=== PATIENT | male | born 1940 | race Two or more races ===

== ENCOUNTER → 2021-06-04 | Outpatient (CLI) | payer MEDICARE ==
--- NOTE | 2021-06-04 15:02 | CT ---
EXAMINATION TYPE: CT abdomen pelvis wo/w con DATE OF EXAM: 06/04/2021 COMPARISON: None HISTORY: Calculus of kidney, renal cyst CT DLP: 2646 mGycm Automated exposure control for dose reduction was used. CONTRAST: CT scan of the abdomen pelvis is performed without and with IV Contrast, patient injected with 100 ml mL of Isovue 300. FINDINGS- LUNG BASES- No significant abnormality is appreciated. LIVER/GB- No gross abnormality is appreciated. PANCREAS- No gross abnormality is seen. SPLEEN- No gross abnormality is seen. ADRENALS- No gross abnormality is seen. KIDNEYS/BLADDER-no hydronephrosis. There are 4 calcifications involving the left kidney the largest measuring 1 cm. Includes a renal pel vis calcification. There is a punctate 1 to 2 mm right mid pole renal calculus. There are numerous bladder calculi the largest measuring 1 cm. There are multiple bilateral low-density renal lesions some of which represent cortical cysts. Additi onal parapelvic renal cysts are noted. All are compatible with Bosniak classification benign simple c ysts with a 15 Hounsfield units or less measurement.. BOWEL-bowel gas pattern nonspecific and nonobstructive. Changes of diverticulosis noted. LYMPH NODES- No greater than 1cm abdominal or pelvic lymph nodes areappreciated. OSSEOUS STRUCTURES-hypertrophic and degenerative changes of the spine. Multilevel foraminal encroachm ent is suspected multilevel canal stenosis. OTHER- there is a infrarenal abdominal aortic aneurysm extending to the aortic bifurcation measuring 6 x 6 cm. No free fluid. Prostate is enlarged. Bilateral fat-containing inguinal hernia. IMPRESSION- 1. Bilateral renal lesions are most typical of Bosniak classification 1 simple renal cysts. Bilateral nonobstructing nephrolithiasis as discussed above. 2. Large infrarenal abdominal aortic aneurysm measuring 6 x 6 cm with extension to the aortic bifurca tion. Report called to referring clinician 06/04/2021 2:58 PM. 3. Diverticulosis with no CT evidence of diverticulitis. 4. Large bladder calculi. 5. Prostate hypertrophy.
== END | disposition home or self-care (01) ==
LOC: RADCTMAIN 12:26
PROVIDERS: ATTEND Family Medicine
DX: N20.0 Calculus of kidney (principal); N21.0 Calculus in bladder; N40.0 Benign prostatic hyperplasia without lower urinary tract symptoms; N28.1 Cyst of kidney, acquired; I71.4 Abdominal aortic aneurysm, without rupture; K57.30 Diverticulosis of large intestine without perforation or abscess without bleeding
CPT/HCPCS: 82565; 84520; 74178; 36415; Q9967

== ENCOUNTER → 2021-07-16 | Outpatient (CLI) | payer MEDICARE ==
--- NOTE | 2021-07-16 14:26 | CT ---
EXAMINATION TYPE: CT abdomen pelvis wo con DATE OF EXAM: 07/16/2021 HISTORY: AAA CT DLP: 856 mGycm. Automated Exposure Control for Dose Reduction was Utilized. TECHNIQUE: CT scan of the abdomen and pelvis is performed without oral or IV contrast. IV contrast c annot be given due to diminished renal function significant change from recent biopsy. COMPARISON: CT abdomen and pelvis June 04, 2021 FINDINGS: Within the limitations of a non-contrast study, the following observations are made. LUNG BASES: No significant abnormality is appreciated. LIVER/GB: No significant abnormality is appreciated. PANCREAS: No significant abnormality is seen. SPLEEN: No significant abnormality is seen. ADRENALS: No significant abnormality is seen. KIDNEYS: Persistent roughly 3 adjacent lower pole left renal calculi measuring up to 9 mm in size on axial image 39. Moderate left-sided hydronephrosis on current study due to obstructing 9 mm calculus proximal left ureter axial image 44. Prominence of the surrounding retroperitoneal fat redemonstrated . Several dependent intraluminal calculi in the bladder are again seen. Current study right kidney shows 3 mm calcification suspected vascular in etiology axial image 35 unc hanged in appearance from prior. There is a 3 mm nonobstructing calculus midpole level axial image 36 anteriorly that is stable. Stable central 5.1 cm thin-walled cyst right kidney. No hydronephrosis or obstructing right ureteral calculus currently. BOWEL: Suboptimal evaluation of bowel without enteric contrast. No suspicious small or large bowel di latation prominent diverticula on the left and sigmoid colon with mild left-sided pericolonic fat str anding. No free air. No well-formed fluid collection or drainable abscess. GENITAL ORGANS: Mildly enlarged prostate consistent with BPH redemonstrated. LYMPH NODES: No greater than 1cm abdominal or pelvic lymph nodes are appreciated. OSSEOUS STRUCTURES: Moderate to severe axial joint space loss in both hips. Grade 1 anterolisthesis L 4 on L5. Moderate disc space narrowing L5-S1 level. OTHER: Mild calcified plaque of the abdominal aorta with aneurysm. Stable 6.0 x 5.8 cm aneurysm axial image 41 from prior study over roughly 8 to 9 cm segment image 46. No extension into the iliac arter ies bilaterally. Moderate plaque extension along the common iliac arteries bilaterally. Small to mode rate-sized bilateral fat containing inguinal hernias. IMPRESSION: 1. Stable 6.0 cm distal AAA. 2. Diverticulosis left and sigmoid colon with new mild uncomplicated acute diverticulitis left lower quadrant. 3. Bilateral nephrolithiasis and bladder calculi redemonstrated. New 9mm calculus proximal left uret er causing moderate left-sided hydronephrosis. This may be accounting for the acute renal failure. Ad vise urology referral. Ordering physician does not utilize veriphy or perfectserve to send report. medicine technologist to inform ordering physician of results shortly after dictation completed.
== END | disposition home or self-care (01) ==
LOC: RADCTMAIN 11:42
PROVIDERS: ATTEND Surgery
DX: I71.4 Abdominal aortic aneurysm, without rupture (principal); K57.30 Diverticulosis of large intestine without perforation or abscess without bleeding; N20.0 Calculus of kidney; N21.0 Calculus in bladder; N13.30 Unspecified hydronephrosis
CPT/HCPCS: 36415; 74176; 82565; 84520

== ENCOUNTER 2021-07-17 16:19 | Inpatient (IN) | payer MEDICARE ==
[2021-07-17] MEDS ORDERED: MORPHINE SULFATE 2 MG/ML SYRINGE IVP STA (16:42)
[2021-07-17] MEDS ORDERED: hydrALAZINE HCL 20 MG/ML 1 ML VIAL IVP STA (16:53)
[2021-07-17] MEDS ORDERED: MORPHINE SULFATE 4 MG/ML SYRINGE IVP STA (16:53)
[2021-07-17 17:20] LABS: Calcium 9.2 mg/dL (8.4-10.2); Potassium 4.1 mmol/L (3.5-5.1); Total Bilirubin 0.7 mg/dL (0.2-1.3)
[2021-07-17 17:39] LABS: Amorphous Sediment,Urine Occasional /hpf; Appearance,Urine Clear (Clear); Bilirubin,Urine Negative (Negative); Blood,Urine Moderate (Negative); Color,Urine Yellow; Glucose,Urine (UA) Negative (Negative); Ketones,Urine 1+ (Negative); Leukocyte Esterase,Urine Trace (Negative); Mucus,Urine Rare /hpf; Nitrite,Urine Negative (Negative); PH, Urine 5.5 (5.0-8.0); Protein,Urine 1+ (Negative); RBC,Urine 27 /hpf (0-5); Specific Gravity,Urine 1.018 (1.001-1.035); Urobilinogen,Urine <2.0 mg/dL (<2.0); WBC,Urine 7 /hpf (0-5)
[2021-07-17] MEDS ORDERED: SODIUM CHLORIDE 0.9% 500 ML 500 ML IV STA (17:45)
[2021-07-17] MEDS ORDERED: cefTRIAXone IN SWFI 1,000 MG/10 ML SYRINGE IVP STA (17:59)
--- NOTE | 2021-07-17 18:03 | US ---
EXAMINATION TYPE: US renals and bladder DATE OF EXAM: 07/17/2021 COMPARISON: NONE CLINICAL HISTORY: evaluate for hydronephrosis. known nephrolithiasis. Evaluate for hydronephrosis, kn own nephrolithiasis. EXAM MEASUREMENTS: Right Kidney: 13.4 x 6.9 x 5.9 cm Left Kidney: 13.5 x 6.3 x 6.3 cm Right Kidney: Appears enlarged. Two anechoic areas seen. Larger area measures 4.1 x 5.1 x 6.2 cm. A dditionally, minimal anechoic dilated collecting system appearance throughout kidney. Left Kidney: Appears enlarged. Anechoic area seen measuring 2.0 x 2.0 x 2.8 cm. Additionally, there a ppears to be anechoic hydronephrosis appearance medially. Hyperechoic focus with posterior shadowing and twinkle artifact seen: 0.7 x 0.5 x 0.5 cm. Bladder: Hyperechoic foci seen within the bladder, largest cluster measures 2.0 x 2.3 x 1.3 cm. Bilateral Jets seen: Right jet seen. IMPRESSION: Bilateral renal enlargement. Multiple renal cysts. There is left-sided hydronephrosis that is not reanna nged compared to CT scan yesterday. There is right-sided ureteral jet demonstrated. Left side uretera l jet not demonstrated. There are echogenic foci with shadowing in the bladder consistent with multip le bladder calculi.
[2021-07-17 18:12] LABS: Basophils % (A) 0 %; Eosinophils # (A) 0.1 k/uL (0-0.7); Eosinophils % (A) 1 %; HCT 41.6 % (39.0-53.0); HGB 13.6 gm/dL (13.0-17.5); Lymphocytes # (A) 1.1 k/uL (1.0-4.8); Lymphocytes % (A) 11 %; MCHC 32.7 g/dL (31.0-37.0); MCV 94.9 fL (80.0-100.0); Mean Platelet Volume 9.6; Monocytes # (A) 0.6 k/uL (0-1.0); Monocytes % (A) 6 %; Neutrophils # (A) 7.8 k/uL (1.3-7.7); Neutrophils % (A) 81 %; Platelet Count 166 k/uL (150-450); RBC 4.39 m/uL (4.30-5.90); WBC 9.7 k/uL (3.8-10.6)
[2021-07-17] MEDS ORDERED: NALOXONE 0.4 MG/ML 1 ML VIAL IV PRN (18:31)
--- NOTE | 2021-07-17 18:46 | ED ---
General Adult HPI - General Chief complaint: Recheck/Abnormal Lab/Rx Stated complaint: High BP Time Seen by Provider: 07/17/21 16:29 Source: patient, RN notes reviewed, old records reviewed Mode of arrival: wheelchair Limitations: no limitations - History of Present Illness Initial comments: I evaluated the patient when he was placed in a room. Patient is an 81-year-old male with past medical history remarkable for hypertension, known abdominal aortic aneurysm, diabetes, hypertension, DVT and HE presents emergency Department due to hypertension at home. He has been told in the past to come to the emergency department if he has acute hypertension. This is due to his history of AAA. He just received a CT yesterday to evaluate the AAA as well as to evaluate for kidney stones. He does have signs of hydronephrosis as well as AK eye with an elevated creatinine based on labs and imaging from yesterday. He also has a stable 6 cm AAA. He has 2 imaging studies in the last 2 months ago showed similar findings. He is seeing Dr. Whitmore for his AAA. He currently denies chest pain, shortness breath, headache, weakness, numbness. He is on m ultiple blood pressure medications and states he was compliant with all none. Is endorsing some left flank pain which she has been experiencing prior to being diagnosed with a nephrolithiasis. He states this is unchanged over the last week or so. Denies any dysuria, hematuria. Denies any fevers, chills, cough. He has no other acute complaints at this time. He presents for his acute hypertension and concern for his AAA. Patient also has flank pain from his known nephrolithiasis. - Related Data Home Medications Medication Instructions Recorded Confirmed Apixaban [Eliquis] 5 mg PO BID 07/17/21 07/17/21 Enalapril [Vasotec] 5 mg PO DAILY 07/17/21 07/17/21 Ergocalciferol [Vitamin D2 (1250 1,250 mcg PO DEL ROSARIO 07/17/21 07/17/21 Mcg = 21580 Iu)] Escitalopram [Lexapro] 20 mg PO DAILY 07/17/21 07/17/21 Finasteride [Proscar] 5 mg PO DAILY 07/17/21 07/17/21 Losartan Potassium 100 mg PO DAILY 07/17/21 07/17/21 Metoprolol Succinate [Toprol XL] 25 mg PO DAILY 07/17/21 07/17/21 Repaglinide [Prandin] 2 mg PO DAILY 07/17/21 07/17/21 Simvastatin [Zocor] 40 mg PO HS 07/17/21 07/17/21 Tamsulosin HCl [Flomax] 0.4 mg PO BID 07/17/21 07/17/21 amLODIPine [Norvasc] 5 mg PO DAILY 07/17/21 07/17/21 metFORMIN HCL 500 mg PO BID 07/17/21 07/17/21 traZODone HCL [Desyrel] 100 mg PO HS 07/17/21 07/17/21 Allergies Allergy/AdvReac Type Severity Reaction Status Date / Time No Known Allergies Allergy Verified 07/17/21 18:08 Review of Systems ROS Statement: Those systems with pertinent positive or pertinent negative responses have been documented in the HPI. Review of Systems: CONST: Denies fever EYES: Denies blurry vision ENT: Denies nasal congestion C/V: Denies Chest pain RESP: Denies shortness of breath GI: Endorses left-sided flank pain. : Denies dysuria SKIN: Denies rash. MSK: Denies joint pain. NEURO: Denies headache ROS Other: All systems not noted in ROS Statement are negative. Past Medical History Past Medical History: Diabetes Mellitus, Hyperlipidemia, Hypertension Additional Past Medical History / Comment(s): aneurysm History of Any Multi-Drug Resistant Organisms: None Reported Past Surgical History: No Surgical Hx Reported Past Psychological History: No Psychological Hx Reported Smoking Status: Never smoker Past Alcohol Use History: None Reported Past Drug Use History: None Reported General Exam - General Exam Comments Initial Comments: General: Appears in no acute distress. HEAD: Normal with no signs of head trauma. EYES: PERRLA, EOMI, conjunctiva normal, no discharge. ENT: Hearing grossly intact, normal oropharynx. RESPIRATORY: Clear breath sounds bilaterally. No wheezes, rales, or rhonchi. C/V: Regular rate and rhythm. S1 and S2 auscultated, no edema, peripheral pulses 2+ and intact throughout ABD: Abdomen is soft. It is chronically distended somewhat. Nontender. No CVA tenderness to percussion. No rebound tenderness. No guarding. No peritoneal signs. EXT: Normal range of motion, no obvious deformity SKIN: No rashes or lesions observed on exposed skin. NEURO: Alert and oriented x 4. Cranial nerves II-XII intact. No focal sensory or strength deficits. Limitations: no limitations Course Vital Signs 07/17/21 07/17/21 07/17/21 16:21 17:19 18:45 Temperature 98.3 F Pulse Rate 83 70 76 Respiratory 20 18 18 Rate Blood Pressure 177/89 152/87 153/78 O2 Sat by Pulse 94 L 92 L 92 L Oximetry Medical Decision Making - Medical Decision Making Based on the patient's presentation and physical exam, I do suspect that his f lank pain is secondary to his nephrolithiasis. I am concerned for his current well-controlled hypertension as systolics at home when the 200s. In triage they were apparently 180. We will obtain basic labs, as well as a urinalysis to evaluate for signs of hydronephrosis her UTI. Renal ultrasound will be obtained. I completed a bedside FAST exam to evaluate for free fluid which was negative. Images were unable to be obtained as the prior was not working. Patient will be administered morphine for pain control and then reevaluated if he requires any antihypertensive medications. Patient was in agreement this plan. I low suspicion that the patient's AAA is the cause of his current symptoms, its he has had elevated blood pressures through the day today and his abdominal pain in the left flank is unchanged over the last week and is a known history of nephrolithiasis with imaging yesterday. Imaging yesterday showed a 6 cm stable AAA. He has large kidney stones to 9 mm on the left side with signs of hydronephrosis. Creatinine was 1.7 at that time as well, with a normal baseline. Patient's labs were remarkable for an AK I with BUNs of 28 and creatinine of 1.77. This is likely secondary to his nephrolithiasis and is likely post renal in nature. Urinalysis is concerning for possible mild UTI with 7 wbc's present as well as trace leukocyte esterase. Blood is present likely secondary to the nephrolithiasis. Patient will be given an empiric dose of Rocephin at this time and will be reevaluated by urology tomorrow. Patient's ultrasound revealed hydro-nephrosis on the left with bilateral renal enlargement. There are multiple renal cysts. There is no left-sided ureteral jet. There is left-sided hydronephrosis.Patient's hypertension is improved following analgesia. S ystolics around 150s which is appropriate. I spoke with the patient regarding his findings. I would like to admit him for his HUMBERTO in for evaluation by urology. He was in agreement this plan. I did speak with his vascular surgeon Dr. Whitmore over the phone who states patient can follow-up with him in his premade office visit next week. Urology Dr. Thapa was consulted to evaluate the patient. Patient's PCP is Dr. Perera who is currently being covered by Dr. Oleary. I spoke with Dr. Oleary and he accepted the patient. Patient will be admitted on an inpatient basis for further monitoring. - Lab Data Result diagrams: 07/17/21 17:00 07/17/21 17:00 Lab Results 07/17/21 07/17/21 07/17/21 Range/Units 17:00 17:00 17:00 WBC 9.7 (3.8-10.6) k/uL RBC 4.39 (4.30-5.90) m/uL Hgb 13.6 (13.0-17.5) gm/dL Hct 41.6 (39.0-53.0) % MCV 94.9 (80.0-100.0) fL MCH 31.0 (25.0-35.0) pg MCHC 32.7 (31.0-37.0) g/dL RDW 14.0 (11.5-15.5) % Plt Count 166 (150-450) k/uL MPV 9.6 Neutrophils % 81 % Lymphocytes % 11 % Monocytes % 6 % Eosinophils % 1 % Basophils % 0 % Neutrophils # 7.8 H (1.3-7.7) k/uL Lymphocytes # 1.1 (1.0-4.8) k/uL Monocytes # 0.6 (0-1.0) k/uL Eosinophils # 0.1 (0-0.7) k/uL Basophils # 0.0 (0-0.2) k/uL Sodium 139 (137-145) mmol/L Potassium 4.1 (3.5-5.1) mmol/L Chloride 108 H (98-107) mmol/L Carbon Dioxide 21 L (22-30) mmol/L Anion Gap 10 mmol/L BUN 28 H (9-20) mg/dL Creatinine 1.77 H (0.66-1.25) mg/dL Est GFR (CKD-EPI)AfAm 41 (>60 ml/min/1.73 sqM) Est GFR (CKD-EPI)NonAf 35 (>60 ml/min/1.73 sqM) Glucose 134 H (74-99) mg/dL Calcium 9.2 (8.4-10.2) mg/dL Total Bilirubin 0.7 (0.2-1.3) mg/dL AST 20 (17-59) U/L ALT 14 (4-49) U/L Alkaline Phosphatase 64 (38-126) U/L Total Protein 7.0 (6.3-8.2) g/dL Albumin 4.0 (3.5-5.0) g/dL Urine Color Yellow Urine Appearance Clear (Clear) Urine pH 5.5 (5.0-8.0) Ur Specific [place] 1.018 (1.001-1.035) Urine Protein 1+ H (Negative) Urine Glucose (UA) Negative (Negative) Urine Ketones 1+ H (Negative) Urine Blood Moderate H (Negative) Urine Nitrite Negative (Negative) Urine Bilirubin Negative (Negative) Urine Urobilinogen <2.0 (<2.0) mg/dL Ur Leukocyte Esterase Trace H (Negative) Urine RBC 27 H (0-5) /hpf Urine WBC 7 H (0-5) /hpf Amorphous Sediment Occasional H (None) /hpf Urine Mucus Rare H (None) /hpf - EKG Data -: EKG Interpreted by Me EKG Comments: 12-lead Electrocardiogram Interpretation Note EKG was reviewed and interpreted by myself. 12-lead ECG performed at 1634 is interpreted by me as revealing normal sinus rhythm at a rate of 81 beats per minute. [place] is normal. TN interval is 152 ms, QRS duration is 82 ms, QTc is 448 ms.. There were no ST or T wave abnormalities to suggest myocardial ische tin or injury. R wave progression across the precordium was satisfactory. By my interpretation this EKG is non-diagnostic for acute ischemia. Disposition Clinical Impression: Nephrolithiasis, Hydronephrosis, History of abdominal aortic aneurysm (AAA), Hypertension Disposition: ADMITTED IP TO THIS [facility] Condition: Serious
[2021-07-17] MEDS ORDERED: ALPRAZolam 0.25 MG TAB PO STA (18:49)
[2021-07-17] MEDS ORDERED: TEMAZEPAM 15 MG CAP PO PRN (18:58)
[2021-07-17] MEDS ORDERED: hydrALAZINE HCL 20 MG/ML 1 ML VIAL IVP PRN (18:58)
[2021-07-17] MEDS ORDERED: ALPRAZolam 1 MG TAB PO SCH (19:00)
[2021-07-17] MEDS: MORPHINE SULFATE 4 MG/ML SYRINGE IV PRN (19:28)
--- NOTE | 2021-07-17 20:31 | HP ---
HISTORY AND PHYSICAL I am covering for Dr. Perera. DATE OF SERVICE: 07/17/2021. CHIEF COMPLAINT: High blood pressure as well as abdominal pain. HISTORY OF PRESENT ILLNESS: This 81-year-old gentleman with a past medical history of diabetes mellitus, hypertension, hyperlipidemia, history of aortic aneurysm, being followed by Dr. Perera and Dr. Kovacs in the outpatient setting, has an abdominal aorta aneurysm which was 6 in size. The patient apparently lost his recently and the patient is under tremendous stress; and the blood pressure is fluctuating. Yesterday his blood pressure was 213 systolic. The patient also complains of left flank pain and left-sided abdominal pain. The patient came to [facility] and was admitted for further evaluation and treatment. The blood pressure is elevated at this time. Pulse ox 92%. Renal ultrasound was also done which showed bilateral renal enlargement, multiple renal cysts, and left-sided hydronephrosis that is unchanged from the CT scan yesterday, and the right-sided ureteral junction was also noted. The patient was admitted for further evaluation and treatment. The CT scan of the abdomen and pelvis which was done yesterday, which was reviewed personally by me, showed a stable 6 distal abdominal aortic aneurysm, diverticulosis and bilateral nephrolithiasis. There is no history of any fever, rigor or chills at this time. PAST MEDICAL HISTORY: History of diabetes mellitus, type 2, hypertension, hyperlipidemia, history of aortic aneurysm 6 cm, stable. HOME MEDICATIONS: Trazodone, metformin, Norvasc, Flomax, Zocor, triamterene, Toprol-XL, Losartan, Proscar, Lexapro, vitamin D2, Vasotec, Eliquis. Doses are reviewed. ALLERGIES: NONE. FAMILY HISTORY: No history of heart disease or strokes in the family. SOCIAL HISTORY: As mentioned earlier. No history of smoking. No history of alcohol intake. REVIEW OF SYSTEMS: ENT: No diminished hearing. No diminished vision. CARDIOVASCULAR SYSTEM: No angina, palpitations. RESPIRATORY SYSTEM: No cough, hemoptysis. GI: As mentioned earlier. : No dysuria. NERVOUS SYSTEM: No numbness, weakness. ALLERGY/IMMUNOLOGY: No asthma or hay fever. MUSCULOSKELETAL: As mentioned earlier. HEMATOLOGY/ONCOLOGY: No history of anemia. ENDOCRINE: As mentioned earlier. CONSTITUTIONAL: As mentioned earlier. DERMATOLOGY: Negative. RHEUMATOLOGY: Negative. PSYCHIATRY: As mentioned earlier. PHYSICAL EXAMINATION: Patient alert and oriented x3. Pulse 76, blood pressure 153/78, respiration 18, temperature 98.3, pulse ox 92% on room air. HEENT: Conjunctivae normal. Oral mucosa moist. NECK: No jugular venous distention. CARDIOVASCULAR: S1, S2 muffled. RESPIRATION: Breath sounds diminished at the bases. No rhonchi. No crackles. ABDOMEN: Soft, obese. Mild diffuse discomfort. No guarding. No rigidity. No mass palpable. No tenderness. Bowel sounds present. LEGS: No edema. No swelling. NERVOUS SYSTEM: Higher functions as mentioned earlier. Moves all 4 limbs. No focal motor or sensory deficit. LYMPHATICS: No lymph node palpable in neck, axillae or groin. SKIN: No ulcer, rash, bleeding. JOINTS: No active deforming arthropathy. LABS: CBC within normal limits. Sodium 139, potassium 4.1. UA shows some RBCs. ASSESSMENT: 1. Accelerated hypertension. 2. Left-sided abdominal pain with possible urolithiasis and hydronephrosis. 3. Abdominal aortic aneurysm, distal, 6 , stable. 4. Diverticulosis on the most recent CT scan. 5. Diabetes mellitus, type 2. 6. Hypertension. 7. Hyperlipidemia. 8. Social stressors. 9. FULL CODE. RECOMMENDATIONS AND DISCUSSION: In this 81-year-old gentleman who presented with multiple complex medical issues, we will monitor the patient closely, resume the home medications. Otherwise, monitor blood pressure closely. P.r.n. medications. Urology evaluation. Otherwise, we will follow the patient closely. I would also recommend Xanax. Repeat labs in the morning. Further recommendations to follow. Discussed with the patient, who understands and agrees. MMODL / IJN: [id number] / CAMILA
[2021-07-17] MEDS: LOSARTAN 50 MG TAB PO SCH (21:27)
[2021-07-17] MEDS: traZODone HCL 100 MG TAB PO SCH (21:27)
[2021-07-17] MEDS: PANTOPRAZOLE 40 MG TABLET PO SCH (21:27)
[2021-07-17] MEDS: TAMSULOSIN 0.4 MG CAP.ER.24H PO SCH (21:27)
[2021-07-17] MEDS: metFORMIN 500 MG TAB PO SCH (21:27)
[2021-07-17] MEDS: APIXABAN 5 MG TAB PO SCH (21:28)
[2021-07-18] MEDS: ALPRAZolam 0.25 MG TAB PO SCH ×5 (00:42→20:32)
[2021-07-18] MEDS: ATORVASTATIN 20 MG TAB PO SCH ×2 (00:42→20:23)
[2021-07-18 05:58] LABS: Basophils % (A) 0 %; Eosinophils # (A) 0.1 k/uL (0-0.7); Eosinophils % (A) 2 %; HCT 36.8 % (39.0-53.0); HGB 12.5 gm/dL (13.0-17.5); Lymphocytes # (A) 0.9 k/uL (1.0-4.8); Lymphocytes % (A) 14 %; MCH 31.6 pg (25.0-35.0); MCHC 33.9 g/dL (31.0-37.0); MCV 93.1 fL (80.0-100.0); Mean Platelet Volume 8.4; Monocytes # (A) 0.4 k/uL (0-1.0); Monocytes % (A) 6 %; Neutrophils # (A) 4.9 k/uL (1.3-7.7); Neutrophils % (A) 75 %; Platelet Count 150 k/uL (150-450); RBC 3.95 m/uL (4.30-5.90); RDW 14.4 % (11.5-15.5); WBC 6.5 k/uL (3.8-10.6)
[2021-07-18 07:29] LABS: Glucose,Whole Blood 113 mg/dL (75-99)
[2021-07-18] MEDS: PANTOPRAZOLE 40 MG TABLET PO SCH (08:07)
[2021-07-18] MEDS: lisinopriL 10 MG TAB PO SCH (08:08)
[2021-07-18] MEDS: metFORMIN 500 MG TAB PO SCH ×2 (08:08→20:23)
[2021-07-18] MEDS: METOPROLOL SUCCINATE (ER) 25 MG TAB.ER.24H PO SCH (08:08)
[2021-07-18] MEDS: APIXABAN 5 MG TAB PO SCH ×2 (08:08→20:23)
[2021-07-18] MEDS: TAMSULOSIN 0.4 MG CAP.ER.24H PO SCH ×2 (08:08→20:23)
[2021-07-18] MEDS: amLODIPine 5 MG TAB PO SCH (08:08)
[2021-07-18] MEDS: LOSARTAN 50 MG TAB PO SCH (08:08)
[2021-07-18] MEDS: NON FORMULARY DRUG (Repaglinide [Prandin] 2 MG Tablet) PO SCH (08:09)
[2021-07-18] MEDS: ESCITALOPRAM 20 MG TAB PO SCH (08:55)
[2021-07-18] MEDS: FINASTERIDE 5 MG TAB PO SCH (08:55)
[2021-07-18 09:06] LABS: African American GFR (CKD) 39.7 (60.0-200.0); Anion Gap 10.1 mmol/L (10.00-18.00); BUN/Creat Ratio 13.78 Ratio (12.00-20.00); Blood Urea Nitrogen 24.8 mg/dL (9.0-27.0); Calcium 8.3 mg/dL (8.7-10.3); Carbon Dioxide 21.9 mmol/L (20.0-27.5); Non-African American GFR(CKD) 34.3 (60.0-200.0); Potassium 4.2 mmol/L (3.5-5.5)
--- NOTE | 2021-07-18 12:04 | P.GSCN ---
History of Present Illness Consult date: 07/18/21 Reason for Consult: Left ureteral and renal calculi. Requesting physician: Vanessa Oleary History of present illness: The patient is an 81-year-old white male with a history of hypertension, abdominal aortic aneurysm, diabetes mellitus, hypertension, and recurrent DVT. He has recently experienced left flank discomfort for the past [address] scan shows evidence of left hydronephrosis due to a 9 mm left proximal ureteral calculus. Additionally seen are four left renal calculi measuring up to 12 mm in maximal diameter. He is currently comfortable. The patient has a history of an elevated PSA level, presumably due to BPH. He states that he is currently taking finasteride and his PSA level has normalized as a result of this. He was previously followed by Dr. Pickard, and more recently by Dr. Hitchcock. Review of Systems - Constitutional Denies chills, Denies fever - Cardiovascular Denies chest pain - Respiratory Denies dyspnea - Gastrointestinal Denies nausea, Denies vomiting - Genitourinary Reports flank pain, Reports hematuria, Reports kidney stones Past Medical History Past Medical History: Diabetes Mellitus, Hyperlipidemia, Hypertension Additional Past Medical History / Comment(s): aneurysm History of Any Multi-Drug Resistant Organisms: None Reported Past Surgical History: No Surgical Hx Reported Past Anesthesia/Blood Transfusion Reactions: No Reported Reaction Past Psychological History: No Psychological Hx Reported Smoking Status: Never smoker Past Alcohol Use History: None Reported Past Drug Use History: None Reported Medications and Allergies Home Medications Medication Instructions Recorded Confirmed Type Apixaban [Eliquis] 5 mg PO BID 07/17/21 07/17/21 History Enalapril [Vasotec] 5 mg PO DAILY 07/17/21 07/17/21 History Ergocalciferol [Vitamin D2 (1250 1,250 mcg PO DEL ROSARIO 07/17/21 07/17/21 History Mcg = 30464 Iu)] Escitalopram [Lexapro] 20 mg PO DAILY 07/17/21 07/17/21 History Finasteride [Proscar] 5 mg PO DAILY 07/17/21 07/17/21 History Losartan Potassium 100 mg PO DAILY 07/17/21 07/17/21 History Metoprolol Succinate [Toprol XL] 25 mg PO DAILY 07/17/21 07/17/21 History Repaglinide [Prandin] 2 mg PO DAILY 07/17/21 07/17/21 History Simvastatin [Zocor] 40 mg PO HS 07/17/21 07/17/21 History Tamsulosin HCl [Flomax] 0.4 mg PO BID 07/17/21 07/17/21 History amLODIPine [Norvasc] 5 mg PO DAILY 07/17/21 07/17/21 History metFORMIN HCL 500 mg PO BID 07/17/21 07/17/21 History traZODone HCL [Desyrel] 100 mg PO HS 07/17/21 07/17/21 History Allergies Allergy/AdvReac Type Severity Reaction Status Date / Time No Known Allergies Allergy Verified 07/17/21 18:08 Surgical - Exam Vital Signs Temp Pulse Resp BP Pulse Ox 98.3 F 83 20 177/89 94 L 07/17/21 16:21 07/17/21 16:21 07/17/21 16:21 07/17/21 16:21 07/17/21 16:21 - General well developed, well nourished, no distress - Respiratory normal respiratory effort - Abdomen Abdomen: soft, non tender, no guarding, no rigid, no rebound - Genitourinary normal penis with no external lesions, testicles non-tender - Psychiatric oriented to time, oriented to person, oriented to place, speech is normal, memory intact Results - Labs 07/18/21 05:30 07/18/21 05:30 Abnormal Lab Results - Last 24 Hours (Table) 07/17/21 07/17/21 07/17/21 Range/Units 17:00 17:00 17:00 RBC (4.30-5.90) m/uL Hgb (13.0-17.5) gm/dL Hct (39.0-53.0) % Neutrophils # 7.8 H (1.3-7.7) k/uL Lymphocytes # (1.0-4.8) k/uL Chloride 108 H (98-107) mmol/L Carbon Dioxide 21 L (22-30) mmol/L BUN 28 H (9-20) mg/dL Creatinine 1.77 H (0.66-1.25) mg/dL Glucose 134 H (74-99) mg/dL POC Glucose (mg/dL) (75-99) mg/dL Urine Protein 1+ H (Negative) Urine Ketones 1+ H (Negative) Urine Blood Moderate H (Negative) Ur Leukocyte Esterase Trace H (Negative) Urine RBC 27 H (0-5) /hpf Urine WBC 7 H (0-5) /hpf Amorphous Sediment Occasional H (None) /hpf Urine Mucus Rare H (None) /hpf 07/18/21 07/18/21 Range/Units 05:30 07:06 RBC 3.95 L (4.30-5.90) m/uL Hgb 12.5 L (13.0-17.5) gm/dL Hct 36.8 L (39.0-53.0) % Neutrophils # (1.3-7.7) k/uL Lymphocytes # 0.9 L (1.0-4.8) k/uL Chloride (98-107) mmol/L Carbon Dioxide (22-30) mmol/L BUN (9-20) mg/dL Creatinine (0.66-1.25) mg/dL Glucose (74-99) mg/dL POC Glucose (mg/dL) 113 H (75-99) mg/dL Urine Protein (Negative) Urine Ketones (Negative) Urine Blood (Negative) Ur Leukocyte Esterase (Negative) Urine RBC (0-5) /hpf Urine WBC (0-5) /hpf Amorphous Sediment (None) /hpf Urine Mucus (None) /hpf Diabetes panel 07/17/21 Range/Units 17:00 Sodium 139 (137-145) mmol/L Potassium 4.1 (3.5-5.1) mmol/L Chloride 108 H (98-107) mmol/L Carbon Dioxide 21 L (22-30) mmol/L BUN 28 H (9-20) mg/dL Creatinine 1.77 H (0.66-1.25) mg/dL Glucose 134 H (74-99) mg/dL Calcium 9.2 (8.4-10.2) mg/dL AST 20 (17-59) U/L ALT 14 (4-49) U/L Alkaline Phosphatase 64 (38-126) U/L Total Protein 7.0 (6.3-8.2) g/dL Albumin 4.0 (3.5-5.0) g/dL Calcium panel 07/17/21 Range/Units 17:00 Calcium 9.2 (8.4-10.2) mg/dL Albumin 4.0 (3.5-5.0) g/dL Pituitary panel 07/17/21 Range/Units 17:00 Sodium 139 (137-145) mmol/L Potassium 4.1 (3.5-5.1) mmol/L Chloride 108 H (98-107) mmol/L Carbon Dioxide 21 L (22-30) mmol/L BUN 28 H (9-20) mg/dL Creatinine 1.77 H (0.66-1.25) mg/dL Glucose 134 H (74-99) mg/dL Calcium 9.2 (8.4-10.2) mg/dL Adrenal panel 07/17/21 Range/Units 17:00 Sodium 139 (137-145) mmol/L Potassium 4.1 (3.5-5.1) mmol/L Chloride 108 H (98-107) mmol/L Carbon Dioxide 21 L (22-30) mmol/L BUN 28 H (9-20) mg/dL Creatinine 1.77 H (0.66-1.25) mg/dL Glucose 134 H (74-99) mg/dL Calcium 9.2 (8.4-10.2) mg/dL Total Bilirubin 0.7 (0.2-1.3) mg/dL AST 20 (17-59) U/L ALT 14 (4-49) U/L Alkaline Phosphatase 64 (38-126) U/L Total Protein 7.0 (6.3-8.2) g/dL Albumin 4.0 (3.5-5.0) g/dL - Imaging CT scan - abdomen: report reviewed, image reviewed US - kidney/bladder: report reviewed Assessment and Plan (1) Hydronephrosis with renal and ureteral calculous obstruction Current Visit: Yes Status: Acute Code(s): N13.2 - HYDRONEPHROSIS WITH RENAL AND URETERAL CALCULOUS OBSTRUCTION SNOMED Code(s): 036254453 (2) Nephrolithiasis Current Visit: Yes Status: Acute Code(s): N20.0 - CALCULUS OF KIDNEY SNOMED Code(s): 24836253 (3) Calculus of ureter Current Visit: Yes Status: Acute Code(s): N20.1 - CALCULUS OF URETER SNOMED Code(s): 91955266 Plan: I had a lengthy discussion with the patient and his son. I explained to them that the 9 mm left proximal ureteral calculus is unlikely to pass. We also discussed the fact that he has multiple left renal calculi. We discussed a left percutaneous nephrolithotomy, which would allow the advantage of complete removal of all calculi. However, this would require that he be off Ellik was for a prolonged period. ESWL is contraindicated in view of his 6 mm AAA. He wishes to approach this in the least invasive manner. I have suggested he undergo cystoscopy, left ureteroscopy with Holmium laser lithotripsy, left ureteral stent insertion. Only the ureteral calculus will be treated, and he is aware that he may require future treatment if one of his renal calculi migrate into the ureter. Potential risks associated with ureteroscopy and laser lithotripsy include anesthesia, bleeding, infection, ureteral injury, and inability to successfully remove the calculus. He understands the possible need for nephrostomy tube placement. I am hopeful that this can be performed tomorrow. Time with Patient: Greater than 30
[2021-07-18 12:16] LABS: Glucose,Whole Blood 157 mg/dL (75-99)
--- NOTE | 2021-07-18 16:48 | PN ---
PROGRESS NOTE I am covering for Dr. Perera. DATE OF SERVICE: 07/18/2021 This 81-year-old gentleman who was admitted with accelerated hypertension also had left- sided abdominal pain with left nephrolithiasis, and the patient apparently also had a UTI. The patient also had rigors and chills prior to the admission. No chest pain. No palpitations. No fever. PHYSICAL EXAMINATION: Alert and oriented x3. Pulse 73, blood pressure 154/69, respiration 18, temperature 98.2, pulse ox 94% on 2 L. HEENT: Conjunctivae normal. NECK: No jugular venous distention. CARDIOVASCULAR: S1, S2 muffled. RESPIRATION: Breath sounds diminished at the bases. ABDOMEN: Soft, nontender. No mass palpable. LEGS: No edema. No swelling. NERVOUS SYSTEM: No focal deficit. LABS: Creatinine is 1.8, hemoglobin 12.5. UA noted. ASSESSMENT: 1. Accelerated hypertension. 2. Left-sided abdominal pain, possibly nephrolithiasis and hydronephrosis. 3. Shaking chills, possible urinary tract infection. Rule out pyelo. 4. Abdominal aortic aneurysm, distal 6 cm stable. 5. Diverticulosis on the most recent CT scan. 6. Diabetes mellitus, type 2. 7. Hypertension. 8. Hyperlipidemia. 9. Social stressors. 10.FULL CODE. RECOMMENDATIONS AND DISCUSSION: I recommend to continue current medications, continue with symptomatic treatment. Otherwise at this time, I recommend empiric antibiotics. Follow closely with Nephrology. Guarded prognosis because of multiple complex medical issues. Further recommendations to follow. Will obtain the cultures also. MMODL / IJN: [id number] /
[2021-07-18 17:29] LABS: Glucose,Whole Blood 325 mg/dL (75-99)
[2021-07-18] MEDS: HYDROcodone/APAP 5-325MG 1 EACH TAB PO PRN (19:08)
[2021-07-18] MEDS: traZODone HCL 100 MG TAB PO SCH (20:33)
[2021-07-19 00:26] LABS: Glucose,Whole Blood 154 mg/dL (75-99)
[2021-07-19] MEDS: HYDROcodone/APAP 5-325MG 1 EACH TAB PO PRN (02:39)
[2021-07-19 07:38] LABS: Glucose,Whole Blood 130 mg/dL (75-99)
[2021-07-19] MEDS: ALPRAZolam 0.25 MG TAB PO SCH ×3 (08:20→21:45)
[2021-07-19] MEDS: METOPROLOL SUCCINATE (ER) 25 MG TAB.ER.24H PO SCH (08:20)
[2021-07-19] MEDS: amLODIPine 5 MG TAB PO SCH (08:20)
[2021-07-19] MEDS: lisinopriL 10 MG TAB PO SCH (08:20)
[2021-07-19] MEDS: TAMSULOSIN 0.4 MG CAP.ER.24H PO SCH ×2 (08:20→20:52)
[2021-07-19] MEDS: FINASTERIDE 5 MG TAB PO SCH (08:20)
[2021-07-19] MEDS: metFORMIN 500 MG TAB PO SCH ×2 (08:21→20:52)
[2021-07-19] MEDS: PANTOPRAZOLE 40 MG TABLET PO SCH (08:21)
[2021-07-19] MEDS: NON FORMULARY DRUG (Repaglinide [Prandin] 2 MG Tablet) PO SCH (08:21)
[2021-07-19] MEDS: ESCITALOPRAM 20 MG TAB PO SCH (08:21)
[2021-07-19] MEDS: LOSARTAN 50 MG TAB PO SCH (08:21)
[2021-07-19] MEDS: APIXABAN 5 MG TAB PO SCH (08:21)
--- NOTE | 2021-07-19 08:31 | XR ---
EXAMINATION TYPE: XR KUB DATE OF EXAM: 07/19/2021 Comparison: CT 07/16/2021 Clinical History: 81-year-old male Ureteral Calculus Findings: Supine imaging limited for assessment of free air. There are atherosclerotic aortic calcifications bu t the large AAA seen on CT is not appreciable radiographic leak. Nonobstructive bowel gas pattern. Mi ld stool burden. Left-sided renal calculi measuring 1.2 and 1.1 cm. 9 mm calcification in the left paramedian lower ab domen. Bladder calculi. A possible distal left ureteral calculus seen on the CT is not clearly demons trated radiographically. Possible nodular retrocardiac opacity. Degenerative changes mid to lower lumbar spine and left greater than right hips. Impression: 1. Possible nodular retrocardiac opacity. Contrast-enhanced CT of chest can be obtained when patient able to exclude a suspicious underlying pulmonary nodule. 2. Left-sided nephrolithiasis measuring up to 1.2 cm. 9 mm calculus proximal third left ureter. 3. Additional bladder calculi.
[2021-07-19 09:00] LABS: Basophils # (A) 0.04 X 10*3/uL (0.00-0.10); Basophils % (A) 0.7 %; Eosinophils % (A) 3.4 %; HCT 37.8 % (39.6-50.0); HGB 11.9 g/dL (13.0-17.0); Lymphocytes # (A) 1.15 X 10*3/uL (0.90-5.00); Lymphocytes % (A) 19.3 %; MCH 30.2 pg (27.0-32.0); MCHC 31.5 g/dL (32.0-37.0); MCV 95.9 fL (80.0-97.0); Mean Platelet Volume 10.9 fL (9.5-12.2); Monocytes # (A) 0.61 X 10*3/uL (0.20-1.00); Monocytes % (A) 10.3 %; Neutrophils % (A) 65.5 %; Platelet Count 140 X 10*3/uL (140-440); RBC 3.94 X 10*6/uL (4.40-5.60); RDW 13.7 % (11.5-14.5); WBC 5.95 X 10*3/uL (4.50-10.00)
[2021-07-19 09:23] LABS: African American GFR (CKD) 37.5 (60.0-200.0); Anion Gap 10.1 mmol/L (10.00-18.00); BUN/Creat Ratio 15.82 Ratio (12.00-20.00); Blood Urea Nitrogen 29.9 mg/dL (9.0-27.0); Calcium 8.5 mg/dL (8.7-10.3); Carbon Dioxide 21.5 mmol/L (20.0-27.5); Non-African American GFR(CKD) 32.3 (60.0-200.0); Potassium 4.2 mmol/L (3.5-5.5)
[2021-07-19 12:41] LABS: Glucose,Whole Blood 129 mg/dL (75-99)
[2021-07-19] MEDS ORDERED: LACTATED RINGERS 1,000 ML IV ONE (13:25)
[2021-07-19 13:47] LABS: Glucose,Whole Blood 132 mg/dL (75-99)
[2021-07-19] MEDS ORDERED: ePHEDrine 50 MG/ML 1 ML AMP ONE (14:06)
[2021-07-19] MEDS ORDERED: PROPOFOL 10 MG/ML 20 ML VIAL IV ONE (14:06)
[2021-07-19] MEDS ORDERED: SUCCINYLCHOLINE CHLORIDE 100 MG/5 ML SYR IV ONE (14:06)
[2021-07-19] MEDS ORDERED: GLYCOPYRROLATE 0.2 MG/ML 2 ML VIAL ONE (14:06)
[2021-07-19] MEDS ORDERED: NEOSTIGMINE 1 MG/ML 10 ML VIAL ONE (14:06)
[2021-07-19] MEDS ORDERED: ROCURONIUM 10 MG/ML (5 ML VIAL) IV ONE (14:06)
[2021-07-19] MEDS ORDERED: fentaNYL (PF) 50 MCG/ML 2 ML AMP ONE (14:06)
[2021-07-19] MEDS ORDERED: ONDANSETRON 4 MG/2 ML VIAL ONE (14:06)
[2021-07-19] MEDS ORDERED: LIDOCAINE 1% INJ 10MG/ML (20 ML MDV) ONE (14:06)
--- NOTE | 2021-07-19 16:41 | FL ---
Fluoroscopy HISTORY: Pain 56 seconds fluoroscopy time supplied to the referring clinician. 3 intraoperative C-arm images docum ent the procedure. See dictated report from urology.
[2021-07-19 16:43] LABS: Glucose,Whole Blood 124 mg/dL (75-99)
--- NOTE | 2021-07-19 18:47 | PN ---
PROGRESS NOTE I am covering for Dr. Perera. DATE OF SERVICE: 07/19/2021 This 81-year-old gentleman who was admitted with left-sided abdominal pain with nephrolithiasis and hydronephrosis and possible pyelonephritis underwent cystoscopy and stenting by Dr. Thapa. No chest pain. No palpitations. No fever. The patient also had blood pressure elevations. PHYSICAL EXAMINATION: Alert and oriented x3. Pulse 70, blood pressure 160/76, respirations 16, temperature 97.1, pulse ox 97% on 2 L. HEENT: Conjunctivae normal. NECK: No jugular venous distention. CARDIOVASCULAR: S1, S2 muffled. RESPIRATION: Breath sounds diminished at the bases. No rhonchi. No crackles. ABDOMEN: Soft, nontender. NERVOUS SYSTEM: No focal deficit. LABS: WBC 5.4, hemoglobin 11.9, and creatinine is 1.9. Glucose noted. ASSESSMENT: 1. Left-sided abdominal pain with possible nephrolithiasis and hydronephrosis, status post cystoscopy and ureteral stenting. 2. Shaking chills, possible urinary tract infection with acute pyelonephritis with sepsis, present on admission. 3. Accelerated hypertension. 4. Change in mental status, acute metabolic encephalopathy, multifactorial. 5. Aortic abdominal aortic aneurysm, 6 cm, stable. 6. Diverticulosis on the most recent CT scan. 7. Diabetes mellitus, type 2. 8. Hypertension. 9. Hyperlipidemia. 10.Social stressors. 11.FULL CODE. RECOMMENDATIONS AND DISCUSSION: I recommend to continue current medications, continue with the monitoring, symptomatic treatment. otherwise at this time I would continue the antibiotics. Repeat labs. Closely follow with Urology. Guarded prognosis. Further recommendations to follow. MMODL / IJN: [id number] /
--- NOTE | 2021-07-19 20:41 | P.OP ---
Date of Procedure: 07/19/21 Preoperative Diagnosis: Bladder calculi, left ureteral calculus Postoperative Diagnosis: Same Procedure(s) Performed: Cystoscopy, cystolithotripsy, left ureteroscopy with Holmium laser lithotripsy, left ureteral stent insertion [facility] Surgeon: Tony Thapa Estimated Blood Loss (ml): 20 IV fluids (ml): 600 Pathology: other (Calculus fragments, sent for chemical analysis) Condition: stable Disposition: PACU Indications for Procedure: The patient is an 81-year-old white male with a history of hypertension, abdominal aortic aneurysm, diabetes mellitus, hypertension, and recurrent DVT. He has recently experienced left flank discomfort for the past [address] scan shows evidence of left hydronephrosis due to a 9 mm left proximal ureteral calculus. Additionally seen are four left renal calculi measuring up to 12 mm in maximal diameter, as well as multiple bladder calculi. He has elected to undergo endoscopic removal of the bladder calculi and ureteral calculus. Operative Findings: Multiple bladder calculi measuring up to 2 cm in size, removed completely. Impacted left mid ureteral calculus, fragmented completely. Description of Procedure: The patient was taken to the operating room and placed in the dorsolithotomy position, with legs supported in Spencer stirrups. The external genitalia was prepped and draped sterilely. The 30 lens was used to introduce the 21-Singaporean Hale cystoscopic sheath through the urethra and into the bladder under direct vision. The prostatic urethra showed evidence of lateral lobe enlargement resulting in complete visual occlusion. The bladder was examined in its entirety. Both ureteral orifices were normal anatomic location and configuration, and clear urine effluxed from both. No tumors were seen. Several calculi measuring up to 2 cm in size were seen. The largest had the appearance of jackstones. An angle-tip 0.035 inch Glidewire was passed through the cystoscope. The left ureteral orifice was cannulated, and the Glidewire was advanced beyond the calculus and up to the renal pelvis. The cystoscope was removed, and an 11/13- Singaporean ureteral access catheter was passed over the wire, up to the calculus. The flexible ureteroscope was then passed through the ureteral access catheter sheath, up to the stone. The 272 micron Holmium laser probe was passed through the ureteroscope, and lithotripsy was performed. The calculus was impacted, but became dislodged and refluxed up to the renal pelvis. Lithotripsy was continued. Ultimately, the calculus ended up within an upper pole calyx where lithotripsy was completed. Primarily a dusting mode was used, and upon completion there were no residual calculus fragments exceeding the size of the laser fiber tip. The ureteroscope was slowly withdrawn under direct vision. Pullback ureteroscopy showed edema at the site of calculus impaction, but no evidence of ureteral trauma. The cystoscope was replaced into the bladder. The holmium laser was then used to fragment each of the bladder calculi, and all calculus fragments were removed. They were saved and sent for chemical analysis. There was no evidence of bladder trauma, and minimal bleeding. The Glidewire was then passed through the cystoscope. The left ureteral orifice was cannulated, and the Glidewire was advanced up to the left renal pelvis. A 26 cm, 4.8-Singaporean double-J ureteral stent was placed over the wire. Proper stent positioning was verified fluoroscopically and endoscopically. The bladder was emptied and the cystoscope removed. The string was left attached to the stent, and the string was taped to the patient's penis using a Tegaderm dressing. The patient tolerated the procedure well and was taken to the recovery room in stable condition. [facility] [place] [address] Report: Procedure Acuity: Urgent Stone Size and Location: 9 mm, left proximal ureter. Multiple bladder calculi measuring up to 2 cm. Ureteral Dilation: No Ureteral Access Sheath Used: Yes Stone Sent for Analysis: Yes All Stones/Fragments Were Removed with a Basket: No Complications: No Preoperative Antibiotics Given: Yes Stent Placed: Yes If Stent Placed, Was String Left Attached: Yes If Stent Placed, When is it to be Removed: 1 week Discharge Medications: Tamsulosin
[2021-07-19 20:52] LABS: Glucose,Whole Blood 189 mg/dL (75-99)
[2021-07-19] MEDS: ATORVASTATIN 20 MG TAB PO SCH (20:52)
[2021-07-19] MEDS: traZODone HCL 100 MG TAB PO SCH (20:53)
[2021-07-19] MEDS: MORPHINE SULFATE 4 MG/ML SYRINGE IV PRN (23:11)
[2021-07-20 07:23] LABS: Basophils % (A) 0 %; Eosinophils # (A) 0.2 k/uL (0-0.7); Eosinophils % (A) 5 %; HCT 35.1 % (39.0-53.0); HGB 12.1 gm/dL (13.0-17.5); Lymphocytes # (A) 0.9 k/uL (1.0-4.8); Lymphocytes % (A) 19 %; MCH 32.2 pg (25.0-35.0); MCHC 34.4 g/dL (31.0-37.0); MCV 93.4 fL (80.0-100.0); Mean Platelet Volume 8.5; Monocytes # (A) 0.3 k/uL (0-1.0); Monocytes % (A) 7 %; Neutrophils # (A) 3.3 k/uL (1.3-7.7); Neutrophils % (A) 68 %; Platelet Count 149 k/uL (150-450); RBC 3.75 m/uL (4.30-5.90); RDW 14.1 % (11.5-15.5); WBC 4.8 k/uL (3.8-10.6)
[2021-07-20 07:47] LABS: Glucose,Whole Blood 130 mg/dL (75-99)
[2021-07-20] MEDS: PANTOPRAZOLE 40 MG TABLET PO SCH (08:16)
[2021-07-20] MEDS: METOPROLOL SUCCINATE (ER) 25 MG TAB.ER.24H PO SCH (08:16)
[2021-07-20] MEDS: lisinopriL 10 MG TAB PO SCH (08:16)
[2021-07-20] MEDS: amLODIPine 5 MG TAB PO SCH (08:16)
[2021-07-20] MEDS: TAMSULOSIN 0.4 MG CAP.ER.24H PO SCH (08:16)
[2021-07-20] MEDS: FINASTERIDE 5 MG TAB PO SCH (08:16)
[2021-07-20] MEDS: metFORMIN 500 MG TAB PO SCH (08:16)
[2021-07-20] MEDS: LOSARTAN 50 MG TAB PO SCH (08:16)
[2021-07-20] MEDS: ALPRAZolam 0.25 MG TAB PO SCH (08:16)
[2021-07-20] MEDS: ESCITALOPRAM 20 MG TAB PO SCH (08:17)
[2021-07-20] MEDS: NON FORMULARY DRUG (Repaglinide [Prandin] 2 MG Tablet) PO SCH (08:18)
[2021-07-20 11:36] LABS: African American GFR (CKD) 64.9 (60.0-200.0); Anion Gap 9.2 mmol/L (10.00-18.00); BUN/Creat Ratio 18.42 Ratio (12.00-20.00); Blood Urea Nitrogen 22.1 mg/dL (9.0-27.0); Calcium 8.5 mg/dL (8.7-10.3); Carbon Dioxide 23.8 mmol/L (20.0-27.5); Potassium 4.6 mmol/L (3.5-5.5)
--- NOTE | 2021-07-20 12:56 | P.PN ---
Progress Note - Text Progress Note Date: 07/20/21 The patient underwent cystolithotripsy and removal of his left ureteral calculus yesterday. He developed urinary retention, requiring Quintanilla catheter insertion. He is now comfortable and wishes to be discharged home. He is afebrile with stable vital signs. I intend for him to be discharged home with the Quintanilla catheter, and follow up with me on July 23, at which time I will remove both the Quintanilla catheter and the ureteral stent.
[2021-07-20 13:09] LABS: Glucose,Whole Blood 208 mg/dL (75-99)
[2021-07-20 13:28] VITALS: BP 131/67; PULSE 57; RESP 18; TEMP 97.7
--- NOTE | 2021-07-24 22:49 | P.DS ---
Providers Date of admission: 07/17/21 18:31 Expected date of discharge: 07/20/21 Attending physician: Vanessa Oleary Consults: 07/17/21 18:32 Consult Physician Routine Consulting Provider: Tony Thapa Consult Reason/Comments: Nephrolithaisis, debra, concern for obstruction Do you want consulting provider notified?: Yes Primary care physician: Gini Perera Hospital Course: Final Diagnosis Left-sided abdominal pain with possible nephrolithiasis and hydronephrosis, status post cystoscopy and ureteral stenting Shaking chills, possibly urinary tract infection with acute pyelonephritis with sepsis, present on admission Accelerated hypertension Change in mental status, acute metabolic encephalopathy, multifactorial Aortic abdominal aneurysm 6 cm stable Diverticulosis on the most recent computed tomography scan Diabetes mellitus, type II Hypertension Hyperlipidemia Social stressors Full code Discharge disposition Patient is being discharged in a stable condition with guarded prognosis to home. Patient will follow-up with Dr. Perera in the outpatient setting upon discharge. Patient is to continue with also follow up with Urology as scheduled. Patient will continue Ceftin for 3 days to complete the course. Total time taken is greater than 35 minutes. Hospital course This is a 81 year-old male who was recently admitted left side abdominal pain and was evaluated by urology and underwent cystocopy and ureteral stenting. Possible urinary tract infection. Maintained on IV antibiotics and will give Ceftin 500mg BID for three days to complete the course. Abdominal pain improved. Patient would like to go home. Currently no reports of chest pain, shortness of breath, or palpitations. Patient is afebrile. No reports of nausea or vomiting and patient is tolerating diet. Patient will be discharged home today. Guarded prognosis. On exam vital signs are stable. Cardio S1, S2 are muffled. Respiratory system shows diminished breath sounds at the bases with no wheezing or rhonchi noted. Abdomen is soft and nontender. Nervous system shows no focal deficits. Please refer to medication reconciliation sheet for a list of medications. Patient Condition at Discharge: Stable Plan - Discharge Summary Discharge Rx Participant: No New Discharge Prescriptions: New Cefuroxime Axetil [Ceftin] 500 mg PO BID 3 Days #6 tab HYDROcodone/APAP 5-325MG [Quinwood 5-325] 1 each PO Q6HR PRN #6 tab PRN Reason: Moderate Pain Continue amLODIPine [Norvasc] 5 mg PO DAILY Apixaban [Eliquis] 5 mg PO BID Tamsulosin HCl [Flomax] 0.4 mg PO BID Finasteride [Proscar] 5 mg PO DAILY Simvastatin [Zocor] 40 mg PO HS Losartan Potassium 100 mg PO DAILY Escitalopram [Lexapro] 20 mg PO DAILY metFORMIN HCL 500 mg PO BID Repaglinide [Prandin] 2 mg PO DAILY Enalapril [Vasotec] 5 mg PO DAILY traZODone HCL [Desyrel] 100 mg PO HS Metoprolol Succinate [Toprol XL] 25 mg PO DAILY Ergocalciferol [Vitamin D2 (1250 Mcg = 40941 Iu)] 1,250 mcg PO DEL ROSARIO Discharge Medication List Apixaban [Eliquis] 5 mg PO BID 07/17/21 [History] Enalapril [Vasotec] 5 mg PO DAILY 07/17/21 [History] Ergocalciferol [Vitamin D2 (1250 Mcg = 71161 Iu)] 1,250 mcg PO DEL ROSARIO 07/17/21 [History] Escitalopram [Lexapro] 20 mg PO DAILY 07/17/21 [History] Finasteride [Proscar] 5 mg PO DAILY 07/17/21 [History] Losartan Potassium 100 mg PO DAILY 07/17/21 [History] Metoprolol Succinate [Toprol XL] 25 mg PO DAILY 07/17/21 [History] Repaglinide [Prandin] 2 mg PO DAILY 07/17/21 [History] Simvastatin [Zocor] 40 mg PO HS 07/17/21 [History] Tamsulosin HCl [Flomax] 0.4 mg PO BID 07/17/21 [History] amLODIPine [Norvasc] 5 mg PO DAILY 07/17/21 [History] metFORMIN HCL 500 mg PO BID 07/17/21 [History] traZODone HCL [Desyrel] 100 mg PO HS 07/17/21 [History] Cefuroxime Axetil [Ceftin] 500 mg PO BID 3 Days #6 tab 07/20/21 [Rx] HYDROcodone/APAP 5-325MG [Quinwood 5-325] 1 each PO Q6HR PRN #6 tab 07/20/21 [Rx] Follow up Appointment(s)/Referral(s): Tony Thapa MD [STAFF PHYSICIAN] - 07/23/21 8:00 am (please call for appointment on thursday07/22/21, officed closed on weekend at time of discharge.) Gini Perera DO [Primary Care Provider] - 1-2 days (please call for appointment on thursday07/22/21, officed closed on weekend at time of discharge.) Ambulatory/Diagnostic Orders: Complete Blood Count w/diff [LAB.AMB] Time Frame: 3 Days, Location: None Selected Patient Instructions/Handouts: Kidney Stones (DC), Quintanilla Catheter Placement and Care (DC), Hydronephrosis (DC) Activity/Diet/Wound Care/Special Instructions: *CBC lab work to be drawn on Thursday07/20/21 *Activity Limited until follow-up *Continue with medications as prescribed *Okay to resume Eliquis in 48 hours and monitor closely for any worsening signs of bleeding in the Quintanilla *follow up with primary care provider on discharge *continue with Indwelling Quintanilla catheter and follow-up with urology outpatient as discussed *Encourage oral intake and water *continue with consistent carbohydrate diet Discharge Disposition: HOME SELF-CARE
== END 2021-07-20 15:45 | disposition home or self-care (01) | DRG 853 ==
LOC: EC 16:19 → 5NMEDONC 18:31 → 6NMEDSUR 21:44 → 5NMEDONC 07-18 23:05
PROVIDERS: ADMIT Hospitalist; ATTEND Hospitalist
PROC: 8E0WXBG Computer Assisted Procedure of Trunk Region, With Computerized Tomography (ICD-10-PCS; 2021-07-19)
PROC: 0T778DZ Dilation of Left Ureter with Intraluminal Device, Via Natural or Artificial Opening Endoscopic (ICD-10-PCS; principal; 2021-07-19 10:55)
PROC: 0TC78ZZ Extirpation of Matter from Left Ureter, Via Natural or Artificial Opening Endoscopic (ICD-10-PCS; 2021-07-19 10:55)
PROC: 0T9B80Z Drainage of Bladder with Drainage Device, Via Natural or Artificial Opening Endoscopic (ICD-10-PCS; 2021-07-19 10:55)
DX: A41.9 Sepsis, unspecified organism (principal); G93.41 Metabolic encephalopathy; N13.6 Pyonephrosis; I10 Essential (primary) hypertension; Z20.822 Contact with and (suspected) exposure to COVID-19; E11.9 Type 2 diabetes mellitus without complications; E78.5 Hyperlipidemia, unspecified; I71.4 Abdominal aortic aneurysm, without rupture; N40.1 Benign prostatic hyperplasia with lower urinary tract symptoms; R33.8 Other retention of urine; K57.90 Diverticulosis of intestine, part unspecified, without perforation or abscess without bleeding; N28.1 Cyst of kidney, acquired; Z60.9 Problem related to social environment, unspecified; Z79.01 Long term (current) use of anticoagulants; Z79.84 Long term (current) use of oral hypoglycemic drugs; Z79.899 Other long term (current) drug therapy; Z86.79 Personal history of other diseases of the circulatory system; Z87.442 Personal history of urinary calculi; Z86.718 Personal history of other venous thrombosis and embolism
CPT/HCPCS: 36415; 74018; 76770; 80048; 80053; 81001; 82365; 85025; 87040; 87086; 87635; 93005; 96374; 99285

== ENCOUNTER → 2021-11-13 | Outpatient (CLI) | payer MEDICARE ==
[2021-11-13 18:27] LABS: Basophils # (A) 0.05 X 10*3/uL (0.00-0.10); Basophils % (A) 0.7 %; Eosinophils % (A) 2.9 %; HCT 45.3 % (39.6-50.0); HGB 14.2 g/dL (13.0-17.0); Immature Grans, Automated 1.9 %; Lymphocytes # (A) 1.81 X 10*3/uL (0.90-5.00); MCH 29.9 pg (27.0-32.0); MCHC 31.3 g/dL (32.0-37.0); MCV 95.4 fL (80.0-97.0); Mean Platelet Volume 11.4 fL (9.5-12.2); Monocytes # (A) 0.56 X 10*3/uL (0.20-1.00); Monocytes % (A) 8.1 %; NRBC Per 100 WBC 0 /100 WBCS (0.0-0.0); Neutrophils % (A) 60.4 %; Platelet Count 171 X 10*3/uL (140-440); RBC 4.75 X 10*6/uL (4.40-5.60); RDW 14.3 % (11.5-14.5); WBC 6.95 X 10*3/uL (4.50-10.00)
[2021-11-13 18:44] LABS: African American GFR (CKD) 55.3 (60.0-200.0); Anion Gap 12.5 mmol/L (10.00-18.00); Blood Urea Nitrogen 19.2 mg/dL (9.0-27.0); Carbon Dioxide 23.8 mmol/L (20.0-27.5); Non-African American GFR(CKD) 47.7 (60.0-200.0); Potassium 4.9 mmol/L (3.5-5.5)
== END | disposition home or self-care (01) ==
LOC: LABWHC1 12:23
PROVIDERS: ATTEND Surgery
DX: Z01.818 Encounter for other preprocedural examination (principal); I71.4 Abdominal aortic aneurysm, without rupture
CPT/HCPCS: 36415; 80051; 82565; 84520; 85025

== ENCOUNTER 2021-11-15 06:56 | Inpatient (IN) | payer MEDICARE ==
[2021-11-13 11:14] VITALS: BMI 31.2
[~2021-11-15 06:56] MED LIST: SODIUM CHLORIDE 0.9% 1,000 ML in EMPTY BAG 1 BAG IV ONE
[2021-11-15] MEDS ORDERED: ceFAZolin 1 GM in SODIUM CHLORIDE 0.9% 250 ML IRRIGATION PRN (07:00)
[2021-11-15] MEDS ORDERED: SODIUM CHLORIDE 0.9% 1,000 ML IV ONE ×2 (07:06→10:30)
[2021-11-15 07:25] LABS: Glucose,Whole Blood 191 mg/dL (75-99)
[2021-11-15 07:25] LABS: Basophils # (A) 0.1 k/uL (0-0.2); Basophils % (A) 1 %; Eosinophils # (A) 0.3 k/uL (0-0.7); Eosinophils % (A) 4 %; HCT 44.4 % (39.0-53.0); HGB 14.1 gm/dL (13.0-17.5); Lymphocytes # (A) 1.7 k/uL (1.0-4.8); Lymphocytes % (A) 25 %; MCH 29.9 pg (25.0-35.0); MCHC 31.8 g/dL (31.0-37.0); MCV 94.2 fL (80.0-100.0); Mean Platelet Volume 8.7; Monocytes # (A) 0.3 k/uL (0-1.0); Monocytes % (A) 4 %; Neutrophils # (A) 4.2 k/uL (1.3-7.7); Neutrophils % (A) 64 %; Platelet Count 135 k/uL (150-450); RBC 4.71 m/uL (4.30-5.90); RDW 14.3 % (11.5-15.5); WBC 6.6 k/uL (3.8-10.6)
[2021-11-15] MEDS ORDERED: ASPIRIN 81 MG ONE (07:38)
[2021-11-15 07:40] LABS: Calcium 8.8 mg/dL (8.4-10.2); Potassium 4.1 mmol/L (3.5-5.1)
[2021-11-15] MEDS ORDERED: LIDOCAINE 1% INJ 10MG/ML (20 ML MDV) ONE ×2 (08:21→08:52)
[2021-11-15] MEDS ORDERED: HEPARIN SODIUM,PORCINE 10,000 UNIT/ML 1 ML VIAL ONE (08:52)
[2021-11-15] MEDS ORDERED: ONDANSETRON 4 MG/2 ML VIAL ONE (08:52)
[2021-11-15] MEDS ORDERED: fentaNYL (PF) 50 MCG/ML 2 ML AMP ONE (08:52)
[2021-11-15] MEDS ORDERED: DEXAMETHASONE SOD PHOSPHATE 10 MG/ML 1 ML VIAL ONE (08:52)
[2021-11-15] MEDS ORDERED: HYDROmorphone (PF) 1 MG/ML ONE (08:52)
[2021-11-15] MEDS ORDERED: PROTAMINE SULFATE 10 MG/ML 5 ML VIAL IV ONE (08:52)
[2021-11-15] MEDS ORDERED: SODIUM CHLORIDE 0.9% 100 ML BAG ONE (08:52)
[2021-11-15] MEDS ORDERED: NEOSTIGMINE 1 MG/ML 10 ML VIAL ONE (08:52)
[2021-11-15] MEDS ORDERED: NALOXONE 0.4 MG/ML 1 ML VIAL ONE (08:52)
[2021-11-15] MEDS ORDERED: PROPOFOL 10 MG/ML 20 ML VIAL IV ONE (08:52)
[2021-11-15] MEDS ORDERED: ePHEDrine 50 MG/ML 1 ML VIAL ONE (08:52)
[2021-11-15] MEDS ORDERED: PHENYLEPHRINE-0.9% NACL SYG 1,000 MCG/10 ML SYRINGE ONE (08:52)
[2021-11-15] MEDS ORDERED: ceFAZolin 1,000 MG VIAL ONE (08:52)
[2021-11-15] MEDS ORDERED: MIDAZOLAM 2 MG/2 ML VIAL ONE (08:52)
[2021-11-15] MEDS ORDERED: ESMOLOL 100 MG/10 ML VIAL ONE (08:52)
[2021-11-15] MEDS ORDERED: SUCCINYLCHOLINE CHLORIDE 100 MG/5 ML SYR IV ONE (08:52)
[2021-11-15] MEDS ORDERED: GLYCOPYRROLATE 0.2 MG/ML 2 ML VIAL ONE (08:52)
[2021-11-15] MEDS ORDERED: ROCURONIUM 10 MG/ML (5 ML VIAL) IV ONE (08:52)
[2021-11-15] MEDS ORDERED: IOPAMIDOL-250 100ML BTL INTRAARTER ONE (11:37)
[2021-11-15] MEDS ORDERED: IOPAMIDOL-370 100ML BTL INJ ONE (11:37)
[2021-11-15] MEDS ORDERED: Acetaminophen-Codeine 300-30mg TAB PO PRN (12:04)
--- NOTE | 2021-11-15 12:16 | IR ---
EXAMINATION TYPE: IR stent intravas non coronary DATE OF EXAM: 11/15/2021 CLINICAL HISTORY: AAA. TECHNIQUE: Fluoroscopy. COMPARISON: None. FINDINGS: Fluoroscopic guidance was provided during abdominal aortic angiogram with stent insertion procedure performed by Dr. Kovacs. A total of 87 minutes of fluoroscopic time was utilized during the procedure and 339 spot images was acquired. Please refer to procedure note for further details as I was not present nor performed procedure. IMPRESSION: As Above.
[2021-11-15] MEDS ORDERED: HYDROmorphone 0.5 MG/0.5 ML SYRINGE IVP ONE (12:37)
[2021-11-15 12:57] LABS: Glucose,Whole Blood 254 mg/dL (75-99)
[2021-11-15] MEDS ORDERED: INSULIN ASPART (NovoLOG) 100 UNIT/ML VIAL SQ ONE (13:05)
--- NOTE | 2021-11-15 13:13 | P.OP ---
Date of Procedure: 11/15/21 Preoperative Diagnosis: 5.9 cm infrarenal abdominal aortic aneurysm. Postoperative Diagnosis: Same. Procedure(s) Performed: #1: Ultrasound-guided cannulation of the common femoral artery bilaterally. #2: Placement of aortobiiliac endograft. #3: Transcatheter delivery of enhanced fixation device. Implants: Endurate II S stent graft system. Anesthesia: GETA Surgeon: Karl Green Estimated Blood Loss (ml): 125 Pathology: none sent Condition: stable Disposition: other (Surgical telemetry) Indications for Procedure: Patient is a 81-year-old male who presented with a 5.9 cm infrarenal abdominal aortic aneurysm. This aneurysm was felt to be amenable to endo-grafting. We discussed endo-grafting versus open repair. Patient wished to proceed with endo-grafting. The procedure, risk and benefits were discussed. All questions were answered to patient's satisfaction. Description of Procedure: Patient was brought to the special procedure suite. He was Mr. general endotracheal anesthesia delivered by the department anesthesiology. Quintanilla catheter is placed to gravity drainage. The patient did receive 2 g of Ancef in the perioperative phase for prophylactic antibiotic therapy. Patient's abdomen, pelvis and anterior thighs were sterilely prepped and draped in the usual manner. Utilizing ultrasound the right common femoral artery was identified. A multipurpose needle was utilized to cannulate the artery. Once cannulated Softip guidewire is advanced into the artery. The needle was withdrawn and a 6- Mongolian sheath was placed. Thus currently 2 Perclose devices were deployed, one in the10 to 4 o'clock position and the second in the 2 to 8 o'clock position. A similar procedure was performed on the contralateral side. A Glidewire was advanced from the left femoral sheath over which a pigtail catheter was positioned at the L1 position. From the right sheath a Lunderquist wire was advanced and positioned at the aortic knob. Main body stent graft system measuring 36 x 14 x 103 mm was selected. The patient was systemically heparinized and ACT was drawn assuring adequate anticoagulation status. The stent graft was advanced from the right femoral artery. Angiogram was performed confirming the location of both right and left renal arteries. The main body stent graft was then partially deployed in the infrarenal position. From the left a Glidewire was utilized to replace the Lunderquist wire and the pigtail catheter removed. Angled glide catheter and guidewire were then utilized to cannulate the gate of the contralateral side. Once cannulated the glide catheter was then exchanged for the pigtail catheter and the pigtail catheter was spun within the body of the main stent graft system assuring intro graft placement. Left iliac angiogram was performed. The bifurcation of the common into the external and internal iliacs was noted. Stent graft measuring 16 x 20 x 156 mm was selected and successfully deployed. The remainder of the main body system was completely deployed. Marker pigtail catheter was advanced over the wire and a right iliac antrum was performed noting the bifurcation of the common into the external and internal iliac arteries. A stent graft limb measuring 16 x 20 x 124 mm was selected and successfully deployed. Utilizing a Coda balloon all areas of overlap and contact with the [place] arterial tree was then performed. Because the patient's anatomy was felt appropriate to utilize transcatheter delivery of enhance fixation device. This was performed with deploying a total of 5 Endo anchors. Completion and gram was then performed. This demonstrated no evidence of endoleak. With the above findings noted the sheath was removed from the right and the puncture wound closed with the aid of the previously placed Perclose sutures. A similar procedure was performed on the contralateral side. The patient was then administered 25 mg of protamine to help reverse the heparin effect. Pressure was held at each groin until all evidence of bleeding ceased. Patient tolerated procedure well. Palpable dorsalis pedis was noted on the left and the right foot was pink and warm. Patient was then transferred to the recovery area in satisfactory and stable condition. Total fluoroscopy time 31.6 minutes.
[2021-11-15 14:01] LABS: Glucose,Whole Blood 314 mg/dL (75-99)
[2021-11-15] MEDS: HYDROcodone/APAP 5-325MG 1 EACH TAB PO PRN (14:05)
[2021-11-15] MEDS: SODIUM CHLORIDE 0.9% 1,000 ML IV SCH (14:20)
[2021-11-15] MEDS ORDERED: HYDROmorphone 0.5 MG/0.5 ML SYRINGE IVP PRN (15:22)
[2021-11-15 16:24] LABS: Glucose,Whole Blood 323 mg/dL (75-99)
[2021-11-15] MEDS: ESCITALOPRAM 5 MG TAB PO SCH (17:00)
--- NOTE | 2021-11-15 17:29 | CONS ---
CONSULTATION DATE OF SERVICE: 11/15/2021 REASON FOR CONSULTATION: Advice regarding diabetes mellitus and other medical issues, requested by Dr. Kovacs. HISTORY OF PRESENT ILLNESS: This 81-year-old gentleman with a past medical history of multiple medical issues, including diabetes mellitus and DVT, being followed by Dr. Perera in the outpatient setting, underwent aortic stent insertion for abdominal aortic aneurysm. The patient tolerated the procedure well. The patient is being closely monitored at this time. The patient is complaining of pain, mostly related to the back pain the patient was already having. There is no history of any fever, rigors or chills, shortness of breath, hematochezia, melena. PAST MEDICAL HISTORY: Diabetes mellitus, DVT, DJD. HOME MEDICATIONS: Reviewed. They include aspirin, Prandin, Toprol-XL, losartan. Doses and other medications are reviewed. ALLERGIES: NONE. FAMILY HISTORY: No history of heart disease or strokes in the family. SOCIAL HISTORY: Previous history of smoking. REVIEW OF SYSTEMS: Fourteen-point review of systems negative except as mentioned earlier. PHYSICAL EXAMINATION: Pulse is 54, blood pressure 144/65, respiration 16. HEENT: Conjunctivae normal. NECK: No jugular venous distention. CARDIOVASCULAR: S1, S2 muffled. RESPIRATION: Breath sounds diminished at the bases. A few scattered rhonchi and crackles. ABDOMEN: Soft. Status post surgery. LEGS: No edema. No swelling. NERVOUS SYSTEM: No focal deficit. SKIN: No ulcer, rash, bleeding. LYMPHATICS: No lymph node palpable in neck, axillae or groin. LABS: Platelets are 135, creatinine 1.29. Glucose noted. ASSESSMENT: 1. Status post aortic stent insertion for abdominal aortic aneurysm. 2. Diabetes mellitus, type 2. 3. Hypertension. 4. History of deep vein thrombosis. 5. Hyperlipidemia. 6. History of degenerative joint disease and back pain. RECOMMENDATIONS AND DISCUSSION: In this 81-year-old gentleman who was admitted after surgery, at this time I recommend continuing with , continue with , resume the home medication. Accu-Cheks before meals and at bedtime. Insulin scale. DVT prophylaxis. Incentive spirometry. Pain management. Will follow the patient closely with Dr. Kovacs, and the patient may be asked to follow up with Dr. Perera after discharge. Thank you, Dr. Kovacs. MMODL / IJN: [id number] / CAMILA
[2021-11-15] MEDS: INSULIN ASPART (NovoLOG) 100 UNIT/ML VIAL SQ SCH ×2 (17:37→20:57)
[2021-11-15 20:47] LABS: Glucose,Whole Blood 214 mg/dL (75-99)
[2021-11-15] MEDS: FINASTERIDE 5 MG TAB PO SCH (20:55)
[2021-11-15] MEDS: LOSARTAN 50 MG TAB PO SCH (20:55)
[2021-11-15] MEDS: ASPIRIN 81 MG PO SCH (20:56)
[2021-11-15] MEDS: traZODone HCL 100 MG TAB PO SCH (20:56)
[2021-11-15] MEDS: amLODIPine 10 MG TAB PO SCH (20:56)
[2021-11-15] MEDS: TAMSULOSIN 0.4 MG CAP.ER.24H PO SCH (20:56)
[2021-11-15] MEDS: REPAGLINIDE 1 MG TAB PO SCH (20:57)
[2021-11-16] MEDS: HYDROcodone/APAP 5-325MG 1 EACH TAB PO PRN (04:45)
[2021-11-16] MEDS: SODIUM CHLORIDE 0.9% 1,000 ML IV SCH ×2 (06:30→20:58)
[2021-11-16 06:38] LABS: Glucose,Whole Blood 219 mg/dL (75-99)
[2021-11-16] MEDS: INSULIN ASPART (NovoLOG) 100 UNIT/ML VIAL SQ SCH ×4 (06:40→20:49)
[2021-11-16] MEDS: METOPROLOL SUCCINATE (ER) 25 MG TAB.ER.24H PO SCH (08:48)
[2021-11-16] MEDS: ESCITALOPRAM 5 MG TAB PO SCH (08:48)
[2021-11-16] MEDS: REPAGLINIDE 1 MG TAB PO SCH ×2 (08:48→20:51)
[2021-11-16] MEDS: ATORVASTATIN 80 MG TAB PO SCH (08:49)
[2021-11-16 09:55] LABS: Basophils % (A) 0 %; Eosinophils % (A) 0 %; HCT 32.1 % (39.0-53.0); Lymphocytes # (A) 0.9 k/uL (1.0-4.8); Lymphocytes % (A) 11 %; MCH 31.2 pg (25.0-35.0); MCHC 32.8 g/dL (31.0-37.0); Mean Platelet Volume 8.5; Monocytes # (A) 0.4 k/uL (0-1.0); Monocytes % (A) 5 %; Neutrophils % (A) 83 %; Platelet Count 110 k/uL (150-450); RBC 3.37 m/uL (4.30-5.90); RDW 14.7 % (11.5-15.5); WBC 8.4 k/uL (3.8-10.6)
[2021-11-16 10:03] LABS: Calcium 7.8 mg/dL (8.4-10.2); Potassium 4.2 mmol/L (3.5-5.1)
[2021-11-16 10:22] LABS: HGB 10.5 gm/dL (13.0-17.5)
--- NOTE | 2021-11-16 11:09 | P.PN ---
Subjective Progress Note Date: 11/16/21 Patient seen and examined. No complaints. Feeling tired overall. He has had multiple straight catheterizations overnight. States he recently was in the hospital with something similar and needed to go home with a urine bag Objective - Vital Signs Vital signs: Vital Signs Temp 97.8 F 11/16/21 08:51 Pulse 77 11/16/21 08:51 Resp 18 11/16/21 08:51 BP 104/57 11/16/21 08:51 Pulse Ox 97 11/16/21 08:51 Intake & Output 11/15/21 11/16/21 11/16/21 18:59 06:59 18:59 Intake Total 1640 1248 118 Output Total 600 Balance 1640 648 118 Weight 101.4 kg 103 kg Intake: IV 1400 Intake, IV Titration 748 Amount Sodium Chloride 0.9% 1, 748 000 ml @ 75 mls/hr IV . [id number] [facility] Rx#:[id number] Oral 240 500 118 Output: Urine 600 Uretheral (Quintanilla) 600 - Exam No acute distress resting comfortably. Bilateral groins are soft. Bilateral lower extremity are warm and dry - Labs CBC & Chem 7: 11/16/21 09:24 11/16/21 09:24 Labs: Abnormal Lab Results - Last 24 Hours (Table) 11/15/21 11/15/21 11/15/21 Range/Units 12:55 13:58 16:22 RBC (4.30-5.90) m/uL Hgb (13.0-17.5) gm/dL Hct (39.0-53.0) % Plt Count (150-450) k/uL Lymphocytes # (1.0-4.8) k/uL Sodium (137-145) mmol/L BUN (9-20) mg/dL Glucose (74-99) mg/dL POC Glucose (mg/dL) 254 H 314 H 323 H (75-99) mg/dL Calcium (8.4-10.2) mg/dL 11/15/21 11/16/21 11/16/21 Range/Units 20:22 06:36 09:24 RBC 3.37 L (4.30-5.90) m/uL Hgb 10.5 L D (13.0-17.5) gm/dL Hct 32.1 L (39.0-53.0) % Plt Count 110 L (150-450) k/uL Lymphocytes # 0.9 L (1.0-4.8) k/uL Sodium (137-145) mmol/L BUN (9-20) mg/dL Glucose (74-99) mg/dL POC Glucose (mg/dL) 214 H 219 H (75-99) mg/dL Calcium (8.4-10.2) mg/dL 11/16/21 Range/Units 09:24 RBC (4.30-5.90) m/uL Hgb (13.0-17.5) gm/dL Hct (39.0-53.0) % Plt Count (150-450) k/uL Lymphocytes # (1.0-4.8) k/uL Sodium 133 L (137-145) mmol/L BUN 24 H (9-20) mg/dL Glucose 262 H (74-99) mg/dL POC Glucose (mg/dL) (75-99) mg/dL Calcium 7.8 L (8.4-10.2) mg/dL Assessment and Plan Assessment: Postop repair abdominal aortic aneurysm with endovascular stent graft Urinary retention Plan: Continue trial void. Patient is on Flomax. Continue bladder scanning as needed. If he is unable to spontaneously void today, we'll plan for urology consult. We discussed her likely would need a catheter home-going however he would like to avoid this. If he is able to urinate and adequately move around, we'll plan to discharge later today
[2021-11-16 11:25] LABS: Glucose,Whole Blood 320 mg/dL (75-99)
[2021-11-16] MEDS ORDERED: Acetaminophen-Codeine 300-30mg TAB PO PRN ×2 (11:30→11:31)
[2021-11-16] MEDS: INSULIN DETEMIR (LEVEMIR) 100 UNIT/ML SYR SQ SCH ×2 (13:04→21:23)
[2021-11-16 16:14] LABS: Glucose,Whole Blood 142 mg/dL (75-99)
--- NOTE | 2021-11-16 16:35 | PN ---
PROGRESS NOTE DATE OF SERVICE: 11/16/2021 This 81-year-old gentleman who was admitted with abdominal aortic aneurysm also had some slightly elevated blood sugars. No chest pain. No palpitations. No fever. PHYSICAL EXAMINATION: Pulse 77, blood pressure 170/60, respiration 18. HEENT: Conjunctivae normal. CHEST: Clear to auscultation. CARDIOVASCULAR: S1, S2 muffled. ABDOMEN: Soft. NERVOUS SYSTEM: No focal deficit. LABS: Reviewed. Accu-Cheks 262. ASSESSMENT: 1. Status post aortic stent insertion and abdominal aortic aneurysm. 2. Diabetes mellitus, type 2, with hyperglycemia. 3. Hypertension. 4. History of deep vein thrombosis. 5. Hyperlipidemia. 6. History of degenerative joint disease and back pain. RECOMMENDATIONS AND DISCUSSION: I recommend to continue current medications, continue with the monitoring, symptomatic treatment. Otherwise, resume the home medications. Consistent-carb diet. Accu-Cheks before meals and at bedtime, results to primary physician. The patient is keen on going home. Further recommendations per Vascular Surgery. MMODL / IJN: [id number] /
[2021-11-16 20:26] LABS: Glucose,Whole Blood 188 mg/dL (75-99)
[2021-11-16] MEDS: FINASTERIDE 5 MG TAB PO SCH (20:47)
[2021-11-16] MEDS: amLODIPine 10 MG TAB PO SCH (20:48)
[2021-11-16] MEDS: APIXABAN 5 MG TAB PO SCH (20:48)
[2021-11-16] MEDS: ASPIRIN 81 MG PO SCH (20:48)
[2021-11-16] MEDS: traZODone HCL 100 MG TAB PO SCH (20:48)
[2021-11-16] MEDS: TAMSULOSIN 0.4 MG CAP.ER.24H PO SCH (20:48)
[2021-11-16] MEDS: LOSARTAN 50 MG TAB PO SCH (20:48)
[2021-11-17 00:12] LABS: Glucose,Whole Blood 231 mg/dL (75-99)
[2021-11-17] MEDS: INSULIN ASPART (NovoLOG) 100 UNIT/ML VIAL SQ SCH ×2 (06:11→12:32)
[2021-11-17 06:37] LABS: Glucose,Whole Blood 139 mg/dL (75-99)
[2021-11-17] MEDS: SODIUM CHLORIDE 0.9% 1,000 ML IV SCH (07:48)
[2021-11-17] MEDS ORDERED: ERGOCALCIFEROL 1,250 MCG (50,000 IU) CAPSULE PO SCH (09:00)
[2021-11-17] MEDS: ESCITALOPRAM 5 MG TAB PO SCH (09:29)
[2021-11-17] MEDS: ATORVASTATIN 80 MG TAB PO SCH (09:29)
[2021-11-17] MEDS: APIXABAN 5 MG TAB PO SCH (09:29)
[2021-11-17] MEDS: REPAGLINIDE 1 MG TAB PO SCH (09:29)
[2021-11-17] MEDS: METOPROLOL SUCCINATE (ER) 25 MG TAB.ER.24H PO SCH (09:30)
[2021-11-17 10:28] VITALS: PULSE 67; RESP 18
--- NOTE | 2021-11-17 10:55 | P.GSCN ---
History of Present Illness Consult date: 11/17/21 Reason for Consult: Urinary retention Requesting physician: Tangela Quintanilla History of present illness: The patient is an 81-year-old white male with history of BPH, elevated PSA (presumably secondary to BPH), and urolithiasis. He takes tamsulosin 0.8 mg and finasteride 5 mg daily. He underwent endovascular repair of a 5.9 cm abdominal aortic aneurysm on 11/15/2021. He has not been very ambulatory since the proced ure and he developed postoperative urinary retention. I am consulted for this reason. A Quintanilla catheter is in place. Review of Systems - Genitourinary Reports as per HPI Past Medical History Past Medical History: Diabetes Mellitus, Deep Vein Thrombosis (DVT), Hyperlipidemia, Hypertension, Osteoarthritis (OA) Additional Past Medical History / Comment(s): aneurysm, DVT x 2, kidney stones History of Any Multi-Drug Resistant Organisms: None Reported Past Surgical History: Back Surgery Additional Past Surgical History / Comment(s): "lumbar spine surgery", lithotripsy Past Anesthesia/Blood Transfusion Reactions: No Reported Reaction Smoking Status: Former smoker - Past Family History Mother Family Medical History: No Reported History Medications and Allergies Home Medications Medication Instructions Recorded Confirmed Type Apixaban [Eliquis] 5 mg PO BID 07/17/21 11/13/21 History Ergocalciferol [Vitamin D2 (1250 1,250 mcg PO DEL ROSARIO 07/17/21 11/15/21 History Mcg = 01627 Iu)] Finasteride [Proscar] 5 mg PO HS 07/17/21 11/15/21 History Losartan Potassium 100 mg PO HS 07/17/21 11/15/21 History Metoprolol Succinate [Toprol XL] 25 mg PO DAILY 07/17/21 11/15/21 History Repaglinide [Prandin] 2 mg PO BID 07/17/21 11/15/21 History Tamsulosin HCl [Flomax] 0.4 mg PO HS 07/17/21 11/15/21 History metFORMIN HCL 500 mg PO BID 07/17/21 11/15/21 History traZODone HCL [Desyrel] 200 mg PO HS 07/17/21 11/15/21 History Acetaminophen with Codeine 1 tab PO DIRECTED PRN 11/13/21 11/13/21 History [Tylenol w/Codeine #4 Tablet] Aspirin [Adult Low Dose Aspirin EC] 81 mg PO HS 11/13/21 11/15/21 History Atorvastatin [Lipitor] 80 mg PO DAILY 11/13/21 11/15/21 History Escitalopram [Lexapro] 5 mg PO DAILY 11/13/21 11/15/21 History amLODIPine [Norvasc] 10 mg PO HS 11/13/21 11/15/21 History Allergies Allergy/AdvReac Type Severity Reaction Status Date / Time No Known Allergies Allergy Verified 11/15/21 07:10 Surgical - Exam Vital Signs Temp Pulse Resp BP Pulse Ox 97.2 F L 68 16 146/78 95 11/15/21 08:01 11/15/21 08:01 11/15/21 08:01 11/15/21 08:01 11/15/21 08:01 - General well developed, well nourished, no distress - Respiratory normal respiratory effort - Abdomen Abdomen: soft, non tender, no guarding, no rigid, no rebound - Genitourinary normal penis with no external lesions, testicles non-tender - Psychiatric oriented to time, oriented to person, oriented to place, speech is normal, memory intact Results - Labs 11/16/21 09:24 11/16/21 09:24 Abnormal Lab Results - Last 24 Hours (Table) 11/16/21 11/16/21 11/16/21 Range/Units 09:24 09:24 09:24 RBC 3.37 L (4.30-5.90) m/uL Hgb 10.5 L D (13.0-17.5) gm/dL Hct 32.1 L (39.0-53.0) % Plt Count 110 L (150-450) k/uL Lymphocytes # 0.9 L (1.0-4.8) k/uL Sodium 133 L (137-145) mmol/L BUN 24 H (9-20) mg/dL Glucose 262 H (74-99) mg/dL POC Glucose (mg/dL) (75-99) mg/dL Hemoglobin A1c 8.5 H (0.0-6.0) % Calcium 7.8 L (8.4-10.2) mg/dL 11/16/21 11/16/21 11/16/21 Range/Units 11:21 16:12 20:14 RBC (4.30-5.90) m/uL Hgb (13.0-17.5) gm/dL Hct (39.0-53.0) % Plt Count (150-450) k/uL Lymphocytes # (1.0-4.8) k/uL Sodium (137-145) mmol/L BUN (9-20) mg/dL Glucose (74-99) mg/dL POC Glucose (mg/dL) 320 H 142 H 188 H (75-99) mg/dL Hemoglobin A1c (0.0-6.0) % Calcium (8.4-10.2) mg/dL 11/17/21 11/17/21 Range/Units 00:10 06:08 RBC (4.30-5.90) m/uL Hgb (13.0-17.5) gm/dL Hct (39.0-53.0) % Plt Count (150-450) k/uL Lymphocytes # (1.0-4.8) k/uL Sodium (137-145) mmol/L BUN (9-20) mg/dL Glucose (74-99) mg/dL POC Glucose (mg/dL) 231 H 139 H (75-99) mg/dL Hemoglobin A1c (0.0-6.0) % Calcium (8.4-10.2) mg/dL Diabetes panel 11/16/21 11/16/21 Range/Units 09:24 09:24 Sodium 133 L (137-145) mmol/L Potassium 4.2 (3.5-5.1) mmol/L Chloride 107 (98-107) mmol/L Carbon Dioxide 22 (22-30) mmol/L BUN 24 H (9-20) mg/dL Creatinine 1.16 (0.66-1.25) mg/dL Glucose 262 H (74-99) mg/dL Hemoglobin A1c 8.5 H (0.0-6.0) % Calcium 7.8 L (8.4-10.2) mg/dL Calcium panel 11/16/21 Range/Units 09:24 Calcium 7.8 L (8.4-10.2) mg/dL Pituitary panel 11/16/21 Range/Units 09:24 Sodium 133 L (137-145) mmol/L Potassium 4.2 (3.5-5.1) mmol/L Chloride 107 (98-107) mmol/L Carbon Dioxide 22 (22-30) mmol/L BUN 24 H (9-20) mg/dL Creatinine 1.16 (0.66-1.25) mg/dL Glucose 262 H (74-99) mg/dL Calcium 7.8 L (8.4-10.2) mg/dL Adrenal panel 11/16/21 Range/Units 09:24 Sodium 133 L (137-145) mmol/L Potassium 4.2 (3.5-5.1) mmol/L Chloride 107 (98-107) mmol/L Carbon Dioxide 22 (22-30) mmol/L BUN 24 H (9-20) mg/dL Creatinine 1.16 (0.66-1.25) mg/dL Glucose 262 H (74-99) mg/dL Calcium 7.8 L (8.4-10.2) mg/dL Assessment and Plan (1) Retention of urine, unspecified Current Visit: Yes Status: Acute Code(s): R33.9 - RETENTION OF URINE, UNSPECIFIED SNOMED Code(s): 654774778 Plan: I believe the urinary retention is due to several factors, including pre- existing BPH and limited mobility. I would suggest that Mr. Dan be discharged home with the Quintanilla catheter. He will continue to take his BPH med ications. I have instructed him to remove his Quintanilla catheter before bedtime on November 19 and follow up with me the following day to assess bladder emptying. Please notify me if I can be of any further assistance. Time with Patient: Greater than 30
[2021-11-17 11:10] LABS: Glucose,Whole Blood 159 mg/dL (75-99)
[2021-11-17 12:59] VITALS: BP 144/66; TEMP 98.5
--- NOTE | 2021-11-17 14:21 | P.DS ---
Providers Date of admission: 11/15/21 12:42 Attending physician: Karl Green DO Consults: 11/15/21 06:23 Consult to Anesthesia Routine Consulting Provider: Anesthesia,Services Consult Reason/Comments: General anesthesia for Aortic Stent procedure 11/15/21 12:39 Consult Physician Routine Consulting Provider: Vanessa Oleary Consult Reason/Comments: medical management Do you want consulting provider notified?: Yes Placement Type Exists?: Yes 11/16/21 13:46 Consult Physician Routine Consulting Provider: Tony Thapa Consult Reason/Comments: Urinary retention, cleary in place Do you want consulting provider notified?: Yes Primary care physician: [facility] Course: Patient was initially admitted for abdominal aortic aneurysm repair for which he underwent intervention without issue on 11/15/2021. Patient was seen on 11/16/2021. He was found to be in good and stable condition however unable to urinate spontaneously therefore urology was consulted. They are able to see him this morning on 11/17/2021 and he was cleared for discharge home with a leg bag. His instructions for this were given. Per records and nursing the patient is continuing to do well. He is ready to go home and feels he can accomplish his daily activities. Home-going instructions were given. He will see Dr. Kovacs in the office in approximately 1 week to 10 days. Plan - Discharge Summary Discharge Rx Participant: No New Discharge Prescriptions: No Action Apixaban [Eliquis] 5 mg PO BID Tamsulosin HCl [Flomax] 0.4 mg PO HS Finasteride [Proscar] 5 mg PO HS Acetaminophen with Codeine [Tylenol w/Codeine #4 Tablet] 1 tab PO DIRECTED PRN PRN Reason: Pain amLODIPine [Norvasc] 10 mg PO HS Aspirin [Adult Low Dose Aspirin EC] 81 mg PO HS Atorvastatin [Lipitor] 80 mg PO DAILY Escitalopram [Lexapro] 5 mg PO DAILY Losartan Potassium 100 mg PO HS metFORMIN HCL 500 mg PO BID Repaglinide [Prandin] 2 mg PO BID traZODone HCL [Desyrel] 200 mg PO HS Metoprolol Succinate [Toprol XL] 25 mg PO DAILY Ergocalciferol [Vitamin D2 (1250 Mcg = 66891 Iu)] 1,250 mcg PO DEL ROSARIO Discharge Medication List Apixaban [Eliquis] 5 mg PO BID 07/17/21 [History] Ergocalciferol [Vitamin D2 (1250 Mcg = 03004 Iu)] 1,250 mcg PO DEL ROSARIO 07/17/21 [History] Finasteride [Proscar] 5 mg PO HS 07/17/21 [History] Losartan Potassium 100 mg PO HS 07/17/21 [History] Metoprolol Succinate [Toprol XL] 25 mg PO DAILY 07/17/21 [History] Repaglinide [Prandin] 2 mg PO BID 07/17/21 [History] Tamsulosin HCl [Flomax] 0.4 mg PO HS 07/17/21 [History] metFORMIN HCL 500 mg PO BID 07/17/21 [History] traZODone HCL [Desyrel] 200 mg PO HS 07/17/21 [History] Acetaminophen with Codeine [Tylenol w/Codeine #4 Tablet] 1 tab PO DIRECTED PRN 11/13/21 [History] Aspirin [Adult Low Dose Aspirin EC] 81 mg PO HS 11/13/21 [History] Atorvastatin [Lipitor] 80 mg PO DAILY 11/13/21 [History] Escitalopram [Lexapro] 5 mg PO DAILY 11/13/21 [History] amLODIPine [Norvasc] 10 mg PO HS 11/13/21 [History] Follow up Appointment(s)/Referral(s): Tony Thapa MD [STAFF PHYSICIAN] - 11/20/21 Karl Green DO [Doctor of Osteopathic Medicine] - 1 Week Patient Instructions/Handouts: Urinary Leg Bag (GEN), Cleary Catheter Removal (DC), How to Change a Catheter Drainage Bag (DC) Activity/Diet/Wound Care/Special Instructions: Patient to call Dr. Thapa' office and schedule an appointment on 11/20/2021. Instruct him to remove Cleary catheter before bedtime on 11/19/2021. Discharge Disposition: HOME SELF-CARE
--- NOTE | 2021-11-17 17:15 | PN ---
PROGRESS NOTE DATE OF SERVICE: 11/17/2021 This 81-year-old gentleman admitted after aortic stent for abdominal aortic aneurysm is being closely monitored. Patient had urinary retention. Urology has seen the patient. No chest pain. No palpitations. No fever. PHYSICAL EXAMINATION: Pulse 67, blood pressure 144/66, respiration 18. CHEST: Clear to auscultation. CARDIOVASCULAR: S1, S2 normal. ABDOMEN: Soft, nontender. NERVOUS SYSTEM: No focal deficits. LABS: Reviewed. ASSESSMENT: 1. Status post aortic stent insertion as well as abdominal aortic aneurysm. 2. Diabetes mellitus, type 2, with hyperglycemia. 3. Hypertension. 4. History of deep vein thrombosis. 5. Hyperlipidemia. 6. History of degenerative joint disease as well as back pain. RECOMMENDATIONS AND DISCUSSION: I recommend to continue current medications, continue with the monitoring, symptomatic treatment. Otherwise, if the patient is discharged home, I would recommend close monitoring of the blood sugars at home as well as incentive spirometry. Closely follow with the primary physician. Rest of the recommendations per Surgery. Further recommendations to follow. MMODL / IJN: [id number] /
== END 2021-11-17 17:01 | disposition home or self-care (01) | DRG 269 ==
LOC: CATHCVL 06:56 → 3SCARD 11:37 → CATHCVL 12:42 → 3SCARD 12:42
PROVIDERS: ADMIT Surgery; ATTEND Surgery
PROC: 04V03DZ Restriction of Abdominal Aorta with Intraluminal Device, Percutaneous Approach (ICD-10-PCS; principal; 2021-11-15 08:30)
DX: I71.4 Abdominal aortic aneurysm, without rupture (principal); R33.8 Other retention of urine; E11.65 Type 2 diabetes mellitus with hyperglycemia; E78.5 Hyperlipidemia, unspecified; M19.90 Unspecified osteoarthritis, unspecified site; I10 Essential (primary) hypertension; F32.A Depression, unspecified; N40.1 Benign prostatic hyperplasia with lower urinary tract symptoms; Z87.891 Personal history of nicotine dependence; Z87.442 Personal history of urinary calculi; Z86.718 Personal history of other venous thrombosis and embolism; Z79.899 Other long term (current) drug therapy; Z79.84 Long term (current) use of oral hypoglycemic drugs; Z79.82 Long term (current) use of aspirin; Z79.01 Long term (current) use of anticoagulants; Z98.890 Other specified postprocedural states
CPT/HCPCS: 34705; 80048; 83036; 85025; 86850; 86900; 86901; 94760

== ENCOUNTER → 2021-12-19 | Outpatient (CLI) | payer MEDICARE ==
--- NOTE | 2021-12-19 22:15 | CT ---
EXAMINATION TYPE: CT angio abdomen pelvis DATE OF EXAM: 12/19/2021 COMPARISON: CT abdomen/pelvis 09/15/2020 HISTORY: Abdominal aortic aneurysm CT DLP: 2189.4 mGycm. Automated Exposure Control for Dose Reduction was Utilized. TECHNIQUE: Multiple contiguous axial CT images of the abdomen and pelvis were obtained from the lung bases through the pubic symphysis without and with IV Contrast, patient injected with 80 mL of Isovue 370. 2-D sagittal and coronal reformatted images were obtained. 3-D post processing reconstructed images were performed on an independent workstation under concurren t supervision for better evaluation of the vasculature. FINDINGS: Interval placement of aortic biiliac stent graft originating between the origins of the superior mese nteric artery and the renal arteries extending into the common iliac arteries. The stent graft appear s patent. There is no associated contrast extravasation or enhancement within the [place] aneurysm. Mild atherosclerotic vascular calcifications at the origins of the celiac axis and superior mesenteri c artery without luminal narrowing. Inferior mesenteric artery is opacified originating from the karina ve aneurysm. Moderate atherosclerotic vascular calcifications of the origins of the renal arteries which demonstra te mild to moderate luminal narrowing. Moderate atherosclerotic vascular calcifications of the external iliac arteries, internal iliac arter ies, common femoral arteries, and superficial femoral arteries without high-grade luminal narrowing. Lung bases are clear. Liver, spleen, pancreas, and bilateral adrenal glands have an unremarkable enhanced appearance. Gallbladder is present. No definite intrahepatic or extrahepatic biliary ductal dilatation. Kidneys are symmetric in size without hydronephrosis. There multiple well-circumscribed renal cysts b ilaterally the largest measuring 6 cm on the right. There are nonobstructing calculi bilaterally the largest on the left measures roughly 11 mm. Urinary bladder appears unremarkable. Moderate enlargement of the prostate gland. No free fluid. Visualized bowel is of normal caliber without evidence of obstruction. No significant mesenteric infl ammation. Advanced burden of distal colonic diverticulosis without adjacent inflammatory changes. Patty endix appears unremarkable. No free air. No intra-abdominal or retroperitoneal lymphadenopathy. Subcutaneous soft tissues appear unremarkable. Osseous structures appear intact. Mild to moderate multilevel degenerative changes of the visualized thoracolumbar spine most pronounced at the level of L5-S1. Moderate degenerative changes of the bila teral hips. IMPRESSION: 1. Interval placement of aortic biiliac stent graft. No contrast extravasation outside the stent julia t. No contrast enhancement of the [place] aneurysm. 2. Scattered atherosclerotic vascular calcifications of the aortic branches without high-grade lumina l narrowing.
== END | disposition home or self-care (01) ==
LOC: RADCTMAIN 06:29
PROVIDERS: ATTEND Surgery
DX: I70.0 Atherosclerosis of aorta (principal); Z95.828 Presence of other vascular implants and grafts
CPT/HCPCS: 82565; 84520; 36415; 74174; Q9967

== ENCOUNTER 2022-06-21 02:48 | Inpatient (IN) | payer MEDICARE ==
[2022-06-21] MEDS ORDERED: MORPHINE SULFATE 4 MG/ML SYRINGE IV STA (03:00)
[2022-06-21] MEDS ORDERED: PANTOPRAZOLE 40 MG/10 ML VIAL IVP STA (03:00)
[2022-06-21] MEDS ORDERED: ONDANSETRON 4 MG/2 ML VIAL IVP STA (03:00)
[2022-06-21] MEDS ORDERED: SODIUM CHLORIDE 0.9% 1,000 ML IV STA (03:00)
[2022-06-21] MEDS ORDERED: SODIUM CHLORIDE 0.9% 500 ML 500 ML IV STA (03:00)
--- NOTE | 2022-06-21 03:01 | ED ---
Nausea/Vomiting/Diarrhea HPI - General Chief complaint: Nausea/Vomiting/Diarrhea Stated complaint: Shaking, Vomiting Time Seen by Provider: 06/21/22 02:51 Source: patient, RN notes reviewed, old records reviewed Mode of arrival: wheelchair Limitations: no limitations - History of Present Illness Initial comments: This is an 82-year-old male to the emergency department for evaluation patient resents today for evaluation regarding nausea vomiting weakness not feeling well. Patient is states he began shaking and shaking uncontrollably which made her nervous and brought in the emergency prior. Patient does admit to anxiety regarding shortness of breath no chest pain no abdominal pain. MD complaint: nausea, vomiting -: hour(s) Description of Vomiting: food contents, watery Associated Abdominal Pain: No Severity: mild Severity scale (1-10): 3 Consistency: intermittent, now resolved Improves with: vomiting Worsens with: none Context: other (0) Associated Symptoms: nausea/vomiting, weakness - Related Data Home Medications Medication Instructions Recorded Confirmed Apixaban [Eliquis] 5 mg PO BID 07/17/21 11/13/21 Ergocalciferol [Vitamin D2 (1250 1,250 mcg PO DEL ROSARIO 07/17/21 11/15/21 Mcg = 71446 Iu)] Finasteride [Proscar] 5 mg PO HS 07/17/21 11/15/21 Losartan Potassium 100 mg PO HS 07/17/21 11/15/21 Metoprolol Succinate [Toprol XL] 25 mg PO DAILY 07/17/21 11/15/21 Repaglinide [Prandin] 2 mg PO BID 07/17/21 11/15/21 Tamsulosin HCl [Flomax] 0.4 mg PO HS 07/17/21 11/15/21 metFORMIN HCL 500 mg PO BID 07/17/21 11/15/21 traZODone HCL [Desyrel] 200 mg PO HS 07/17/21 11/15/21 Acetaminophen with Codeine 1 tab PO DIRECTED PRN 11/13/21 11/13/21 [Tylenol w/Codeine #4 Tablet] Aspirin [Adult Low Dose Aspirin EC] 81 mg PO HS 11/13/21 11/15/21 Atorvastatin [Lipitor] 80 mg PO DAILY 11/13/21 11/15/21 Escitalopram [Lexapro] 5 mg PO DAILY 11/13/21 11/15/21 amLODIPine [Norvasc] 10 mg PO HS 11/13/21 11/15/21 Allergies Allergy/AdvReac Type Severity Reaction Status Date / Time No Known Allergies Allergy Verified 06/21/22 02:52 Review of Systems ROS Statement: Those systems with pertinent positive or pertinent negative responses have been documented in the HPI. ROS Other: All systems not noted in ROS Statement are negative. Past Medical History Past Medical History: Diabetes Mellitus, Deep Vein Thrombosis (DVT), Hyperlipidemia, Hypertension, Osteoarthritis (OA) Additional Past Medical History / Comment(s): aneurysm, DVT x 2, kidney stones History of Any Multi-Drug Resistant Organisms: None Reported Past Surgical History: Back Surgery Additional Past Surgical History / Comment(s): "lumbar spine surgery", lithotripsy,AAA repair Past Anesthesia/Blood Transfusion Reactions: No Reported Reaction Past Psychological History: Depression Smoking Status: Former smoker Past Alcohol Use History: None Reported Past Drug Use History: None Reported - Past Family History Mother Family Medical History: No Reported History General Exam Limitations: no limitations General appearance: alert, in no apparent distress, anxious Head exam: Present: atraumatic, normocephalic, normal inspection Eye exam: Present: normal appearance, PERRL, EOMI. Absent: scleral icterus, conjunctival injection, periorbital swelling ENT exam: Present: normal exam, mucous membranes dry Neck exam: Present: normal inspection. Absent: tenderness, meningismus, lymphadenopathy Respiratory exam: Present: normal lung sounds bilaterally. Absent: respiratory distress, wheezes, rales, rhonchi, stridor Cardiovascular Exam: Present: normal rhythm, tachycardia, normal heart sounds. Absent: systolic murmur, diastolic murmur, rubs, gallop, clicks GI/Abdominal exam: Present: soft, normal bowel sounds. Absent: distended, tenderness, guarding, rebound, rigid Extremities exam: Present: normal inspection, full ROM, normal capillary refill. Absent: tenderness, pedal edema, joint swelling, calf tenderness Back exam: Present: normal inspection Neurological exam: Present: alert, oriented X3, CN II-XII intact Psychiatric exam: Present: normal affect, normal mood Skin exam: Present: warm, dry, intact, normal color. Absent: rash Course Vital Signs 06/21/22 02:52 Temperature 98.1 F Pulse Rate 126 H Respiratory 26 H Rate Blood Pressure 138/73 O2 Sat by Pulse 95 Oximetry - Reevaluation(s) Reevaluation #1: 06/21/22 05:53 Medical records reviewed Reevaluation #2: 06/21/22 05:53 Patient symptoms improved here in the emergency department Reevaluation #3: 06/21/22 05:53 Patient informed results and questions answered Medical Decision Making - Medical Decision Making 82 male to the emergency department for evaluation of an episode of weakness nausea vomiting. Patient symptoms resolved on arrival to emergency department. Patient feeling improved here in the ER can be discharged home - Lab Data Result diagrams: 06/21/22 03:18 06/21/22 03:18 Lab Results 06/21/22 06/21/22 06/21/22 Range/Units 03:10 03:18 03:18 WBC 6.5 (3.8-10.6) k/uL RBC 4.17 L (4.30-5.90) m/uL Hgb 12.9 L (13.0-17.5) gm/dL Hct 38.6 L (39.0-53.0) % MCV 92.4 (80.0-100.0) fL MCH 30.8 (25.0-35.0) pg MCHC 33.3 (31.0-37.0) g/dL RDW 14.5 (11.5-15.5) % Plt Count 133 L (150-450) k/uL MPV 10.2 Neutrophils % 83 % Lymphocytes % 8 % Monocytes % 5 % Eosinophils % 1 % Basophils % 0 % Neutrophils # 5.4 (1.3-7.7) k/uL Lymphocytes # 0.6 L (1.0-4.8) k/uL Monocytes # 0.4 (0-1.0) k/uL Eosinophils # 0.1 (0-0.7) k/uL Basophils # 0.0 (0-0.2) k/uL Sodium 136 L (137-145) mmol/L Potassium 4.7 (3.5-5.1) mmol/L Chloride 107 (98-107) mmol/L Carbon Dioxide 15 L (22-30) mmol/L Anion Gap 14 mmol/L BUN 27 H (9-20) mg/dL Creatinine 1.24 (0.66-1.25) mg/dL Est GFR (CKD-EPI)AfAm 62 (>60 ml/min/1.73 sqM) Est GFR (CKD-EPI)NonAf 54 (>60 ml/min/1.73 sqM) Glucose 283 H (74-99) mg/dL POC Glucose (mg/dL) 270 H (70-110) mg/dL POC Glu Spinal Surgeon ID Ilya Madison Plasma Lactic Acid Lanre (0.7-2.0) mmol/L Calcium 8.8 (8.4-10.2) mg/dL Total Bilirubin 0.9 (0.2-1.3) mg/dL AST 36 (17-59) U/L ALT 64 H (4-49) U/L Alkaline Phosphatase 360 H (38-126) U/L Troponin I (0.000-0.034) ng/mL Total Protein 6.3 (6.3-8.2) g/dL Albumin 3.7 (3.5-5.0) g/dL Amylase 48 (30-110) U/L Lipase 103 (23-300) U/L 06/21/22 06/21/22 Range/Units 03:18 03:18 WBC (3.8-10.6) k/uL RBC (4.30-5.90) m/uL Hgb (13.0-17.5) gm/dL Hct (39.0-53.0) % MCV (80.0-100.0) fL MCH (25.0-35.0) pg MCHC (31.0-37.0) g/dL RDW (11.5-15.5) % Plt Count (150-450) k/uL MPV Neutrophils % % Lymphocytes % % Monocytes % % Eosinophils % % Basophils % % Neutrophils # (1.3-7.7) k/uL Lymphocytes # (1.0-4.8) k/uL Monocytes # (0-1.0) k/uL Eosinophils # (0-0.7) k/uL Basophils # (0-0.2) k/uL Sodium (137-145) mmol/L Potassium (3.5-5.1) mmol/L Chloride (98-107) mmol/L Carbon Dioxide (22-30) mmol/L Anion Gap mmol/L BUN (9-20) mg/dL Creatinine (0.66-1.25) mg/dL Est GFR (CKD-EPI)AfAm (>60 ml/min/1.73 sqM) Est GFR (CKD-EPI)NonAf (>60 ml/min/1.73 sqM) Glucose (74-99) mg/dL POC Glucose (mg/dL) (70-110) mg/dL POC Glu Spinal Surgeon ID Plasma Lactic Acid Lanre 2.2 H* (0.7-2.0) mmol/L Calcium (8.4-10.2) mg/dL Total Bilirubin (0.2-1.3) mg/dL AST (17-59) U/L ALT (4-49) U/L Alkaline Phosphatase (38-126) U/L Troponin I <0.012 (0.000-0.034) ng/mL Total Protein (6.3-8.2) g/dL Albumin (3.5-5.0) g/dL Amylase (30-110) U/L Lipase (23-300) U/L - EKG Data -: EKG Interpreted by Me (EKG tachycardia 107 VT 145 QRS 77 QTC 376) Disposition Clinical Impression: Dehydration, Weakness, Nausea & vomiting Disposition: HOME SELF-CARE Condition: Good Instructions (If sedation given, give patient instructions): Acute Nausea and Vomiting (ED) Is patient prescribed a controlled substance at d/c from ED?: No Referrals: Roverto Perera MD [Primary Care Provider] - 1-2 days Time of Disposition: 06:15
[2022-06-21] MEDS ORDERED: LORazepam 2 MG/ML INJ IV STA (03:04)
[2022-06-21 03:26] LABS: Glucose,Whole Blood 270 mg/dL (70-110)
[2022-06-21 03:53] LABS: Basophils % (A) 0 %; Eosinophils # (A) 0.1 k/uL (0-0.7); Eosinophils % (A) 1 %; HCT 38.6 % (39.0-53.0); HGB 12.9 gm/dL (13.0-17.5); Lymphocytes # (A) 0.6 k/uL (1.0-4.8); Lymphocytes % (A) 8 %; MCH 30.8 pg (25.0-35.0); MCHC 33.3 g/dL (31.0-37.0); MCV 92.4 fL (80.0-100.0); Mean Platelet Volume 10.2; Monocytes # (A) 0.4 k/uL (0-1.0); Monocytes % (A) 5 %; Neutrophils # (A) 5.4 k/uL (1.3-7.7); Neutrophils % (A) 83 %; Platelet Count 133 k/uL (150-450); RBC 4.17 m/uL (4.30-5.90); RDW 14.5 % (11.5-15.5); WBC 6.5 k/uL (3.8-10.6)
[2022-06-21 04:04] LABS: Albumin 3.7 g/dL (3.5-5.0); Calcium 8.8 mg/dL (8.4-10.2); Potassium 4.7 mmol/L (3.5-5.1); Total Bilirubin 0.9 mg/dL (0.2-1.3); Total Protein 6.3 g/dL (6.3-8.2)
--- NOTE | 2022-06-21 08:05 | ED ---
Medical Decision Making - Medical Decision Making I took over care of the patient at 8:03 AM. I was notified by the nurses at the time of discharge that he was hypoxic after supplemental oxygen was removed. Patient's oxygenation dropped to the mid 80 percents. Hypoxia workup was pursued. Labs were reviewed. Patient was evaluated at bedside. Did not appear to be in any acute distress. Lungs are clear to auscultation bilaterally. Oxygen was removed patient was satting in the mid 90s. Patient denied any complaints of any respiratory issues to me. Showing after patient did become hypoxic. Patient was placed back on suppl emental oxygen. Seems to get exceedingly hypoxic with sleeping. Actually labs were ordered. Mild acidosis with the bicarb of 22. BNP is negative. Repeat lactic normal. For panel are PCR is negative. Chest x-ray shows right lower lobe posterior infiltrate. Patient be admitted for approximately respiratory failure and pneumonia. Patient given antibiotics. - Lab Data Result diagrams: 06/21/22 03:18 06/21/22 03:18 Lab Results 06/21/22 06/21/22 06/21/22 Range/Units 03:10 03:18 03:18 WBC 6.5 (3.8-10.6) k/uL RBC 4.17 L (4.30-5.90) m/uL Hgb 12.9 L (13.0-17.5) gm/dL Hct 38.6 L (39.0-53.0) % MCV 92.4 (80.0-100.0) fL MCH 30.8 (25.0-35.0) pg MCHC 33.3 (31.0-37.0) g/dL RDW 14.5 (11.5-15.5) % Plt Count 133 L (150-450) k/uL MPV 10.2 Neutrophils % 83 % Lymphocytes % 8 % Monocytes % 5 % Eosinophils % 1 % Basophils % 0 % Neutrophils # 5.4 (1.3-7.7) k/uL Lymphocytes # 0.6 L (1.0-4.8) k/uL Monocytes # 0.4 (0-1.0) k/uL Eosinophils # 0.1 (0-0.7) k/uL Basophils # 0.0 (0-0.2) k/uL VBG pH (7.31-7.41) VBG pCO2 (37-51) mmHg VBG HCO3 (24-28) mmol/L Sodium 136 L (137-145) mmol/L Potassium 4.7 (3.5-5.1) mmol/L Chloride 107 (98-107) mmol/L Carbon Dioxide 15 L (22-30) mmol/L Anion Gap 14 mmol/L BUN 27 H (9-20) mg/dL Creatinine 1.24 (0.66-1.25) mg/dL Est GFR (CKD-EPI)AfAm 62 (>60 ml/min/1.73 sqM) Est GFR (CKD-EPI)NonAf 54 (>60 ml/min/1.73 sqM) Glucose 283 H (74-99) mg/dL POC Glucose (mg/dL) 270 H (70-110) mg/dL POC Glu Service Supervisor ID Ilya Madison Lactic Ac Sepsis Rflx Plasma Lactic Acid Lanre (0.7-2.0) mmol/L Calcium 8.8 (8.4-10.2) mg/dL Total Bilirubin 0.9 (0.2-1.3) mg/dL AST 36 (17-59) U/L ALT 64 H (4-49) U/L Alkaline Phosphatase 360 H (38-126) U/L Troponin I (0.000-0.034) ng/mL NT-Pro-B Natriuret Pep pg/mL Total Protein 6.3 (6.3-8.2) g/dL Albumin 3.7 (3.5-5.0) g/dL Amylase 48 (30-110) U/L Lipase 103 (23-300) U/L Influenza Type A (PCR) (Not Detectd) Influenza Type B (PCR) (Not Detectd) RSV (PCR) (Not Detectd) SARS-CoV-2 (PCR) (Not Detectd) 06/21/22 06/21/22 06/21/22 Range/Units 03:18 03:18 05:03 WBC (3.8-10.6) k/uL RBC (4.30-5.90) m/uL Hgb (13.0-17.5) gm/dL Hct (39.0-53.0) % MCV (80.0-100.0) fL MCH (25.0-35.0) pg MCHC (31.0-37.0) g/dL RDW (11.5-15.5) % Plt Count (150-450) k/uL MPV Neutrophils % % Lymphocytes % % Monocytes % % Eosinophils % % Basophils % % Neutrophils # (1.3-7.7) k/uL Lymphocytes # (1.0-4.8) k/uL Monocytes # (0-1.0) k/uL Eosinophils # (0-0.7) k/uL Basophils # (0-0.2) k/uL VBG pH (7.31-7.41) VBG pCO2 (37-51) mmHg VBG HCO3 (24-28) mmol/L Sodium (137-145) mmol/L Potassium (3.5-5.1) mmol/L Chloride (98-107) mmol/L Carbon Dioxide (22-30) mmol/L Anion Gap mmol/L BUN (9-20) mg/dL Creatinine (0.66-1.25) mg/dL Est GFR (CKD-EPI)AfAm (>60 ml/min/1.73 sqM) Est GFR (CKD-EPI)NonAf (>60 ml/min/1.73 sqM) Glucose (74-99) mg/dL POC Glucose (mg/dL) (70-110) mg/dL POC Glu Service Supervisor ID Lactic Ac Sepsis Rflx Y Plasma Lactic Acid Lanre 2.2 H* (0.7-2.0) mmol/L Calcium (8.4-10.2) mg/dL Total Bilirubin (0.2-1.3) mg/dL AST (17-59) U/L ALT (4-49) U/L Alkaline Phosphatase (38-126) U/L Troponin I <0.012 (0.000-0.034) ng/mL NT-Pro-B Natriuret Pep pg/mL Total Protein (6.3-8.2) g/dL Albumin (3.5-5.0) g/dL Amylase (30-110) U/L Lipase (23-300) U/L Influenza Type A (PCR) (Not Detectd) Influenza Type B (PCR) (Not Detectd) RSV (PCR) (Not Detectd) SARS-CoV-2 (PCR) (Not Detectd) 10/29/22 10/29/22 10/29/22 Range/Units 08:01 08:01 09:18 WBC (3.8-10.6) k/uL RBC (4.30-5.90) m/uL Hgb (13.0-17.5) gm/dL Hct (39.0-53.0) % MCV (80.0-100.0) fL MCH (25.0-35.0) pg MCHC (31.0-37.0) g/dL RDW (11.5-15.5) % Plt Count (150-450) k/uL MPV Neutrophils % % Lymphocytes % % Monocytes % % Eosinophils % % Basophils % % Neutrophils # (1.3-7.7) k/uL Lymphocytes # (1.0-4.8) k/uL Monocytes # (0-1.0) k/uL Eosinophils # (0-0.7) k/uL Basophils # (0-0.2) k/uL VBG pH 7.30 L (7.31-7.41) VBG pCO2 45 (37-51) mmHg VBG HCO3 22 L (24-28) mmol/L Sodium (137-145) mmol/L Potassium (3.5-5.1) mmol/L Chloride (98-107) mmol/L Carbon Dioxide (22-30) mmol/L Anion Gap mmol/L BUN (9-20) mg/dL Creatinine (0.66-1.25) mg/dL Est GFR (CKD-EPI)AfAm (>60 ml/min/1.73 sqM) Est GFR (CKD-EPI)NonAf (>60 ml/min/1.73 sqM) Glucose (74-99) mg/dL POC Glucose (mg/dL) (70-110) mg/dL POC Glu Service Supervisor ID Lactic Ac Sepsis Rflx Plasma Lactic Acid Lanre (0.7-2.0) mmol/L Calcium (8.4-10.2) mg/dL Total Bilirubin (0.2-1.3) mg/dL AST (17-59) U/L ALT (4-49) U/L Alkaline Phosphatase (38-126) U/L Troponin I (0.000-0.034) ng/mL NT-Pro-B Natriuret Pep 176 pg/mL Total Protein (6.3-8.2) g/dL Albumin (3.5-5.0) g/dL Amylase (30-110) U/L Lipase (23-300) U/L Influenza Type A (PCR) Not Detected (Not Detectd) Influenza Type B (PCR) Not Detected (Not Detectd) RSV (PCR) Not Detected (Not Detectd) SARS-CoV-2 (PCR) Not Detected (Not Detectd) 06/21/22 Range/Units 09:18 WBC (3.8-10.6) k/uL RBC (4.30-5.90) m/uL Hgb (13.0-17.5) gm/dL Hct (39.0-53.0) % MCV (80.0-100.0) fL MCH (25.0-35.0) pg MCHC (31.0-37.0) g/dL RDW (11.5-15.5) % Plt Count (150-450) k/uL MPV Neutrophils % % Lymphocytes % % Monocytes % % Eosinophils % % Basophils % % Neutrophils # (1.3-7.7) k/uL Lymphocytes # (1.0-4.8) k/uL Monocytes # (0-1.0) k/uL Eosinophils # (0-0.7) k/uL Basophils # (0-0.2) k/uL VBG pH (7.31-7.41) VBG pCO2 (37-51) mmHg VBG HCO3 (24-28) mmol/L Sodium (137-145) mmol/L Potassium (3.5-5.1) mmol/L Chloride (98-107) mmol/L Carbon Dioxide (22-30) mmol/L Anion Gap mmol/L BUN (9-20) mg/dL Creatinine (0.66-1.25) mg/dL Est GFR (CKD-EPI)AfAm (>60 ml/min/1.73 sqM) Est GFR (CKD-EPI)NonAf (>60 ml/min/1.73 sqM) Glucose (74-99) mg/dL POC Glucose (mg/dL) (70-110) mg/dL POC Glu Service Supervisor ID Lactic Ac Sepsis Rflx Plasma Lactic Acid Lanre 0.9 (0.7-2.0) mmol/L Calcium (8.4-10.2) mg/dL Total Bilirubin (0.2-1.3) mg/dL AST (17-59) U/L ALT (4-49) U/L Alkaline Phosphatase (38-126) U/L Troponin I (0.000-0.034) ng/mL NT-Pro-B Natriuret Pep pg/mL Total Protein (6.3-8.2) g/dL Albumin (3.5-5.0) g/dL Amylase (30-110) U/L Lipase (23-300) U/L Influenza Type A (PCR) (Not Detectd) Influenza Type B (PCR) (Not Detectd) RSV (PCR) (Not Detectd) SARS-CoV-2 (PCR) (Not Detectd) Disposition Clinical Impression: Dehydration, Weakness, Nausea & vomiting, Pneumonia, Hypoxia Disposition: ADMITTED IP TO THIS [facility] Condition: Good Instructions (If sedation given, give patient instructions): Acute Nausea and Vomiting (ED) Referrals: Roverto Perera MD [Primary Care Provider] - 1-2 days Decision Time: 10:23
--- NOTE | 2022-06-21 08:27 | XR ---
EXAMINATION TYPE: XR chest 2V DATE OF EXAM: 06/21/2022 COMPARISON: None INDICATION: Hypoxia vomiting TECHNIQUE: Frontal and lateral views of the chest are obtained. FINDINGS: The heart size is normal. The pulmonary vasculature is normal. There is some increased density in the posterior lung base on the lateral projection. This may be at the right lung base. Correlate for pneumonia. IMPRESSION: 1. There may be mild posterior right lower lobe infiltrate. Correlate for pneumonia.
[2022-06-21] MEDS ORDERED: AZITHROMYCIN 500 MG TAB PO STA (08:32)
[2022-06-21] MEDS ORDERED: cefTRIAXone IN SWFI 1,000 MG/10 ML SYRINGE IVP STA (08:32)
[2022-06-21 09:42] LABS: VBG PH 7.3 (7.31-7.41)
[2022-06-21] MEDS ORDERED: NALOXONE 0.4 MG/ML 1 ML VIAL IV PRN (10:24)
[2022-06-21] MEDS: SODIUM CHLORIDE 0.9% 1,000 ML IV SCH (11:34)
[2022-06-21] MEDS ORDERED: DEXTROSE 50% SYRINGE 50 ML IVP PRN ×2 (14:40)
[2022-06-21 16:34] LABS: Glucose,Whole Blood 262 mg/dL (70-110)
[2022-06-21] MEDS: INSULIN ASPART (NovoLOG) 100 UNIT/ML VIAL SQ SCH ×2 (17:26→21:26)
[2022-06-21] MEDS ORDERED: NON FORMULARY DRUG (Repaglinide [Prandin] 2 MG Tablet) PO SCH (21:00)
[2022-06-21] MEDS: amLODIPine 10 MG TAB PO SCH (21:19)
[2022-06-21] MEDS: traZODone HCL 100 MG TAB PO SCH (21:19)
[2022-06-21] MEDS: TAMSULOSIN 0.4 MG CAP.ER.24H PO SCH (21:19)
[2022-06-21] MEDS: metFORMIN 500 MG TAB PO SCH (21:19)
[2022-06-21] MEDS: APIXABAN 5 MG TAB PO SCH (21:19)
[2022-06-21] MEDS: LOSARTAN 50 MG TAB PO SCH (21:19)
[2022-06-21] MEDS: MELATONIN 5 MG TABLET PO SCH (21:19)
[2022-06-21] MEDS: FINASTERIDE 5 MG TAB PO SCH (21:20)
[2022-06-21 21:25] LABS: Glucose,Whole Blood 203 mg/dL (70-110)
[2022-06-22] MEDS: ACETAMINOPHEN TAB 325 MG TAB PO PRN (04:48)
[2022-06-22 06:49] LABS: Glucose,Whole Blood 180 mg/dL (70-110)
[2022-06-22] MEDS: INSULIN ASPART (NovoLOG) 100 UNIT/ML VIAL SQ SCH ×4 (06:49→22:36)
[2022-06-22] MEDS ORDERED: cefTRIAXone 1,000 MG VIAL (IM USE) IM SCH (09:00)
[2022-06-22] MEDS: APIXABAN 5 MG TAB PO SCH ×2 (09:06→22:33)
[2022-06-22] MEDS: TAMSULOSIN 0.4 MG CAP.ER.24H PO SCH ×2 (09:06→22:34)
[2022-06-22] MEDS: metFORMIN 500 MG TAB PO SCH ×2 (09:06→22:33)
[2022-06-22] MEDS: METOPROLOL SUCCINATE (ER) 25 MG TAB.ER.24H PO SCH (09:06)
[2022-06-22] MEDS: ATORVASTATIN 80 MG TAB PO SCH (09:06)
[2022-06-22] MEDS: AZITHROMYCIN 500 MG TAB PO SCH (09:46)
[2022-06-22] MEDS: traMADol 50 MG TAB PO SCH ×4 (09:46→22:35)
[2022-06-22] MEDS: SODIUM CHLORIDE 0.9% 1,000 ML IV SCH (09:47)
--- NOTE | 2022-06-22 11:01 | P.CNPUL ---
History of Present Illness Consult date: 06/22/22 Requesting physician: Vanessa Oleary Reason for consult: dyspnea, cough, COPD, hypoxemia, pneumonia, abnormal CXR/CT Chief complaint: Shortness of breath and cough. History of present illness: Pulmonary consult dated 06/22/2022. 82-year-old male, seen initially in the emergency room, on June 21, at 3:00 in the morning. On his initial presentation, the patient apparently was complaining of nausea, vomiting, and diarrhea, and was apparently shaking or having chills. The patient states that he was not feeling well about 2 or 3 days prior to admission. In addition, he does admit to some cough, which is nonproductive, and some shortness of breath. Both of those symptoms are mentioned by the ER physician as well. The patient has a history of diabetes, deep venous thrombosis, hyperlipidemia, hypertension, osteoarthritis, and kidney stones. The patient is a former smoker, having smoked heavily in the past. He does not smoke currently. The patient was to be discharged from the emergency room, but, the patient developed low saturations, and the patient was kept, and admitted with a diagnosis of right lower lobe pneumonia. White count 6.5, hemoglobin 12.9, hematocrit 38.6, and platelet count 233,000. Venous blood gases show a pCO2 45 and a pH is 7.3. Sodium 136, potassium 4.7, chlorides 107, CO2 15, anion gap 14, BUN 27, and creatinine 1.24. The patient was tested for influenza A and influenza B. Both were negative. Likewise, the patient tested negative for respiratory syncytial virus, and also coronavirus. Currently, the patient's on 2 L. Is not receiving any IV fluids. He get a dose of Rocephin and Zithromax in the emergency room but they were not continued. I added them back, and also added some albuterol sulfate and ipratropium bromide, and also ordered a pro-calcitonin level. Review of Systems REVIEW OF SYSTEMS: CONSTITUTIONAL: Chills. NEUROLOGIC: [ Negative.] HEENT: [ Negative.] CARDIAC: [Negative.] PULMONARY: Shortness of breath, and nonproductive cough. GI: Nausea, vomiting, diarrhea. : [Negative.] RHEUMATOLOGIC: [ Negative.] IMMUNOLOGIC: [ Negative.] ENDOCRINE: [Negative. ] DERMATOLOGIC: [Negative.] Past Medical History Past Medical History: Diabetes Mellitus, Deep Vein Thrombosis (DVT), Hyperlipidemia, Hypertension, Osteoarthritis (OA) Additional Past Medical History / Comment(s): aneurysm, DVT x 2, kidney stones History of Any Multi-Drug Resistant Organisms: None Reported Past Surgical History: Back Surgery Additional Past Surgical History / Comment(s): "lumbar spine surgery", lithotripsy,AAA repair Past Anesthesia/Blood Transfusion Reactions: No Reported Reaction Past Psychological History: Depression Smoking Status: Former smoker Past Alcohol Use History: None Reported Past Drug Use History: None Reported - Past Family History Mother Family Medical History: No Reported History Medications and Allergies Home Medications Medication Instructions Recorded Confirmed Type Apixaban [Eliquis] 5 mg PO BID 07/17/21 06/21/22 History Ergocalciferol [Vitamin D2 (1250 1,250 mcg PO DEL ROSARIO 07/17/21 06/21/22 History Mcg = [id number] Iu)] Finasteride [Proscar] 5 mg PO HS 07/17/21 06/21/22 History Losartan Potassium 100 mg PO HS 07/17/21 06/21/22 History Metoprolol Succinate [Toprol XL] 25 mg PO DAILY 07/17/21 06/21/22 History Repaglinide [Prandin] 2 mg PO BID 07/17/21 06/21/22 History Tamsulosin HCl [Flomax] 0.4 mg PO BID 07/17/21 06/21/22 History traZODone HCL [Desyrel] 200 mg PO HS 07/17/21 06/21/22 History Atorvastatin [Lipitor] 80 mg PO DAILY 11/13/21 06/21/22 History amLODIPine [Norvasc] 10 mg PO HS 11/13/21 06/21/22 History Imiquimod [Aldara] 1 packet TOPICAL MOWEFR 06/21/22 06/21/22 History Semaglutide [Ozempic] 0.25 mg SQ WE 06/21/22 06/21/22 History metFORMIN HCL 1,000 mg PO BID 06/21/22 06/21/22 History Allergies Allergy/AdvReac Type Severity Reaction Status Date / Time No Known Allergies Allergy Verified 06/21/22 02:52 Physical Exam Osteopathic Statement: *. No significant issues noted on an osteopathic structural exam other than those noted in the History and Physical/Consult. Vitals: Vital Signs Temp Pulse Pulse Resp BP BP Pulse Ox 06/22/22 07:54 97.7 F 79 17 108/61 96 06/22/22 00:45 97.9 F 60 18 113/59 94 L 06/21/22 20:00 97.6 F 16 133/66 95 06/21/22 14:19 97.6 F 61 18 122/81 97 06/21/22 11:35 97.5 F L 62 18 121/80 97 Intake and Output 06/21/22 06/22/22 06/22/22 22:59 06:59 14:59 Intake Total 500 Balance 500 Intake: Intake, IV Titration 500 Amount Sodium Chloride 0.9% 500 500 ml 500 ml @ 999 mls/hr IV .Q31M STA Rx#:[id number] Other: Voiding Method Toilet Weight 98.43 kg No acute distress, oriented 3. Currently on 2 L. HEENT examination is grossly unremarkable. Neck supple. Full range of motion. No adenopathy thyromegaly or neck vein distention. Cardiovascular examination reveals regular rhythm rate. S1-S2 normal. No S3 or S4. No discernible murmur noted. Heart rate 79 bpm. Lungs reveal scattered bilateral rhonchi. Minimal wheezes. No crackles. Breath sounds equal bilaterally. 2 L saturation is 97%. Abdomen soft bowel sounds are heard. No masses or tenderness. Extremities are intact. No cyanosis clubbing or edema. Skin is without rash or lesion. Neurologic examination is brief but nonfocal. Results - Laboratory Findings CBC and BMP: 06/21/22 03:18 06/21/22 03:18 Abnormal lab findings: Abnormal Labs 06/21/22 06/21/22 06/21/22 03:10 03:18 03:18 RBC 4.17 L Hgb 12.9 L Hct 38.6 L Plt Count 133 L Lymphocytes # 0.6 L VBG pH VBG HCO3 Sodium 136 L Carbon Dioxide 15 L BUN 27 H Glucose 283 H POC Glucose (mg/dL) 270 H Hemoglobin A1c Plasma Lactic Acid Lanre ALT 64 H Alkaline Phosphatase 360 H 06/21/22 06/21/22 06/21/22 03:18 08:01 16:33 RBC Hgb Hct Plt Count Lymphocytes # VBG pH 7.30 L VBG HCO3 22 L Sodium Carbon Dioxide BUN Glucose POC Glucose (mg/dL) 262 H Hemoglobin A1c Plasma Lactic Acid Lanre 2.2 H* ALT Alkaline Phosphatase 06/21/22 06/22/22 06/22/22 21:18 04:27 06:46 RBC Hgb Hct Plt Count Lymphocytes # VBG pH VBG HCO3 Sodium Carbon Dioxide BUN Glucose POC Glucose (mg/dL) 203 H 180 H Hemoglobin A1c 9.6 H Plasma Lactic Acid Lanre ALT Alkaline Phosphatase - Diagnostic Findings Chest x-ray: image reviewed Assessment and Plan Assessment: Acute hypoxemic respiratory failure secondary to right lower lobe pneumonia. Previous history of tobacco use, rule out COPD. History of diabetes mellitus. History of deep venous thrombosis. History of hypertension. History of hyperlipidemia. History of osteoarthritis. History of kidney stones. Plan: Plan dated 06/22/2022. I've added albuterol sulfate and ipratropium bromide to the patient's regimen. In addition, I've added back the Rocephin and Zithromax, that was given to him as a one-time dose in the emergency room. Also, I ordered a pro-calcitonin level on the patient. The patient appears relatively stable. He's on 2 L. Saturation is 97%. Labs, x-rays, and medications are all reviewed. Prognosis is guarded. Time with Patient: Greater than 30
[2022-06-22 11:12] LABS: Glucose,Whole Blood 215 mg/dL (70-110)
[2022-06-22] MEDS: IPRATROPIUM-ALBUTEROL 3 ML NEB INHALATION SCH ×4 (11:17→19:14)
[2022-06-22 13:16] LABS: African American GFR (CKD) 51 (>60 ml/min/1.73 sqM); Anion Gap 9 mmol/L; Blood Urea Nitrogen 32 mg/dL (9-20); Calcium 8.4 mg/dL (8.4-10.2); Carbon Dioxide 20 mmol/L (22-30); Chloride 107 mmol/L (98-107); Glucose 166 mg/dL (74-99); Non-African American GFR(CKD) 44 (>60 ml/min/1.73 sqM); Potassium 4.7 mmol/L (3.5-5.1); Sodium 136 mmol/L (137-145)
[2022-06-22 13:40] LABS: HCT 36.7 % (39.0-53.0); HGB 11.5 gm/dL (13.0-17.5); Hypochromasia Moderate; MCH 30.2 pg (25.0-35.0); MCHC 31.2 g/dL (31.0-37.0); MCV 96.7 fL (80.0-100.0); Mean Platelet Volume 12.2; Platelet Count 118 k/uL (150-450); RBC 3.79 m/uL (4.30-5.90); RDW 14.2 % (11.5-15.5); WBC 4.6 k/uL (3.8-10.6)
[2022-06-22 14:02] LABS: Eosinophils # (M) 0.18 k/uL (0-0.7); Large Platelets Present; Lymphocytes # (M) 1.24 k/uL (1.0-4.8); Monocytes # (M) 0.32 k/uL (0-1.0); Neutrophils # (M) 2.85 k/uL (1.3-7.7); Neutrophils % (M) 62 %; Nucleated Red Blood Cells 0 /100 WBC (0-0); Total Cells Counted 100
[2022-06-22 16:31] LABS: Glucose,Whole Blood 197 mg/dL (70-110)
[2022-06-22] MEDS ORDERED: ERGOCALCIFEROL 1,250 MCG (50,000 IU) CAPSULE PO SCH (17:03)
--- NOTE | 2022-06-22 18:43 | P.HPIM ---
History of Present Illness H&P Date: 06/21/22 Chief Complaint: Nausea/vomiting/diarrhea 82-year-old male to the emergency department for evaluation patient resents today for evaluation regarding nausea vomiting weakness not feeling well. Patient is states he began shaking and shaking uncontrollably which made her nervous and brought in the emergency prior. Patient does admit to anxiety regarding shortness of breath no chest pain no abdominal pain. While in ED patient did become hypoxic. Patient was placed back on supplemental oxygen. Seems to get exceedingly hypoxic with sleeping. Actually labs were ordered. Mild acidosis with the bicarb of 22. BNP is negative. Repeat lactic normal. For panel are PCR is negative. Chest x-ray shows right lower lobe posterior infiltrate. Patient be admitted for approximately respiratory failure and pneumonia. Review of Systems REVIEW OF SYSTEMS: CONSTITUTIONAL: No fever, no malaise, no fatigue. HEENT: No recent visual problems or hearing problems. Denied any sore throat. CARDIOVASCULAR: No chest pain, orthopnea, PND, no palpitations, no syncope. PULMONARY: No shortness of breath, no cough, no hemoptysis. GASTROINTESTINAL: No diarrhea, no nausea, no vomiting, no abdominal pain. NEUROLOGICAL: No headaches, no weakness, no numbness. HEMATOLOGICAL: Denies any bleeding or petechiae. GENITOURINARY: Denies any burning micturition, frequency, or urgency. MUSCULOSKELETAL/RHEUMATOLOGICAL: Denies any joint pain, swelling, or any muscle pain. ENDOCRINE: Denies any polyuria or polydipsia. The rest of the 14-point review of systems is negative. Past Medical History Past Medical History: Diabetes Mellitus, Deep Vein Thrombosis (DVT), Hyperlipidemia, Hypertension, Osteoarthritis (OA) Additional Past Medical History / Comment(s): aneurysm, DVT x 2, kidney stones History of Any Multi-Drug Resistant Organisms: None Reported Past Surgical History: Back Surgery Additional Past Surgical History / Comment(s): "lumbar spine surgery", lithotripsy,AAA repair Past Anesthesia/Blood Transfusion Reactions: No Reported Reaction Past Psychological History: Depression Smoking Status: Former smoker Past Alcohol Use History: None Reported Past Drug Use History: None Reported - Past Family History Mother Family Medical History: No Reported History Medications and Allergies Home Medications Medication Instructions Recorded Confirmed Type Apixaban [Eliquis] 5 mg PO BID 07/17/21 06/21/22 History Ergocalciferol [Vitamin D2 (1250 1,250 mcg PO DEL ROSARIO 07/17/21 06/21/22 History Mcg = 00087 Iu)] Finasteride [Proscar] 5 mg PO HS 07/17/21 06/21/22 History Losartan Potassium 100 mg PO HS 07/17/21 06/21/22 History Metoprolol Succinate [Toprol XL] 25 mg PO DAILY 07/17/21 06/21/22 History Repaglinide [Prandin] 2 mg PO BID 07/17/21 06/21/22 History Tamsulosin HCl [Flomax] 0.4 mg PO BID 07/17/21 06/21/22 History traZODone HCL [Desyrel] 200 mg PO HS 07/17/21 06/21/22 History Atorvastatin [Lipitor] 80 mg PO DAILY 11/13/21 06/21/22 History amLODIPine [Norvasc] 10 mg PO HS 11/13/21 06/21/22 History Imiquimod [Aldara] 1 packet TOPICAL MOWEFR 06/21/22 06/21/22 History Semaglutide [Ozempic] 0.25 mg SQ WE 06/21/22 06/21/22 History metFORMIN HCL 1,000 mg PO BID 06/21/22 06/21/22 History Allergies Allergy/AdvReac Type Severity Reaction Status Date / Time No Known Allergies Allergy Verified 06/21/22 02:52 Physical Exam Vitals: Vital Signs Temp Pulse Resp BP Pulse Ox 06/21/22 11:35 97.5 F L 62 18 121/80 97 06/21/22 10:24 97.5 F L 67 20 123/69 96 06/21/22 08:30 67 18 121/70 89 L 06/21/22 02:52 98.1 F 126 H 26 H 138/73 95 Intake and Output 06/20/22 06/21/22 06/21/22 22:59 06:59 14:59 Other: Weight 98.43 kg PHYSICAL EXAMINATION: GENERAL: The patient is alert and oriented x3, not in any acute distress. Well developed, well nourished. HEENT: Pupils are round and equally reacting to light. EOMI. No scleral icterus. No conjunctival pallor. Normocephalic, atraumatic. No pharyngeal erythema. No thyromegaly. CARDIOVASCULAR: S1 and S2 present. No murmurs, rubs, or gallops. PULMONARY: Chest is clear to auscultation, no wheezing or crackles. ABDOMEN: Soft, nontender, nondistended, normoactive bowel sounds. No palpable organomegaly. MUSCULOSKELETAL: No joint swelling or deformity. EXTREMITIES: No cyanosis, clubbing, or pedal edema. NEUROLOGICAL: Gross neurological examination did not reveal any focal deficits. SKIN: No rashes. Results CBC & Chem 7: 06/22/22 04:27 06/22/22 04:27 Labs: Abnormal Lab Results - Last 24 Hours (Table) 06/21/22 06/21/22 06/21/22 Range/Units 03:10 03:18 03:18 RBC 4.17 L (4.30-5.90) m/uL Hgb 12.9 L (13.0-17.5) gm/dL Hct 38.6 L (39.0-53.0) % Plt Count 133 L (150-450) k/uL Lymphocytes # 0.6 L (1.0-4.8) k/uL VBG pH (7.31-7.41) VBG HCO3 (24-28) mmol/L Sodium 136 L (137-145) mmol/L Carbon Dioxide 15 L (22-30) mmol/L BUN 27 H (9-20) mg/dL Glucose 283 H (74-99) mg/dL POC Glucose (mg/dL) 270 H (70-110) mg/dL Plasma Lactic Acid Lanre (0.7-2.0) mmol/L ALT 64 H (4-49) U/L Alkaline Phosphatase 360 H (38-126) U/L 06/21/22 06/21/22 Range/Units 03:18 08:01 RBC (4.30-5.90) m/uL Hgb (13.0-17.5) gm/dL Hct (39.0-53.0) % Plt Count (150-450) k/uL Lymphocytes # (1.0-4.8) k/uL VBG pH 7.30 L (7.31-7.41) VBG HCO3 22 L (24-28) mmol/L Sodium (137-145) mmol/L Carbon Dioxide (22-30) mmol/L BUN (9-20) mg/dL Glucose (74-99) mg/dL POC Glucose (mg/dL) (70-110) mg/dL Plasma Lactic Acid Lanre 2.2 H* (0.7-2.0) mmol/L ALT (4-49) U/L Alkaline Phosphatase (38-126) U/L Assessment and Plan Assessment: 1. Acute hypoxemic respiratory failure related to right lower lobe pneumonia - Patient is currently on O2 at 2 L per nasal cannula with O2 saturation around 95-96%; we will continue to titrate dopamine as able 2. Right lower lobe pneumonia - Patient has been placed on IV antibiotics in form of IV Rocephin and azithromycin; we will continue current antibiotic regimen and order blood cultures and sputum culture - We will monitor CBC, CMP and pro-calcitonin; bronchodilator nebulizer treatments 4 times a day and when necessary 3. Hypertension; losartan 100 mg daily at bedtime, metoprolol 25 mg daily, amlodipine 10 mg daily at bedtime 4. Hyperlipidemia; Lipitor 80 mg by mouth daily at bedtime 5. Hyperglycemia/uncontrolled diabetes mellitus; we will continue with home dose of Ozempic and metformin; monitor Accu-Cheks every before meals and at bedtime with insulin sliding scale 6. History of DVT; remains on anticoagulation with Ahlquist 5 mg by mouth twice a day 7. Insomnia; trazodone 200 mg by mouth daily at bedtime 8. BPH; Flomax 0.4 mg daily DVT prophylaxis; SCDs/anticoagulation CODE STATUS; Full code
--- NOTE | 2022-06-22 18:45 | P.PN ---
Subjective Progress Note Date: 06/22/22 Principal diagnosis: Acute hypoxemic respiratory failure Right lower lobe pneumonia 82-year-old male to the emergency department for evaluation patient resents today for evaluation regarding nausea vomiting weakness not feeling well. Patient is states he began shaking and shaking uncontrollably which made her nervous and brought in the emergency prior. Patient does admit to anxiety regarding shortness of breath no chest pain no abdominal pain. While in ED patient did become hypoxic. Patient was placed back on supplemental oxygen. Seems to get exceedingly hypoxic with sleeping. Actually labs were ordered. Mild acidosis with the bicarb of 22. BNP is negative. Repeat lactic normal. For panel are PCR is negative. Chest x-ray shows right lower lobe posterior infiltrate. Patient be admitted for approximately respiratory failure and pneumonia. Objective - Vital Signs Vital signs: Vital Signs Temp 97.7 F 06/22/22 07:54 Pulse 84 06/22/22 11:40 Resp 17 06/22/22 07:54 BP 108/61 06/22/22 07:54 Pulse Ox 94 L 06/22/22 11:32 FiO2 Intake & Output 06/21/22 06/22/22 06/22/22 18:59 06:59 18:59 Intake Total 500 Balance 500 Weight 98.43 kg Intake: Intake, IV Titration 500 Amount Sodium Chloride 0.9% 500 500 ml 500 ml @ 999 mls/hr IV .Q31M STA Rx#:[id number] Other: Voiding Method Toilet - Exam PHYSICAL EXAMINATION: GENERAL: The patient is alert and oriented x3, not in any acute distress. Well developed, well nourished. HEENT: Pupils are round and equally reacting to light. EOMI. No scleral icterus. No conjunctival pallor. Normocephalic, atraumatic. No pharyngeal erythema. No thyromegaly. CARDIOVASCULAR: S1 and S2 present. No murmurs, rubs, or gallops. PULMONARY: Chest is clear to auscultation, no wheezing or crackles. ABDOMEN: Soft, nontender, nondistended, normoactive bowel sounds. No palpable organomegaly. MUSCULOSKELETAL: No joint swelling or deformity. EXTREMITIES: No cyanosis, clubbing, or pedal edema. NEUROLOGICAL: Gross neurological examination did not reveal any focal deficits. SKIN: No rashes. - Labs CBC & Chem 7: 06/22/22 04:27 06/22/22 04:27 Labs: Abnormal Lab Results - Last 24 Hours (Table) 06/21/22 06/21/22 06/22/22 Range/Units 16:33 21:18 04:27 POC Glucose (mg/dL) 262 H 203 H (70-110) mg/dL Hemoglobin A1c 9.6 H (0.0-6.0) % 06/22/22 06/22/22 Range/Units 06:46 11:10 POC Glucose (mg/dL) 180 H 215 H (70-110) mg/dL Hemoglobin A1c (0.0-6.0) % Assessment and Plan Assessment: 1. Acute hypoxemic respiratory failure related to right lower lobe pneumonia - Patient is currently on O2 at 2 L per nasal cannula with O2 saturation around 95-96%; we will continue to titrate dopamine as able 2. Right lower lobe pneumonia - Patient has been placed on IV antibiotics in form of IV Rocephin and azithromycin; we will continue current antibiotic regimen and order blood cultures and sputum culture - We will monitor CBC, CMP and pro-calcitonin; bronchodilator nebulizer treatments 4 times a day and when necessary 3. Hypertension; losartan 100 mg daily at bedtime, metoprolol 25 mg daily, amlodipine 10 mg daily at bedtime 4. Hyperlipidemia; Lipitor 80 mg by mouth daily at bedtime 5. Hyperglycemia/uncontrolled diabetes mellitus; we will continue with home dose of Ozempic and metformin; monitor Accu-Cheks every before meals and at bedtime with insulin sliding scale 6. History of DVT; remains on anticoagulation with Ahlquist 5 mg by mouth twice a day 7. Insomnia; trazodone 200 mg by mouth daily at bedtime 8. BPH; Flomax 0.4 mg daily DVT prophylaxis; SCDs/anticoagulation CODE STATUS; Full code
[2022-06-22 20:52] LABS: Glucose,Whole Blood 277 mg/dL (70-110)
[2022-06-22] MEDS: traZODone HCL 100 MG TAB PO SCH (22:32)
[2022-06-22] MEDS: LOSARTAN 50 MG TAB PO SCH (22:32)
[2022-06-22] MEDS: FINASTERIDE 5 MG TAB PO SCH (22:34)
[2022-06-22] MEDS: MELATONIN 5 MG TABLET PO SCH (22:34)
[2022-06-22] MEDS: amLODIPine 10 MG TAB PO SCH (22:35)
[2022-06-23 06:33] LABS: Glucose,Whole Blood 200 mg/dL (70-110)
[2022-06-23] MEDS: INSULIN ASPART (NovoLOG) 100 UNIT/ML VIAL SQ SCH ×4 (06:52→21:19)
[2022-06-23] MEDS: ACETAMINOPHEN TAB 325 MG TAB PO PRN (06:56)
[2022-06-23] MEDS: IPRATROPIUM-ALBUTEROL 3 ML NEB INHALATION SCH ×4 (09:16→20:48)
[2022-06-23] MEDS: TAMSULOSIN 0.4 MG CAP.ER.24H PO SCH ×2 (09:27→21:20)
[2022-06-23] MEDS: APIXABAN 5 MG TAB PO SCH ×2 (09:27→21:19)
[2022-06-23] MEDS: ATORVASTATIN 80 MG TAB PO SCH (09:27)
[2022-06-23] MEDS: traMADol 50 MG TAB PO SCH ×4 (09:27→21:20)
[2022-06-23] MEDS: AZITHROMYCIN 500 MG TAB PO SCH (09:27)
[2022-06-23] MEDS: metFORMIN 500 MG TAB PO SCH ×2 (09:28→17:57)
[2022-06-23] MEDS: METOPROLOL SUCCINATE (ER) 25 MG TAB.ER.24H PO SCH (09:28)
[2022-06-23] MEDS: SODIUM CHLORIDE 0.9% 1,000 ML IV SCH (09:29)
[2022-06-23 09:36] LABS: Basophils # (A) 0.02 X 10*3/uL (0.00-0.10); Basophils % (A) 0.4 %; Eosinophils # (A) 0.22 X 10*3/uL (0.04-0.35); Eosinophils % (A) 4.2 %; HGB 10.6 g/dL (13.0-17.0); Immature Grans, Automated 1.5 %; Lymphocytes # (A) 0.95 X 10*3/uL (0.90-5.00); Lymphocytes % (A) 18.1 %; MCH 29.7 pg (27.0-32.0); MCHC 31.2 g/dL (32.0-37.0); MCV 95.2 fL (80.0-97.0); Mean Platelet Volume 11.6 fL (9.5-12.2); Monocytes # (A) 0.54 X 10*3/uL (0.20-1.00); Monocytes % (A) 10.3 %; NRBC Per 100 WBC 0 /100 WBCS (0.0-0.0); Neutrophils # (A) 3.44 X 10*3/uL (1.80-7.70); Neutrophils % (A) 65.5 %; Platelet Count 143 X 10*3/uL (140-440); RBC 3.57 X 10*6/uL (4.40-5.60); RDW 14.4 % (11.5-14.5); WBC 5.25 X 10*3/uL (4.50-10.00)
[2022-06-23 09:39] LABS: African American GFR (CKD) 49.2 (60.0-200.0); Anion Gap 9.5 mmol/L (10.00-18.00); BUN/Creat Ratio 21.33 Ratio (12.00-20.00); Calcium 8.1 mg/dL (8.7-10.3); Carbon Dioxide 22.5 mmol/L (20.0-27.5); Non-African American GFR(CKD) 42.4 (60.0-200.0); Potassium 4.8 mmol/L (3.5-5.5)
[2022-06-23 11:15] LABS: Glucose,Whole Blood 228 mg/dL (70-110)
--- NOTE | 2022-06-23 12:02 | P.PN ---
Subjective Progress Note Date: 06/23/22 This is an 82-year-old gentleman admitted with right lower lobe pneumonia, acute hypoxic respiratory failure and multiple other medical issues. Maintained on IV antibiotics with significant clinical improvement. Afebrile, normal WBC. Pro- calcitonin 1.62. O2 sat on room air after ambulation, 85% with conversing. Continues to require 2 L nasal cannula and maintaining O2 sats in the 90s. Hemoglobin A1c 9.6, metformin dose increased last week by PCP. BUN 32, creatinine 1.5. Objective - Vital Signs Vital signs: Vital Signs Temp 97.4 F L 06/23/22 07:52 Pulse 66 06/23/22 10:25 Resp 18 06/23/22 07:52 BP 122/64 06/23/22 07:52 Pulse Ox 85 L 06/23/22 10:25 FiO2 Intake & Output 06/22/22 06/23/22 06/23/22 18:59 06:59 18:59 Other: Voiding Method Toilet # Voids 3 2 - Exam PHYSICAL EXAM: VITAL SIGNS: [As above] GENERAL: Sitting up in bed, alert and oriented 3,NAD HEENT: Conjunctivae normal. eyes normal. MMM. NECK: Supple, No JVD. CARDIOVASCULAR: S1, S2 regular. No murmur RESPIRATION: CTA,Breath sounds diminished in the bases. ABDOMEN: Soft, nontender . No guarding. no masses palpable. +Bowel sounds. LEGS: No edema. no swelling NERVOUS SYSTEM: Cranial N 2-12 grossly normal.No focal deficits. Strength and sensation grossly intact. - Labs CBC & Chem 7: 06/23/22 04:08 06/23/22 04:08 Labs: Abnormal Lab Results - Last 24 Hours (Table) 06/22/22 06/22/22 06/22/22 Range/Units 04:27 04:27 04:27 RBC 3.79 L (4.30-5.90) m/uL Hgb 11.5 L (13.0-17.5) gm/dL Hct 36.7 L (39.0-53.0) % MCHC (32.0-37.0) g/dL Plt Count 118 L (150-450) k/uL Immature Gran # (0.00-0.04) X 10*3/uL Sodium 136 L (137-145) mmol/L Carbon Dioxide 20 L (22-30) mmol/L Anion Gap (10.00-18.00) mmol/L BUN 32 H (9-20) mg/dL Creatinine 1.46 H (0.66-1.25) mg/dL Est GFR (CKD-EPI)AfAm (60.0-200.0) Est GFR (CKD-EPI)NonAf (60.0-200.0) BUN/Creatinine Ratio (12.00-20.00) Ratio Glucose 166 H (74-99) mg/dL POC Glucose (mg/dL) (70-110) mg/dL Calcium (8.7-10.3) mg/dL Procalcitonin 1.62 H (0.02-0.09) ng/mL 06/22/22 06/22/22 06/23/22 Range/Units 16:31 20:50 04:08 RBC 3.57 L (4.30-5.90) m/uL Hgb 10.6 L (13.0-17.5) gm/dL Hct 34.0 L (39.0-53.0) % MCHC 31.2 L (32.0-37.0) g/dL Plt Count (150-450) k/uL Immature Gran # 0.08 H (0.00-0.04) X 10*3/uL Sodium (137-145) mmol/L Carbon Dioxide (22-30) mmol/L Anion Gap (10.00-18.00) mmol/L BUN (9-20) mg/dL Creatinine (0.66-1.25) mg/dL Est GFR (CKD-EPI)AfAm (60.0-200.0) Est GFR (CKD-EPI)NonAf (60.0-200.0) BUN/Creatinine Ratio (12.00-20.00) Ratio Glucose (74-99) mg/dL POC Glucose (mg/dL) 197 H 277 H (70-110) mg/dL Calcium (8.7-10.3) mg/dL Procalcitonin (0.02-0.09) ng/mL 06/23/22 06/23/22 06/23/22 Range/Units 04:08 06:31 11:13 RBC (4.30-5.90) m/uL Hgb (13.0-17.5) gm/dL Hct (39.0-53.0) % MCHC (32.0-37.0) g/dL Plt Count (150-450) k/uL Immature Gran # (0.00-0.04) X 10*3/uL Sodium (137-145) mmol/L Carbon Dioxide (22-30) mmol/L Anion Gap 9.50 L (10.00-18.00) mmol/L BUN 32.0 H (9-20) mg/dL Creatinine (0.66-1.25) mg/dL Est GFR (CKD-EPI)AfAm 49.2 L (60.0-200.0) Est GFR (CKD-EPI)NonAf 42.4 L (60.0-200.0) BUN/Creatinine Ratio 21.33 H (12.00-20.00) Ratio Glucose 214 H (74-99) mg/dL POC Glucose (mg/dL) 200 H 228 H (70-110) mg/dL Calcium 8.1 L (8.7-10.3) mg/dL Procalcitonin (0.02-0.09) ng/mL Microbiology - Last 24 Hours (Table) 06/21/22 11:15 Blood Culture - Preliminary Blood No Growth after 24 hours Assessment and Plan Assessment: Acute lower lobe pneumonia, pro-calcitonin 1.62. Acute hypoxic respiratory failure secondary to the above COPD Hypertension Hyperlipidemia Hyperglycemia, A1c 9.6, recent adjustments in diabetic med regimen last week at PCPs office, continue diabetic education and close monitoring. History of DVT, anticoagulated on ELiquis BPH Isomnia Plan: Continue on current medication regime ,monitoring and symptomatic treatment. Attempting to wean off O2/85% on room air after ambulation currently. Increase ambulation as tolerated. Discharge planning in progress pending final DC recommendations and clearance per pulmonary. Patient is eager for discharge home today. The impression and plan of care has been dictated as directed. : I performed a history and examination of this patient, discussed the same with the dictator. I agree with the dictator's note ,documented as a scribe. Any additional findings or plans will be noted.
--- NOTE | 2022-06-23 14:44 | P.PN ---
Subjective Progress Note Date: 06/23/22 82-year-old male, seen initially in the emergency room, on June 21, at 3:00 in the morning. On his initial presentation, the patient apparently was complaining of nausea, vomiting, and diarrhea, and was apparently shaking or having chills. The patient states that he was not feeling well about 2 or 3 days prior to admission. In addition, he does admit to some cough, which is nonproductive, and some shortness of breath. Both of those symptoms are mentioned by the ER physician as well. The patient has a history of diabetes, deep venous thrombosis, hyperlipidemia, hypertension, osteoarthritis, and kidney stones. The patient is a former smoker, having smoked heavily in the past. He does not smoke currently. The patient was to be discharged from the emergency room, but, the patient developed low saturations, and the patient was kept, and admitted with a diagnosis of right lower lobe pneumonia. White count 6.5, hemoglobin 12.9, hematocrit 38.6, and platelet count 233,000. Venous blood gases show a pCO2 45 and a pH is 7.3. Sodium 136, potassium 4.7, chlorides 107, CO2 15, anion gap 14, BUN 27, and creatinine 1.24. The patient was tested for influenza A and influenza B. Both were negative. Likewise, the patient tested negative for respiratory syncytial virus, and also coronavirus. Currently, the patient's on 2 L. Is not receiving any IV fluids. He get a dose of Rocephin a nd Zithromax in the emergency room but they were not continued. I added them back, and also added some albuterol sulfate and ipratropium bromide, and also ordered a pro-calcitonin level. On today's evaluation of 06/23/2022, seeing the patient Follow-up./Shortness of breath. Clinically congestive cough. No chest pain. No fever. No chills. Influenza screen was negative. Covid 19 testing was negative. RSV was negative. The patient is on Rocephin and Zithromax. He was not given any stero ids. Arrangements are being made for possible discharge over the next 24 hours with home O2 and a nebulizer. Objective - Vital Signs Vital signs: Vital Signs Temp 97.4 F L 06/23/22 07:52 Pulse 60 06/23/22 12:27 Resp 18 06/23/22 07:52 BP 122/64 06/23/22 07:52 Pulse Ox 85 L 06/23/22 10:25 FiO2 Intake & Output 06/22/22 06/23/22 06/23/22 18:59 06:59 18:59 Other: Voiding Method Toilet # Voids 3 2 - Exam No acute distress, oriented 3. Currently on 2 L. HEENT examination is grossly unremarkable. Neck supple. Full range of motion. No adenopathy thyromegaly or neck vein distention. Cardiovascular examination reveals regular rhythm rate. S1-S2 normal. No S3 or S4. No discernible murmur noted. Heart rate 79 bpm. Lungs reveal scattered bilateral rhonchi. Minimal wheezes. No crackles. Breath sounds equal bilaterally. 2 L saturation is 97%. Abdomen soft bowel sounds are heard. No masses or tenderness. Extremities are intact. No cyanosis clubbing or edema. Skin is without rash or lesion. Neurologic examination is brief but nonfocal. - Labs CBC & Chem 7: 06/23/22 04:08 06/23/22 04:08 Labs: Abnormal Lab Results - Last 24 Hours (Table) 06/22/22 06/22/22 06/22/22 Range/Units 04:27 16:31 20:50 RBC (4.40-5.60) X 10*6/uL Hgb (13.0-17.0) g/dL Hct (39.6-50.0) % MCHC (32.0-37.0) g/dL Immature Gran # (0.00-0.04) X 10*3/uL Anion Gap (10.00-18.00) mmol/L BUN (9.0-27.0) mg/dL Est GFR (CKD-EPI)AfAm (60.0-200.0) Est GFR (CKD-EPI)NonAf (60.0-200.0) BUN/Creatinine Ratio (12.00-20.00) Ratio Glucose (70-110) mg/dL POC Glucose (mg/dL) 197 H 277 H (70-110) mg/dL Calcium (8.7-10.3) mg/dL Procalcitonin 1.62 H (0.02-0.09) ng/mL 06/23/22 06/23/22 06/23/22 Range/Units 04:08 04:08 06:31 RBC 3.57 L (4.40-5.60) X 10*6/uL Hgb 10.6 L (13.0-17.0) g/dL Hct 34.0 L (39.6-50.0) % MCHC 31.2 L (32.0-37.0) g/dL Immature Gran # 0.08 H (0.00-0.04) X 10*3/uL Anion Gap 9.50 L (10.00-18.00) mmol/L BUN 32.0 H (9.0-27.0) mg/dL Est GFR (CKD-EPI)AfAm 49.2 L (60.0-200.0) Est GFR (CKD-EPI)NonAf 42.4 L (60.0-200.0) BUN/Creatinine Ratio 21.33 H (12.00-20.00) Ratio Glucose 214 H (70-110) mg/dL POC Glucose (mg/dL) 200 H (70-110) mg/dL Calcium 8.1 L (8.7-10.3) mg/dL Procalcitonin (0.02-0.09) ng/mL 06/23/22 Range/Units 11:13 RBC (4.40-5.60) X 10*6/uL Hgb (13.0-17.0) g/dL Hct (39.6-50.0) % MCHC (32.0-37.0) g/dL Immature Gran # (0.00-0.04) X 10*3/uL Anion Gap (10.00-18.00) mmol/L BUN (9.0-27.0) mg/dL Est GFR (CKD-EPI)AfAm (60.0-200.0) Est GFR (CKD-EPI)NonAf (60.0-200.0) BUN/Creatinine Ratio (12.00-20.00) Ratio Glucose (70-110) mg/dL POC Glucose (mg/dL) 228 H (70-110) mg/dL Calcium (8.7-10.3) mg/dL Procalcitonin (0.02-0.09) ng/mL Microbiology - Last 24 Hours (Table) 06/21/22 11:15 Blood Culture - Preliminary Blood No Growth after 48 hours Assessment and Plan Plan: Acute hypoxemic respiratory failure secondary to right lower lobe pneumonia. Previous history of tobacco use, rule out COPD. History of diabetes mellitus. History of deep venous thrombosis. History of hypertension. History of hyperlipidemia. History of osteoarthritis. History of kidney stones. Plan Start the patient on IV Solu-Medrol 60 mg every 6 hours, monitor oxygenation, provide incentive spirometer, continue bronchodilators, may further optimize this patient with the next 24 hours and discharge him home probably by tomorrow based on his overall condition.
[2022-06-23] MEDS: methylPREDNISolone SOD SUCCI 125 MG/2 ML VIAL IV SCH ×3 (15:45→23:04)
[2022-06-23 16:48] LABS: Glucose,Whole Blood 205 mg/dL (70-110)
[2022-06-23] MEDS ORDERED: IMIQUIMOD TOPICAL SCH (17:03)
[2022-06-23 19:50] LABS: Glucose,Whole Blood 339 mg/dL (70-110)
[2022-06-23] MEDS: amLODIPine 10 MG TAB PO SCH (21:19)
[2022-06-23] MEDS: FINASTERIDE 5 MG TAB PO SCH (21:19)
[2022-06-23] MEDS: traZODone HCL 100 MG TAB PO SCH (21:20)
[2022-06-23] MEDS: MELATONIN 5 MG TABLET PO SCH (21:20)
[2022-06-23] MEDS: LOSARTAN 50 MG TAB PO SCH (21:20)
[2022-06-24 06:22] LABS: Glucose,Whole Blood 312 mg/dL (70-110)
[2022-06-24] MEDS: methylPREDNISolone SOD SUCCI 125 MG/2 ML VIAL IV SCH ×2 (06:33→12:18)
[2022-06-24] MEDS: INSULIN ASPART (NovoLOG) 100 UNIT/ML VIAL SQ SCH ×2 (06:33→12:18)
[2022-06-24 07:38] VITALS: BP 127/61; RESP 17; TEMP 97.5
[2022-06-24] MEDS: IPRATROPIUM-ALBUTEROL 3 ML NEB INHALATION SCH (08:41)
[2022-06-24 08:44] VITALS: PULSE 68
[2022-06-24] MEDS ORDERED: INSULIN DETEMIR (LEVEMIR) 100 UNIT/ML SYR SQ SCH (09:00)
[2022-06-24] MEDS: traMADol 50 MG TAB PO SCH ×2 (10:38→15:05)
[2022-06-24] MEDS: TAMSULOSIN 0.4 MG CAP.ER.24H PO SCH (10:38)
[2022-06-24] MEDS: APIXABAN 5 MG TAB PO SCH (10:41)
[2022-06-24] MEDS: ATORVASTATIN 80 MG TAB PO SCH (10:41)
[2022-06-24] MEDS: metFORMIN 500 MG TAB PO SCH (10:41)
[2022-06-24] MEDS: METOPROLOL SUCCINATE (ER) 25 MG TAB.ER.24H PO SCH (10:42)
[2022-06-24] MEDS: AZITHROMYCIN 500 MG TAB PO SCH (10:45)
[2022-06-24 11:34] LABS: Glucose,Whole Blood 351 mg/dL (70-110)
--- NOTE | 2022-06-24 12:03 | P.DS ---
Providers Date of admission: 06/21/22 10:24 Expected date of discharge: 06/24/22 Attending physician: Roverto Perera MD Consults: 06/21/22 10:24 Consult Physician Routine Consulting Provider: Martin Perez Consult Reason/Comments: hypoxia, pneumonia Do you want consulting provider notified?: Yes Primary care physician: Roverto Perera MD Hospital Course: Final Diagnoses: Acute lower lobe pneumonia, pro-calcitonin 1.62. Acute hypoxic respiratory failure secondary to the above COPD Hypertension Hyperlipidemia Hyperglycemia, A1c 9.6, recent adjustments in diabetic med regimen last week at PCPs office, continue diabetic education and close monitoring. 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 Maintained on IV antibiotics with significant clinical improvement. Afebrile, normal WBC. Pro-calcitonin 1.62. O2 sat on room air after ambulation, 85% with conversing. Continues to require 2 L nasal cannula and maintaining O2 sats in the 90s. Hemoglobin A1c 9.6, metformin dose increased last week by PCP. BUN 32, creatinine 1.5. IV steroids added to med regimen yesterday, oxygen has been weaned off this morning, maintaining O2 sats in the 90s. O2 sat on room air after ambulation improved up to 88-89%. Denies any chest pain, palpitations, cough or chills or sweats. Subsequent increase in blood sugars, steroid-induced. Complains of chronic back pain. Denies chest pain, palpitations. Denies lightheadedness, dizziness or focal deficits. Significant clinical improvement. Patient will be discharged home today in a stable condition with guarded prognosis pending final DC recommendations and clearance as per pulmonary. The impression and plan of care has been dictated as directed. : I performed a history and examination of this patient, discussed the same with the dictator. I agree with the dictator's note ,documented as a scribe. Any additional findings or plans will be noted. Patient Condition at Discharge: Stable Plan - Discharge Summary Discharge Rx Participant: No New Discharge Prescriptions: New cefUROXime axetiL [Ceftin] 500 mg PO BID 5 Days #10 tab Ipratropium-Albuterol Nebulize [Duoneb 0.5 mg-3 mg/3 ml Soln] 3 ml INHALATION RT-QID #120 each predniSONE 10 mg PO DIRECTED #30 tab Continue Apixaban [Eliquis] 5 mg PO BID Tamsulosin HCl [Flomax] 0.4 mg PO BID Finasteride [Proscar] 5 mg PO HS amLODIPine [Norvasc] 10 mg PO HS Atorvastatin [Lipitor] 80 mg PO DAILY Imiquimod [Aldara] 1 packet TOPICAL MOWEFR metFORMIN HCL 1,000 mg PO BID Losartan Potassium 100 mg PO HS Repaglinide [Prandin] 2 mg PO BID traZODone HCL [Desyrel] 200 mg PO HS Metoprolol Succinate [Toprol XL] 25 mg PO DAILY Ergocalciferol [Vitamin D2 (1250 Mcg = 48047 Iu)] 1,250 mcg PO DEL ROSARIO Semaglutide [Ozempic] 0.25 mg SQ WE Discharge Medication List Apixaban [Eliquis] 5 mg PO BID 07/17/21 [History] Ergocalciferol [Vitamin D2 (1250 Mcg = 35212 Iu)] 1,250 mcg PO DEL ROSARIO 07/17/21 [History] Finasteride [Proscar] 5 mg PO HS 07/17/21 [History] Losartan Potassium 100 mg PO HS 07/17/21 [History] Metoprolol Succinate [Toprol XL] 25 mg PO DAILY 07/17/21 [History] Repaglinide [Prandin] 2 mg PO BID 07/17/21 [History] Tamsulosin HCl [Flomax] 0.4 mg PO BID 07/17/21 [History] traZODone HCL [Desyrel] 200 mg PO HS 07/17/21 [History] Atorvastatin [Lipitor] 80 mg PO DAILY 11/13/21 [History] amLODIPine [Norvasc] 10 mg PO HS 11/13/21 [History] Imiquimod [Aldara] 1 packet TOPICAL MOWEFR 06/21/22 [History] Semaglutide [Ozempic] 0.25 mg SQ WE 06/21/22 [History] metFORMIN HCL 1,000 mg PO BID 06/21/22 [History] Ipratropium-Albuterol Nebulize [Duoneb 0.5 mg-3 mg/3 ml Soln] 3 ml INHALATION RT-QID #120 each 06/23/22 [Rx] cefUROXime axetiL [Ceftin] 500 mg PO BID 5 Days #10 tab 06/23/22 [Rx] predniSONE 10 mg PO DIRECTED #30 tab 06/24/22 [Rx] Follow up Appointment(s)/Referral(s): Roverto Perera MD [Primary Care Provider] - 06/27/22 9:30 am [facility],Equipment [NON-STAFF] - As Needed (Please call [facility] once home to arrange delivery of the oxygen concentrator. ) Patient Instructions/Handouts: Using Oxygen at Home (DC), Community Acquired Pneumonia (DC) Activity/Diet/Wound Care/Special Instructions: Patient requires home oxygen and a nebulizer to manage his COPD at home. O2 sat on room air after ambulation 85%. Patient is going home on Duonebs QID scheduled and every 4 hours when necessary shortness of breath.
[2022-06-24] MEDS: SODIUM CHLORIDE 0.9% 1,000 ML IV SCH (12:13)
--- NOTE | 2022-06-24 13:43 | P.PN ---
Subjective Progress Note Date: 06/24/22 82-year-old male, seen initially in the emergency room, on June 21, at 3:00 in the morning. On his initial presentation, the patient apparently was complaining of nausea, vomiting, and diarrhea, and was apparently shaking or having chills. The patient states that he was not feeling well about 2 or 3 days prior to admission. In addition, he does admit to some cough, which is nonproductive, and some shortness of breath. Both of those symptoms are mentioned by the ER physician as well. The patient has a history of diabetes, deep venous thrombosis, hyperlipidemia, hypertension, osteoarthritis, and kidney stones. The patient is a former smoker, having smoked heavily in the past. He does not smoke currently. The patient was to be discharged from the emergency room, but, the patient developed low saturations, and the patient was kept, and admitted with a diagnosis of right lower lobe pneumonia. White count 6.5, hemoglobin 12.9, hematocrit 38.6, and platelet count 233,000. Venous blood gases show a pCO2 45 and a pH is 7.3. Sodium 136, potassium 4.7, chlorides 107, CO2 15, anion gap 14, BUN 27, and creatinine 1.24. The patient was tested for influenza A and influenza B. Both were negative. Likewise, the patient tested negative for respiratory syncytial virus, and also coronavirus. Currently, the patient's on 2 L. Is not receiving any IV fluids. He get a dose of Rocephin a nd Zithromax in the emergency room but they were not continued. I added them back, and also added some albuterol sulfate and ipratropium bromide, and also ordered a pro-calcitonin level. On today's evaluation of 06/23/2022, seeing the patient Follow-up./Shortness of breath. Clinically congestive cough. No chest pain. No fever. No chills. Influenza screen was negative. Covid 19 testing was negative. RSV was negative. The patient is on Rocephin and Zithromax. He was not given any stero ids. Arrangements are being made for possible discharge over the next 24 hours with home O2 and a nebulizer. On today's evaluation of 06/24/2022, much improvement in his condition and the patient's pulse ox at rest of the 95 and 96%. We are going to reevaluate his oxygenation with ambulation and decide if home O2 is needed in this patient. For the most part, is doing very well. He has no specific complaints. No nausea. No vomiting. No chest pain. He remains and accommodation of Rocephin and Zithromax. He was given IV Solu-Medrol. Blood sugars are slightly elevated due to use of steroids. Objective - Vital Signs Vital signs: Vital Signs Temp 97.5 F L 06/24/22 07:37 Pulse 68 06/24/22 08:49 Resp 17 06/24/22 07:37 BP 127/61 06/24/22 07:37 Pulse Ox 89 L 06/24/22 09:00 FiO2 Intake & Output 06/23/22 06/24/22 06/24/22 18:59 06:59 18:59 Intake Total 720 Balance 720 Intake: Oral 720 Other: Voiding Method Toilet # Voids 2 2 - Exam No acute distress, oriented 3. Currently on 2 L. HEENT examination is grossly unremarkable. Neck supple. Full range of motion. No adenopathy thyromegaly or neck vein distention. Cardiovascular examination reveals regular rhythm rate. S1-S2 normal. No S3 or S4. No discernible murmur noted. Heart rate 79 bpm. Lungs reveal scattered bilateral rhonchi. Minimal wheezes. No crackles. Breath sounds equal bilaterally. 2 L saturation is 97%. Abdomen soft bowel sounds are heard. No masses or tenderness. Extremities are intact. No cyanosis clubbing or edema. Skin is without rash or lesion. Neurologic examination is brief but nonfocal. - Labs CBC & Chem 7: 06/23/22 04:08 06/23/22 04:08 Labs: Abnormal Lab Results - Last 24 Hours (Table) 06/23/22 06/23/22 06/24/22 Range/Units 16:46 19:49 06:15 POC Glucose (mg/dL) 205 H 339 H 312 H (70-110) mg/dL 06/24/22 Range/Units 11:33 POC Glucose (mg/dL) 351 H (70-110) mg/dL Microbiology - Last 24 Hours (Table) 06/21/22 11:15 Blood Culture - Preliminary Blood No Growth after 48 hours Assessment and Plan Plan: Acute hypoxemic respiratory failure secondary to right lower lobe pneumonia. Previous history of tobacco use, rule out COPD. History of diabetes mellitus. History of deep venous thrombosis. History of hypertension. History of hyperlipidemia. History of osteoarthritis. History of kidney stones. Plan The patient can be discharged home. I do not see the need for oxygen therapy as the patient was able to maintain an oxygen saturation above 90% with activity. Breath. The patient is going to go home on cefuroxime, prednisone burst taper, he was given a nebulizer and he will be using DuoNeb nebulized treatments [id number]. I will see him in the office in 2 weeks' time for reevaluation.
[2022-06-24 14:47] VITALS: BMI 31.1
== END 2022-06-24 15:16 | disposition home or self-care (01) | DRG 193 ==
LOC: EC 02:48 → 4SSUR 10:24
PROVIDERS: ADMIT Family Medicine; ATTEND Family Medicine
PROC: 3E0F7SF Introduction of Other Gas into Respiratory Tract, Via Natural or Artificial Opening (ICD-10-PCS; principal; 2022-06-21)
DX: J18.9 Pneumonia, unspecified organism (principal); J96.01 Acute respiratory failure with hypoxia; J44.0 Chronic obstructive pulmonary disease with (acute) lower respiratory infection; E87.20 Acidosis, unspecified; I10 Essential (primary) hypertension; Z79.899 Other long term (current) drug therapy; E11.65 Type 2 diabetes mellitus with hyperglycemia; Z86.718 Personal history of other venous thrombosis and embolism; F32.A Depression, unspecified; M19.90 Unspecified osteoarthritis, unspecified site; Z87.891 Personal history of nicotine dependence; E78.5 Hyperlipidemia, unspecified; T38.0X5A Adverse effect of glucocorticoids and synthetic analogues, initial encounter; E86.0 Dehydration; F41.9 Anxiety disorder, unspecified; G47.00 Insomnia, unspecified; G89.29 Other chronic pain; N40.0 Benign prostatic hyperplasia without lower urinary tract symptoms; Z20.822 Contact with and (suspected) exposure to COVID-19; Z79.01 Long term (current) use of anticoagulants; Z79.82 Long term (current) use of aspirin; Z79.84 Long term (current) use of oral hypoglycemic drugs; Z87.442 Personal history of urinary calculi; Z87.19 Personal history of other diseases of the digestive system; X58.XXXA Exposure to other specified factors, initial encounter
CPT/HCPCS: 36415; 71046; 80048; 80053; 82150; 82803; 83036; 83605; 83690; 83880; 84145; 84484; 85025; 87040; 87636; 93005; 94640; 94760; 96361; 96374; 96375; 99285

== ENCOUNTER 2023-01-11 20:40 | Emergency (ER) | payer MEDICARE ==
[2023-01-11 21:31] VITALS: TEMP 98
--- NOTE | 2023-01-11 22:43 | ED ---
General Adult HPI - General Chief complaint: Recheck/Abnormal Lab/Rx Stated complaint: Low Blood Sugar Time Seen by Provider: 01/11/23 22:00 Source: patient, RN notes reviewed Mode of arrival: wheelchair Limitations: no limitations - History of Present Illness Initial comments: 82-year-old male with a past medical history significant for diabetes mellitus type 2 presents to the emergency department with a chief complaint of blood sugar problem. He injects himself with 20 units of insulin at 5 PM prior to dinner time. He reports that his glucometer notified him that his blood sugar was 60. He reports that he took some oral glucose which brought his blood sugar into the 100s. He offers no specific complaints at this time. Denies diz ziness, lightheadedness, vision changes, vision loss, cough, chest pain, palpitations, shortness of breath, abdominal pain, nausea, vomiting, diarrhea. Falls or trauma. - Related Data Home Medications Medication Instructions Recorded Confirmed Apixaban [Eliquis] 5 mg PO BID 07/17/21 06/21/22 Ergocalciferol [Vitamin D2 (1250 1,250 mcg PO DEL ROSARIO 07/17/21 06/21/22 Mcg = 27579 Iu)] Finasteride [Proscar] 5 mg PO HS 07/17/21 06/21/22 Losartan Potassium 100 mg PO HS 07/17/21 06/21/22 Metoprolol Succinate [Toprol XL] 25 mg PO DAILY 07/17/21 06/21/22 Repaglinide [Prandin] 2 mg PO BID 07/17/21 06/21/22 Tamsulosin HCl [Flomax] 0.4 mg PO BID 07/17/21 06/21/22 traZODone HCL [Desyrel] 200 mg PO HS 07/17/21 06/21/22 Atorvastatin [Lipitor] 80 mg PO DAILY 11/13/21 06/21/22 amLODIPine [Norvasc] 10 mg PO HS 11/13/21 06/21/22 Imiquimod [Aldara] 1 packet TOPICAL MOWEFR 06/21/22 06/21/22 Semaglutide [Ozempic] 0.25 mg SQ WE 06/21/22 06/21/22 metFORMIN HCL 1,000 mg PO BID 06/21/22 06/21/22 Previous Rx's Medication Instructions Recorded Ipratropium-Albuterol Nebulize 3 ml INHALATION RT-QID #120 each 06/23/22 [Duoneb 0.5 mg-3 mg/3 ml Soln] cefUROXime axetiL [Ceftin] 500 mg PO BID 5 Days #10 tab 06/23/22 predniSONE 10 mg PO DIRECTED #30 tab 06/24/22 Allergies Allergy/AdvReac Type Severity Reaction Status Date / Time No Known Allergies Allergy Verified 01/11/23 21:31 Review of Systems ROS Statement: Those systems with pertinent positive or pertinent negative responses have been documented in the HPI. ROS Other: All systems not noted in ROS Statement are negative. Past Medical History Past Medical History: Diabetes Mellitus, Deep Vein Thrombosis (DVT), Hyperlipidemia, Hypertension, Osteoarthritis (OA) Additional Past Medical History / Comment(s): aneurysm, DVT x 2, kidney stones History of Any Multi-Drug Resistant Organisms: None Reported Past Surgical History: Back Surgery Additional Past Surgical History / Comment(s): "lumbar spine surgery", lithotripsy,AAA repair Past Anesthesia/Blood Transfusion Reactions: No Reported Reaction Past Psychological History: Depression Smoking Status: Former smoker Past Alcohol Use History: None Reported Past Drug Use History: None Reported - Past Family History Mother Family Medical History: No Reported History General Exam - General Exam Comments Initial Comments: General: Alert, in no acute distress Head: atraumatic normocephalic. Eyes PERRL, EOMI intact, mucous membranes moist Respiratory: Lungs clear to auscultation bilaterally Cardiovascular: Heart rate regular rate and rhythm Abdominal: Soft without guarding or rebound Extremities: Normal inspection with full range of motion and normal capillary refill Neuroogic: alert and oriented 3, CN II-XII intact, able to ambulate with steady gait Skin: warm dry and intact with normal color Limitations: no limitations Course Vital Signs 01/11/23 01/11/23 21:22 23:04 Temperature 98.0 F Pulse Rate 92 84 Respiratory 20 14 Rate Blood Pressure 143/73 138/67 O2 Sat by Pulse 96 97 Oximetry - Reevaluation(s) Reevaluation #1: 01/11/23 22:15 patient with glucometer reveals sugar level ranging in the high 80s to 90s. Patient alert and oriented in no acute distress noted. Patient requesting to be discharged home at this time. Medical Decision Making - Medical Decision Making Was pt. sent in by a medical professional or institution ([facility] [facility], ETIOLOGY TEACHER, urgent care, hospital, or jail...) When possible be specific @ -[No] Did you speak to anyone other than the patient for history (EMS, parent, family, police, friend...)? What history was obtained from this source @ -[No] Did you review nursing and triage notes (agree or disagree)? Why? @ -[I reviewed and agree with nursing and triage notes] Were old charts reviewed (outside hosp., previous admission, EMS record, old EKG, old radiological studies, urgent care reports/EKG's, jail records)? Report findings @ -[No old charts were reviewed] Differential Diagnosis (chest pain, altered mental status, abdominal pain women, abdominal pain men, vaginal bleeding, weakness, fever, dyspnea, syncope, headache, dizziness, GI bleed, back pain, seizure, CVA, palpatations, mental health, musculoskeletal)? @ -[not applicable] EKG interpreted by me (3pts min.). @ -[As above] X-rays interpreted by me (1pt min.). @ -[None done] CT interpreted by me (1pt min.). @ -[None done] U/S interpreted by me (1pt. min.). @ -[None done] What testing was considered but not performed or refused? (CT, X-rays, U/S, labs)? Why? @ -[None] What meds were considered but not given or refused? Why? @ -[None] Did you discuss the management of the patient with other professionals (professionals i.e. [employer] [facility], ETIOLOGY TEACHER, lab, RT, psych nurse, school social worker, cyber security specialist, teacher, money position officer, window caser)? Give summary @ -[No] Was smoking cessation discussed for >3mins.? @ -[No] Was critical care preformed (if so, how long)? @ -[No] Were there social determinants of health that impacted care today? How? (Homelessness, low income, unemployed, alcoholism, drug addiction, transportation, low edu. Level, literacy, decrease access to med. care, shelter, rehab)? @ -[No] Was there de-escalation of care discussed even if they declined (Discuss DNR or withdrawal of care, Hospice)? DNR status @ -[No] What co-morbidities impacted this encounter? (DM, HTN, Smoking, COPD, CAD, Cancer, CVA, ARF, Chemo, Hep., AIDS, mental health diagnosis, sleep apnea, morbid obesity)? @ -[None] Was patient admitted / discharged? Hospital course, mention meds given and route, prescriptions, significant lab abnormalities, going to OR and other pertinent info. @ Discharged. This is a 82-year-old male presents to the emergency department with blood suagr problem. Patient had a thorough history and physical exam performed while in the ED. Physical exam is essentially unremarkable heart rate regular rate and rhythm, lung sounds clear to auscultation bilaterally abdomen, abdomen soft and nontender. Patient blood sugar is 98 upon arrival. Patient had an appointment with his primary care physician tomorrow. I discussed results in detail with the patient verbalized understanding and all questions were addressed. . Return precautions were discussed at length. Patient discharged in stable condition. Case discussed with JORI Harding who agrees with plan of care Undiagnosed new problem with uncertain prognosis? @ -[No] Drug Therapy requiring intensive monitoring for toxicity (Heparin, Nitro, Insulin, Cardizem)? @ -[No] Were any procedures done? @ -[No] Diagnosis/symptom @ -Blood Sugar Problem Acute, or Chronic, or Acute on Chronic? @ -Acute Uncomplicated (without systemic symptoms) or Complicated (systemic symptoms)? @ Uncomplicated Side effects of treatment? @ -[No] Exacerbation, Progression, or Severe Exacerbation? @ -[No] Poses a threat to life or bodily function? How? (Chest pain, USA, VT, pneumonia, PE, COPD, DKA, ARF, appy, cholecystitis, CVA, Diverticulitis, Homicidal, Suicidal, threat to staff... and all critical care pts) @ -Low likelihood Disposition Clinical Impression: Hypoglycemia Disposition: HOME SELF-CARE Condition: Stable Additional Instructions: Please follow-up with Dr. Perera tomorrow Please return to the nearest emergency department if symptoms worsen or persist Is patient prescribed a controlled substance at d/c from ED?: No Referrals: Roverto Perera MD [Primary Care Provider] - 1-2 days Time of Disposition: 22:42
[2023-01-11 23:05] VITALS: BP 138/67; PULSE 84; RESP 14
== END 2023-01-11 23:05 | disposition home or self-care (01) ==
LOC: EC 20:40
DX: E11.649 Type 2 diabetes mellitus with hypoglycemia without coma (principal); E78.5 Hyperlipidemia, unspecified; F32.A Depression, unspecified; I10 Essential (primary) hypertension; M19.90 Unspecified osteoarthritis, unspecified site; Z87.891 Personal history of nicotine dependence; Z79.84 Long term (current) use of oral hypoglycemic drugs; Z79.899 Other long term (current) drug therapy; Z79.1 Long term (current) use of non-steroidal anti-inflammatories (NSAID)
CPT/HCPCS: 99282

== ENCOUNTER 2023-02-05 04:34 | Emergency (ER) | payer MEDICARE ==
[2023-02-05 04:48] VITALS: BP 135/78; PULSE 83; RESP 16; TEMP 97.5
--- NOTE | 2023-02-05 05:17 | ED ---
General Adult HPI - General Chief complaint: Extremity Injury, Lower Stated complaint: Leg Pain, History of blood clots Time Seen by Provider: 02/05/23 04:56 Source: patient Mode of arrival: wheelchair Limitations: no limitations - History of Present Illness Initial comments: This is an 82-year-old male with a past medical history including previous DVTs on Eliquis presented to the emergency department for left posterior buttock pain. The patient stated this pain isn't present over the last 3 days and he stated he came into the emergency department today because "I wanted to make sure it wasn't a DVT and I'm just waiting around." The patient had pain that was deeper in the left posterior buttock but was not reproducible on palpation. The patient was able to move his left lower extremity and full range of motion but stated that he is unable to stand for long periods of time at baseline. The patient stated he has a history of significant arthritis and has been taking Aleve and Tylenol 4s at home. The patient denied any trauma to the area. The patient denied a shortest breath or difficulty in breathing. The patient was resting in bed comfortably. - Related Data Home Medications Medication Instructions Recorded Confirmed Apixaban [Eliquis] 5 mg PO BID 07/17/21 06/21/22 Ergocalciferol [Vitamin D2 (1250 1,250 mcg PO DEL ROSARIO 07/17/21 06/21/22 Mcg = 46042 Iu)] Finasteride [Proscar] 5 mg PO HS 07/17/21 06/21/22 Losartan Potassium 100 mg PO HS 07/17/21 06/21/22 Metoprolol Succinate [Toprol XL] 25 mg PO DAILY 07/17/21 06/21/22 Repaglinide [Prandin] 2 mg PO BID 07/17/21 06/21/22 Tamsulosin HCl [Flomax] 0.4 mg PO BID 07/17/21 06/21/22 traZODone HCL [Desyrel] 200 mg PO HS 07/17/21 06/21/22 Atorvastatin [Lipitor] 80 mg PO DAILY 11/13/21 06/21/22 amLODIPine [Norvasc] 10 mg PO HS 11/13/21 06/21/22 Imiquimod [Aldara] 1 packet TOPICAL MOWEFR 06/21/22 06/21/22 Semaglutide [Ozempic] 0.25 mg SQ WE 06/21/22 06/21/22 metFORMIN HCL 1,000 mg PO BID 06/21/22 06/21/22 Previous Rx's Medication Instructions Recorded Ipratropium-Albuterol Nebulize 3 ml INHALATION RT-QID #120 each 06/23/22 [Duoneb 0.5 mg-3 mg/3 ml Soln] cefUROXime axetiL [Ceftin] 500 mg PO BID 5 Days #10 tab 06/23/22 predniSONE 10 mg PO DIRECTED #30 tab 06/24/22 methocarbamoL [Robaxin-750] 750 mg PO TID #30 tab 02/05/23 Allergies Allergy/AdvReac Type Severity Reaction Status Date / Time No Known Allergies Allergy Verified 02/05/23 04:47 Review of Systems ROS Statement: Those systems with pertinent positive or pertinent negative responses have been documented in the HPI. ROS Other: All systems not noted in ROS Statement are negative. Past Medical History Past Medical History: Diabetes Mellitus, Deep Vein Thrombosis (DVT), Hyperlipidemia, Hypertension, Osteoarthritis (OA) Additional Past Medical History / Comment(s): aneurysm, DVT x 2, kidney stones History of Any Multi-Drug Resistant Organisms: None Reported Past Surgical History: Back Surgery Additional Past Surgical History / Comment(s): "lumbar spine surgery", lithotripsy,AAA repair Past Anesthesia/Blood Transfusion Reactions: No Reported Reaction Past Psychological History: Depression Smoking Status: Former smoker Past Alcohol Use History: None Reported Past Drug Use History: None Reported - Past Family History Mother Family Medical History: No Reported History General Exam Limitations: no limitations General appearance: alert, in no apparent distress Head exam: Present: atraumatic, normocephalic, normal inspection Eye exam: Present: normal appearance, PERRL Pupils: Present: normal accommodation ENT exam: Present: normal exam, normal oropharynx, mucous membranes moist Neck exam: Present: normal inspection, full ROM Respiratory exam: Present: normal lung sounds bilaterally Cardiovascular Exam: Present: regular rate, normal rhythm, normal heart sounds GI/Abdominal exam: Present: soft, normal bowel sounds Extremities exam: Present: normal inspection, full ROM Back exam: Present: normal inspection, full ROM Neurological exam: Present: alert, oriented X3, CN II-XII intact Psychiatric exam: Present: normal affect, normal mood Skin exam: Present: warm, dry Course Vital Signs 02/05/23 04:41 Temperature 97.5 F L Pulse Rate 83 Respiratory 16 Rate Blood Pressure 135/78 O2 Sat by Pulse 94 L Oximetry Medical Decision Making - Medical Decision Making Was pt. sent in by a medical professional or institution ([facility], HEALTH AND WELLNESS INSTRUCTOR, urgent care, hospital, or alf...) When possible be specific @ -No Did you speak to anyone other than the patient for history (EMS, parent, family, police, friend...)? What history was obtained from this source @ -No Did you review nursing and triage notes (agree or disagree)? Why? @ -I reviewed and agree with nursing and triage notes Were old charts reviewed (outside hosp., previous admission, EMS record, old EKG, old radiological studies, urgent care reports/EKG's, alf records)? Report findings @ -No old charts were reviewed Differential Diagnosis (chest pain, altered mental status, abdominal pain women, abdominal pain men, vaginal bleeding, weakness, fever, dyspnea, syncope, headache, dizziness, GI bleed, back pain, seizure, CVA, palpatations, mental health)? @ -Musculoskeletal strain, contusion, left hip arthritis EKG interpreted by me (3pts min.). @ -None X-rays interpreted by me (1pt min.). @ -None CT interpreted by me (1pt min.). @ -None done U/S interpreted by me (1pt. min.). @ -None done What testing was considered but not performed or refused? (CT, X-rays, U/S, labs)? Why? @ -X-ray of the left hip was considered however the patient denied of any point tenderness noted today And had full range of motion therefore imaging was not needed at this time. What meds were considered but not given or refused? Why? @ -None Did you discuss the management of the patient with other professionals (professionals i.e. [facility], HEALTH AND WELLNESS INSTRUCTOR, lab, RT, psych nurse, social studies teacher, manager business, teacher, labor relations officer, family independence case manager)? Give summary @ -No Was smoking cessation discussed for >3mins.? @ -No Was critical care preformed (if so, how long)? @ -No Were there social determinants of health that impacted care today? How? (Homelessness, low income, unemployed, alcoholism, drug addiction, transportation, low edu. Level, literacy, decrease access to med. care, [facility], rehab)? @ -No Was there de-escalation of care discussed even if they declined (Discuss DNR or withdrawal of care, Hospice)? DNR status @ -No What co-morbidities impacted this encounter? (DM, HTN, Smoking, COPD, CAD, Cancer, CVA, ARF, Chemo, Hep., AIDS, mental health diagnosis, sleep apnea, morbid obesity)? @ -Hypertension, previous DVTs on Eliquis Was patient admitted / discharged? Hospital course, mention meds given and route, prescriptions, significant lab abnormalities, going to OR and other pertinent info. @ -The patient was seen and evaluated emergency department. Physical exam, the patient was resting in bed without any acute distress. Vital signs admission were stable. Physical exam did not show any abnormality and therefore the patient was stable for discharge home. The patient stated that he used topical anti-inflammatory cream, Aleve and Tylenol at home without any relief. The patient was given Robaxin as a prescription to be taken at home and told to continue to monitor symptoms. The patient was unlikely to have a DVT at this time as he was having posterior left buttock and posterior left hip pain. The patient was advised to follow-up with his primary care physician for further workup and evaluation and to report back to the emergency department if his symptoms seem acutely worse. The patient was agreeable to this and all his questions were answered appropriately. The patient was discharged home in stable condition. Undiagnosed new problem with uncertain prognosis? @ -No Drug Therapy requiring intensive monitoring for toxicity (Heparin, Nitro, Insulin, Cardizem)? @ -No Were any procedures done? @ -No Diagnosis/symptom? @ -Left gluteal muscle strain Acute, or Chronic, or Acute on Chronic? @ -Acute Uncomplicated (without systemic symptoms) or Complicated (systemic symptoms)? @ -Uncomplicated Side effects of treatment? @ -No Exacerbation, Progression, or Severe Exacerbation? @ -No Poses a threat to life or bodily function? How? (Chest pain, [place], [place], pneumonia, PE, COPD, DKA, ARF, appy, cholecystitis, CVA, Diverticulitis, Homicidal, Suicidal, threat to staff... and all critical care pts) @ -No Disposition Clinical Impression: Muscle strain Disposition: HOME SELF-CARE Condition: Stable Instructions (If sedation given, give patient instructions): Muscle Strain (DC) Prescriptions: methocarbamoL [Robaxin-750] 750 mg PO TID #30 tab Is patient prescribed a controlled substance at d/c from ED?: No Referrals: Roverto Perera MD [Primary Care Provider] - 1-2 days Time of Disposition: 05:15
== END 2023-02-05 05:38 | disposition home or self-care (01) ==
LOC: EC 04:34
DX: S76.012A Strain of muscle, fascia and tendon of left hip, initial encounter (principal); E11.9 Type 2 diabetes mellitus without complications; I10 Essential (primary) hypertension; E78.5 Hyperlipidemia, unspecified; M19.90 Unspecified osteoarthritis, unspecified site; Z79.01 Long term (current) use of anticoagulants; Z79.84 Long term (current) use of oral hypoglycemic drugs; Z79.899 Other long term (current) drug therapy; Z86.718 Personal history of other venous thrombosis and embolism; Z87.891 Personal history of nicotine dependence; X58.XXXA Exposure to other specified factors, initial encounter
CPT/HCPCS: 99283

== ENCOUNTER 2023-02-07 19:32 | Emergency (ER) | payer MEDICARE ==
[2023-02-07 20:17] VITALS: TEMP 98
--- NOTE | 2023-02-07 21:05 | ED ---
Extremity Problem HPI - General Source: patient Mode of arrival: ambulatory <Jose A Hawthorne - Last Filed: 02/07/23 21:03> - General Source: RN notes reviewed <Jessica Jean-Baptiste - Last Filed: 02/08/23 03:31> - General Chief complaint: Extremity Problem,Nontraumatic Stated complaint: lower back pain,rash - History of Present Illness Initial comments: 82-year-old male presenting with left hip pain. Patient previously here 2 days ago and was diagnosed with a muscle strain was provided muscle relaxers. He states that this has not provided any relief. Also notes that he has developed a rash over this area. Denies any new injury. (Jose A Hawthorne) Quick note reviewed: When I evaluated the patient patient is a pleasant 82-year-old male with no significant past medical history who presents the emergency department with left hip pain. Patient was reports that he was seen and evaluated here 2 days ago for the same and was given a muscle relaxer. He reports that he has since developed a rash that he describes as burning and painful. He denies any new recent detergents or soaps. No one else in the household has had. He denies any fever, chills he reports he did get that shingles vaccine however, not recently. (Jessica Jean-Baptiste) - Related Data Home Medications Medication Instructions Recorded Confirmed Apixaban [Eliquis] 5 mg PO BID 07/17/21 06/21/22 Ergocalciferol [Vitamin D2 (1250 1,250 mcg PO DEL ROSARIO 07/17/21 06/21/22 Mcg = 07971 Iu)] Finasteride [Proscar] 5 mg PO HS 07/17/21 06/21/22 Losartan Potassium 100 mg PO HS 07/17/21 06/21/22 Metoprolol Succinate [Toprol XL] 25 mg PO DAILY 07/17/21 06/21/22 Repaglinide [Prandin] 2 mg PO BID 07/17/21 06/21/22 Tamsulosin HCl [Flomax] 0.4 mg PO BID 07/17/21 06/21/22 traZODone HCL [Desyrel] 200 mg PO HS 07/17/21 06/21/22 Atorvastatin [Lipitor] 80 mg PO DAILY 11/13/21 06/21/22 amLODIPine [Norvasc] 10 mg PO HS 11/13/21 06/21/22 Imiquimod [Aldara] 1 packet TOPICAL MOWEFR 06/21/22 06/21/22 Semaglutide [Ozempic] 0.25 mg SQ WE 06/21/22 06/21/22 metFORMIN HCL 1,000 mg PO BID 06/21/22 06/21/22 Previous Rx's Medication Instructions Recorded Ipratropium-Albuterol Nebulize 3 ml INHALATION RT-QID #120 each 06/23/22 [Duoneb 0.5 mg-3 mg/3 ml Soln] cefUROXime axetiL [Ceftin] 500 mg PO BID 5 Days #10 tab 06/23/22 predniSONE 10 mg PO DIRECTED #30 tab 06/24/22 methocarbamoL [Robaxin-750] 750 mg PO TID #30 tab 02/05/23 Acyclovir 800 mg PO Q4-6H 7 Days #35 tablet 02/07/23 Gabapentin 300 mg PO TID 3 Days #9 cap 02/07/23 Allergies Allergy/AdvReac Type Severity Reaction Status Date / Time No Known Allergies Allergy Verified 02/07/23 20:16 Review of Systems ROS Other: All systems not noted in ROS Statement are negative. <Jose A Hawthorne - Last Filed: 02/07/23 21:03> ROS Other: All systems not noted in ROS Statement are negative. <Jessica Jean-Baptiste - Last Filed: 02/08/23 03:31> ROS Statement: Those systems with pertinent positive or pertinent negative responses have been documented in the HPI. Past Medical History Past Medical History: Diabetes Mellitus, Deep Vein Thrombosis (DVT), Hyperlipidemia, Hypertension, Osteoarthritis (OA) Additional Past Medical History / Comment(s): aneurysm, DVT x 2, kidney stones History of Any Multi-Drug Resistant Organisms: None Reported Past Surgical History: Back Surgery Additional Past Surgical History / Comment(s): "lumbar spine surgery", lithotripsy,AAA repair Past Anesthesia/Blood Transfusion Reactions: No Reported Reaction Past Psychological History: Depression Smoking Status: Former smoker Past Alcohol Use History: None Reported Past Drug Use History: None Reported - Past Family History Mother Family Medical History: No Reported History <Jose A Hawthorne - Last Filed: 02/07/23 21:03> Course <Jessica Jean-Baptiste - Last Filed: 02/08/23 03:31> Vital Signs 02/07/23 02/08/23 20:13 00:21 Temperature 98.0 F Pulse Rate 91 85 Respiratory 16 18 Rate Blood Pressure 159/83 145/77 O2 Sat by Pulse 95 95 Oximetry - Reevaluation(s) Reevaluation #1: 02/08/23 03:27 General: Alert, in no acute distress Head: atraumatic normocephalic. Eyes PERRL, EOMI intact, mucous membranes moist Respiratory: Lungs clear to auscultation bilaterally Cardiovascular: Heart rate regular rate and rhythm Abdominal: Soft without guarding or rebound Extremities: Normal inspection with full range of motion and normal capillary refill Neuroogic: alert and oriented 3, CN II-XII intact, able to ambulate with steady gait Skin: warm dry and intact with normal color, erythematous vesicular rash to L2 region of left hip is mildly tender no active drainage or open blisters at this time (Jessica Jean-Baptiste) Medical Decision Making <Jessica Jean-Baptiste - Last Filed: 02/08/23 03:31> - Medical Decision Making Was pt. sent in by a medical professional or institution (, PA, MANAGER UTILITY, urgent care, hospital, or long-term...) When possible be specific @ -[No] Did you speak to anyone other than the patient for history (EMS, parent, family, police, friend...)? What history was obtained from this source @ -[No] Did you review nursing and triage notes (agree or disagree)? Why? @ -[I reviewed and agree with nursing and triage notes] Were old charts reviewed (outside hosp., previous admission, EMS record, old EKG, old radiological studies, urgent care reports/EKG's, long-term records)? Report findings @ -[No old charts were reviewed] Differential Diagnosis (chest pain, altered mental status, abdominal pain women, abdominal pain men, vaginal bleeding, weakness, fever, dyspnea, syncope, headache, dizziness, GI bleed, back pain, seizure, CVA, palpatations, mental health, musculoskeletal)? @ -[not applicable] EKG interpreted by me (3pts min.). @ -[As above] X-rays interpreted by me (1pt min.). @ Hip x-ray negative for any acute dislocation or fracture however there is mild changes to bilateral hips. CT interpreted by me (1pt min.). @ -[None done] U/S interpreted by me (1pt. min.). @ -[None done] What testing was considered but not performed or refused? (CT, X-rays, U/S, labs)? Why? @ -[None] What meds were considered but not given or refused? Why? @ -[None] Did you discuss the management of the patient with other professionals (professionals i.e. , PA, MANAGER UTILITY, lab, RT, psych nurse, director of social services, service station equipment mechanic, teacher, parking control officer, casey saw operator)? Give summary @ -[No] Was smoking cessation discussed for >3mins.? @ -[No] Was critical care preformed (if so, how long)? @ -[No] Were there social determinants of health that impacted care today? How? (Homelessness, low income, unemployed, alcoholism, drug addiction, transportation, low edu. Level, literacy, decrease access to med. care, [facility], rehab)? @ -[No] Was there de-escalation of care discussed even if they declined (Discuss DNR or withdrawal of care, Hospice)? DNR status @ -[No] What co-morbidities impacted this encounter? (DM, HTN, Smoking, COPD, CAD, Cancer, CVA, ARF, Chemo, Hep., AIDS, mental health diagnosis, sleep apnea, morbid obesity)? @ -[None] Was patient admitted / discharged? Hospital course, mention meds given and route, prescriptions, significant lab abnormalities, going to OR and other pertinent info. @ -Discharged. This is a pleasant 82-year-old male who presents to the emergency department with left hip pain and rash. Patient had a thorough history and physical exam performed while in the ED. Physical exam is consistent with shingles. Patient was given gabapentin and valacyclovir while in the emergency department he was given a prescription for gabapentin and acyclovir and instructed to have close follow-up with PCP. Patient discharged in stable condition. Case discussed with Dr. Cha, [facility] Undiagnosed new problem with uncertain prognosis? @ -[No] Drug Therapy requiring intensive monitoring for toxicity (Heparin, Nitro, Insulin, Cardizem)? @ -[No] Were any procedures done? @ -[No] Diagnosis/symptom? @ -Shingles Acute, or Chronic, or Acute on Chronic? @ -Acute Uncomplicated (without systemic symptoms) or Complicated (systemic symptoms)? @ -uncomplicated Side effects of treatment? @ -[No] Exacerbation, Progression, or Severe Exacerbation? @ -[No] Poses a threat to life or bodily function? How? (Chest pain, [place], [place], pneumonia, PE, COPD, DKA, ARF, appy, cholecystitis, CVA, Diverticulitis, Homicidal, Suicidal, threat to staff... and all critical care pts) @ -low likelihood (Jessica Jean-Baptiste) Disposition <Jose A aHwthorne - Last Filed: 02/07/23 21:03> Is patient prescribed a controlled substance at d/c from ED?: No Time of Disposition: 23:53 <Jessica Jean-Baptiste - Last Filed: 02/08/23 03:31> Clinical Impression: Shingles Disposition: HOME SELF-CARE Condition: Stable Instructions (If sedation given, give patient instructions): [place] (ED) Additional Instructions: Return to the nearest emergency department if symptoms worsen or persist Prescriptions: Acyclovir 800 mg PO Q4-6H 7 Days #35 tablet Gabapentin 300 mg PO TID 3 Days #9 cap Referrals: Roverto Perera MD [Primary Care Provider] - 1-2 days
--- NOTE | 2023-02-07 21:46 | XR ---
EXAMINATION TYPE: XR Hip LT and AP Pelvis DATE OF EXAM: 02/07/2023 9:28 PM INDICATION: Patient age:Male; 82 years old; Reason for study: l hip pain; PHH. COMPARISON: CT abdomen pelvis 12/19/2021 TECHNIQUE: The left hip was examined in the frontal and lateral projections and a AP pelvis. FINDINGS: No evidence of any acute osseous pathology, joint dislocation, or soft tissue swelling. Mil d osteoarthritic changes of both hips with medial joint space with acetabular sclerosis and marginal osteophytosis. Vascular sclerosis. Multilevel degenerative changes of the visualized lower lumbar spi ne IMPRESSION: 1. No acute osseous pathology. 2. Mild osteoarthritic changes of both hips.
[2023-02-07] MEDS ORDERED: GABAPENTIN 400 MG CAP PO STA (23:12)
[2023-02-07] MEDS ORDERED: valACYclovir HCL 500 MG TAB PO SCH (23:15)
[2023-02-08 00:23] VITALS: BP 145/77; PULSE 85; RESP 18
== END 2023-02-08 00:20 | disposition home or self-care (01) ==
LOC: EC 19:32
DX: B02.9 Zoster without complications (principal); E11.9 Type 2 diabetes mellitus without complications; E78.5 Hyperlipidemia, unspecified; M16.0 Bilateral primary osteoarthritis of hip; I10 Essential (primary) hypertension; Z86.718 Personal history of other venous thrombosis and embolism; F32.A Depression, unspecified; Z87.891 Personal history of nicotine dependence; Z79.01 Long term (current) use of anticoagulants; Z79.84 Long term (current) use of oral hypoglycemic drugs; Z79.899 Other long term (current) drug therapy
CPT/HCPCS: 73502; 99283

== ENCOUNTER 2023-02-17 06:26 | Emergency (ER) | payer MEDICARE ==
[2023-02-17 06:32] VITALS: RESP 18; TEMP 97.6
[2023-02-17] MEDS ORDERED: HYDROmorphone 1 MG/ML 1 ML SYRINGE IM STA (07:07)
--- NOTE | 2023-02-17 07:17 | ED ---
Extremity Problem HPI - General Chief complaint: Extremity Problem,Nontraumatic Stated complaint: SHINGLES Time Seen by Provider: 02/17/23 06:36 Source: patient, RN notes reviewed Mode of arrival: wheelchair Limitations: no limitations - History of Present Illness Initial comments: 82-year-old male presents emergency Department chief complaint left hip, left leg pain. Patient has been seen her several times. Patient did have x-rays initial visit shortly after he developed a rash and was diagnosed with shingles. Patient states that he is on gabapentin but states is not helping this pain. Patient states he has been having increasing hip pain and states that he is concerned about possible DVT. Patient states addresses concern for DVT. He states he's had multiple blood clots in the past he is on blood thinners currently. Patient denies any abdominal pain no paresthesias no discoloration of his leg. - Related Data Home Medications Medication Instructions Recorded Confirmed Apixaban [Eliquis] 5 mg PO BID 07/17/21 06/21/22 Ergocalciferol [Vitamin D2 (1250 1,250 mcg PO DEL ROSARIO 07/17/21 06/21/22 Mcg = 50313 Iu)] Finasteride [Proscar] 5 mg PO HS 07/17/21 06/21/22 Losartan Potassium 100 mg PO HS 07/17/21 06/21/22 Metoprolol Succinate [Toprol XL] 25 mg PO DAILY 07/17/21 06/21/22 Repaglinide [Prandin] 2 mg PO BID 07/17/21 06/21/22 Tamsulosin HCl [Flomax] 0.4 mg PO BID 07/17/21 06/21/22 traZODone HCL [Desyrel] 200 mg PO HS 07/17/21 06/21/22 Atorvastatin [Lipitor] 80 mg PO DAILY 11/13/21 06/21/22 amLODIPine [Norvasc] 10 mg PO HS 11/13/21 06/21/22 Imiquimod [Aldara] 1 packet TOPICAL MOWEFR 06/21/22 06/21/22 Semaglutide [Ozempic] 0.25 mg SQ WE 06/21/22 06/21/22 metFORMIN HCL 1,000 mg PO BID 06/21/22 06/21/22 Previous Rx's Medication Instructions Recorded Ipratropium-Albuterol Nebulize 3 ml INHALATION RT-QID #120 each 06/23/22 [Duoneb 0.5 mg-3 mg/3 ml Soln] cefUROXime axetiL [Ceftin] 500 mg PO BID 5 Days #10 tab 06/23/22 predniSONE 10 mg PO DIRECTED #30 tab 06/24/22 methocarbamoL [Robaxin-750] 750 mg PO TID #30 tab 02/05/23 Acyclovir 800 mg PO Q4-6H 7 Days #35 tablet 02/07/23 Gabapentin 300 mg PO TID 3 Days #9 cap 02/07/23 Allergies Allergy/AdvReac Type Severity Reaction Status Date / Time No Known Allergies Allergy Verified 02/07/23 20:16 Review of Systems ROS Statement: Those systems with pertinent positive or pertinent negative responses have been documented in the HPI. ROS Other: All systems not noted in ROS Statement are negative. Past Medical History Past Medical History: Diabetes Mellitus, Deep Vein Thrombosis (DVT), Hyperlipidemia, Hypertension, Osteoarthritis (OA) Additional Past Medical History / Comment(s): aneurysm, DVT x 2, kidney stones History of Any Multi-Drug Resistant Organisms: None Reported Past Surgical History: Back Surgery Additional Past Surgical History / Comment(s): "lumbar spine surgery", lithotripsy,AAA repair Past Anesthesia/Blood Transfusion Reactions: No Reported Reaction Past Psychological History: Depression Smoking Status: Former smoker Past Alcohol Use History: None Reported Past Drug Use History: None Reported - Past Family History Mother Family Medical History: No Reported History General Exam Limitations: no limitations General appearance: alert, in no apparent distress Head exam: Present: atraumatic, normocephalic, normal inspection Respiratory exam: Present: normal lung sounds bilaterally. Absent: respiratory distress, wheezes, rales, rhonchi, stridor Cardiovascular Exam: Present: regular rate, normal rhythm, normal heart sounds. Absent: systolic murmur, diastolic murmur, rubs, gallop, clicks Extremities exam: Present: other (Left hip there is mild discomfort, rash noted, neurovascular intact). Absent: pedal edema Neurological exam: Present: reflexes normal. Absent: motor sensory deficit Skin exam: Present: warm, dry, intact, normal color. Absent: rash Course Vital Signs 02/17/23 06:29 Temperature 97.6 F Pulse Rate 65 Respiratory 18 Rate Blood Pressure 154/80 O2 Sat by Pulse 96 Oximetry Medical Decision Making - Medical Decision Making Was pt. sent in by a medical professional or institution ([facility], CALL CENTER CONSULTANT, urgent care, hospital, or long term...) When possible be specific @ -No Did you speak to anyone other than the patient for history (EMS, parent, family, police, friend...)? What history was obtained from this source @ -No Did you review nursing and triage notes (agree or disagree)? Why? @ -I reviewed and agree with nursing and triage notes Were old charts reviewed (outside hosp., previous admission, EMS record, old EKG, old radiological studies, urgent care reports/EKG's, long term records)? Report findings @ -No old charts were reviewed Differential Diagnosis (chest pain, altered mental status, abdominal pain women, abdominal pain men, vaginal bleeding, weakness, fever, dyspnea, syncope, headache, dizziness, GI bleed, back pain, seizure, CVA, palpatations, mental health, musculoskeletal)? @ -Shingles, left leg pain, hip pain, DVT, EKG interpreted by me (3pts min.). @ -None X-rays interpreted by me (1pt min.). @ -None done CT interpreted by me (1pt min.). @ -None done U/S interpreted by me (1pt. min.). @ -Ultrasound left is positive for partially occlusive DVT of the left leg age- indeterminate What testing was considered but not performed or refused? (CT, X-rays, U/S, labs)? Why? @ -None What meds were considered but not given or refused? Why? @ -None Did you discuss the management of the patient with other professionals (professionals i.e. [facility], CALL CENTER CONSULTANT, lab, RT, psych nurse, director of social media marketing, tester semiconductor packages, teacher, ordnance officer, case therapist)? Give summary @ -I did discuss case with Dr. Merino regarding patient's ultrasound given that he is on current Eliquis. He feels this may be chronic in nature he is to continue his Eliquis he'll follow-up in office with Fermín for repeat ultrasound] Was smoking cessation discussed for >3mins.? @ -No Was critical care preformed (if so, how long)? @ -No Were there social determinants of health that impacted care today? How? (Homelessness, low income, unemployed, alcoholism, drug addiction, transportation, low edu. Level, literacy, decrease access to med. care, care home, rehab)? @ -No Was there de-escalation of care discussed even if they declined (Discuss DNR or withdrawal of care, Hospice)? DNR status @ -No What co-morbidities impacted this encounter? (DM, HTN, Smoking, COPD, CAD, Cancer, CVA, ARF, Chemo, Hep., AIDS, mental health diagnosis, sleep apnea, morbid obesity)? @ -None Was patient admitted / discharged? Hospital course, mention meds given and route, prescriptions, significant lab abnormalities, going to OR and other per tinent info. @ -Discharged patient will continue Eliquis will have follow-up in office for repeat ultrasound return parameters were discussed. Case discussed with vascular surgery Undiagnosed new problem with uncertain prognosis? @ -No Drug Therapy requiring intensive monitoring for toxicity (Heparin, Nitro, Insulin, Cardizem)? @ -No Were any procedures done? @ -No Diagnosis/symptom? @ -Left leg pain, left DVT Acute, or Chronic, or Acute on Chronic? @ -Acute Uncomplicated (without systemic symptoms) or Complicated (systemic symptoms)? @ -Complicated Side effects of treatment? @ -No Exacerbation, Progression, or Severe Exacerbation? @ -No Poses a threat to life or bodily function? How? (Chest pain, USA, ID, pneumonia, PE, COPD, DKA, ARF, appy, cholecystitis, CVA, Diverticulitis, Homicidal, Suicidal, threat to staff... and all critical care pts) @ -No Disposition Clinical Impression: Left leg DVT, Leg pain Disposition: HOME SELF-CARE Condition: Stable Instructions (If sedation given, give patient instructions): Deep Vein Thrombosis (ED) Additional Instructions: Continue Eliquis as directed, follow-up with vascular surgery for repeat ultrasound as directed.Please return to the Emergency Department if symptoms worsen or any other concerns. Is patient prescribed a controlled substance at d/c from ED?: No Referrals: Roverto Perera MD [Primary Care Provider] - 1-2 days Karl Green DO [Doctor of Osteopathic Medicine] - 1-2 days Time of Disposition: 09:02
--- NOTE | 2023-02-17 08:33 | US ---
EXAMINATION TYPE: US venous doppler duplex LE LT DATE OF EXAM: 02/17/2023 8:08 AM COMPARISON: NONE CLINICAL INDICATION: Male, 82 years old with history of pain; Pain left leg. history of DVT right leg . Patient on blood thinner SIDE PERFORMED: left TECHNIQUE: The lower extremity deep venous system is examined utilizing real time linear array sonog mahendra with graded compression, doppler sonography and color-flow sonography. VESSELS IMAGED: Common Femoral Vein Deep Femoral Vein Greater Saphenous Vein * Femoral Vein Popliteal Vein Small Saphenous Vein * Proximal Calf Veins (* superficial vessels) Left Leg: +positive for DVT. thready flow with partial compression left CFV, and femoral vein extend ing into popliteal vein Grayscale, color doppler, spectral doppler imaging performed of the deep veins of the left lower extr emity IMPRESSION: Partially occlusive DVT of indeterminant age begins within the left common femoral vein extending through the superficial femoral vein into the popliteal vein in the left lower extremity.
[2023-02-17] MEDS ORDERED: ACET/COD 300 MG/30 MG STARTER PACK 6 TAB BTL PO STA (09:02)
[2023-02-17 09:32] VITALS: BP 125/63; PULSE 64
== END 2023-02-17 09:30 | disposition home or self-care (01) ==
LOC: EC 06:26
DX: I82.412 Acute embolism and thrombosis of left femoral vein (principal); E11.9 Type 2 diabetes mellitus without complications; I10 Essential (primary) hypertension; E78.5 Hyperlipidemia, unspecified; Z87.891 Personal history of nicotine dependence; Z79.01 Long term (current) use of anticoagulants; Z79.84 Long term (current) use of oral hypoglycemic drugs; Z79.899 Other long term (current) drug therapy
CPT/HCPCS: 93971; 99284; 96372; J1170

== ENCOUNTER → 2023-06-01 | Outpatient (CLI) | payer MEDICARE ==
[2023-06-01 08:34] LABS: African American GFR (CKD) 27 (>60 ml/min/1.73 sqM); Blood Urea Nitrogen 56 mg/dL (9-20); Non-African American GFR(CKD) 23 (>60 ml/min/1.73 sqM)
--- NOTE | 2023-06-01 09:11 | CT ---
EXAMINATION TYPE: CT chest wo con CT DLP: 351.70 mGycm, Automated exposure control for dose reduction was used. DATE OF EXAM: 06/01/2023 9:01 AM COMPARISON: Chest radiograph 07/11/2022 CLINICAL INDICATION:Male, 83 years old with history of R05.9 COUGH R06.02; [facility], TECHNIQUE: Multiple axial images were obtained through the chest without IV contrast. Lack of IV or o ral contrast limits evaluation of solid and hollow organ viscera. . Coronal and sagittal reformats re viewed. FINDINGS: LUNGS/ PLEURA: No pneumothorax or pleural effusion. Dependent right lower lobe linear atelectasis. Ca lcified granuloma within the right lower lobe. Additional small peripheral regions of sulci atelectas is within the lingula and right middle lobe. Minimal centrilobular emphysematous changes. Right upper lobe 4 mm groundglass pulmonary nodule (series 4, image 30). AIRWAY: Patent and unremarkable.. HEART: Size within normal limits. No pericardial effusion. Moderate coronary artery calcifications. MEDIASTINUM: No gross evidence of adenopathy. Calcified subcarinal and right hilar lymph nodes. VASCULATURE: No aortic aneurysm. Atherosclerotic calcification of the aorta and its branches. MUSCULOSKELETAL: Mild disc degeneration changes are present throughout the thoracolumbar spine. No ac zaid osseous abnormality. SOFT TISSUES/LYMPH NODES: Unremarkable. LOWER NECK: No significant findings. UPPER ABDOMEN: Superior pole renal 2.5 cm cyst partially visualized. Partial visualization of abdomin al aortic stent graft. IMPRESSION: 1. No acute thoracic process. 2. Scattered regions of bibasilar atelectasis. 3. Minimal COPD changes. 4. Right upper lobe 4 mm groundglass pulmonary nodule. No routine follow-up required.
== END | disposition home or self-care (01) ==
LOC: RADCTMAIN 07:14
PROVIDERS: ATTEND Family Medicine
DX: J44.9 Chronic obstructive pulmonary disease, unspecified (principal); J98.11 Atelectasis; R91.1 Solitary pulmonary nodule; R05.9 Cough, unspecified
CPT/HCPCS: 71250; 82565; 84520

== ENCOUNTER 2023-06-03 20:50 | Inpatient (IN) | payer MEDICARE ==
[2023-06-03 21:53] LABS: Basophils # (A) 0.1 k/uL (0-0.2); Basophils % (A) 1 %; Eosinophils # (A) 0.3 k/uL (0-0.7); Eosinophils % (A) 2 %; HCT 48.5 % (39.0-53.0); HGB 15.7 gm/dL (13.0-17.5); Lymphocytes % (A) 8 %; MCH 30.6 pg (25.0-35.0); MCHC 32.4 g/dL (31.0-37.0); MCV 94.4 fL (80.0-100.0); Mean Platelet Volume 8.8; Monocytes # (A) 0.5 k/uL (0-1.0); Monocytes % (A) 4 %; Neutrophils % (A) 84 %; Platelet Count 183 k/uL (150-450); RBC 5.14 m/uL (4.30-5.90); WBC 11.9 k/uL (3.8-10.6)
[2023-06-03 22:01] LABS: INR 1.1 (<1.2); Partial Thromboplastin Time 24.2 sec (22.0-30.0); Prothrombin Time 11.4 sec (9.0-12.0)
[2023-06-03] MEDS ORDERED: SODIUM CHLORIDE 0.9% 500 ML 500 ML IV STA (22:33)
[2023-06-03 22:36] LABS: ALT 19 U/L (4-49); AST 16 U/L (17-59); African American GFR (CKD) 25 (>60 ml/min/1.73 sqM); Albumin 4.1 g/dL (3.5-5.0); Alkaline Phosphatase 85 U/L (38-126); Anion Gap 18 mmol/L; Blood Urea Nitrogen 71 mg/dL (9-20); Calcium 10.4 mg/dL (8.4-10.2); Carbon Dioxide 22 mmol/L (22-30); Chloride 97 mmol/L (98-107); Glucose 390 mg/dL (74-99); Non-African American GFR(CKD) 22 (>60 ml/min/1.73 sqM); Sodium 137 mmol/L (137-145); Total Bilirubin 0.6 mg/dL (0.2-1.3)
[2023-06-03] MEDS ORDERED: SODIUM CHLORIDE 0.9% 1,000 ML IV STA ×2 (23:55)
--- NOTE | 2023-06-04 00:03 | ED ---
General Adult HPI - General Chief complaint: Weakness Stated complaint: uncontrollable shaking Time Seen by Provider: 06/03/23 22:04 Source: patient, family, RN notes reviewed, old records reviewed Mode of arrival: wheelchair Limitations: no limitations - History of Present Illness Initial comments: Patient is an 83-year-old male who presents emergency Department complaining of weakness. Has been progressively getting worse over the last month. Is also not having tremors in his hands which seemed to come and go. Normally is not dependent on a cane or walker but has been requiring 1 over the last few days. Has been having increased weakness. Has been battling an upper respiratory infection over that period of time with different antibiotics, steroids. Has a history of A. fib on blood thinners which is compliant with. Also has a history of diabetes, hypertension. Has no other acute complaints at this time. Presents for further evaluation at this time. Denies fevers, chills, cough, chest pain. - Related Data Home Medications Medication Instructions Recorded Confirmed Apixaban [Eliquis] 5 mg PO BID 07/17/21 06/21/22 Ergocalciferol [Vitamin D2 (1250 1,250 mcg PO DEL ROSARIO 07/17/21 06/21/22 Mcg = 83971 Iu)] Finasteride [Proscar] 5 mg PO HS 07/17/21 06/21/22 Losartan Potassium 100 mg PO HS 07/17/21 06/21/22 Metoprolol Succinate [Toprol XL] 25 mg PO DAILY 07/17/21 06/21/22 Repaglinide [Prandin] 2 mg PO BID 07/17/21 06/21/22 Tamsulosin HCl [Flomax] 0.4 mg PO BID 07/17/21 06/21/22 traZODone HCL [Desyrel] 200 mg PO HS 07/17/21 06/21/22 Atorvastatin [Lipitor] 80 mg PO DAILY 11/13/21 06/21/22 amLODIPine [Norvasc] 10 mg PO HS 11/13/21 06/21/22 Imiquimod [Aldara] 1 packet TOPICAL MOWEFR 06/21/22 06/21/22 Semaglutide [Ozempic] 0.25 mg SQ WE 06/21/22 06/21/22 metFORMIN HCL 1,000 mg PO BID 06/21/22 06/21/22 Previous Rx's Medication Instructions Recorded Ipratropium-Albuterol Nebulize 3 ml INHALATION RT-QID #120 each 06/23/22 [Duoneb 0.5 mg-3 mg/3 ml Soln] cefUROXime axetiL [Ceftin] 500 mg PO BID 5 Days #10 tab 06/23/22 predniSONE 10 mg PO DIRECTED #30 tab 06/24/22 methocarbamoL [Robaxin-750] 750 mg PO TID #30 tab 02/05/23 Acyclovir 800 mg PO Q4-6H 7 Days #35 tablet 02/07/23 Gabapentin 300 mg PO TID 3 Days #9 cap 02/07/23 Allergies Allergy/AdvReac Type Severity Reaction Status Date / Time No Known Allergies Allergy Verified 06/03/23 21:12 Review of Systems ROS Statement: Those systems with pertinent positive or pertinent negative responses have been documented in the HPI. Review of Systems: CONST: Endorses generalized weakness EYES: Denies blurry vision ENT: Denies nasal congestion C/V: Denies Chest pain RESP: Denies shortness of breath GI: Denies abdominal pain : Denies dysuria SKIN: Denies rash. MSK: Denies joint pain. NEURO: Denies headache ROS Other: All systems not noted in ROS Statement are negative. Past Medical History Past Medical History: COPD, Diabetes Mellitus, Deep Vein Thrombosis (DVT), Hyperlipidemia, Hypertension, Osteoarthritis (OA) Additional Past Medical History / Comment(s): aneurysm, DVT x 2, kidney stones History of Any Multi-Drug Resistant Organisms: None Reported Past Surgical History: Back Surgery Additional Past Surgical History / Comment(s): "lumbar spine surgery", lithotripsy,AAA repair Past Anesthesia/Blood Transfusion Reactions: No Reported Reaction Past Psychological History: Depression Smoking Status: Former smoker Past Alcohol Use History: None Reported Past Drug Use History: None Reported - Past Family History Mother Family Medical History: No Reported History General Exam - General Exam Comments Initial Comments: General: Appears in no acute distress. HEAD: Normal with no signs of head trauma. EYES: PERRLA, EOMI, conjunctiva normal, no discharge. ENT: Hearing grossly intact, normal oropharynx. Dry mucous membranes. RESPIRATORY: Clear breath sounds bilaterally. No wheezes, rales, or rhonchi. C/V: Regular rate and rhythm. S1 and S2 auscultated, peripheral pulses 2+ and intact throughout ABD: Abd is soft, nontender, nondistended EXT: Normal range of motion, no obvious deformity SKIN: No rashes or lesions observed on exposed skin. NEURO: Alert and oriented 4. GCS 15. NIH 0. No focal neurological deficits. No tremors at this time. Limitations: no limitations Course Vital Signs 06/03/23 06/03/23 06/03/23 21:12 22:43 23:26 Temperature 97.9 F Pulse Rate 93 81 Respiratory 18 16 18 Rate Blood Pressure 100/72 121/71 O2 Sat by Pulse 92 L 98 Oximetry 06/04/23 05:14 Temperature 98.6 F Pulse Rate 70 Respiratory 18 Rate Blood Pressure 125/71 O2 Sat by Pulse 98 Oximetry Medical Decision Making - Medical Decision Making Was pt. sent in by a medical professional or institution (, PA, SOFTWARE CONTROLS ENGINEER, urgent care, hospital, or assisted...) When possible be specific @ -No Did you speak to anyone other than the patient for history (EMS, parent, family, police, friend...)? What history was obtained from this source @ -I spoke the patient's son who provides additional past medical history for the patient. Did you review nursing and triage notes (agree or disagree)? Why? @ -I reviewed and agree with nursing and triage notes Were old charts reviewed (outside hosp., previous admission, EMS record, old EKG, old radiological studies, urgent care reports/EKG's, assisted records)? Report findings @ -Old charts reviewed. Differential Diagnosis (chest pain, altered mental status, abdominal pain women, abdominal pain men, vaginal bleeding, weakness, fever, dyspnea, syncope, headache, dizziness, GI bleed, back pain, seizure, CVA, palpatations, mental health, musculoskeletal)? @ -Differential Weakness: Hypoglycemia, shock, sepsis, hyponatremia, anemia, infection, KS, ETOH, adverse medicine reaction, overdose, stroke, this is not meant to be an all-inclusive list. EKG interpreted by me (3pts min.). @ -As above X-rays interpreted by me (1pt min.). @ -Chest x-ray reveals no obvious acute cardiopulmonary process. CT interpreted by me (1pt min.). @ -None done U/S interpreted by me (1pt. min.). @ -None done What testing was considered but not performed or refused? (CT, X-rays, U/S, labs)? Why? @ -Considered CT brain, however patient has no obvious deficits. NIH of 0. No trauma. No neuro deficits. Patient was in agreement with this plan. What meds were considered but not given or refused? Why? @ -None Did you discuss the management of the patient with other professionals (prof christinas i.e. , PA, SOFTWARE CONTROLS ENGINEER, lab, RT, psych nurse, social media sr strategy manager, massage therapist, teacher, geographic area intelligence officer, housing case manager)? Give summary @ -Discuss with PCP Dr. Perera who accepted the admission. Was smoking cessation discussed for >3mins.? @ -No Was critical care preformed (if so, how long)? @ -No Were there social determinants of health that impacted care today? How? (Homelessness, low income, unemployed, alcoholism, drug addiction, transportation, low edu. Level, literacy, decrease access to med. care, snf, rehab)? @ -No Was there de-escalation of care discussed even if they declined (Discuss DNR or withdrawal of care, Hospice)? DNR status @ -No What co-morbidities impacted this encounter? (DM, HTN, Smoking, COPD, CAD, Cancer, CVA, ARF, Chemo, Hep., AIDS, mental health diagnosis, sleep apnea, morbid obesity)? @ -None Was patient admitted / discharged? Hospital course, mention meds given and route, prescriptions, significant lab abnormalities, going to OR and other pertinent info. @ -Based on the patient's presentation and physical exam, presents with weakness. We will obtain drawn his laboratory workup patient was in agreement this plan. Workup was started in triage. He'll be given 500 mL fluid bolus at this time as he does appear clinically dry. No concern for traumatic injury the brain is no recent falls or injuries. At his normal baseline. EKG shows no signs of acute ischemia. Chest x-ray shows no obvious acute cardiopulmonary process. Laboratory studies remarkable for an elevated BUN/creatinine, which seems to be acute at this time. Troponin is undetectable. BNP within normal limits. Vital signs negative. Urinalysis is pending. Lactic acid is elevated likely secondary to dehydration. We will obtain blood cultures empirically, however I do not believe that antibiotics are required at this time as I believe it is likely secondary to his dehydration as he also has an acute kidney injury. Objective the patient. He will be admitted for Eleazar and weakness. He was in agreement with this plan. Patient administered additional IV fluids. I spoke with patient's admitting physician, Dr. Perera. Undiagnosed new problem with uncertain prognosis? @ -No Drug Therapy requiring intensive monitoring for toxicity (Heparin, Nitro, Insulin, Cardizem)? @ -No Were any procedures done? @ -No Diagnosis/symptom? @ -Acute kidney injury, dehydration Acute, or Chronic, or Acute on Chronic? @ -Acute Uncomplicated (without systemic symptoms) or Complicated (systemic symptoms)? @ -Complicated Side effects of treatment? @ -No Exacerbation, Progression, or Severe Exacerbation? @ -No Poses a threat to life or bodily function? How? (Chest pain, USA, KS, pneumonia, PE, COPD, DKA, ARF, appy, cholecystitis, CVA, Diverticulitis, Homicidal, Suicidal, threat to staff... and all critical care pts) @ -Yes - Lab Data Result diagrams: 06/03/23 21:37 06/03/23 21:37 Lab Results 06/03/23 06/03/23 06/03/23 Range/Units 21:37 21:37 21:37 WBC 11.9 H (3.8-10.6) k/uL RBC 5.14 (4.30-5.90) m/uL Hgb 15.7 (13.0-17.5) gm/dL Hct 48.5 (39.0-53.0) % MCV 94.4 (80.0-100.0) fL MCH 30.6 (25.0-35.0) pg MCHC 32.4 (31.0-37.0) g/dL RDW 14.0 (11.5-15.5) % Plt Count 183 (150-450) k/uL MPV 8.8 Neutrophils % 84 % Lymphocytes % 8 % Monocytes % 4 % Eosinophils % 2 % Basophils % 1 % Neutrophils # 10.0 H (1.3-7.7) k/uL Lymphocytes # 1.0 (1.0-4.8) k/uL Monocytes # 0.5 (0-1.0) k/uL Eosinophils # 0.3 (0-0.7) k/uL Basophils # 0.1 (0-0.2) k/uL PT 11.4 (9.0-12.0) sec INR 1.1 (<1.2) APTT 24.2 (22.0-30.0) sec Sodium 137 (137-145) mmol/L Potassium 5.0 (3.5-5.1) mmol/L Chloride 97 L (98-107) mmol/L Carbon Dioxide 22 (22-30) mmol/L Anion Gap 18 mmol/L BUN 71 H (9-20) mg/dL Creatinine 2.57 H (0.66-1.25) mg/dL Est GFR (CKD-EPI)AfAm 25 (>60 ml/min/1.73 sqM) Est GFR (CKD-EPI)NonAf 22 (>60 ml/min/1.73 sqM) Glucose 390 H (74-99) mg/dL Lactic Ac Sepsis Rflx Plasma Lactic Acid Lanre (0.7-2.0) mmol/L Calcium 10.4 H (8.4-10.2) mg/dL Total Bilirubin 0.6 (0.2-1.3) mg/dL AST 16 L (17-59) U/L ALT 19 (4-49) U/L Alkaline Phosphatase 85 (38-126) U/L Troponin I (0.000-0.034) ng/mL NT-Pro-B Natriuret Pep pg/mL Total Protein 7.0 (6.3-8.2) g/dL Albumin 4.1 (3.5-5.0) g/dL Urine Color Urine Appearance (Clear) Urine pH (5.0-8.0) Ur Specific [place] (1.001-1.035) Urine Protein (Negative) Urine Glucose (UA) (Negative) Urine Ketones (Negative) Urine Blood (Negative) Urine Nitrite (Negative) Urine Bilirubin (Negative) Urine Urobilinogen (<2.0) mg/dL Ur Leukocyte Esterase (Negative) Urine RBC (0-5) /hpf Urine WBC (0-5) /hpf Urine Mucus (None) /hpf Influenza Type A (PCR) (Not Detectd) Influenza Type B (PCR) (Not Detectd) RSV (PCR) (Not Detectd) SARS-CoV-2 (PCR) (Not Detectd) 06/03/23 06/03/23 06/03/23 Range/Units 21:37 22:27 22:37 WBC (3.8-10.6) k/uL RBC (4.30-5.90) m/uL Hgb (13.0-17.5) gm/dL Hct (39.0-53.0) % MCV (80.0-100.0) fL MCH (25.0-35.0) pg MCHC (31.0-37.0) g/dL RDW (11.5-15.5) % Plt Count (150-450) k/uL MPV Neutrophils % % Lymphocytes % % Monocytes % % Eosinophils % % Basophils % % Neutrophils # (1.3-7.7) k/uL Lymphocytes # (1.0-4.8) k/uL Monocytes # (0-1.0) k/uL Eosinophils # (0-0.7) k/uL Basophils # (0-0.2) k/uL PT (9.0-12.0) sec INR (<1.2) APTT (22.0-30.0) sec Sodium (137-145) mmol/L Potassium (3.5-5.1) mmol/L Chloride (98-107) mmol/L Carbon Dioxide (22-30) mmol/L Anion Gap mmol/L BUN (9-20) mg/dL Creatinine (0.66-1.25) mg/dL Est GFR (CKD-EPI)AfAm (>60 ml/min/1.73 sqM) Est GFR (CKD-EPI)NonAf (>60 ml/min/1.73 sqM) Glucose (74-99) mg/dL Lactic Ac Sepsis Rflx Plasma Lactic Acid Lanre 4.6 H* (0.7-2.0) mmol/L Calcium (8.4-10.2) mg/dL Total Bilirubin (0.2-1.3) mg/dL AST (17-59) U/L ALT (4-49) U/L Alkaline Phosphatase (38-126) U/L Troponin I <0.012 (0.000-0.034) ng/mL NT-Pro-B Natriuret Pep pg/mL Total Protein (6.3-8.2) g/dL Albumin (3.5-5.0) g/dL Urine Color Urine Appearance (Clear) Urine pH (5.0-8.0) Ur Specific [place] (1.001-1.035) Urine Protein (Negative) Urine Glucose (UA) (Negative) Urine Ketones (Negative) Urine Blood (Negative) Urine Nitrite (Negative) Urine Bilirubin (Negative) Urine Urobilinogen (<2.0) mg/dL Ur Leukocyte Esterase (Negative) Urine RBC (0-5) /hpf Urine WBC (0-5) /hpf Urine Mucus (None) /hpf Influenza Type A (PCR) Not Detected (Not Detectd) Influenza Type B (PCR) Not Detected (Not Detectd) RSV (PCR) Not Detected (Not Detectd) SARS-CoV-2 (PCR) Not Detected (Not Detectd) 06/03/23 06/03/23 06/04/23 Range/Units 22:37 23:53 00:28 WBC (3.8-10.6) k/uL RBC (4.30-5.90) m/uL Hgb (13.0-17.5) gm/dL Hct (39.0-53.0) % MCV (80.0-100.0) fL MCH (25.0-35.0) pg MCHC (31.0-37.0) g/dL RDW (11.5-15.5) % Plt Count (150-450) k/uL MPV Neutrophils % % Lymphocytes % % Monocytes % % Eosinophils % % Basophils % % Neutrophils # (1.3-7.7) k/uL Lymphocytes # (1.0-4.8) k/uL Monocytes # (0-1.0) k/uL Eosinophils # (0-0.7) k/uL Basophils # (0-0.2) k/uL PT (9.0-12.0) sec INR (<1.2) APTT (22.0-30.0) sec Sodium (137-145) mmol/L Potassium (3.5-5.1) mmol/L Chloride (98-107) mmol/L Carbon Dioxide (22-30) mmol/L Anion Gap mmol/L BUN (9-20) mg/dL Creatinine (0.66-1.25) mg/dL Est GFR (CKD-EPI)AfAm (>60 ml/min/1.73 sqM) Est GFR (CKD-EPI)NonAf (>60 ml/min/1.73 sqM) Glucose (74-99) mg/dL Lactic Ac Sepsis Rflx Y Plasma Lactic Acid Lanre (0.7-2.0) mmol/L Calcium (8.4-10.2) mg/dL Total Bilirubin (0.2-1.3) mg/dL AST (17-59) U/L ALT (4-49) U/L Alkaline Phosphatase (38-126) U/L Troponin I (0.000-0.034) ng/mL NT-Pro-B Natriuret Pep 217 pg/mL Total Protein (6.3-8.2) g/dL Albumin (3.5-5.0) g/dL Urine Color Light Yellow Urine Appearance Clear (Clear) Urine pH 5.0 (5.0-8.0) Ur Specific [place] 1.014 (1.001-1.035) Urine Protein Trace H (Negative) Urine Glucose (UA) 3+ H (Negative) Urine Ketones Negative (Negative) Urine Blood Small H (Negative) Urine Nitrite Negative (Negative) Urine Bilirubin Negative (Negative) Urine Urobilinogen <2.0 (<2.0) mg/dL Ur Leukocyte Esterase Negative (Negative) Urine RBC 87 H (0-5) /hpf Urine WBC 2 (0-5) /hpf Urine Mucus Rare H (None) /hpf Influenza Type A (PCR) (Not Detectd) Influenza Type B (PCR) (Not Detectd) RSV (PCR) (Not Detectd) SARS-CoV-2 (PCR) (Not Detectd) - EKG Data -: EKG Interpreted by Me EKG Comments: 12-lead Electrocardiogram Interpretation Note EKG was reviewed and interpreted by myself. 12-lead ECG performed at 2121 is interpreted by me as revealing normal sinus rhythm at a rate of 91 beats per minute. Right axis deviation. SD intervals 124 ms, QRS duration 78 ms, QTc is 393 ms.. There were no ST or T wave abnormalities to suggest myocardial ischemia or injury. R wave progression across the precordium was satisfactory. By my interpretation this EKG is non-diagnostic for acute ischemia. Disposition Clinical Impression: ELEAZAR (acute kidney injury), Dehydration Disposition: ADMITTED IP TO THIS HOSP Condition: Stable Time of Disposition: 00:10
[2023-06-04] MEDS ORDERED: traZODone HCL 100 MG TAB PO SCH (00:15)
[2023-06-04] MEDS ORDERED: NALOXONE 0.4 MG/ML 1 ML VIAL IV PRN (00:38)
--- NOTE | 2023-06-04 01:18 | XR ---
EXAM: XR Chest, 1 View CLINICAL HISTORY: ITS.REASON XR Reason: cough TECHNIQUE: Frontal view of the chest. COMPARISON: Chest radiograph 07/11/2022; CT chest without contrast dated 06/01/2023. FINDINGS: Lungs: Subtle curvilinear changes in the right lower lung zone and infrahilar region. No definite focal airspace consolidation. The pulmonary vasculature demonstrates no significant radiographic abnormality. Pleural space: Unremarkable. No pneumothorax. No large pleural effusion. Heart: Unremarkable. No cardiomegaly. Mediastinum: The mediastinal contours are stable and unremarkable. The trachea is midline. Bones/joints: Unremarkable. IMPRESSION: Suspect subsegmental atelectasis or scarring in the right lower lobe. No consolidation or acute cardiopulmonary process identified.
[2023-06-04 05:48] LABS: Appearance,Urine Clear (Clear); Bilirubin,Urine Negative (Negative); Blood,Urine Small (Negative); Color,Urine Light Yellow; Glucose,Urine (UA) 3+ (Negative); Ketones,Urine Negative (Negative); Leukocyte Esterase,Urine Negative (Negative); Mucus,Urine Rare /hpf; Nitrite,Urine Negative (Negative); Protein,Urine Trace (Negative); RBC,Urine 87 /hpf (0-5); Specific Gravity,Urine 1.014 (1.001-1.035); Urobilinogen,Urine <2.0 mg/dL (<2.0); WBC,Urine 2 /hpf (0-5)
[2023-06-04] MEDS ORDERED: DEXTROSE 50% SYRINGE 50 ML IVP PRN ×2 (08:52)
[2023-06-04 09:09] LABS: Glucose,Whole Blood 320 mg/dL (70-110)
[2023-06-04] MEDS: ATORVASTATIN 80 MG TAB PO SCH (09:58)
[2023-06-04] MEDS: APIXABAN 2.5 MG TABLET PO SCH ×2 (09:58→20:39)
[2023-06-04] MEDS: METOPROLOL SUCCINATE (ER) 25 MG TAB.ER.24H PO SCH (09:58)
[2023-06-04] MEDS ORDERED: IPRATROPIUM-ALBUTEROL 3 ML NEB INHALATION PRN (11:35)
[2023-06-04 11:39] LABS: Glucose,Whole Blood 265 mg/dL (70-110)
[2023-06-04] MEDS: INSULIN ASPART (NovoLOG) 100 UNIT/ML VIAL SQ SCH ×3 (11:53→20:39)
[2023-06-04] MEDS ORDERED: IPRATROPIUM 0.5 MG/2.5 ML NEBU INHALATION SCH (12:00)
[2023-06-04 12:02] LABS: African American GFR (CKD) 33 (>60 ml/min/1.73 sqM); Anion Gap 12 mmol/L; Blood Urea Nitrogen 69 mg/dL (9-20); Calcium 9.2 mg/dL (8.4-10.2); Carbon Dioxide 22 mmol/L (22-30); Chloride 104 mmol/L (98-107); Glucose 236 mg/dL (74-99); Non-African American GFR(CKD) 28 (>60 ml/min/1.73 sqM); Potassium 5.4 mmol/L (3.5-5.1); Sodium 138 mmol/L (137-145)
[2023-06-04] MEDS: SYMBICORT 160-4.5 MCG INHALER INHALATION SCH ×2 (12:14→19:42)
[2023-06-04] MEDS: IPRATROPIUM-ALBUTEROL 3 ML NEB INHALATION SCH ×3 (12:32→19:42)
[2023-06-04] MEDS: INSULIN DETEMIR (LEVEMIR) 100 UNIT/ML SYR SQ SCH (12:33)
[2023-06-04] MEDS: PANTOPRAZOLE 40 MG/10 ML VIAL IVP SCH (12:34)
[2023-06-04] MEDS: SODIUM CHLORIDE 0.9% 1,000 ML IV SCH (12:34)
--- NOTE | 2023-06-04 12:34 | P.NPCON ---
History of Present Illness - Reason for Consult acute renal failure - History of Present Illness Patient is an 83-year-old male with history of hypertension, BPH, chronic kidney disease with baseline creatinine around 1.2-1.5 mg/dL, stage III a. Patient is admitted to the hospital with increased weakness. He also complains of increasing shaking in his hands. No history of diarrhea nausea vomiting or abdominal pain. No history of fever or chills or cough. Blood pressure was on the lower side with systolic at 100 mmHg. Maintained on angiotensin receptor blockers prior to admission. Lactic acid was elevated at 3.1 and now down to 2.0. Serum creatinine was 2.57 yesterday and down to 2.09 today. Patient states he has been voiding. Currently maintained on IV fluids. Review of Systems As per HPI Past Medical History Past Medical History: COPD, Diabetes Mellitus, Deep Vein Thrombosis (DVT), Hyperlipidemia, Hypertension, Osteoarthritis (OA) Additional Past Medical History / Comment(s): aneurysm, DVT x 2, kidney stones History of Any Multi-Drug Resistant Organisms: None Reported Past Surgical History: Back Surgery Additional Past Surgical History / Comment(s): "lumbar spine surgery", lithotripsy,AAA repair Past Anesthesia/Blood Transfusion Reactions: No Reported Reaction Past Psychological History: Depression Smoking Status: Former smoker Past Alcohol Use History: None Reported Past Drug Use History: None Reported - Past Family History Mother Family Medical History: No Reported History Medications and Allergies Home Medications Medication Instructions Recorded Confirmed Type Apixaban [Eliquis] 5 mg PO BID 07/17/21 06/04/23 History Ergocalciferol [Vitamin D2 (1250 1,250 mcg PO DEL ROSARIO 07/17/21 06/04/23 History Mcg = 12161 Iu)] Finasteride [Proscar] 5 mg PO HS 07/17/21 06/04/23 History Losartan Potassium 100 mg PO HS 07/17/21 06/04/23 History Metoprolol Succinate [Toprol XL] 25 mg PO DAILY 07/17/21 06/04/23 History Tamsulosin HCl [Flomax] 0.4 mg PO HS 07/17/21 06/04/23 History traZODone HCL [Desyrel] 200 mg PO HS 07/17/21 06/04/23 History Atorvastatin [Lipitor] 80 mg PO DAILY 11/13/21 06/04/23 History amLODIPine [Norvasc] 10 mg PO HS 11/13/21 06/04/23 History metFORMIN HCL 1,000 mg PO BID 06/21/22 06/04/23 History Ciprofloxacin HCl [Cipro] 500 mg PO Q12HR 06/04/23 06/04/23 History Fluticasone/Umeclidin/Vilanter 1 puff INHALATION RT-DAILY 06/04/23 06/04/23 History [Trelegy Ellipta 200-62.5-25] Furosemide [Lasix] 40 mg PO DAILY 06/04/23 06/04/23 History Glimepiride [Amaryl] 2 mg PO BID 06/04/23 06/04/23 History Insulin Glargine,Hum.rec.anlog 16 units SQ W/SUPPER 06/04/23 06/04/23 History [Lantus Solostar Pen] Nystatin 100,000 Unit/ml Susp 5 ml PO QID 06/04/23 06/04/23 History [Mycostatin Oral Susp] Potassium Chloride ER [K-Dur 10] 10 meq PO BID 06/04/23 06/04/23 History Semaglutide [Ozempic] 0.5 mg SQ WE 06/04/23 06/04/23 History Allergies Allergy/AdvReac Type Severity Reaction Status Date / Time No Known Allergies Allergy Verified 06/04/23 08:21 Physical Exam Vitals: Vital Signs Temp Pulse Resp BP Pulse Ox 06/04/23 10:54 97.7 F 79 18 136/79 92 L 06/04/23 08:10 97.8 F 79 18 112/85 91 L 06/04/23 05:14 98.6 F 70 18 125/71 98 06/03/23 23:26 81 18 121/71 98 06/03/23 22:43 16 06/03/23 21:12 97.9 F 93 18 100/72 92 L Intake and Output 06/03/23 06/04/23 06/04/23 22:59 06:59 14:59 Output Total 400 Balance -400 Output: Urine 400 Other: Weight 87.997 kg Patient is awake, comfortable, no acute distress Examination of the heart S1 and S2 Examination of the lungs bilateral breath sounds are heard Abdomen is soft nontender Examination of the lower extremity shows no evidence of edema INDUSTRIAL WASTE INSPECTOR exam grossly intact Results - Lab Results Most recent lab results Calcium 9.2 mg/dL (8.4-10.2) 06/04/23 10:49 06/03/23 21:37 06/04/23 10:49 Assessment and Plan Assessment: 1. Acute kidney injury currently nonoliguric. Etiology ATN versus prerenal with underlying volume depletion. Renal function has improved. UA shows trace protein and small blood. 2. CK D stage III a with previous creatinine 1.2-1.4 mg/dL. Etiology is likely nephrosclerosis. UA is negative for protein. 3. Lactic acidosis possibly related to use of metformin. 4. Intravascular volume depletion errantly maintained on IV fluids. 5. History of BPH Plan: Continue with IV fluids Hold angiotensin receptor blockers and metformin for now Repeat labs in a.m. Check ultrasound of the kidneys Thank you for the consultation. We will continue to follow the patient with you during his hospitalization.
--- NOTE | 2023-06-04 13:46 | US ---
EXAMINATION TYPE: US kidneys/renal and bladder DATE OF EXAM: 06/04/2023 COMPARISON: NONE CLINICAL INDICATION: Male, 83 years old with history of HUMBERTO; HUMBERTO, dehydration EXAM MEASUREMENTS: Right Kidney: 12.0x5.5x7.2 cm Left Kidney: 12.4x5.6x6.0 cm Right Kidney: Cortical thinning, heterogenous parenchyma. Several anechoic areas, largest measures 6. 9x4.5x5.0cm at mid pole. superior pole cyst: 2.2x2.3x2.2cm. Inferior pole cyst: 2.2x2.1x2.0cm Left Kidney: Cortical thinning, heterogenous parenchyma, several anechoic areas difficult to distingu ingrid margins, most prominent measured at mid pole: 1.3x1.7x1.3cm. Bladder: Right sided bladder calculus again seen Bilateral Jets seen: Yes There is no evidence for hydronephrosis at this point in time. No nephrolithiasis is seen. The urin aisha bladder is anechoic. Bilateral ureteral jets are seen. IMPRESSION: 1. Urinary bladder calculus redemonstrated. 2. Renal cortical thinning with renal cystic changes.
--- NOTE | 2023-06-04 15:53 | P.HPIM ---
History of Present Illness H&P Date: 06/04/23 Chief Complaint: Increased weakness, weight loss, chills An 83-year-old gentleman with past medical history significant for diabetes, DVT, hypertension, hyperlipidemia, BPH, chronic kidney disease-baseline around 1.5, creatinine osteoarthritis, kidney stones, former nicotine dependence and multiple other medical issues presented to the ER with complaints of generalized weakness, decreased appetite-"nothing tastes good ",weight loss of 25 pounds over the last 3 weeks, harsh coughing last week-which has nearly subsided, insomnia, rapid covid testing negative, fine tremors, chills. Denies syncope. Denies falls. Recently evaluated by PCP,treated for acute Covid exacerbation steroid taper. Blood sugars escalated. Denies nausea vomiting or diarrhea. Denies abdominal pain. Denies sore throat, denies stuffy nose. Denies chest pain, palpitations. Afebrile, WBC 11.9, lactic acid 4.6, repeat 2.0, hemoglobin 15.7, platelets 183, INR 1.1. Sodium 137, potassium 5, bicarb 22, BUN 71, creatinine 2.57, glucose 390, UA negative. Serology negative for influenza A/B/RSV/SARS/Covid . Chest x-ray reported suspect subsegmental atelectasis or scanning in the right lower lobe consolidation or acute cardiopulmonary process identified .Repeat labs pending. Maintained on IV fluid hydration. Review of Systems ROS Statement: Those systems with pertinent positive or pertinent negative responses have been documented in the HPI. ROS Other: All systems not noted in ROS Statement are negative. Past Medical History Past Medical History: COPD, Diabetes Mellitus, Deep Vein Thrombosis (DVT), Hyperlipidemia, Hypertension, Osteoarthritis (OA) Additional Past Medical History / Comment(s): aneurysm, DVT x 2, kidney stones History of Any Multi-Drug Resistant Organisms: None Reported Past Surgical History: Back Surgery Additional Past Surgical History / Comment(s): "lumbar spine surgery", lithotripsy,AAA repair Past Anesthesia/Blood Transfusion Reactions: No Reported Reaction Past Psychological History: Depression Smoking Status: Former smoker Past Alcohol Use History: None Reported Past Drug Use History: None Reported - Past Family History Mother Family Medical History: No Reported History Medications and Allergies Home Medications Medication Instructions Recorded Confirmed Type Apixaban [Eliquis] 5 mg PO BID 07/17/21 06/04/23 History Ergocalciferol [Vitamin D2 (1250 1,250 mcg PO DEL ROSARIO 07/17/21 06/04/23 History Mcg = 98294 Iu)] Finasteride [Proscar] 5 mg PO HS 07/17/21 06/04/23 History Losartan Potassium 100 mg PO HS 07/17/21 06/04/23 History Metoprolol Succinate [Toprol XL] 25 mg PO DAILY 07/17/21 06/04/23 History Tamsulosin HCl [Flomax] 0.4 mg PO HS 07/17/21 06/04/23 History traZODone HCL [Desyrel] 200 mg PO HS 07/17/21 06/04/23 History Atorvastatin [Lipitor] 80 mg PO DAILY 11/13/21 06/04/23 History amLODIPine [Norvasc] 10 mg PO HS 11/13/21 06/04/23 History metFORMIN HCL 1,000 mg PO BID 06/21/22 06/04/23 History Ciprofloxacin HCl [Cipro] 500 mg PO Q12HR 06/04/23 06/04/23 History Fluticasone/Umeclidin/Vilanter 1 puff INHALATION RT-DAILY 06/04/23 06/04/23 History [Trelegy Ellipta 200-62.5-25] Furosemide [Lasix] 40 mg PO DAILY 06/04/23 06/04/23 History Glimepiride [Amaryl] 2 mg PO BID 06/04/23 06/04/23 History Insulin Glargine,Hum.rec.anlog 16 units SQ W/SUPPER 06/04/23 06/04/23 History [Lantus Solostar Pen] Nystatin 100,000 Unit/ml Susp 5 ml PO QID 06/04/23 06/04/23 History [Mycostatin Oral Susp] Potassium Chloride ER [K-Dur 10] 10 meq PO BID 06/04/23 06/04/23 History Semaglutide [Ozempic] 0.5 mg SQ WE 06/04/23 06/04/23 History Allergies Allergy/AdvReac Type Severity Reaction Status Date / Time No Known Allergies Allergy Verified 06/04/23 08:21 Physical Exam Vitals: Vital Signs Temp Pulse Pulse Resp BP BP Pulse Ox 06/04/23 14:30 97.5 F L 81 16 122/70 93 L 06/04/23 13:49 97.0 F L 80 18 106/53 86 L 06/04/23 12:44 77 06/04/23 12:32 77 06/04/23 10:54 97.7 F 79 18 136/79 92 L 06/04/23 08:10 97.8 F 79 18 112/85 91 L 06/04/23 05:14 98.6 F 70 18 125/71 98 06/03/23 23:26 81 18 121/71 98 06/03/23 22:43 16 06/03/23 21:12 97.9 F 93 18 100/72 92 L Intake and Output 06/04/23 06/04/23 06/04/23 06:59 14:59 22:59 Output Total 400 Balance -400 Output: Urine 400 - Exam PHYSICAL EXAM: VITAL SIGNS: [As above] GENERAL: Sitting up on stretcher, alert and oriented 3,NAD HEENT: Conjunctivae normal. eyes normal. MMM. NECK: Supple, No JVD. CARDIOVASCULAR: S1, S2 regular. No murmur RESPIRATION: Equal air entry, Fine scattered rhonchi, Breath sounds diminished in the bases. ABDOMEN: Soft, nontender . No guarding. no masses palpable. +Bowel sounds. LEGS: No edema. no swelling NERVOUS SYSTEM: Cranial N 2-12 grossly normal.No focal deficits. Strength and sensation grossly intact. Results CBC & Chem 7: 06/03/23 21:37 06/04/23 10:49 Labs: Abnormal Lab Results - Last 24 Hours (Table) 06/03/23 06/03/23 06/03/23 Range/Units 21:37 21:37 22:37 WBC 11.9 H (3.8-10.6) k/uL Neutrophils # 10.0 H (1.3-7.7) k/uL Potassium (3.5-5.1) mmol/L Chloride 97 L (98-107) mmol/L BUN 71 H (9-20) mg/dL Creatinine 2.57 H (0.66-1.25) mg/dL Glucose 390 H (74-99) mg/dL POC Glucose (mg/dL) (70-110) mg/dL Plasma Lactic Acid Lanre 4.6 H* (0.7-2.0) mmol/L Calcium 10.4 H (8.4-10.2) mg/dL AST 16 L (17-59) U/L Urine Protein (Negative) Urine Glucose (UA) (Negative) Urine Blood (Negative) Urine RBC (0-5) /hpf Urine Mucus (None) /hpf 06/04/23 06/04/23 06/04/23 Range/Units 00:28 02:44 07:05 WBC (3.8-10.6) k/uL Neutrophils # (1.3-7.7) k/uL Potassium (3.5-5.1) mmol/L Chloride (98-107) mmol/L BUN (9-20) mg/dL Creatinine (0.66-1.25) mg/dL Glucose (74-99) mg/dL POC Glucose (mg/dL) (70-110) mg/dL Plasma Lactic Acid Lanre 3.2 H* 3.1 H* (0.7-2.0) mmol/L Calcium (8.4-10.2) mg/dL AST (17-59) U/L Urine Protein Trace H (Negative) Urine Glucose (UA) 3+ H (Negative) Urine Blood Small H (Negative) Urine RBC 87 H (0-5) /hpf Urine Mucus Rare H (None) /hpf 06/04/23 06/04/23 06/04/23 Range/Units 09:07 10:49 11:37 WBC (3.8-10.6) k/uL Neutrophils # (1.3-7.7) k/uL Potassium 5.4 H (3.5-5.1) mmol/L Chloride (98-107) mmol/L BUN 69 H (9-20) mg/dL Creatinine 2.09 H (0.66-1.25) mg/dL Glucose 236 H (74-99) mg/dL POC Glucose (mg/dL) 320 H 265 H (70-110) mg/dL Plasma Lactic Acid Lanre (0.7-2.0) mmol/L Calcium (8.4-10.2) mg/dL AST (17-59) U/L Urine Protein (Negative) Urine Glucose (UA) (Negative) Urine Blood (Negative) Urine RBC (0-5) /hpf Urine Mucus (None) /hpf Assessment and Plan Assessment: Generalized weakness, multifactorial, possibly related to prior COVID infection, though not picked up on rapid tests, with subsequent decreased oral intake, weight loss, dehydration, insomnia. Grieving, Patient's recently passed about 6 mths ago. Atlectasis Acute hypoxic respiratory failure secondary to the above Dehydration secondary to hyperglycemia Lactic acidosis Acute renal failure, secondary to decreased oral intake, dehydration, on an ARB- holding. Chronic kidney disease stage IIIa, recent creatinine 1.5 History of BPH COPD, recently treated for acute COPD exacerbation Hypertension Hyperlipidemia DM, uncontrolled, hyperglycemia secondary to steroids, possibly related to prior Covid infection History of DVT, anticoagulated on ELiquis BPH Isomnia Osteoarthritis History of kidney stone Prior nicotine dependence Chronic back pain Obesity, BMI 28 Plan: Continue on current medication regime ,monitoring and symptomatic tr eatment. IV fluid hydration, Levemir insulin plus NovoLog sliding scale. Hemoglobin A1c pending .Close monitoring of Accu-Cheks Hold metformin, Amaryl, losartan. Anticoagulated on eliquis. Nephrology consult in place with recommendations pending. Soniien for insomnia. Close monitoring of renal function, electrolytes with repeat labs ordered for a.m. PT/OT. The impression and plan of care has been dictated as directed. : I performed a history and examination of this patient, discussed the same with the dictator. I agree with the dictator's note ,documented as a scribe. Any additional findings or plans will be noted.
[2023-06-04 17:02] LABS: Glucose,Whole Blood 276 mg/dL (70-110)
[2023-06-04 19:45] LABS: Glucose,Whole Blood 258 mg/dL (70-110)
[2023-06-04] MEDS ORDERED: ZOLPIDEM 5 MG TAB PO SCH (21:00)
[2023-06-04] MEDS ORDERED: FINASTERIDE 5 MG TAB PO SCH (21:00)
[2023-06-04] MEDS ORDERED: INSULIN DETEMIR (LEVEMIR) 100 UNIT/ML SYR SQ SCH (21:00)
[2023-06-04 23:48] LABS: Glucose,Whole Blood 213 mg/dL (70-110)
[2023-06-05] MEDS: SODIUM CHLORIDE 0.9% 1,000 ML IV SCH (02:53)
[2023-06-05 06:29] LABS: Glucose,Whole Blood 181 mg/dL (70-110)
[2023-06-05] MEDS: INSULIN ASPART (NovoLOG) 100 UNIT/ML VIAL SQ SCH ×2 (06:59→11:49)
[2023-06-05 08:15] LABS: Basophils # (A) 0.1 k/uL (0-0.2); Basophils % (A) 1 %; Eosinophils # (A) 0.3 k/uL (0-0.7); Eosinophils % (A) 4 %; HCT 43.4 % (39.0-53.0); HGB 14.1 gm/dL (13.0-17.5); Lymphocytes # (A) 0.9 k/uL (1.0-4.8); Lymphocytes % (A) 10 %; MCH 30.5 pg (25.0-35.0); MCHC 32.4 g/dL (31.0-37.0); Mean Platelet Volume 9.2; Monocytes # (A) 0.4 k/uL (0-1.0); Monocytes % (A) 4 %; Neutrophils # (A) 7.3 k/uL (1.3-7.7); Neutrophils % (A) 81 %; Platelet Count 116 k/uL (150-450); RBC 4.62 m/uL (4.30-5.90); RDW 14.1 % (11.5-15.5); WBC 9.1 k/uL (3.8-10.6)
[2023-06-05] MEDS: SYMBICORT 160-4.5 MCG INHALER INHALATION SCH (08:31)
[2023-06-05] MEDS: IPRATROPIUM-ALBUTEROL 3 ML NEB INHALATION SCH ×3 (08:31→16:05)
[2023-06-05 08:45] LABS: African American GFR (CKD) 41 (>60 ml/min/1.73 sqM); Anion Gap 8 mmol/L; Blood Urea Nitrogen 48 mg/dL (9-20); Calcium 9.2 mg/dL (8.4-10.2); Carbon Dioxide 27 mmol/L (22-30); Chloride 103 mmol/L (98-107); Glucose 178 mg/dL (74-99); Non-African American GFR(CKD) 35 (>60 ml/min/1.73 sqM); Potassium 5.3 mmol/L (3.5-5.1); Sodium 138 mmol/L (137-145)
[2023-06-05] MEDS: APIXABAN 2.5 MG TABLET PO SCH (08:56)
[2023-06-05] MEDS: PANTOPRAZOLE 40 MG/10 ML VIAL IVP SCH (08:57)
[2023-06-05] MEDS: ATORVASTATIN 80 MG TAB PO SCH (08:57)
[2023-06-05] MEDS: INSULIN DETEMIR (LEVEMIR) 100 UNIT/ML SYR SQ SCH (08:57)
[2023-06-05] MEDS: METOPROLOL SUCCINATE (ER) 25 MG TAB.ER.24H PO SCH (08:57)
--- NOTE | 2023-06-05 10:51 | P.PN ---
Subjective Patient is seen for follow-up for acute kidney injury on top of chronic kidney disease. No significant complaints today Patient states he is feeling better. Currently maintained on IV fluids. Creatinine decreased to 1.7 mg/dL. Potassium was 5.3. Ultrasound shows no hydronephrosis. Bladder calculus is noted Objective - Vital Signs Vital signs: Vital Signs Temp 97.7 F 06/05/23 08:00 Pulse 84 06/05/23 08:39 Resp 20 06/05/23 08:00 BP 132/82 06/05/23 08:00 Pulse Ox 92 L 06/05/23 08:31 FiO2 21 06/05/23 08:31 Intake & Output 06/04/23 06/05/23 06/05/23 18:59 06:59 18:59 Intake Total 75 Output Total 400 1800 Balance -400 -1725 Weight 87.997 kg Intake: Intake, IV Titration 75 Amount Sodium Chloride 0.9% 1, 75 000 ml @ 75 mls/hr IV . [id number] JOSE Rx#:[id number] Output: Urine 400 1800 Other: # Voids 300 - Exam Patient is awake, comfortable, no acute distress Alert oriented 3 Examination of the heart S1 and S2 Examination of the lungs bilateral breath sounds are heard Abdomen is soft nontender Examination of lower extremity shows no evidence of edema. LACTATION COORDINATOR exam grossly intact - Labs CBC & Chem 7: 06/05/23 06:53 06/05/23 06:53 Labs: Abnormal Lab Results - Last 24 Hours (Table) 06/04/23 06/04/23 06/04/23 Range/Units 10:49 11:37 17:00 Plt Count (150-450) k/uL Lymphocytes # (1.0-4.8) k/uL Potassium 5.4 H (3.5-5.1) mmol/L BUN 69 H (9-20) mg/dL Creatinine 2.09 H (0.66-1.25) mg/dL Glucose 236 H (74-99) mg/dL POC Glucose (mg/dL) 265 H 276 H (70-110) mg/dL 06/04/23 06/04/23 06/05/23 Range/Units 19:44 23:46 06:28 Plt Count (150-450) k/uL Lymphocytes # (1.0-4.8) k/uL Potassium (3.5-5.1) mmol/L BUN (9-20) mg/dL Creatinine (0.66-1.25) mg/dL Glucose (74-99) mg/dL POC Glucose (mg/dL) 258 H 213 H 181 H (70-110) mg/dL 06/05/23 06/05/23 Range/Units 06:53 06:53 Plt Count 116 L (150-450) k/uL Lymphocytes # 0.9 L (1.0-4.8) k/uL Potassium 5.3 H (3.5-5.1) mmol/L BUN 48 H (9-20) mg/dL Creatinine 1.75 H (0.66-1.25) mg/dL Glucose 178 H (74-99) mg/dL POC Glucose (mg/dL) (70-110) mg/dL Assessment and Plan Assessment: 1. Acute kidney injury currently nonoliguric. Etiology ATN versus prerenal with underlying volume depletion. Renal function has improved. UA shows trace protein and small blood. Ultrasound shows no hydronephrosis. Urinary bladder calculus noted. 2. CK D stage III a with previous creatinine 1.2-1.4 mg/dL. Etiology is likely nephrosclerosis. UA is negative for protein. 3. Lactic acidosis possibly related to use of metformin. 4. Intravascular volume depletion errantly maintained on IV fluids. 5. History of BPH Plan: Okay for discharge from nephrology standpoint Continue to hold off on angiotensin receptor blockers and metformin for now. We will likely resume these down the road depending on the renal function. Patient is also advised to follow-up with urology post discharge
[2023-06-05 11:16] LABS: Glucose,Whole Blood 228 mg/dL (70-110)
[2023-06-05] MEDS ORDERED: TAMSULOSIN 0.4 MG CAP.ER.24H PO SCH (11:21)
[2023-06-05 12:32] VITALS: BP 150/85; PULSE 91; RESP 18; TEMP 97.6
--- NOTE | 2023-06-05 19:32 | P.DS ---
Providers Date of admission: 06/04/23 00:41 Expected date of discharge: 06/05/23 Attending physician: Roverto Perera MD Consults: 06/04/23 08:51 Consult Physician Routine Consulting Provider: Khurram Johnson Consult Reason/Comments: debra Do you want consulting provider notified?: Yes Primary care physician: Gini Perera [facility] Course: Generalized weakness, multifactorial, possibly related to prior COVID infection, though not picked up on rapid tests, with subsequent decreased oral intake, weight loss, dehydration, insomnia. Grieving, Patient's recently passed about 6 mths ago. Atlectasis Acute hypoxic respiratory failure secondary to the above Dehydration secondary to hyperglycemia Lactic acidosis Acute renal failure, secondary to decreased oral intake, dehydration, on an ARB- holding, urinary retention. Chronic kidney disease stage IIIa, recent creatinine 1.5 History of BPH COPD, recently treated for acute COPD exacerbation Hypertension Hyperlipidemia DM, uncontrolled, hyperglycemia secondary to steroids, possibly related to prior Covid infection, hemoglobin A1c 10. History of DVT, anticoagulated on ELiquis BPH Isomnia Osteoarthritis History of kidney stone Prior nicotine dependence Chronic back pain Obesity, BMI 28 Hospital course:An 83-year-old gentleman with past medical history significant for diabetes, DVT, hypertension, hyperlipidemia, BPH, chronic kidney disease- baseline around 1.5, creatinine osteoarthritis, kidney stones, former nicotine dependence and multiple other medical issues presented to the ER with complaints of generalized weakness, decreased appetite-"nothing tastes good ",weight loss of 25 pounds over the last 3 weeks, harsh coughing last week-which has nearly subsided, insomnia, rapid covid testing negative, fine tremors, chills. Denies syncope. Denies falls. Recently evaluated by PCP,treated for acute Covid exacerbation steroid taper. Blood sugars escalated. Denies nausea vomiting or diarrhea. Denies abdominal pain. Denies sore throat, denies stuffy nose. Denies chest pain, palpitations. Afebrile, WBC 11.9, lactic acid 4.6, repeat 2.0, hemoglobin 15.7, platelets 183, INR 1.1. Sodium 137, potassium 5, bicarb 22, BUN 71, creatinine 2.57, glucose 390, UA negative. Serology negative for influenza A/B/RSV/SARS/Covid . Chest x-ray reported suspect subsegmental atelectasis or scanning in the right lower lobe consolidation or acute cardiopulmonary process identified .Repeat labs pending. Maintained on IV fluid hydration. Maintained on IV fluid hydration, Levemir insulin plus NovoLog sliding scale. Accu-Cheks closely monitored. Anticoagulated on eliquis. Evaluated and treated by Nephrology. ARB remains on hold.Creatinine decreased to 1.7, potassium 5.3. Urinary retention, Flomax resumed. Renal ultrasound reported no hydronephrosis, bladder calculus noted. Patient reports more comfortable today .cleared by nephrology for discharge , recommending urology follow-up outpatient . Kari luated by his chemotherapy therapy recommending home/home care. Significant clinical improvement. Patient will be discharged home today in a stable condition with guarded prognosis. The impression and plan of care has been dictated as directed. : I performed a history and examination of this patient, discussed the same with the dictator. I agree with the dictator's note ,documented as a scribe. Any additional findings or plans will be noted. Patient Condition at Discharge: Stable Plan - Discharge Summary Discharge Rx Participant: Yes New Discharge Prescriptions: New Ergocalciferol [Vitamin D2 (1250 Mcg = 35481 Iu)] 1,250 mcg PO DEL ROSARIO cap Pantoprazole [Protonix] 40 mg PO AC-BRKFST #30 tab Continue Apixaban [Eliquis] 5 mg PO BID Tamsulosin HCl [Flomax] 0.4 mg PO HS Finasteride [Proscar] 5 mg PO HS Atorvastatin [Lipitor] 80 mg PO DAILY Fluticasone/Umeclidin/Vilanter [Trelegy Ellipta 200-62.5-25] 1 puff INHALATION RT-DAILY traZODone HCL [Desyrel] 200 mg PO HS Metoprolol Succinate [Toprol XL] 25 mg PO DAILY Ergocalciferol [Vitamin D2 (1250 Mcg = 21898 Iu)] 1,250 mcg PO DEL ROSARIO Changed Insulin Glargine,Hum.rec.anlog [Lantus Solostar Pen] 20 units SQ W/SUPPER #0 Discontinued amLODIPine [Norvasc] 10 mg PO HS metFORMIN HCL 1,000 mg PO BID Nystatin 100,000 Unit/ml Susp [Mycostatin Oral Susp] 5 ml PO QID Losartan Potassium 100 mg PO HS Potassium Chloride ER [K-Dur 10] 10 meq PO BID Glimepiride [Amaryl] 2 mg PO BID Furosemide [Lasix] 40 mg PO DAILY Ciprofloxacin HCl [Cipro] 500 mg PO Q12HR No Action Semaglutide [Ozempic] 0.5 mg SQ WE Discharge Medication List Apixaban [Eliquis] 5 mg PO BID 07/17/21 [History] Ergocalciferol [Vitamin D2 (1250 Mcg = 72122 Iu)] 1,250 mcg PO DEL ROSARIO 07/17/21 [History] Finasteride [Proscar] 5 mg PO HS 07/17/21 [History] Metoprolol Succinate [Toprol XL] 25 mg PO DAILY 07/17/21 [History] Tamsulosin HCl [Flomax] 0.4 mg PO HS 07/17/21 [History] traZODone HCL [Desyrel] 200 mg PO HS 07/17/21 [History] Atorvastatin [Lipitor] 80 mg PO DAILY 11/13/21 [History] Fluticasone/Umeclidin/Vilanter [Trelegy Ellipta 200-62.5-25] 1 puff INHALATION RT-DAILY 06/04/23 [History] Semaglutide [Ozempic] 0.5 mg SQ WE 06/04/23 [History] Ergocalciferol [Vitamin D2 (1250 Mcg = 74769 Iu)] 1,250 mcg PO DEL ROSARIO cap 06/05/23 [Rx] Insulin Glargine,Hum.rec.anlog [Lantus Solostar Pen] 20 units SQ W/SUPPER #0 06/05/23 [Rx] Pantoprazole [Protonix] 40 mg PO AC-BRKFST #30 tab 06/05/23 [Rx] Follow up Appointment(s)/Referral(s): Toshia Jules MD [STAFF PHYSICIAN] - 1 Week (Office will call you to schedule appointment. ) Tony Thapa MD [STAFF PHYSICIAN] - 06/09/23 9:00 am Gini Perera DO [Primary Care Provider] - 3 Days Ambulatory/Diagnostic Orders: Basic Metabolic Panel [LAB.AMB] Time Frame: 06/08/23, Location: None Selected Patient Instructions/Handouts: Dehydration (DC), Urinary Retention in Men (ED) Activity/Diet/Wound Care/Special Instructions: Renal function improving, continue to hold metformin, ARB and Lasix. Repeat labs on Thursday06/08/23 Maintain log of Accuchecks ACHS and take to F/U visit with PCP for further rec.
[2023-06-06] MEDS ORDERED: PANTOPRAZOLE 40 MG TABLET PO SCH (07:30)
[2023-06-06] MEDS ORDERED: TAMSULOSIN 0.4 MG CAP.ER.24H PO SCH (08:30)
[2023-06-07] MEDS ORDERED: ERGOCALCIFEROL 1,250 MCG (50,000 IU) CAPSULE PO SCH (09:00)
== END 2023-06-05 16:20 | disposition home or self-care (01) | DRG 682 ==
LOC: EC 20:50 → 4SSUR 06-04 00:41 → 1SOBS 06-04 13:44
PROVIDERS: ADMIT Family Medicine; ATTEND Family Medicine
DX: N17.0 Acute kidney failure with tubular necrosis (principal); J96.01 Acute respiratory failure with hypoxia; E87.20 Acidosis, unspecified; R53.1 Weakness; U09.9 Post COVID-19 condition, unspecified; E11.22 Type 2 diabetes mellitus with diabetic chronic kidney disease; E78.5 Hyperlipidemia, unspecified; G89.29 Other chronic pain; M54.9 Dorsalgia, unspecified; G47.00 Insomnia, unspecified; E66.9 Obesity, unspecified; R33.8 Other retention of urine; M19.90 Unspecified osteoarthritis, unspecified site; N40.1 Benign prostatic hyperplasia with lower urinary tract symptoms; Z68.28 Body mass index [BMI] 28.0-28.9, adult; Z86.718 Personal history of other venous thrombosis and embolism; Z79.01 Long term (current) use of anticoagulants; Z87.442 Personal history of urinary calculi; N18.31 Chronic kidney disease, stage 3a; J44.9 Chronic obstructive pulmonary disease, unspecified; E86.9 Volume depletion, unspecified; I12.9 Hypertensive chronic kidney disease with stage 1 through stage 4 chronic kidney disease, or unspecified chronic kidney disease; I48.91 Unspecified atrial fibrillation; N21.0 Calculus in bladder; T38.0X5A Adverse effect of glucocorticoids and synthetic analogues, initial encounter; X58.XXXA Exposure to other specified factors, initial encounter; Z79.84 Long term (current) use of oral hypoglycemic drugs; Z79.899 Other long term (current) drug therapy; F32.A Depression, unspecified; Z87.19 Personal history of other diseases of the digestive system
CPT/HCPCS: 36415; 71045; 76770; 80048; 80053; 81001; 83036; 83605; 83880; 84484; 85025; 85610; 85730; 87040; 87636; 93005; 94640; 94760; 96361; 96374; 99285

== ENCOUNTER 2023-07-04 11:51 | Emergency (ER) | payer MEDICARE ==
[2023-07-04] MEDS ORDERED: IPRATROPIUM-ALBUTEROL 3 ML NEB INHALATION STA (12:02)
--- NOTE | 2023-07-04 12:04 | ED ---
General Adult HPI - General Chief complaint: Shortness of Breath Stated complaint: SOB Time Seen by Provider: 07/04/23 11:57 Source: patient, RN notes reviewed Mode of arrival: wheelchair Limitations: no limitations - History of Present Illness Initial comments: Patient is a pleasant 83-year-old male presenting to the emergency department with concerns with difficulty breathing. Onset of symptoms was the past day or so. Patient has had increased fatigue. Minimal cough. No fevers. Symptoms are similar to his previous COPD. No leg pain or leg swelling. - Related Data Home Medications Medication Instructions Recorded Confirmed Apixaban [Eliquis] 5 mg PO BID 07/17/21 06/04/23 Ergocalciferol [Vitamin D2 (1250 1,250 mcg PO DEL ROSARIO 07/17/21 06/04/23 Mcg = 58373 Iu)] Finasteride [Proscar] 5 mg PO HS 07/17/21 06/04/23 Metoprolol Succinate [Toprol XL] 25 mg PO DAILY 07/17/21 06/04/23 Tamsulosin HCl [Flomax] 0.4 mg PO HS 07/17/21 06/04/23 traZODone HCL [Desyrel] 200 mg PO HS 07/17/21 06/04/23 Atorvastatin [Lipitor] 80 mg PO DAILY 11/13/21 06/04/23 Fluticasone/Umeclidin/Vilanter 1 puff INHALATION RT-DAILY 06/04/23 06/04/23 [Trelegy Ellipta 200-62.5-25] Semaglutide [Ozempic] 0.5 mg SQ WE 06/04/23 06/04/23 Previous Rx's Medication Instructions Recorded Ergocalciferol [Vitamin D2 (1250 1,250 mcg PO DEL ROSARIO cap 06/05/23 Mcg = 76663 Iu)] Insulin Glargine,Hum.rec.anlog 20 units SQ W/SUPPER #0 06/05/23 [Lantus Solostar Pen] Pantoprazole [Protonix] 40 mg PO AC-BRKFST #30 tab 06/05/23 Allergies Allergy/AdvReac Type Severity Reaction Status Date / Time No Known Allergies Allergy Verified 07/04/23 11:54 Review of Systems ROS Statement: Those systems with pertinent positive or pertinent negative responses have been documented in the HPI. ROS Other: All systems not noted in ROS Statement are negative. Constitutional: Denies: fever Eyes: Denies: eye pain ENT: Denies: ear pain Respiratory: Reports: as per HPI, dyspnea Cardiovascular: Denies: chest pain Endocrine: Reports: fatigue Gastrointestinal: Denies: abdominal pain Genitourinary: Denies: dysuria Musculoskeletal: Denies: back pain Past Medical History Past Medical History: COPD, Diabetes Mellitus, Deep Vein Thrombosis (DVT), Hyperlipidemia, Hypertension, Osteoarthritis (OA) Additional Past Medical History / Comment(s): aneurysm, DVT x 2, kidney stones History of Any Multi-Drug Resistant Organisms: None Reported Past Surgical History: Back Surgery Additional Past Surgical History / Comment(s): "lumbar spine surgery", lithotripsy,AAA repair Past Anesthesia/Blood Transfusion Reactions: No Reported Reaction Past Psychological History: Depression Smoking Status: Former smoker Past Alcohol Use History: None Reported Past Drug Use History: None Reported - Past Family History Mother Family Medical History: No Reported History General Exam Limitations: no limitations General appearance: alert, in no apparent distress Head exam: Present: normocephalic Eye exam: Present: normal appearance Neck exam: Present: normal inspection Respiratory exam: Present: wheezes, decreased breath sounds Cardiovascular Exam: Present: regular rate, normal rhythm GI/Abdominal exam: Present: soft. Absent: tenderness Extremities exam: Present: normal inspection. Absent: pedal edema, calf tenderness Neurological exam: Present: alert Psychiatric exam: Present: normal affect, normal mood Skin exam: Present: normal color Course Vital Signs 07/04/23 07/04/23 07/04/23 11:54 12:34 12:35 Temperature 97.4 F L Pulse Rate 81 74 Respiratory 16 20 Rate Blood Pressure 101/65 87/58 O2 Sat by Pulse 94 L 88 L 89 L Oximetry 07/04/23 07/04/23 07/04/23 12:36 12:38 12:41 Temperature Pulse Rate Respiratory 20 Rate Blood Pressure O2 Sat by Pulse 98 94 L Oximetry 07/04/23 07/04/23 07/04/23 13:20 13:40 13:48 Temperature Pulse Rate 67 68 72 Respiratory 20 Rate Blood Pressure 76/57 O2 Sat by Pulse 95 Oximetry 07/04/23 14:37 Temperature Pulse Rate Respiratory Rate Blood Pressure O2 Sat by Pulse 90 L Oximetry EKG Findings - EKG Results: EKG: interpreted by ERMD (Left axis.), sinus rhythm, normal QRS, normal ST/T Medical Decision Making - Medical Decision Making Was pt. sent in by a medical professional or institution (PARAG Mera, IRONWORKER FOREMAN, urgent care, hospital, or halfway...) When possible be specific @ -No Did you speak to anyone other than the patient for history (EMS, parent, family, police, friend...)? What history was obtained from this source @ -No Did you review nursing and triage notes (agree or disagree)? Why? @ -I reviewed and agree with nursing and triage notes Were old charts reviewed (outside hosp., previous admission, EMS record, old EKG, old radiological studies, urgent care reports/EKG's, halfway records)? Report findings @ -No old charts were reviewed Differential Diagnosis (chest pain, altered mental status, abdominal pain women, abdominal pain men, vaginal bleeding, weakness, fever, dyspnea, syncope, headache, dizziness, GI bleed, back pain, seizure, CVA, palpatations, mental health, musculoskeletal)? @ -Differential Dyspnea: Coronary syndrome, arrhythmia, tamponade, asthma, COPD, pulmonary embolism, pneumonia, pneumothorax, pulmonary effusion, anaphylaxis, diabetic ketoacidosis, flailed chest, pulmonary contusion, diaphragmatic rupture, anemia, neuromuscular, this is not meant to be an all-inclusive list. EKG interpreted by me (3pts min.). @ -As above X-rays interpreted by me (1pt min.). @ -Chest x-ray does not reveal acute abnormality CT interpreted by me (1pt min.). @ -None done U/S interpreted by me (1pt. min.). @ -None done What testing was considered but not performed or refused? (CT, X-rays, U/S, labs)? Why? @ -None What meds were considered but not given or refused? Why? @ -None Did you discuss the management of the patient with other professionals (professionals i.e. PARAG Mera, IRONWORKER FOREMAN, lab, RT, psych nurse, social services, environmental services specialist, teacher, financial aids officer, disease case manager rn)? Give summary @ -No Was smoking cessation discussed for >3mins.? @ -No Was critical care preformed (if so, how long)? @ -No Were there social determinants of health that impacted care today? How? (Homelessness, low income, unemployed, alcoholism, drug addiction, transportation, low edu. Level, literacy, decrease access to med. care, senior care, rehab)? @ -No Was there de-escalation of care discussed even if they declined (Discuss DNR or withdrawal of care, Hospice)? DNR status @ -No What co-morbidities impacted this encounter? (DM, HTN, Smoking, COPD, CAD, Cancer, CVA, ARF, Chemo, Hep., AIDS, mental health diagnosis, sleep apnea, morbid obesity)? @ -None Was patient admitted / discharged? Hospital course, mention meds given and route, prescriptions, significant lab abnormalities, going to OR and other pertinent info. @ -Patient reevaluated. Patient is feeling much better. Pulse ox 94% on room air. Patient is requesting discharge home. Patient is able to get up and and really without difficulty. Patient updated on results and need for follow-up. There was a discussion for hospitalization however patient refuses and would like to go home. Undiagnosed new problem with uncertain prognosis? @ -No Drug Therapy requiring intensive monitoring for toxicity (Heparin, Nitro, Insulin, Cardizem)? @ -No Were any procedures done? @ -No Diagnosis/symptom? @ -COPD Acute, or Chronic, or Acute on Chronic? @ -Acute Uncomplicated (without systemic symptoms) or Complicated (systemic symptoms)? @ -default Side effects of treatment? @ -No Exacerbation, Progression, or Severe Exacerbation? @ -No Poses a threat to life or bodily function? How? (Chest pain, USA, VA, pneumonia, PE, COPD, DKA, ARF, appy, cholecystitis, CVA, Diverticulitis, Homicidal, Suicidal, threat to staff... and all critical care pts) @ -No - Lab Data Result diagrams: 07/04/23 12:09 07/04/23 12:09 Lab Results 07/04/23 07/04/23 07/04/23 Range/Units 12: 12: 12:09 WBC 9.1 (3.8-10.6) k/uL RBC 4.84 (4.30-5.90) m/uL Hgb 14.8 (13.0-17.5) gm/dL Hct 44.6 (39.0-53.0) % MCV 92.1 (80.0-100.0) fL MCH 30.5 (25.0-35.0) pg MCHC 33.1 (31.0-37.0) g/dL RDW 14.7 (11.5-15.5) % Plt Count 126 L (150-450) k/uL MPV 9.7 Neutrophils % 75 % Lymphocytes % 15 % Monocytes % 6 % Eosinophils % 2 % Basophils % 0 % Neutrophils # 6.9 (1.3-7.7) k/uL Lymphocytes # 1.4 (1.0-4.8) k/uL Monocytes # 0.6 (0-1.0) k/uL Eosinophils # 0.2 (0-0.7) k/uL Basophils # 0.0 (0-0.2) k/uL PT 10.9 (10.0-12.5) sec INR 1.0 (<1.2) APTT 23.6 (22.0-30.0) sec Sodium (137-145) mmol/L Potassium (3.5-5.1) mmol/L Chloride (98-107) mmol/L Carbon Dioxide (22-30) mmol/L Anion Gap mmol/L BUN (9-20) mg/dL Creatinine (0.66-1.25) mg/dL Est GFR (CKD-EPI)AfAm (>60 ml/min/1.73 sqM) Est GFR (CKD-EPI)NonAf (>60 ml/min/1.73 sqM) Glucose (74-99) mg/dL Plasma Lactic Acid Lanre (0.7-2.0) mmol/L Calcium (8.4-10.2) mg/dL Magnesium (1.6-2.3) mg/dL Total Bilirubin (0.2-1.3) mg/dL AST (17-59) U/L ALT (4-49) U/L Alkaline Phosphatase (38-126) U/L Troponin I (0.000-0.034) ng/mL NT-Pro-B Natriuret Pep pg/mL Total Protein (6.3-8.2) g/dL Albumin (3.5-5.0) g/dL Influenza Type A (PCR) Not Detected (Not Detectd) Influenza Type B (PCR) Not Detected (Not Detectd) RSV (PCR) Not Detected (Not Detectd) SARS-CoV-2 (PCR) Not Detected (Not Detectd) 07/04/23 07/04/23 07/04/23 Range/Units 12:09 12:09 12:09 WBC (3.8-10.6) k/uL RBC (4.30-5.90) m/uL Hgb (13.0-17.5) gm/dL Hct (39.0-53.0) % MCV (80.0-100.0) fL MCH (25.0-35.0) pg MCHC (31.0-37.0) g/dL RDW (11.5-15.5) % Plt Count (150-450) k/uL MPV Neutrophils % % Lymphocytes % % Monocytes % % Eosinophils % % Basophils % % Neutrophils # (1.3-7.7) k/uL Lymphocytes # (1.0-4.8) k/uL Monocytes # (0-1.0) k/uL Eosinophils # (0-0.7) k/uL Basophils # (0-0.2) k/uL PT (10.0-12.5) sec INR (<1.2) APTT (22.0-30.0) sec Sodium 135 L (137-145) mmol/L Potassium 4.6 (3.5-5.1) mmol/L Chloride 99 (98-107) mmol/L Carbon Dioxide 23 (22-30) mmol/L Anion Gap 13 mmol/L BUN 64 H (9-20) mg/dL Creatinine 2.21 H (0.66-1.25) mg/dL Est GFR (CKD-EPI)AfAm 31 (>60 ml/min/1.73 sqM) Est GFR (CKD-EPI)NonAf 26 (>60 ml/min/1.73 sqM) Glucose 263 H (74-99) mg/dL Plasma Lactic Acid Lanre 2.8 H* (0.7-2.0) mmol/L Calcium 9.1 (8.4-10.2) mg/dL Magnesium 1.8 (1.6-2.3) mg/dL Total Bilirubin 1.0 (0.2-1.3) mg/dL AST 20 (17-59) U/L ALT 23 (4-49) U/L Alkaline Phosphatase 85 (38-126) U/L Troponin I 0.019 (0.000-0.034) ng/mL NT-Pro-B Natriuret Pep 139 pg/mL Total Protein 6.7 (6.3-8.2) g/dL Albumin 3.8 (3.5-5.0) g/dL Influenza Type A (PCR) (Not Detectd) Influenza Type B (PCR) (Not Detectd) RSV (PCR) (Not Detectd) SARS-CoV-2 (PCR) (Not Detectd) Disposition Clinical Impression: COPD (chronic obstructive pulmonary disease) Disposition: HOME SELF-CARE Condition: Stable Instructions (If sedation given, give patient instructions): COPD (Chronic Obstructive Pulmonary Disease) (ED) Additional Instructions: Please do follow-up to primary care physician beginning of the week. Return for difficulty breathing, weakness, worsening or changing symptoms or any other concerns. Is patient prescribed a controlled substance at d/c from ED?: No Referrals: Beth Rogers DO [Primary Care Provider] - 1-2 days Time of Disposition: 14:48
[2023-07-04 12:46] LABS: Basophils % (A) 0 %; Eosinophils # (A) 0.2 k/uL (0-0.7); Eosinophils % (A) 2 %; HCT 44.6 % (39.0-53.0); HGB 14.8 gm/dL (13.0-17.5); Lymphocytes # (A) 1.4 k/uL (1.0-4.8); Lymphocytes % (A) 15 %; MCH 30.5 pg (25.0-35.0); MCHC 33.1 g/dL (31.0-37.0); MCV 92.1 fL (80.0-100.0); Mean Platelet Volume 9.7; Monocytes # (A) 0.6 k/uL (0-1.0); Monocytes % (A) 6 %; Neutrophils # (A) 6.9 k/uL (1.3-7.7); Neutrophils % (A) 75 %; Platelet Count 126 k/uL (150-450); RBC 4.84 m/uL (4.30-5.90); RDW 14.7 % (11.5-15.5); WBC 9.1 k/uL (3.8-10.6)
[2023-07-04 12:57] LABS: Partial Thromboplastin Time 23.6 sec (22.0-30.0); Prothrombin Time 10.9 sec (10.0-12.5)
[2023-07-04 13:05] LABS: ALT 23 U/L (4-49); AST 20 U/L (17-59); African American GFR (CKD) 31 (>60 ml/min/1.73 sqM); Albumin 3.8 g/dL (3.5-5.0); Alkaline Phosphatase 85 U/L (38-126); Anion Gap 13 mmol/L; Blood Urea Nitrogen 64 mg/dL (9-20); Calcium 9.1 mg/dL (8.4-10.2); Carbon Dioxide 23 mmol/L (22-30); Chloride 99 mmol/L (98-107); Glucose 263 mg/dL (74-99); Magnesium 1.8 mg/dL (1.6-2.3); Non-African American GFR(CKD) 26 (>60 ml/min/1.73 sqM); Potassium 4.6 mmol/L (3.5-5.1); Sodium 135 mmol/L (137-145); Total Protein 6.7 g/dL (6.3-8.2)
[2023-07-04] MEDS ORDERED: SODIUM CHLORIDE 0.9% 1,000 ML IV STA (13:11)
[2023-07-04 13:14] LABS: NT-Pro-B-Type Natriuretic Pept 139 pg/mL
--- NOTE | 2023-07-04 13:24 | XR ---
EXAMINATION TYPE: XR chest 2V DATE OF EXAM: 07/04/2023 1:14 PM CLINICAL INDICATION:Male, 83 years old with history of difficulty breathing; [facility] COMPARISON: Chest radiographs from 06/03/2023. TECHNIQUE: XR chest 2V Frontal and lateral views of the chest. FINDINGS: Lungs/Pleura: There is flattening of the diaphragm with increased lucency of the lungs. No evidence o f pneumothorax, pleural effusion or focal consolidation. Pulmonary vascularity: Unremarkable. Heart/mediastinum: Cardiomediastinal silhouette is unremarkable. Atherosclerotic calcifications are seen in the aorta. Musculoskeletal: No acute osseous pathology. Other findings: None IMPRESSION: 1. No acute cardiopulmonary disease process. 2. COPD changes.
[2023-07-04 14:02] VITALS: PULSE 72
[2023-07-04 15:28] VITALS: BP 98/69; RESP 18; TEMP 97.6
== END 2023-07-04 15:05 | disposition home or self-care (01) ==
LOC: EC 11:51
DX: J44.9 Chronic obstructive pulmonary disease, unspecified (principal); E11.9 Type 2 diabetes mellitus without complications; E78.5 Hyperlipidemia, unspecified; I10 Essential (primary) hypertension; M19.90 Unspecified osteoarthritis, unspecified site; Z86.718 Personal history of other venous thrombosis and embolism; F32.A Depression, unspecified; Z87.891 Personal history of nicotine dependence; Z79.01 Long term (current) use of anticoagulants; Z79.899 Other long term (current) drug therapy; Z20.822 Contact with and (suspected) exposure to COVID-19
CPT/HCPCS: 36415; 71046; 80053; 83605; 83735; 83880; 84484; 85025; 85610; 85730; 87636; 93005; 94640; 96360; 99285

== ENCOUNTER 2023-08-27 20:18 | Emergency (ER) | payer MEDICARE ==
[2023-08-27 20:41] VITALS: TEMP 97.8
[2023-08-27 21:03] LABS: Anisocytosis Slight; Basophils % (A) 0 %; Eosinophils # (A) 0.2 k/uL (0-0.7); Eosinophils % (A) 3 %; Hypochromasia Slight; Lymphocytes # (A) 1.3 k/uL (1.0-4.8); Lymphocytes % (A) 19 %; MCH 30.9 pg (25.0-35.0); MCHC 32.3 g/dL (31.0-37.0); MCV 95.5 fL (80.0-100.0); Mean Platelet Volume 8.7; Monocytes # (A) 0.3 k/uL (0-1.0); Monocytes % (A) 5 %; Neutrophils # (A) 4.9 k/uL (1.3-7.7); Neutrophils % (A) 72 %; RBC 3.46 m/uL (4.30-5.90); RDW 16.3 % (11.5-15.5); WBC 6.8 k/uL (3.8-10.6)
[2023-08-27 21:15] LABS: HGB 10.7 gm/dL (13.0-17.5); Platelet Count 197 k/uL (150-450)
[2023-08-27 21:20] LABS: ALT 37 U/L (4-49); AST 37 U/L (17-59); African American GFR (CKD) 62 (>60 ml/min/1.73 sqM); Albumin 2.8 g/dL (3.5-5.0); Alkaline Phosphatase 103 U/L (38-126); Anion Gap 10 mmol/L; Blood Urea Nitrogen 20 mg/dL (9-20); Carbon Dioxide 24 mmol/L (22-30); Chloride 106 mmol/L (98-107); Glucose 216 mg/dL (74-99); Non-African American GFR(CKD) 53 (>60 ml/min/1.73 sqM); Potassium 4.1 mmol/L (3.5-5.1); Sodium 140 mmol/L (137-145); Total Bilirubin 0.6 mg/dL (0.2-1.3); Total Protein 5.5 g/dL (6.3-8.2)
[2023-08-27 21:21] LABS: INR 1.1 (<1.2); Partial Thromboplastin Time 26.9 sec (22.0-30.0); Prothrombin Time 11.8 sec (10.0-12.5)
[2023-08-27 21:29] LABS: NT-Pro-B-Type Natriuretic Pept 2070 pg/mL
[2023-08-27 21:45] VITALS: RESP 20
--- NOTE | 2023-08-27 22:50 | ED ---
General Adult HPI - General Chief complaint: Recheck/Abnormal Lab/Rx Stated complaint: High Blood Pressure Time Seen by Provider: 08/27/23 21:16 Source: patient Mode of arrival: ambulatory Limitations: no limitations - History of Present Illness Initial comments: 3-year-old male presenting to the ED with a chief complaint of hypertension. Patient states that he regularly checks his blood pressure. States during one of his regular checks it to be in the 200 systolic. There is no chest pain, shortness of breath, or headache at this time. The presentation to the ED for further evaluation. Denies cough or fever. Does note a history of COPD and a chronic cough however denies any worsening of this. - Related Data Home Medications Medication Instructions Recorded Confirmed Apixaban [Eliquis] 5 mg PO BID 07/17/21 06/04/23 Ergocalciferol [Vitamin D2 (1250 1,250 mcg PO DEL ROSARIO 07/17/21 06/04/23 Mcg = 54037 Iu)] Finasteride [Proscar] 5 mg PO HS 07/17/21 06/04/23 Metoprolol Succinate [Toprol XL] 25 mg PO DAILY 07/17/21 06/04/23 Tamsulosin HCl [Flomax] 0.4 mg PO HS 07/17/21 06/04/23 traZODone HCL [Desyrel] 200 mg PO HS 07/17/21 06/04/23 Atorvastatin [Lipitor] 80 mg PO DAILY 11/13/21 06/04/23 Fluticasone/Umeclidin/Vilanter 1 puff INHALATION RT-DAILY 06/04/23 06/04/23 [Trelegy Ellipta 200-62.5-25] Semaglutide [Ozempic] 0.5 mg SQ WE 06/04/23 06/04/23 Previous Rx's Medication Instructions Recorded Ergocalciferol [Vitamin D2 (1250 1,250 mcg PO DEL ROSARIO cap 06/05/23 Mcg = 80722 Iu)] Insulin Glargine,Hum.rec.anlog 20 units SQ W/SUPPER #0 06/05/23 [Lantus Solostar Pen] Pantoprazole [Protonix] 40 mg PO AC-BRKFST #30 tab 06/05/23 Amoxic-Pot Clav 875-125Mg 1 tab PO Q12HR 5 Days #10 tab 08/28/23 [Augmentin 875-125] Azithromycin [Zithromax] 500 mg PO DAILY 3 Days #3 tab 08/28/23 Allergies Allergy/AdvReac Type Severity Reaction Status Date / Time No Known Allergies Allergy Verified 07/04/23 11:54 Review of Systems ROS Statement: Those systems with pertinent positive or pertinent negative responses have been documented in the HPI. ROS Other: All systems not noted in ROS Statement are negative. Past Medical History Past Medical History: COPD, Diabetes Mellitus, Deep Vein Thrombosis (DVT), Hy perlipidemia, Hypertension, Osteoarthritis (OA) Additional Past Medical History / Comment(s): aneurysm, DVT x 2, kidney stones History of Any Multi-Drug Resistant Organisms: None Reported Past Surgical History: Back Surgery Additional Past Surgical History / Comment(s): "lumbar spine surgery", litho tripsy,AAA repair Past Anesthesia/Blood Transfusion Reactions: No Reported Reaction Past Psychological History: Depression Smoking Status: Former smoker Past Alcohol Use History: None Reported Past Drug Use History: None Reported - Past Family History Mother Family Medical History: No Reported History General Exam Limitations: no limitations Neck exam: Present: normal inspection Respiratory exam: Present: wheezes, rhonchi (Right lung base) Cardiovascular Exam: Present: regular rate GI/Abdominal exam: Present: soft Neurological exam: Present: alert, oriented X3 Skin exam: Present: warm, dry Course Vital Signs 08/27/23 08/27/23 08/27/23 20:21 21:29 22:30 Temperature 97.8 F Pulse Rate 97 89 75 Respiratory 22 20 20 Rate Blood Pressure 188/96 155/90 158/79 O2 Sat by Pulse 96 90 L 91 L Oximetry Medical Decision Making - Medical Decision Making Was pt. sent in by a medical professional or institution (, PA, SAWMILL MOULDER OPERATOR, urgent care, hospital, or halfway...) When possible be specific @ -No Did you speak to anyone other than the patient for history (EMS, parent, family, police, friend...)? What history was obtained from this source @ -No Did you review nursing and triage notes (agree or disagree)? Why? @ -I reviewed and agree with nursing and triage notes Were old charts reviewed (outside hosp., previous admission, EMS record, old EKG, old radiological studies, urgent care reports/EKG's, halfway records)? Report findings @ -No old charts were reviewed Differential Diagnosis (chest pain, altered mental status, abdominal pain women, abdominal pain men, vaginal bleeding, weakness, fever, dyspnea, syncope, headache, dizziness, GI bleed, back pain, seizure, CVA, palpatations, mental health, musculoskeletal)? @ -Differential Chest Pain: Stable Angina, Unstable Angina, STEMI, NSTEMI Aortic Dissection, Pneumothorax, Musculoskeletal, Esophageal Spasm GERD, Cholecystitis, Pancreatitis, Zoster, this is not meant to be an all-inclusive list. EKG interpreted by me (3pts min.). @ -As above X-rays interpreted by me (1pt min.). @ -X-ray interpreted by me showing infiltrate of the right lung. CT interpreted by me (1pt min.). @ -None done U/S interpreted by me (1pt. min.). @ -None done What testing was considered but not performed or refused? (CT, X-rays, U/S, labs)? Why? @ -None What meds were considered but not given or refused? Why? @ -None Did you discuss the management of the patient with other professionals (professionals i.e. , PA, SAWMILL MOULDER OPERATOR, lab, RT, psych nurse, outreach and education social worker, saddle mechanic, teacher, correctional probation officer, test case developer)? Give summary @ -No Was smoking cessation discussed for >3mins.? @ -No Was critical care preformed (if so, how long)? @ -No Were there social determinants of health that impacted care today? How? (Homelessness, low income, unemployed, alcoholism, drug addiction, transportation, low edu. Level, literacy, decrease access to med. care, [facility], rehab)? @ -No Was there de-escalation of care discussed even if they declined (Discuss DNR or withdrawal of care, Hospice)? DNR status @ -No What co-morbidities impacted this encounter? (DM, HTN, Smoking, COPD, CAD, Cancer, CVA, ARF, Chemo, Hep., AIDS, mental health diagnosis, sleep apnea, morbid obesity)? @ -HTN, COPD Was patient admitted / discharged? Hospital course, mention meds given and route, prescriptions, significant lab abnormalities, going to OR and other pertinent info. @ -Discharge 83-year-old male presenting to the ED with concerns of hypertension with him noting systolic pressures in the 200s. Laboratory workup here including CBC, CMP and troponin 2 unremarkable. Chest x-ray does show infiltrate of right lower lung however patient denies increased cough compared to baseline with his COPD or fever. Patient discharged home with prescriptions for azithromycin and Augmentin to cover for community-acquired pneumonia. At this time vital signs stable afebrile. Discussed return precautions with patient who verbalizes agreement. Undiagnosed new problem with uncertain prognosis? @ -No Drug Therapy requiring intensive monitoring for toxicity (Heparin, Nitro, Insulin, Cardizem)? @ -No Were any procedures done? @ -No Diagnosis/symptom? @ -HTN, pneumonia Acute, or Chronic, or Acute on Chronic? @ -Acute Uncomplicated (without systemic symptoms) or Complicated (systemic symptoms)? @ -Uncomplicated Side effects of treatment? @ -No Exacerbation, Progression, or Severe Exacerbation? @ -No Poses a threat to life or bodily function? How? (Chest pain, USA, [place], pneumonia, PE, COPD, DKA, ARF, appy, cholecystitis, CVA, Diverticulitis, Homicidal, Suicidal, threat to staff... and all critical care pts) @ -No - Lab Data Result diagrams: 08/27/23 20:27 08/27/23 20:27 Lab Results 08/27/23 08/27/23 08/27/23 Range/Units 20:27 20:27 20:27 WBC 6.8 (3.8-10.6) k/uL RBC 3.46 L (4.30-5.90) m/uL Hgb 10.7 L D (13.0-17.5) gm/dL Hct 33.0 L (39.0-53.0) % MCV 95.5 (80.0-100.0) fL MCH 30.9 (25.0-35.0) pg MCHC 32.3 (31.0-37.0) g/dL RDW 16.3 H (11.5-15.5) % Plt Count 197 D (150-450) k/uL MPV 8.7 Neutrophils % 72 % Lymphocytes % 19 % Monocytes % 5 % Eosinophils % 3 % Basophils % 0 % Neutrophils # 4.9 (1.3-7.7) k/uL Lymphocytes # 1.3 (1.0-4.8) k/uL Monocytes # 0.3 (0-1.0) k/uL Eosinophils # 0.2 (0-0.7) k/uL Basophils # 0.0 (0-0.2) k/uL Hypochromasia Slight Anisocytosis Slight PT 11.8 (10.0-12.5) sec INR 1.1 (<1.2) APTT 26.9 (22.0-30.0) sec Sodium 140 (137-145) mmol/L Potassium 4.1 (3.5-5.1) mmol/L Chloride 106 (98-107) mmol/L Carbon Dioxide 24 (22-30) mmol/L Anion Gap 10 mmol/L BUN 20 (9-20) mg/dL Creatinine 1.24 (0.66-1.25) mg/dL Est GFR (CKD-EPI)AfAm 62 (>60 ml/min/1.73 sqM) Est GFR (CKD-EPI)NonAf 53 (>60 ml/min/1.73 sqM) Glucose 216 H (74-99) mg/dL Calcium 8.0 L (8.4-10.2) mg/dL Total Bilirubin 0.6 (0.2-1.3) mg/dL AST 37 (17-59) U/L ALT 37 (4-49) U/L Alkaline Phosphatase 103 (38-126) U/L Troponin I (0.000-0.034) ng/mL NT-Pro-B Natriuret Pep 2070 pg/mL Total Protein 5.5 L (6.3-8.2) g/dL Albumin 2.8 L (3.5-5.0) g/dL 08/27/23 08/27/23 Range/Units 20:27 23:14 WBC (3.8-10.6) k/uL RBC (4.30-5.90) m/uL Hgb (13.0-17.5) gm/dL Hct (39.0-53.0) % MCV (80.0-100.0) fL MCH (25.0-35.0) pg MCHC (31.0-37.0) g/dL RDW (11.5-15.5) % Plt Count (150-450) k/uL MPV Neutrophils % % Lymphocytes % % Monocytes % % Eosinophils % % Basophils % % Neutrophils # (1.3-7.7) k/uL Lymphocytes # (1.0-4.8) k/uL Monocytes # (0-1.0) k/uL Eosinophils # (0-0.7) k/uL Basophils # (0-0.2) k/uL Hypochromasia Anisocytosis PT (10.0-12.5) sec INR (<1.2) APTT (22.0-30.0) sec Sodium (137-145) mmol/L Potassium (3.5-5.1) mmol/L Chloride (98-107) mmol/L Carbon Dioxide (22-30) mmol/L Anion Gap mmol/L BUN (9-20) mg/dL Creatinine (0.66-1.25) mg/dL Est GFR (CKD-EPI)AfAm (>60 ml/min/1.73 sqM) Est GFR (CKD-EPI)NonAf (>60 ml/min/1.73 sqM) Glucose (74-99) mg/dL Calcium (8.4-10.2) mg/dL Total Bilirubin (0.2-1.3) mg/dL AST (17-59) U/L ALT (4-49) U/L Alkaline Phosphatase (38-126) U/L Troponin I 0.014 0.023 (0.000-0.034) ng/mL NT-Pro-B Natriuret Pep pg/mL Total Protein (6.3-8.2) g/dL Albumin (3.5-5.0) g/dL - EKG Data EKG Comments: KG shows a sinus rhythm at [address] or T-wave changes. IA 120, QRS 82, QT/QTc 359/409. Disposition Clinical Impression: HTN (hypertension) Disposition: HOME SELF-CARE Condition: Good Additional Instructions: Please return to the Emergency Department if symptoms worsen or any other concerns. Follow up with your primary care provider/press writer. Prescriptions: Amoxic-Pot Clav 875-125Mg [Augmentin 875-125] 1 tab PO Q12HR 5 Days #10 tab Azithromycin [Zithromax] 500 mg PO DAILY 3 Days #3 tab Is patient prescribed a controlled substance at d/c from ED?: No Referrals: Beth Rogers DO [Primary Care Provider] - 1-2 days
--- NOTE | 2023-08-27 22:51 | XR ---
EXAMINATION TYPE: XR chest 1V DATE OF EXAM: 08/27/2023 COMPARISON: 07/04/2023 INDICATION: Chest pain TECHNIQUE: Single frontal view of the chest is obtained. FINDINGS: The heart size is normal. The pulmonary vasculature is normal. There is a minimal left pleural effusion. There is increased lung markings at the left base greater at the infrahilar region. This is a change. Correlate for atelectasis and pneumonia. IMPRESSION: 1. Minimal left pleural effusion. 2. Mild posterior right lower lobe infiltrate
[2023-08-28 00:54] VITALS: BP 141/78; PULSE 81
== END 2023-08-28 00:53 | disposition home or self-care (01) ==
LOC: EC 20:18
DX: I10 Essential (primary) hypertension (principal); J90 Pleural effusion, not elsewhere classified; J44.9 Chronic obstructive pulmonary disease, unspecified; E11.9 Type 2 diabetes mellitus without complications; E78.5 Hyperlipidemia, unspecified; M19.90 Unspecified osteoarthritis, unspecified site; Z86.59 Personal history of other mental and behavioral disorders; Z87.891 Personal history of nicotine dependence; Z79.1 Long term (current) use of non-steroidal anti-inflammatories (NSAID); Z79.01 Long term (current) use of anticoagulants; Z79.899 Other long term (current) drug therapy; Z79.51 Long term (current) use of inhaled steroids; Z79.84 Long term (current) use of oral hypoglycemic drugs
CPT/HCPCS: 36415; 71045; 80053; 83880; 84484; 85025; 85610; 85730; 93005; 99284

== ENCOUNTER 2024-03-28 13:16 | Emergency (ER) | payer MEDICARE | END 2024-03-28 15:52 | disposition home or self-care (01) | LOC: EC 13:16 | DX: K59.00 Constipation, unspecified (principal) | CPT/HCPCS: 99283 ==

== ENCOUNTER → 2024-06-20 | Outpatient (CLI) | payer MEDICARE ==
[2024-06-20 16:38] LABS: ALT 14 U/L (10-49); AST 13 U/L (14-35); Chol/HDL Ratio 3.57 Ratio; LDL Cholesterol,Calculated 60.6 mg/dL (0.0-131.0)
== END | disposition home or self-care (01) ==
LOC: LABWHC1 09:45
PROVIDERS: ATTEND Internal Medicine Cardiovascular Disease
DX: E78.2 Mixed hyperlipidemia (principal)
CPT/HCPCS: 36415; 80061; 84450; 84460

== ENCOUNTER 2024-08-09 15:32 | Inpatient (IN) | payer MEDICARE ==
--- NOTE | 2024-08-09 15:53 | ED ---
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 Patient states that he checked his at home oxygen level was in the mid 80s. He denies chest pain, dyspnea on exertion, peripheral edema. Endorses chronic cough. Denies fevers and chills. (Dayanara Frey) - Related Data Home Medications Medication Instructions Recorded Confirmed Apixaban [Eliquis] 5 mg PO BID 07/17/21 08/10/24 Finasteride [Proscar] 5 mg PO HS 07/17/21 08/09/24 Metoprolol Succinate [Toprol XL] 25 mg PO DAILY 07/17/21 08/09/24 Tamsulosin HCl [Flomax] 0.4 mg PO HS 07/17/21 08/09/24 traZODone HCL [Desyrel] 200 mg PO HS 07/17/21 08/09/24 Atorvastatin [Lipitor] 80 mg PO HS 11/13/21 08/09/24 Fluticasone/Umeclidin/Vilanter 1 puff INHALATION RT-DAILY 06/04/23 08/09/24 [Trelegy Ellipta 200-62.5-25] Gabapentin [Neurontin] 300 mg PO HS 08/09/24 08/09/24 HYDROcodone/APAP 5-325MG [[place] 1 tab PO DAILY PRN 08/09/24 08/09/24 5-325] Insulin Glargine,Hum.rec.anlog 40 units SQ BID 08/09/24 08/09/24 [Lantus Solostar Pen] Mirtazapine 30 mg PO HS 08/09/24 08/09/24 QUEtiapine [SEROquel] 50 - 100 mg PO HS 08/09/24 08/09/24 amLODIPine [Norvasc] 10 mg PO DAILY 08/09/24 08/09/24 cloNIDine HCL 0.1 mg PO HS 08/09/24 08/09/24 metFORMIN HCL 500 mg PO BID 08/09/24 08/10/24 Previous Rx's Medication Instructions Recorded Ergocalciferol [Vitamin D2 (1250 1,250 mcg PO DEL ROSARIO cap 06/05/23 Mcg = 50475 Iu)] Pantoprazole [Protonix] 40 mg PO AC-BRKFST #30 tab 06/05/23 polyethylene glycoL 3350 [Miralax] 17 gm PO DAILY packet 08/12/24 Allergies Allergy/AdvReac Type Severity Reaction Status Date / Time No Known Allergies Allergy Verified 08/09/24 15:37 Review of Systems ROS Other: All systems not noted in ROS Statement are negative. <Alvarez Oneill - Last Filed: 08/09/24 18:58> ROS Other: All systems not noted in ROS Statement are negative. <Dayanara Frey - Last Filed: 08/12/24 19:08> ROS Statement: Those systems with pertinent positive or pertinent negative responses have been documented in the HPI. Past Medical History Past Medical History: COPD, Diabetes Mellitus, Deep Vein Thrombosis (DVT), Hyperlipidemia, Hypertension, Osteoarthritis (OA) Additional Past Medical History / Comment(s): aneurysm, DVT x 2, kidney stones History of Any Multi-Drug Resistant Organisms: None Reported Past Surgical History: Back Surgery Additional Past Surgical History / Comment(s): "lumbar spine surgery", lithotripsy,AAA repair Past Anesthesia/Blood Transfusion Reactions: No Reported Reaction Past Psychological History: Depression Smoking Status: Former smoker Past Alcohol Use History: None Reported Past Drug Use History: None Reported - Past Family History Mother Family Medical History: No Reported History <Dayanara Frey - Last Filed: 08/12/24 19:08> General Exam Limitations: no limitations <Dayanara Frey - Last Filed: 08/12/24 19:08> - General Exam Comments Initial Comments: Visual Physical Exam Vital signs reviewed General: Well-appearing, nontoxic, no acute distress. Head: Normocephalic, atraumatic Eyes: PERRLA, EOMI ENT: Airway patent Chest: Nonlabored breathing Skin: No visual rash, normal skin tone Neuro: Alert and oriented 3 Musculoskeletal: No gross abnormalities (StielerBereDayanara) Course Vital Signs 08/09/24 08/09/24 08/09/24 15:33 19:29 21:11 Temperature 97.5 F L 97.9 F Pulse Rate 105 H 73 63 Respiratory 22 16 16 Rate Blood Pressure 136/89 134/68 134/68 O2 Sat by Pulse 90 L 92 L 96 Oximetry 08/09/24 23:03 Temperature Pulse Rate 55 L Respiratory 15 Rate Blood Pressure 134/68 O2 Sat by Pulse 95 Oximetry Medical Decision Making - Lab Data Result diagrams: 08/09/24 15:49 08/09/24 15:49 - EKG Data -: EKG Interpreted by [facility] EKG shows normal: sinus rhythm, axis (Normal), intervals (Normal), QRS complexes (Normal), ST-T waves (Normal) Rate: normal (Rate 94 bpm) Interpretation: normal EKG <Alvarez Oneill - Last Filed: 08/09/24 18:58> - Lab Data Result diagrams: 08/09/24 15:49 08/12/24 04:50 <Dayanara Frey - Last Filed: 08/12/24 19:08> - Medical Decision Making I completed the quick note portion of this chart signed Dayanara Frey PA-C (Dayanara Frey) - Lab Data Lab Results 08/09/24 08/09/24 08/09/24 Range/Units 15:49 15:49 15:49 WBC 10.1 (3.8-10.6) k/uL RBC 4.72 (4.30-5.90) m/uL Hgb 13.7 (13.0-17.5) gm/dL Hct 43.2 (39.0-53.0) % MCV 91.6 (80.0-100.0) fL MCH 29.1 (25.0-35.0) pg MCHC 31.7 (31.0-37.0) g/dL RDW 15.3 (11.5-15.5) % Plt Count 125 L (150-450) k/uL MPV 9.6 Neutrophils % 88 % Lymphocytes % 6 % Monocytes % 4 % Eosinophils % 1 % Basophils % 0 % Neutrophils # 8.9 H (1.3-7.7) k/uL Lymphocytes # 0.6 L (1.0-4.8) k/uL Monocytes # 0.4 (0-1.0) k/uL Eosinophils # 0.1 (0-0.7) k/uL Basophils # 0.0 (0-0.2) k/uL PT 12.2 (10.0-12.5) sec INR 1.1 (<1.2) APTT 25.7 (22.0-30.0) sec D-Dimer 3.59 H (<0.60) mg/L FEU Sodium 136 L (137-145) mmol/L Potassium 5.5 H (3.5-5.1) mmol/L Chloride 103 (98-107) mmol/L Carbon Dioxide 24 (22-30) mmol/L Anion Gap 9 mmol/L BUN 29 H (9-20) mg/dL Creatinine 2.23 H (0.66-1.25) mg/dL Est GFR (CKD-EPI)AfAm 30 (>60 ml/min/1.73 sqM) Est GFR (CKD-EPI)NonAf 26 (>60 ml/min/1.73 sqM) Glucose 342 H (74-99) mg/dL Lactic Ac Sepsis Rflx Plasma Lactic Acid Lanre (0.7-2.0) mmol/L Calcium 8.7 (8.4-10.2) mg/dL Magnesium 1.5 L (1.6-2.3) mg/dL Total Bilirubin 1.0 (0.2-1.3) mg/dL AST 19 (17-59) U/L ALT 14 (4-49) U/L Alkaline Phosphatase 94 (38-126) U/L Troponin I (0.000-0.034) ng/mL NT-Pro-B Natriuret Pep 144 pg/mL Total Protein 6.5 (6.3-8.2) g/dL Albumin 3.8 (3.5-5.0) g/dL 08/09/24 08/09/24 08/09/24 Range/Units 15:49 18:46 19:07 WBC (3.8-10.6) k/uL RBC (4.30-5.90) m/uL Hgb (13.0-17.5) gm/dL Hct (39.0-53.0) % MCV (80.0-100.0) fL MCH (25.0-35.0) pg MCHC (31.0-37.0) g/dL RDW (11.5-15.5) % Plt Count (150-450) k/uL MPV Neutrophils % % Lymphocytes % % Monocytes % % Eosinophils % % Basophils % % Neutrophils # (1.3-7.7) k/uL Lymphocytes # (1.0-4.8) k/uL Monocytes # (0-1.0) k/uL Eosinophils # (0-0.7) k/uL Basophils # (0-0.2) k/uL PT (10.0-12.5) sec INR (<1.2) APTT (22.0-30.0) sec D-Dimer (<0.60) mg/L FEU Sodium (137-145) mmol/L Potassium (3.5-5.1) mmol/L Chloride (98-107) mmol/L Carbon Dioxide (22-30) mmol/L Anion Gap mmol/L BUN (9-20) mg/dL Creatinine (0.66-1.25) mg/dL Est GFR (CKD-EPI)AfAm (>60 ml/min/1.73 sqM) Est GFR (CKD-EPI)NonAf (>60 ml/min/1.73 sqM) Glucose (74-99) mg/dL Lactic Ac Sepsis Rflx Y Plasma Lactic Acid Lanre 2.3 H* (0.7-2.0) mmol/L Calcium (8.4-10.2) mg/dL Magnesium (1.6-2.3) mg/dL Total Bilirubin (0.2-1.3) mg/dL AST (17-59) U/L ALT (4-49) U/L Alkaline Phosphatase (38-126) U/L Troponin I <0.012 (0.000-0.034) ng/mL NT-Pro-B Natriuret Pep pg/mL Total Protein (6.3-8.2) g/dL Albumin (3.5-5.0) g/dL Disposition <Alvarez Oneill - Last Filed: 08/09/24 18:58> Decision to Admit Reason: Admit from EC <Dayanara Frey - Last Filed: 08/12/24 19:08> Clinical Impression: Shortness of breath Disposition: ADMITTED IP TO THIS HOSP Condition: Stable
[2024-08-09 16:09] LABS: Basophils % (A) 0 %; Eosinophils # (A) 0.1 k/uL (0-0.7); Eosinophils % (A) 1 %; HCT 43.2 % (39.0-53.0); HGB 13.7 gm/dL (13.0-17.5); Lymphocytes # (A) 0.6 k/uL (1.0-4.8); Lymphocytes % (A) 6 %; MCH 29.1 pg (25.0-35.0); MCHC 31.7 g/dL (31.0-37.0); MCV 91.6 fL (80.0-100.0); Mean Platelet Volume 9.6; Monocytes # (A) 0.4 k/uL (0-1.0); Monocytes % (A) 4 %; Neutrophils # (A) 8.9 k/uL (1.3-7.7); Neutrophils % (A) 88 %; Platelet Count 125 k/uL (150-450); RBC 4.72 m/uL (4.30-5.90); RDW 15.3 % (11.5-15.5); WBC 10.1 k/uL (3.8-10.6)
[2024-08-09 16:25] LABS: INR 1.1 (<1.2); Partial Thromboplastin Time 25.7 sec (22.0-30.0); Prothrombin Time 12.2 sec (10.0-12.5)
[2024-08-09 16:26] LABS: ALT 14 U/L (4-49); AST 19 U/L (17-59); African American GFR (CKD) 30 (>60 ml/min/1.73 sqM); Albumin 3.8 g/dL (3.5-5.0); Alkaline Phosphatase 94 U/L (38-126); Anion Gap 9 mmol/L; Blood Urea Nitrogen 29 mg/dL (9-20); Calcium 8.7 mg/dL (8.4-10.2); Carbon Dioxide 24 mmol/L (22-30); Chloride 103 mmol/L (98-107); Glucose 342 mg/dL (74-99); Magnesium 1.5 mg/dL (1.6-2.3); Non-African American GFR(CKD) 26 (>60 ml/min/1.73 sqM); Potassium 5.5 mmol/L (3.5-5.1); Sodium 136 mmol/L (137-145); Total Protein 6.5 g/dL (6.3-8.2)
[2024-08-09 16:29] LABS: NT-Pro-B-Type Natriuretic Pept 144 pg/mL
--- NOTE | 2024-08-09 17:00 | XR ---
EXAMINATION TYPE: XR chest 2V DATE OF EXAM: 08/09/2024 4:54 PM COMPARISON: Previous chest radiograph 08/27/2023. CLINICAL INDICATION: Male, 84 years old with history of difficulty breathing; [facility] TECHNIQUE: XR chest 2V Frontal and lateral views of the chest. FINDINGS: Cardiac silhouette stable from prior study. Mild interstitial prominence bilaterally and hyperinflation. No sizable pleural effusion. No pneumothorax. No acute osseous abnormality. IMPRESSION: 1. No acute cardiopulmonary disease/process. 2. Findings suggestive of underlying COPD. [facility], , 08/09/2024 4:58 PM
[2024-08-09] MEDS ORDERED: IPRATROPIUM-ALBUTEROL 3 ML NEB INHALATION PRN (20:07)
[2024-08-09] MEDS ORDERED: NALOXONE 0.4 MG/ML 1 ML VIAL IVP PRN (20:07)
[2024-08-09] MEDS ORDERED: HYDROcodone/APAP 5-325MG 1 EACH TAB PO PRN (20:14)
[2024-08-09] MEDS: traZODone HCL 100 MG TAB PO SCH (20:53)
[2024-08-09] MEDS: TAMSULOSIN 0.4 MG CAP.ER.24H PO SCH (20:54)
[2024-08-09] MEDS: QUEtiapine 50 MG TAB PO SCH (20:54)
[2024-08-09] MEDS: FINASTERIDE 5 MG TAB PO SCH (20:55)
[2024-08-09] MEDS: MIRTAZAPINE 15 MG TAB PO SCH (20:55)
[2024-08-09] MEDS: cloNIDine HCL 0.1 MG TAB PO SCH (20:56)
[2024-08-09] MEDS: AZITHROMYCIN 500 MG TAB PO STA (20:56)
[2024-08-09] MEDS: ATORVASTATIN 80 MG TAB PO SCH (20:56)
[2024-08-09] MEDS: GABAPENTIN 300 MG CAP PO SCH (20:56)
[2024-08-09] MEDS: INSULIN REGULAR 100 UNIT/ML VIAL (IV) SQ STA (20:57)
[2024-08-09] MEDS: SODIUM CHLORIDE 0.9% 1,000 ML IV ONE (21:03)
[2024-08-09] MEDS: SODIUM CHLORIDE 0.9% 1,000 ML IV STA (21:03)
[2024-08-09] MEDS: SODIUM CHLORIDE 0.9% 500 ML 500 ML IV STA (21:04)
--- NOTE | 2024-08-10 02:42 | US ---
EXAM: US Duplex Bilateral Lower Extremities Veins CLINICAL HISTORY: ITS.REASON US Reason: elevated d-dimer, possible DVT TECHNIQUE: Real-time duplex ultrasound scan of the bilateral lower extremity veins integrating B-mode two-dimensional vascular structure, Doppler spectral analysis, color flow Doppler imaging and compression. COMPARISON: US Duplex Lower Extremity Veins dated 02/17/2023 ultrasound venous left lower extremity FINDINGS: Right deep veins: Nonocclusive thrombus from the RIGHT common femoral vein to the popliteal vein. Thready flow with partial compression. Right superficial veins: Unremarkable. No thrombus in the visualized right great saphenous vein. Left deep veins: Nonocclusive thrombus from the LEFT common femoral vein to the popliteal vein. Thready flow with partial compression. Similar on the prior. Left superficial veins: Unremarkable. No thrombus in the visualized left great saphenous vein. Soft tissues: No acute findings. No popliteal cyst. IMPRESSION: Nonocclusive DVT in bilateral lower extremities from the common femoral to popliteal veins. Age-indeterminate. Similar findings on the prior left lower extremity venous ultrasound. <MYCVCSECTION> Communications: 08/10/24 03:35 Verify Receipt Verified receipt with JOLANTA Hayden on 08/10 03: 35 (-05:00)
[2024-08-10 06:43] LABS: Glucose,Whole Blood 156 mg/dL (70-110)
[2024-08-10 07:52] LABS: African American GFR (CKD) 33 (>60 ml/min/1.73 sqM); Anion Gap 2 mmol/L; Blood Urea Nitrogen 32 mg/dL (9-20); Calcium 8.3 mg/dL (8.4-10.2); Carbon Dioxide 27 mmol/L (22-30); Chloride 107 mmol/L (98-107); Glucose 154 mg/dL (74-99); Magnesium 1.8 mg/dL (1.6-2.3); Non-African American GFR(CKD) 29 (>60 ml/min/1.73 sqM); Potassium 5.2 mmol/L (3.5-5.1); Sodium 136 mmol/L (137-145)
[2024-08-10] MEDS ORDERED: LOSARTAN 50 MG TAB PO SCH (09:00)
[2024-08-10] MEDS: predniSONE 20 MG TAB PO SCH (09:01)
[2024-08-10] MEDS: PANTOPRAZOLE 40 MG TABLET PO SCH (09:01)
[2024-08-10] MEDS: amLODIPine 10 MG TAB PO SCH (09:01)
[2024-08-10] MEDS: METOPROLOL SUCCINATE (ER) 25 MG TAB.ER.24H PO SCH (09:03)
[2024-08-10] MEDS: IPRATROPIUM-ALBUTEROL 3 ML NEB INHALATION SCH (09:15)
[2024-08-10] MEDS: SYMBICORT 160-4.5 MCG INHALER INHALATION SCH (09:15)
--- NOTE | 2024-08-10 09:27 | US ---
EXAMINATION TYPE: US kidneys/renal and bladder DATE OF EXAM: 08/10/2024 COMPARISON: 12/11/2021 CLINICAL INDICATION: Male, 84 years old with history of humberto; [facility] TECHNIQUE: Grayscale imaging of the bilateral kidneys and urinary bladder: FINDINGS: EXAM MEASUREMENTS: Right Kidney: 13.5x5.7x6.6 cm Left Kidney: 12.2x4.8x6.0 cm Right Kidney: cortical thinning, cystic changes, largest cyst measures 4.7x5.5x5.0cm , no hydronephr osis Left Kidney: cortical thinning , no hydronephrosis Bladder: bladder stone redemonstrated There is no evidence for hydronephrosis at this point in time. No nephrolithiasis is seen on prior C T is not well appreciated. No masses are identified. The urinary bladder is anechoic with layering bladder stone noted. exam limited by habitus IMPRESSION: 1. Multiple right renal cysts. Cortical thinning bilaterally. No evidence for obstructive uropathy. Bilateral renal calculi better appreciated on CT imaging from 2021. 2. Bladder stone the bladder lumen remains present [facility], , 08/10/2024 9:25 AM
[2024-08-10] MEDS: APIXABAN 5 MG TAB PO SCH ×2 (10:23→11:49)
[2024-08-10] MEDS: AZITHROMYCIN 500 MG TAB PO SCH (10:23)
--- NOTE | 2024-08-10 10:37 | P.NPCON ---
History of Present Illness - Reason for Consult acute renal failure, chronic renal failure - History of Present Illness Reason for consultation: Acute kidney injury on chronic kidney disease History of present illness: Patient is 84-year-old male seen in renal consultation for acute kidney injury on chronic kidney disease. Patient has chronic kidney disease stage IIIb with baseline creatinine 1.5-1.6 secondary to nephrosclerosis. Creatinine was 2.23 on admission and is 2.04 today. He is currently not on any IV fluids. He did receive 1.5 L of normal saline on admission. Patient came to the hospital due to shaking spells and hypoxia. Patient states his oxygen saturation was in the 80s. He is currently on a nasal cannula. He denies fever or chills. Oral intake is good. No vomiting or diarrhea. Patient does have longstanding history of diabetes. Patient is noted to have urinary retention with postvoid bladder scan showing nearly 480 cc of urine. Potassium was elevated and is better today. ARB is held. Vital signs are stable. General: No acute distress. HEENT: Head exam is unremarkable. LUNGS: No audible rhonchi or wheezes. HEART: Rate and Rhythm are regular. ABDOMEN: Nontender. EXTREMITITES: No edema. Past Medical History Past Medical History: COPD, Diabetes Mellitus, Deep Vein Thrombosis (DVT), Hyperlipidemia, Hypertension, Osteoarthritis (OA) Additional Past Medical History / Comment(s): aneurysm, DVT x 2, kidney stones History of Any Multi-Drug Resistant Organisms: None Reported Past Surgical History: Back Surgery Additional Past Surgical History / Comment(s): "lumbar spine surgery 5th disc", lithotripsy,AAA repair Past Anesthesia/Blood Transfusion Reactions: No Reported Reaction Past Psychological History: Depression Additional Psychological History / Comment(s): spouse passed 6 months ago Smoking Status: Former smoker Past Alcohol Use History: None Reported Additional Past Alcohol Use History / Comment(s): quit smoking > 25 yrs ago Past Drug Use History: None Reported - Past Family History Mother Family Medical History: No Reported History Medications and Allergies Home Medications Medication Instructions Recorded Confirmed Type Apixaban [Eliquis] 5 mg PO BID 07/17/21 08/10/24 History Finasteride [Proscar] 5 mg PO HS 07/17/21 08/09/24 History Metoprolol Succinate [Toprol XL] 25 mg PO DAILY 07/17/21 08/09/24 History Tamsulosin HCl [Flomax] 0.4 mg PO HS 07/17/21 08/09/24 History traZODone HCL [Desyrel] 200 mg PO HS 07/17/21 08/09/24 History Atorvastatin [Lipitor] 80 mg PO HS 11/13/21 08/09/24 History Fluticasone/Umeclidin/Vilanter 1 puff INHALATION RT-DAILY 06/04/23 08/09/24 History [Trelegy Ellipta 200-62.5-25] Ergocalciferol [Vitamin D2 (1250 1,250 mcg PO DEL ROSARIO cap 06/05/23 08/09/24 Rx Mcg = 19174 Iu)] Pantoprazole [Protonix] 40 mg PO AC-BRKFST #30 tab 06/05/23 08/09/24 Rx Gabapentin [Neurontin] 300 mg PO HS 08/09/24 08/09/24 History HYDROcodone/APAP 5-325MG [[place] 1 tab PO DAILY PRN 08/09/24 08/09/24 History 5-325] Insulin Glargine,Hum.rec.anlog 40 units SQ BID 08/09/24 08/09/24 History [Lantus Solostar Pen] Losartan Potassium 100 mg PO DAILY 08/09/24 08/09/24 History Mirtazapine 30 mg PO HS 08/09/24 08/09/24 History QUEtiapine [SEROquel] 50 - 100 mg PO HS 08/09/24 08/09/24 History amLODIPine [Norvasc] 10 mg PO DAILY 08/09/24 08/09/24 History cloNIDine HCL 0.1 mg PO HS 08/09/24 08/09/24 History metFORMIN HCL 500 mg PO BID 08/09/24 08/10/24 History Allergies Allergy/AdvReac Type Severity Reaction Status Date / Time No Known Allergies Allergy Verified 08/09/24 15:37 Physical Exam Vitals: Vital Signs Temp Pulse Pulse Resp BP BP BP 08/10/24 09:23 68 08/10/24 09:19 08/10/24 09:15 64 08/10/24 07:00 97.5 F L 54 L 16 127/72 08/10/24 03:06 97.5 F L 66 18 151/76 08/09/24 23:32 97.4 F L 65 17 159/66 08/09/24 23:03 55 L 15 134/68 08/09/24 21:11 63 16 134/68 08/09/24 19:29 97.9 F 73 16 134/68 08/09/24 15:33 97.5 F L 105 H 22 136/89 Pulse Ox 08/10/24 09:23 08/10/24 09:19 93 L 08/10/24 09:15 08/10/24 07:00 96 08/10/24 03:06 89 L 08/09/24 23:32 97 08/09/24 23:03 95 08/09/24 21:11 96 08/09/24 19:29 92 L 08/09/24 15:33 90 L Intake and Output 08/09/24 08/10/24 08/10/24 22:59 06:59 14:59 Output Total 476 Balance -476 Output: Post Void Residual 476 Other: # Voids 1 1 Weight 95.708 kg 95.708 kg Results - Lab Results Most recent lab results Calcium 8.3 mg/dL (8.4-10.2) L 08/10/24 07:12 Magnesium 1.8 mg/dL (1.6-2.3) 08/10/24 07:12 08/09/24 15:49 08/10/24 07:12 Assessment and Plan Plan: Assessment: 1. Acute kidney injury secondary to ATN and urinary retention. Creatinine 2.23 on admission and is 2.04 today. 2. Chronic kidney disease stage IIIb with baseline creatinine near 1.5-1.6 secondary to nephrosclerosis. 3. Hyperkalemia secondary to urinary retention, hyperglycemia acute kidney injury and losartan. Improved. 4. Diabetes mellitus. 5. Hypomagnesemia, replaced. Improved. 6. Hypertension with chronic kidney disease. Controlled. 7. Urinary retention. No hydronephrosis noted on kidney ultrasound. On Flomax . Plan: Add gentle IV hydration. Monitor bladder scans closely and insert Quintanilla catheter if postvoid residual above 300 cc. Blood glucose control. Hold losartan. Avoid nephrotoxins. Continue to monitor renal function and urine output. Thank you for the consultation. I will continue to follow the patient with you during his hospital stay.
[2024-08-10] MEDS: SODIUM CHLORIDE 0.9% 1,000 ML IV SCH (11:35)
[2024-08-10] MEDS: metFORMIN 500 MG TAB PO SCH (11:49)
[2024-08-10] MEDS ORDERED: DEXTROSE 50% SYRINGE 50 ML IVP PRN ×2 (12:54)
--- NOTE | 2024-08-10 13:35 | P.HPIM ---
History of Present Illness H&P Date: 08/10/24 Chief Complaint: Dyspnea, shortness of breath This is an 84-year-old gentleman with past medical history significant for diabetes, DVT on Eliquis, hypertension, hyperlipidemia, BPH, chronic kidney disease-baseline around 1.5, creatinine osteoarthritis, kidney stones, former n icotine dependence and multiple other medical issues presented to the ER with complaints of increased shortness of breath accompanied by weakness and shakiness as of yesterday. reports his O2 sats at home were 80 to 81%. On admission O2 sat 90% on room air. denies chills or sweats. Reports he does not drink water he drinks 0-calorie pop. Denies sore throat, congestion. Reports "chronic COPD cough". Chest x-ray no acute cardiopulmonary disease/process, suggestive of underlying COPD. Denies chest pain, palpitations, EKG reported sinus rhythm, troponin negative x 1. Afebrile, normal WBC, lactic acid 2.3 on admission, resolved with IV fluid hydration ,currently at 2. Currently requiring 1 L nasal cannula O2 to maintain O2 sats in the low 90s-is not wearing oxygen at home. Hemoglobin 13.7, platelets 125, D-dimer elevated, 3.59 bilateral lower extremity Doppler reported nonocclusive DVT in the bilateral lower extremities, the common femoral to popliteal veins, age-indeterminate alex lar findings on prior left lower extremity venous ultrasound. Elevated creatinine 2.23 on admission currently 2.04, BUN 29, bicarb 24, potassium 5.5, magnesium 1.5. Review of Systems ROS Statement: Those systems with pertinent positive or pertinent negative responses have been documented in the HPI. ROS Other: All systems not noted in ROS Statement are negative. Past Medical History Past Medical History: COPD, Diabetes Mellitus, Deep Vein Thrombosis (DVT), Hyperlipidemia, Hypertension, Osteoarthritis (OA) Additional Past Medical History / Comment(s): aneurysm, DVT x 2, kidney stones History of Any Multi-Drug Resistant Organisms: None Reported Past Surgical History: Back Surgery Additional Past Surgical History / Comment(s): "lumbar spine surgery 5th disc", lithotripsy,AAA repair Past Anesthesia/Blood Transfusion Reactions: No Reported Reaction Past Psychological History: Depression Additional Psychological History / Comment(s): spouse passed 6 months ago Smoking Status: Former smoker Past Alcohol Use History: None Reported Additional Past Alcohol Use History / Comment(s): quit smoking > 25 yrs ago Past Drug Use History: None Reported - Past Family History Mother Family Medical History: No Reported History Medications and Allergies Home Medications Medication Instructions Recorded Confirmed Type Apixaban [Eliquis] 5 mg PO BID 07/17/21 08/10/24 History Finasteride [Proscar] 5 mg PO HS 07/17/21 08/09/24 History Metoprolol Succinate [Toprol XL] 25 mg PO DAILY 07/17/21 08/09/24 History Tamsulosin HCl [Flomax] 0.4 mg PO HS 07/17/21 08/09/24 History traZODone HCL [Desyrel] 200 mg PO HS 07/17/21 08/09/24 History Atorvastatin [Lipitor] 80 mg PO HS 11/13/21 08/09/24 History Fluticasone/Umeclidin/Vilanter 1 puff INHALATION RT-DAILY 06/04/23 08/09/24 History [Trelegy Ellipta 200-62.5-25] Ergocalciferol [Vitamin D2 (1250 1,250 mcg PO DEL ROSARIO cap 06/05/23 08/09/24 Rx Mcg = 42158 Iu)] Pantoprazole [Protonix] 40 mg PO AC-BRKFST #30 tab 06/05/23 08/09/24 Rx Gabapentin [Neurontin] 300 mg PO HS 08/09/24 08/09/24 History HYDROcodone/APAP 5-325MG [[place] 1 tab PO DAILY PRN 08/09/24 08/09/24 History 5-325] Insulin Glargine,Hum.rec.anlog 40 units SQ BID 08/09/24 08/09/24 History [Lantus Solostar Pen] Losartan Potassium 100 mg PO DAILY 08/09/24 08/09/24 History Mirtazapine 30 mg PO HS 08/09/24 08/09/24 History QUEtiapine [SEROquel] 50 - 100 mg PO HS 08/09/24 08/09/24 History amLODIPine [Norvasc] 10 mg PO DAILY 08/09/24 08/09/24 History cloNIDine HCL 0.1 mg PO HS 08/09/24 08/09/24 History metFORMIN HCL 500 mg PO BID 08/09/24 08/10/24 History Allergies Allergy/AdvReac Type Severity Reaction Status Date / Time No Known Allergies Allergy Verified 08/09/24 15:37 Physical Exam Vitals: Vital Signs Temp Pulse Pulse Resp BP BP BP 08/10/24 12:12 70 08/10/24 12:04 68 08/10/24 09:23 68 08/10/24 09:19 08/10/24 09:15 64 08/10/24 07:00 97.5 F L 54 L 16 127/72 08/10/24 03:06 97.5 F L 66 18 151/76 08/09/24 23:32 97.4 F L 65 17 159/66 08/09/24 23:03 55 L 15 134/68 08/09/24 21:11 63 16 134/68 08/09/24 19:29 97.9 F 73 16 134/68 08/09/24 15:33 97.5 F L 105 H 22 136/89 Pulse Ox 08/10/24 12:12 08/10/24 12:04 08/10/24 09:23 08/10/24 09:19 93 L 08/10/24 09:15 08/10/24 07:00 96 08/10/24 03:06 89 L 08/09/24 23:32 97 08/09/24 23:03 95 08/09/24 21:11 96 08/09/24 19:29 92 L 08/09/24 15:33 90 L Intake and Output 08/09/24 08/10/24 08/10/24 22:59 06:59 14:59 Output Total 1070 Balance -1070 Output: Post Void Residual 1070 Other: # Voids 1 1 Weight 95.708 kg 95.708 kg - Exam PHYSICAL EXAM: VITAL SIGNS: [As above] GENERAL: Alert and oriented x 3, sitting up in bed,NAD HEENT: Conjunctivae normal. eyes normal. MMM. NECK: Supple, No JVD. CARDIOVASCULAR: S1, S2 regular. No murmur RESPIRATION: Equal air entry, scattered rhonchi, Breath sounds diminished in the bases. ABDOMEN: Soft, nontender . No guarding. no masses palpable. +Bowel sounds. LEGS: No edema. no swelling NERVOUS SYSTEM: Cranial N 2-12 grossly normal.No focal deficits. Results CBC & Chem 7: 08/09/24 15:49 08/10/24 07:12 Labs: Abnormal Lab Results - Last 24 Hours (Table) 08/09/24 08/09/24 08/09/24 Range/Units 15:49 15:49 15:49 Plt Count 125 L (150-450) k/uL Neutrophils # 8.9 H (1.3-7.7) k/uL Lymphocytes # 0.6 L (1.0-4.8) k/uL D-Dimer 3.59 H (<0.60) mg/L FEU Sodium 136 L (137-145) mmol/L Potassium 5.5 H (3.5-5.1) mmol/L BUN 29 H (9-20) mg/dL Creatinine 2.23 H (0.66-1.25) mg/dL Glucose 342 H (74-99) mg/dL POC Glucose (mg/dL) (70-110) mg/dL Plasma Lactic Acid Lanre (0.7-2.0) mmol/L Calcium (8.4-10.2) mg/dL Magnesium 1.5 L (1.6-2.3) mg/dL 08/09/24 08/10/24 08/10/24 Range/Units 18:46 06:42 07:12 Plt Count (150-450) k/uL Neutrophils # (1.3-7.7) k/uL Lymphocytes # (1.0-4.8) k/uL D-Dimer (<0.60) mg/L FEU Sodium 136 L (137-145) mmol/L Potassium 5.2 H (3.5-5.1) mmol/L BUN 32 H (9-20) mg/dL Creatinine 2.04 H (0.66-1.25) mg/dL Glucose 154 H (74-99) mg/dL POC Glucose (mg/dL) 156 H (70-110) mg/dL Plasma Lactic Acid Lanre 2.3 H* (0.7-2.0) mmol/L Calcium 8.3 L (8.4-10.2) mg/dL Magnesium (1.6-2.3) mg/dL Thrombosis Risk Factor Assmnt - Choose All That Apply Any of the Below Risk Factors Present?: Yes Each Factor Represents 1 point: Abnormal pulmonary function (COPD), Obesity (BMI >25) Other Risk Factors: Yes Each Risk Factor Represents 3 Points: Age 75 years or older Other congenital or acquired thrombophilia - If yes, enter type in comment: No Thrombosis Risk Factor Assessment Total Risk Factor Score: 5 Thrombosis Risk Factor Assessment Level: High Risk Assessment and Plan Assessment: Acute hypoxic respiratory failure Elevated D-dimer in a patient with history of DVT anticoagulated on Eliquis, with acute renal failure. V/Q ordered Dehydration secondary to hyperglycemia, blood sugar 342 on admission Lactic acidosis resolved with IV fluid hydration Acute renal failure, secondary to decreased oral intake, dehydration, ARB-on hold and urinary retention Chronic kidney disease stage IIIa, recent creatinine 1.5 History of BPH COPD, recently treated for acute COPD exacerbation Hypertension Hyperlipidemia DM, uncontrolled, hyperglycemia, hemoglobin A1c ordered History of DVT, anticoagulated on ELiquis BPH Isomnia Osteoarthritis History of kidney stone Prior nicotine dependence Chronic back pain Obesity, BMI 30 Plan: Continue on current medication regimen ,monitoring and symptomatic treatment. Hold losartan secondary to renal function .VQ scan ordered. E valuated by nephrology with recommendations noted, bladder scan. Aggressive pulmonary toileting with nebulized bronchodilators, oral steroids, Symbicort and azithromycin. Levemir and NovoLog sliding scale, close monitoring of Accu-Cheks; hemoglobin A1c pending. increase ambulation as tolerated. Close monitoring of renal function, electrolytes with repeat labs ordered for a.m. The impression and plan of care has been dictated as directed. : I performed a history and examination of this patient, discussed the same with the dictator. I agree with the dictator's note ,documented as a scribe. Any additional findings or plans will be noted.
[2024-08-10] MEDS: INSULIN DETEMIR (LEVEMIR) 100 UNIT/ML SYR SQ SCH (14:41)
[2024-08-10 14:45] LABS: Glucose,Whole Blood 326 mg/dL (70-110)
--- NOTE | 2024-08-10 16:59 | NM ---
EXAMINATION TYPE: NM pul vent and perfuse DATE OF EXAM: 08/10/2024 CLINICAL INDICATION: Male, 84 years old with history of Shortness of breath, hypoxic, abnormal Doppl er; COMPARISON: 08/09/2024 TECHNIQUE: Utilizing inhalation of 39.6 mCi Tc 99m DTPA aerosol and intravenous injection of 5.31 mC i of Tc 99m MAA, ventilation and perfusion images are acquired post injection in multiple projections . FINDINGS: Normal radiotracer distribution is noted in the lungs. There is no evidence of mismatched defects. IMPRESSION: No evidence for pulmonary embolus [facility] Missy Durán, , 08/10/2024 4:56 PM
[2024-08-10 17:25] LABS: Glucose,Whole Blood 349 mg/dL (70-110)
[2024-08-10] MEDS: INSULIN ASPART (NovoLOG) 100 UNIT/ML VIAL SQ SCH (17:40)
[2024-08-10 20:24] LABS: Glucose,Whole Blood 372 mg/dL (70-110)
[2024-08-11 05:37] LABS: Glucose,Whole Blood 275 mg/dL (70-110)
[2024-08-11 08:54] LABS: BUN/Creat Ratio 18.84 Ratio (12.00-20.00); Blood Urea Nitrogen 35.8 mg/dL (9.0-27.0); Calcium 7.9 mg/dL (8.7-10.3); Carbon Dioxide 22.4 mmol/L (21.6-31.8); Chloride 106 mmol/L (96-109); Glucose 299 mg/dL (70-110); Magnesium 1.8 mg/dL (1.5-2.4); Potassium 5.5 mmol/L (3.5-5.5); Sodium 138 mmol/L (135-145)
--- NOTE | 2024-08-11 11:11 | P.PN ---
Subjective Patient is seen in follow-up for acute kidney injury on chronic kidney disease. Renal function better. Has Quintanilla catheter for urinary retention. Denies chest pain or shortness of breath. Vital signs are stable. General: No acute distress. HEENT: Head exam is unremarkable. LUNGS: No audible rhonchi or wheezes. HEART: Rate and Rhythm are regular. ABDOMEN: Nontender. EXTREMITITES: No edema. Objective - Vital Signs Vital signs: Vital Signs Temp 97.3 F L 08/11/24 07:00 Pulse 56 L 08/11/24 09:01 Resp 17 08/11/24 07:00 BP 131/69 08/11/24 07:00 Pulse Ox 97 08/11/24 08:56 FiO2 Intake & Output 08/10/24 08/11/24 08/11/24 18:59 06:59 18:59 Intake Total 118 118 Output Total 2060 1000 300 Balance -1942 -1000 -182 Intake: Oral 118 118 Output: Urine 990 1000 300 Post Void Residual 1070 Other: # Voids 1 1 - Labs CBC & Chem 7: 08/09/24 15:49 08/11/24 05:27 Labs: Abnormal Lab Results - Last 24 Hours (Table) 08/10/24 08/10/24 08/10/24 Range/Units 14:43 17:23 20:22 BUN (9.0-27.0) mg/dL Creatinine (0.6-1.5) mg/dL Est GFR (CKD-EPI) (>=60) Glucose (70-110) mg/dL POC Glucose (mg/dL) 326 H 349 H 372 H (70-110) mg/dL Hemoglobin A1c (<=6.0) % Calcium (8.7-10.3) mg/dL 08/11/24 08/11/24 08/11/24 Range/Units 05:27 05:27 05:31 BUN 35.8 H (9.0-27.0) mg/dL Creatinine 1.9 H (0.6-1.5) mg/dL Est GFR (CKD-EPI) 34 L (>=60) Glucose 299 H (70-110) mg/dL POC Glucose (mg/dL) 275 H (70-110) mg/dL Hemoglobin A1c 9.5 H (<=6.0) % Calcium 7.9 L (8.7-10.3) mg/dL Assessment and Plan Plan: Assessment: 1. Acute kidney injury secondary to ATN and urinary retention. Creatinine 2.23 on admission and is 1.9 today. 2. Chronic kidney disease stage IIIb with baseline creatinine near 1.5-1.6 secondary to nephrosclerosis. 3. Hyperkalemia secondary to urinary retention, hyperglycemia acute kidney injury and losartan. Stable. 4. Diabetes mellitus. 5. Hypomagnesemia, replaced. Improved. 6. Hypertension with chronic kidney disease. Controlled. 7. Urinary retention. No hydronephrosis noted on kidney ultrasound. On Flomax. Has Quintanilla catheter. Nonoliguric. Urology consulted. Plan: Maintain IV fluids. Blood glucose control. Continue to hold losartan. Avoid nephrotoxins. Continue to monitor renal function and urine output. Renal diet. Lokelma 10 g once today.
[2024-08-11] MEDS: SODIUM ZIRCONIUM CYCLOSILICATE 10 GM PACKET PO ONE (11:40)
[2024-08-11] MEDS: LACTULOSE 20 GM/30 ML CUP PO SCH (11:41)
[2024-08-11] MEDS: polyethylene glycoL 3350 17 GM POWD.PACK PO SCH (11:41)
[2024-08-11 11:58] LABS: Glucose,Whole Blood 216 mg/dL (70-110)
--- NOTE | 2024-08-11 12:22 | P.GSCN ---
History of Present Illness Consult date: 08/11/24 History of present illness: 84 yo male who was admitted to the hospital with sob. The patient was found to have arf/crf. Nephrology saw the patient and ordered a pvr. the pvr was 480 ml and a cath was placed We were asked to see the patient. the patient is known to Dr Thapa He is on both tamsulosin and finasteride. He saw Dr Thapa on 06/27/2024 and his prostate exam showed a 30 gm prostate. he has been voiding reasonably well until about 2 weeks ago. The stream started to slow down and he had more difficulty emptying his bladder. The catheter was placed when he came into the hospital. Review of Systems All systems: negative - Constitutional Denies fever, Denies weight loss - EENT Eyes: denies blurred vision Ears, nose, mouth and throat: Denies dysphagia - Cardiovascular Denies chest pain, Denies shortness of breath - Respiratory Denies cough, Denies 7 - Gastrointestinal Reports as per HPI - Genitourinary Denies dysuria, Denies hematuria - Integumentary Denies rash, Denies unusual bruising - Neurological Denies headaches, Denies syncope - Hematologic/Lymphatic Denies easy bleeding, Denies easy bruising Past Medical History Past Medical History: COPD, Diabetes Mellitus, Deep Vein Thrombosis (DVT), Hyperlipidemia, Hypertension, Osteoarthritis (OA) Additional Past Medical History / Comment(s): aneurysm, DVT x 2, kidney stones History of Any Multi-Drug Resistant Organisms: None Reported Past Surgical History: Back Surgery Additional Past Surgical History / Comment(s): "lumbar spine surgery 5th disc", lithotripsy,AAA repair Past Anesthesia/Blood Transfusion Reactions: No Reported Reaction Past Psychological History: Depression Additional Psychological History / Comment(s): spouse passed 6 months ago Smoking Status: Former smoker Past Alcohol Use History: None Reported Additional Past Alcohol Use History / Comment(s): quit smoking > 25 yrs ago Past Drug Use History: None Reported - Past Family History Mother Family Medical History: No Reported History Medications and Allergies Home Medications Medication Instructions Recorded Confirmed Type Apixaban [Eliquis] 5 mg PO BID 07/17/21 08/10/24 History Finasteride [Proscar] 5 mg PO HS 07/17/21 08/09/24 History Metoprolol Succinate [Toprol XL] 25 mg PO DAILY 07/17/21 08/09/24 History Tamsulosin HCl [Flomax] 0.4 mg PO HS 07/17/21 08/09/24 History traZODone HCL [Desyrel] 200 mg PO HS 07/17/21 08/09/24 History Atorvastatin [Lipitor] 80 mg PO HS 11/13/21 08/09/24 History Fluticasone/Umeclidin/Vilanter 1 puff INHALATION RT-DAILY 06/04/23 08/09/24 History [Trelegy Ellipta 200-62.5-25] Ergocalciferol [Vitamin D2 (1250 1,250 mcg PO DEL ROSARIO cap 06/05/23 08/09/24 Rx Mcg = 72043 Iu)] Pantoprazole [Protonix] 40 mg PO AC-BRKFST #30 tab 06/05/23 08/09/24 Rx Gabapentin [Neurontin] 300 mg PO HS 08/09/24 08/09/24 History HYDROcodone/APAP 5-325MG [[place] 1 tab PO DAILY PRN 08/09/24 08/09/24 History 5-325] Insulin Glargine,Hum.rec.anlog 40 units SQ BID 08/09/24 08/09/24 History [Lantus Solostar Pen] Losartan Potassium 100 mg PO DAILY 08/09/24 08/09/24 History Mirtazapine 30 mg PO HS 08/09/24 08/09/24 History QUEtiapine [SEROquel] 50 - 100 mg PO HS 08/09/24 08/09/24 History amLODIPine [Norvasc] 10 mg PO DAILY 08/09/24 08/09/24 History cloNIDine HCL 0.1 mg PO HS 08/09/24 08/09/24 History metFORMIN HCL 500 mg PO BID 08/09/24 08/10/24 History Allergies Allergy/AdvReac Type Severity Reaction Status Date / Time No Known Allergies Allergy Verified 08/09/24 15:37 Surgical - Exam Vital Signs Temp Pulse Resp BP Pulse Ox 97.5 F L 105 H 22 136/89 90 L 08/09/24 15:33 08/09/24 15:33 08/09/24 15:33 08/09/24 15:33 08/09/24 15:33 - General well developed, well nourished, no distress - Eyes normal ocular movement, no icteric - ENT no hearing loss, no congestion - Neck no masses, trachea midline - Respiratory normal respiratory effort, clear to auscultation - Abdomen Abdomen: soft, non tender, no guarding, no rigid, no rebound - Integumentary no rash, no abnormal pigmentation - Neurologic no disoriented, no combative - Psychiatric oriented to time, oriented to person, oriented to place, speech is normal, memory intact Results - Labs 08/09/24 15:49 08/11/24 05:27 Abnormal Lab Results - Last 24 Hours (Table) 08/10/24 08/10/24 08/10/24 Range/Units 14:43 17:23 20:22 BUN (9.0-27.0) mg/dL Creatinine (0.6-1.5) mg/dL Est GFR (CKD-EPI) (>=60) Glucose (70-110) mg/dL POC Glucose (mg/dL) 326 H 349 H 372 H (70-110) mg/dL Hemoglobin A1c (<=6.0) % Calcium (8.7-10.3) mg/dL 08/11/24 08/11/24 08/11/24 Range/Units 05:27 05:27 05:31 BUN 35.8 H (9.0-27.0) mg/dL Creatinine 1.9 H (0.6-1.5) mg/dL Est GFR (CKD-EPI) 34 L (>=60) Glucose 299 H (70-110) mg/dL POC Glucose (mg/dL) 275 H (70-110) mg/dL Hemoglobin A1c 9.5 H (<=6.0) % Calcium 7.9 L (8.7-10.3) mg/dL Diabetes panel 08/11/24 08/11/24 Range/Units 05:27 05:27 Sodium 138 (135-145) mmol/L Potassium 5.5 (3.5-5.5) mmol/L Chloride 106 (96-109) mmol/L Carbon Dioxide 22.4 (21.6-31.8) mmol/L BUN 35.8 H (9.0-27.0) mg/dL Creatinine 1.9 H (0.6-1.5) mg/dL Glucose 299 H (70-110) mg/dL Hemoglobin A1c 9.5 H (<=6.0) % Calcium 7.9 L (8.7-10.3) mg/dL Calcium panel 08/11/24 Range/Units 05:27 Calcium 7.9 L (8.7-10.3) mg/dL Pituitary panel 08/11/24 Range/Units 05:27 Sodium 138 (135-145) mmol/L Potassium 5.5 (3.5-5.5) mmol/L Chloride 106 (96-109) mmol/L Carbon Dioxide 22.4 (21.6-31.8) mmol/L BUN 35.8 H (9.0-27.0) mg/dL Creatinine 1.9 H (0.6-1.5) mg/dL Glucose 299 H (70-110) mg/dL Calcium 7.9 L (8.7-10.3) mg/dL Adrenal panel 08/11/24 Range/Units 05:27 Sodium 138 (135-145) mmol/L Potassium 5.5 (3.5-5.5) mmol/L Chloride 106 (96-109) mmol/L Carbon Dioxide 22.4 (21.6-31.8) mmol/L BUN 35.8 H (9.0-27.0) mg/dL Creatinine 1.9 H (0.6-1.5) mg/dL Glucose 299 H (70-110) mg/dL Calcium 7.9 L (8.7-10.3) mg/dL Assessment and Plan Assessment: Impression: urine retention secondary to bph and respiratory difficulties. arf/crf aggravated by the retention. BPH with obstruction Plan: I would leave the catheter in until he is ready to go home and then remove it 24 hours for a voiding trial
[2024-08-11 17:12] LABS: Glucose,Whole Blood 421 mg/dL (70-110)
[2024-08-11 20:26] LABS: Glucose,Whole Blood 448 mg/dL (70-110)
[2024-08-11] MEDS: INSULIN ASPART (NovoLOG) 100 UNIT/ML VIAL SQ ONE (21:12)
[2024-08-11] MEDS: INSULIN DETEMIR (LEVEMIR) 100 UNIT/ML SYR SQ SCH (21:12)
[2024-08-12 05:40] LABS: Glucose,Whole Blood 219 mg/dL (70-110)
[2024-08-12 07:11] VITALS: RESP 17
[2024-08-12 09:14] LABS: BUN/Creat Ratio 18.26 Ratio (12.00-20.00); Blood Urea Nitrogen 34.7 mg/dL (9.0-27.0); Carbon Dioxide 23.1 mmol/L (21.6-31.8); Chloride 106 mmol/L (96-109); Glucose 240 mg/dL (70-110); Magnesium 1.7 mg/dL (1.5-2.4); Potassium 4.9 mmol/L (3.5-5.5); Sodium 138 mmol/L (135-145)
[2024-08-12 12:10] LABS: Glucose,Whole Blood 210 mg/dL (70-110)
--- NOTE | 2024-08-12 12:32 | P.PN ---
Subjective Patient is seen in follow-up for acute kidney injury on chronic kidney disease. Renal function stable. Quintanilla catheter removed this morning. Has not voided on his own yet. Vital signs are stable. General: No acute distress. HEENT: Head exam is unremarkable. LUNGS: No audible rhonchi or wheezes. HEART: Rate and Rhythm are regular. ABDOMEN: Nontender. EXTREMITITES: No edema. Objective - Vital Signs Vital signs: Vital Signs Temp 97.5 F L 08/12/24 07:00 Pulse 72 08/12/24 12:23 Resp 17 08/12/24 07:00 BP 143/71 08/12/24 07:00 Pulse Ox 92 L 08/12/24 07:00 FiO2 Intake & Output 08/11/24 08/12/24 08/12/24 18:59 06:59 18:59 Intake Total 286 Output Total 300 1800 300 Balance -14 -1800 -300 Intake: Oral 286 Output: Urine 300 1800 300 Other: Voiding Method Indwelling Catheter Urinal - Labs CBC & Chem 7: 08/09/24 15:49 08/12/24 04:50 Labs: Abnormal Lab Results - Last 24 Hours (Table) 08/11/24 08/11/24 08/12/24 Range/Units 17:11 20:25 04:50 BUN 34.7 H (9.0-27.0) mg/dL Creatinine 1.9 H (0.6-1.5) mg/dL Est GFR (CKD-EPI) 34 L (>=60) Glucose 240 H (70-110) mg/dL POC Glucose (mg/dL) 421 H 448 H (70-110) mg/dL Calcium 8.0 L (8.7-10.3) mg/dL 08/12/24 08/12/24 Range/Units 05:37 12:08 BUN (9.0-27.0) mg/dL Creatinine (0.6-1.5) mg/dL Est GFR (CKD-EPI) (>=60) Glucose (70-110) mg/dL POC Glucose (mg/dL) 219 H 210 H (70-110) mg/dL Calcium (8.7-10.3) mg/dL Assessment and Plan Plan: Assessment: 1. Acute kidney injury secondary to ATN and urinary retention. Creatinine 2.23 on admission and is stable at 1.9 today. 2. Chronic kidney disease stage IIIb with baseline creatinine near 1.5-1.6 secondary to nephrosclerosis. 3. Hyperkalemia secondary to urinary retention, hyperglycemia acute kidney injury and losartan. Improved. 4. Diabetes mellitus. 5. Hypomagnesemia, replaced. Improved. 6. Hypertension with chronic kidney disease. Stable. 7. Urinary retention. No hydronephrosis noted on kidney ultrasound. On Flomax. Quintanilla catheter removed. Urology following. Plan: Maintain gentle IV fluids. Blood glucose control. Continue to hold losartan. Avoid nephrotoxins. Continue to monitor renal function and urine output. Renal diet. Continue to monitor bladder scans closely. Follow-up outpatient 1 week postdischarge.
[2024-08-12 14:41] VITALS: BP 143/68; TEMP 97.7
--- NOTE | 2024-08-12 15:31 | P.PN ---
Subjective Progress Note Date: 08/11/24 H&P Date: 08/10/24 Chief Complaint: Dyspnea, shortness of breath This is an 84-year-old gentleman with past medical history significant for diabetes, DVT on Eliquis, hypertension, hyperlipidemia, BPH, chronic kidney disease-baseline around 1.5, creatinine osteoarthritis, kidney stones, former nicotine dependence and multiple other medical issues presented to the ER with complaints of increased shortness of breath accompanied by weakness and shakiness as of yesterday. reports his O2 sats at home were 80 to 81%. On admission O2 sat 90% on room air. denies chills or sweats. Reports he does not drink water he drinks 0-calorie pop. Denies sore throat, congestion. Reports "chronic COPD cough". Chest x-ray no acute cardiopulmonary disease/process, s uggestive of underlying COPD. Denies chest pain, palpitations, EKG reported sinus rhythm, troponin negative x 1. Afebrile, normal WBC, lactic acid 2.3 on admission, resolved with IV fluid hydration ,currently at 2. Currently requiring 1 L nasal cannula O2 to maintain O2 sats in the low 90s-is not wearing oxygen at home. Hemoglobin 13.7, platelets 125, D-dimer elevated, 3.59 bilateral lower extremity Doppler reported nonocclusive DVT in the bilateral lower extremities, the common femoral to popliteal veins, age-indeterminate similar findings on prior left lower extremity venous ultrasound. Elevated creatinine 2.23 on admission currently 2.04, BUN 29, bicarb 24, potassium 5.5, magnesium 1.5. 08/11/2024 reports breathing easier, maintaining O2 sats on room air of 94%. Using flutter valve. Required Quintanilla catheter for urinary retention. renal function improving. Blood sugars elevated, improving. Complains of constipation. Objective - Vital Signs Vital signs: Vital Signs Temp 97.6 F 08/11/24 14:19 Pulse 67 08/11/24 16:27 Resp 17 08/11/24 14:19 BP 135/58 08/11/24 14:19 Pulse Ox 92 L 08/11/24 14:19 FiO2 Intake & Output 08/10/24 08/11/24 08/11/24 18:59 06:59 18:59 Intake Total 118 286 Output Total 2059 1000 300 Balance -1942 -1000 -14 Intake: Oral 118 286 Output: Urine 990 1000 300 Post Void Residual 1070 Other: # Voids 1 1 - Exam - Exam PHYSICAL EXAM: VITAL SIGNS: [As above] GENERAL: Alert and oriented x 3, sitting up in bed,NAD HEENT: Conjunctivae normal. eyes normal. MMM. NECK: Supple, No JVD. CARDIOVASCULAR: S1, S2 regular. No murmur RESPIRATION: Unlabored, equal air entry, essentially clear to auscultation, breath sounds diminished in the bases. ABDOMEN: Soft, nontender . No guarding. no masses palpable. +Bowel sounds. LEGS: No edema. no swelling NERVOUS SYSTEM: Cranial N 2-12 grossly normal.No focal deficits. - Labs CBC & Chem 7: 08/09/24 15:49 08/12/24 04:50 Labs: Abnormal Lab Results - Last 24 Hours (Table) 08/10/24 08/10/24 08/11/24 Range/Units 17:23 20:22 05:27 BUN (9.0-27.0) mg/dL Creatinine (0.6-1.5) mg/dL Est GFR (CKD-EPI) (>=60) Glucose (70-110) mg/dL POC Glucose (mg/dL) 349 H 372 H (70-110) mg/dL Hemoglobin A1c 9.5 H (<=6.0) % Calcium (8.7-10.3) mg/dL 08/11/24 08/11/24 08/11/24 Range/Units 05:27 05:31 11:57 BUN 35.8 H (9.0-27.0) mg/dL Creatinine 1.9 H (0.6-1.5) mg/dL Est GFR (CKD-EPI) 34 L (>=60) Glucose 299 H (70-110) mg/dL POC Glucose (mg/dL) 275 H 216 H (70-110) mg/dL Hemoglobin A1c (<=6.0) % Calcium 7.9 L (8.7-10.3) mg/dL Assessment and Plan Assessment: Acute hypoxic respiratory failure Elevated D-dimer in a patient with history of DVT anticoagulated on Eliquis, with acute renal failure. V/Q reported negative for PE. Denies missing any Eliquis doses ,suspect related to dehydration secondary to hyperglycemia. Dehydration secondary to hyperglycemia, blood sugar 342 on admission Lactic acidosis resolved with IV fluid hydration Acute renal failure, secondary to decreased oral intake, dehydration, ARB-on hold and urinary retention Chronic kidney disease stage IIIa, recent creatinine 1.5 History of BPH COPD, recently treated for acute COPD exacerbation Hypertension Hyperlipidemia DM, uncontrolled, hyperglycemia, hemoglobin A1c 9.5, further diabetic education and recommendations outpatient in clinic with PCP. History of DVT, anticoagulated on ELiquis BPH Isomnia Osteoarthritis History of kidney stone Prior nicotine dependence Chronic back pain Obesity, BMI 30 Plan: Continue on current medication regimen ,monitoring and symptomatic treatment. Urology consult in place .aggressive pulmonary toileting with flutter valve ,nebulized bronchodilators, oral steroids, Symbicort and azithromycin. Increased Levemir , close monitoring of Accu-Cheks. increase ambulation as tolerated. Close monitoring of renal function, electrolytes with repeat labs ordered for a.m. The impression and plan of care has been dictated as directed. : I performed a history and examination of this patient, discussed the same with the dictator. I agree with the dictator's note ,documented as a scribe. Any additional findings or plans will be noted.
[2024-08-12 15:46] VITALS: PULSE 70
--- NOTE | 2024-08-12 15:53 | P.DS ---
Providers Date of admission: 08/09/24 20:11 Expected date of discharge: 08/12/24 Attending physician: Roverto Perera MD Consults: 08/09/24 20:16 Consult Physician Routine Consulting Provider: Khurram Johnson Consult Reason/Comments: Acute kidney injury Do you want consulting provider notified?: Yes 08/11/24 09:13 Consult Physician Routine Consulting Provider: Kleber Valero Consult Reason/Comments: retention Do you want consulting provider notified?: Yes Primary care physician: Roverto Perera MD Hospital Course: Final Diagnosis: Acute hypoxic respiratory failure Elevated D-dimer in a patient with history of DVT anticoagulated on Eliquis, with acute renal failure. V/Q reported negative for PE. Denies missing any Eliquis doses ,suspect related to dehydration secondary to hyperglycemia. Dehydration secondary to hyperglycemia, blood sugar 342 on admission Lactic acidosis resolved with IV fluid hydration Acute renal failure, secondary to decreased oral intake, dehydration, ARB-on hold and urinary retention, requiring Quintanilla catheter Chronic kidney disease stage IIIa, recent creatinine 1.5 History of BPH COPD, recently treated for acute COPD exacerbation Hypertension Hyperlipidemia DM, uncontrolled, hyperglycemia, hemoglobin A1c 9.5, further diabetic education and recommendations outpatient in clinic with PCP. History of DVT, anticoagulated on ELiquis BPH Isomnia Osteoarthritis History of kidney stone Prior nicotine dependence Chronic back pain Obesity, BMI 30 Hospital course:This is an 84-year-old gentleman with past medical history significant for diabetes, DVT on Eliquis, hypertension, hyperlipidemia, BPH, chronic kidney disease-baseline around 1.5, creatinine osteoarthritis, kidney stones, former nicotine dependence and multiple other medical issues presented to the ER with complaints of increased shortness of breath accompanied by weakness and shakiness as of yesterday. reports his O2 sats at home were 80 to 81%. On admission O2 sat 90% on room air. denies chills or sweats. Reports he does not drink water he drinks 0-calorie pop. Denies sore throat, congestion. Reports "chronic COPD cough". Chest x-ray no acute cardiopulmonary disea se/process, suggestive of underlying COPD. Denies chest pain, palpitations, EKG reported sinus rhythm, troponin negative x 1. Afebrile, normal WBC, lactic acid 2.3 on admission, resolved with IV fluid hydration ,currently at 2. Currently requiring 1 L nasal cannula O2 to maintain O2 sats in the low 90s-is not wearing oxygen at home. Hemoglobin 13.7, platelets 125, D-dimer elevated, 3.59 bilate ral lower extremity Doppler reported nonocclusive DVT in the bilateral lower extremities, the common femoral to popliteal veins, age-indeterminate similar findings on prior left lower extremity venous ultrasound. Elevated creatinine 2.23 on admission currently 2.04, BUN 29, bicarb 24, potassium 5.5, magnesium 1.5. 08/11/2024 reports breathing easier, maintaining O2 sats on room air of 94%. Using flutter valve. Required Quintanilla catheter for urinary retention. renal function improving. Blood sugars elevated, improving. Complains of constipation. 08/12/2024 cleared by nephrology for discharge. Evaluated by urology with recommendations noted. Patient attempted voiding trial with Quintanilla catheter removed but required Quintanilla catheter to be reinserted. Renal function stable. Losartan remains on hold .patient will be discharged home today in a stable condition with guarded prognosis. The impression and plan of care has been dictated as directed. : I performed a history and examination of this patient, discussed the same with the dictator. I agree with the dictator's note ,documented as a scribe. Any additional findings or plans will be noted. Patient Condition at Discharge: Stable Plan - Discharge Summary Discharge Rx Participant: No New Discharge Prescriptions: New polyethylene glycoL 3350 [Miralax] 17 gm PO DAILY packet Continue Apixaban [Eliquis] 5 mg PO BID Tamsulosin HCl [Flomax] 0.4 mg PO HS Finasteride [Proscar] 5 mg PO HS Atorvastatin [Lipitor] 80 mg PO HS Fluticasone/Umeclidin/Vilanter [Trelegy Ellipta 200-62.5-25] 1 puff INHALATION RT-DAILY Ergocalciferol [Vitamin D2 (1250 Mcg = 37948 Iu)] 1,250 mcg PO DEL ROSARIO cap amLODIPine [Norvasc] 10 mg PO DAILY Insulin Glargine,Hum.rec.anlog [Lantus Solostar Pen] 40 units SQ BID QUEtiapine [SEROquel] 50 - 100 mg PO HS metFORMIN HCL 500 mg PO BID traZODone HCL [Desyrel] 200 mg PO HS Metoprolol Succinate [Toprol XL] 25 mg PO DAILY Pantoprazole [Protonix] 40 mg PO AC-BRKFST #30 tab cloNIDine HCL 0.1 mg PO HS Gabapentin [Neurontin] 300 mg PO HS HYDROcodone/APAP 5-325MG [[place] 5-325] 1 tab PO DAILY PRN PRN Reason: Pain Mirtazapine 30 mg PO HS Discontinued Losartan Potassium 100 mg PO DAILY Discharge Medication List Apixaban [Eliquis] 5 mg PO BID 07/17/21 [History] Finasteride [Proscar] 5 mg PO HS 07/17/21 [History] Metoprolol Succinate [Toprol XL] 25 mg PO DAILY 07/17/21 [History] Tamsulosin HCl [Flomax] 0.4 mg PO HS 07/17/21 [History] traZODone HCL [Desyrel] 200 mg PO HS 07/17/21 [History] Atorvastatin [Lipitor] 80 mg PO HS 11/13/21 [History] Fluticasone/Umeclidin/Vilanter [Trelegy Ellipta 200-62.5-25] 1 puff INHALATION RT-DAILY 06/04/23 [History] Ergocalciferol [Vitamin D2 (1250 Mcg = 37933 Iu)] 1,250 mcg PO DEL ROSARIO cap 06/05/23 [Rx] Pantoprazole [Protonix] 40 mg PO AC-BRKFST #30 tab 06/05/23 [Rx] Gabapentin [Neurontin] 300 mg PO HS 08/09/24 [History] HYDROcodone/APAP 5-325MG [[place] 5-325] 1 tab PO DAILY PRN 08/09/24 [History] Insulin Glargine,Hum.rec.anlog [Lantus Solostar Pen] 40 units SQ BID 08/09/24 [History] Mirtazapine 30 mg PO HS 08/09/24 [History] QUEtiapine [SEROquel] 50 - 100 mg PO HS 08/09/24 [History] amLODIPine [Norvasc] 10 mg PO DAILY 08/09/24 [History] cloNIDine HCL 0.1 mg PO HS 08/09/24 [History] metFORMIN HCL 500 mg PO BID 08/09/24 [History] polyethylene glycoL 3350 [Miralax] 17 gm PO DAILY packet 08/12/24 [Rx] Follow up Appointment(s)/Referral(s): Roverto Perera MD [Primary Care Provider] - 1 Week Tony Thapa MD [STAFF PHYSICIAN] - 10 Days Khurram Johnson DO [STAFF PHYSICIAN] - 1 Week Ambulatory/Diagnostic Orders: Basic Metabolic Panel [LAB.AMB] Time Frame: 3 Days, Location: None Selected Patient Instructions/Handouts: Acute Kidney Injury (DC), Urinary Retention in Men (ED), Quintanilla Catheter Placement and Care (DC), COPD (Chronic Obstructive Pulmonary Disease) (DC)
[2024-08-12] MEDS ORDERED: INSULIN DETEMIR (LEVEMIR) 100 UNIT/ML SYR SQ SCH (21:00)
[2024-08-14] MEDS ORDERED: ERGOCALCIFEROL 1,250 MCG (50,000 IU) CAPSULE PO SCH (09:00)
== END 2024-08-12 16:11 | disposition home health service (06) | DRG 682 ==
LOC: EC 15:32 → 6NMEDSUR 20:10 → OBSVTOIN 20:11 → 6NMEDSUR 21:49
PROVIDERS: ADMIT Family Medicine; ATTEND Family Medicine
DX: N17.0 Acute kidney failure with tubular necrosis (principal); J96.01 Acute respiratory failure with hypoxia; E87.20 Acidosis, unspecified; E11.65 Type 2 diabetes mellitus with hyperglycemia; N18.32 Chronic kidney disease, stage 3b; Z86.718 Personal history of other venous thrombosis and embolism; E86.0 Dehydration; R33.8 Other retention of urine; N40.1 Benign prostatic hyperplasia with lower urinary tract symptoms; J44.9 Chronic obstructive pulmonary disease, unspecified; I12.9 Hypertensive chronic kidney disease with stage 1 through stage 4 chronic kidney disease, or unspecified chronic kidney disease; E78.5 Hyperlipidemia, unspecified; E11.22 Type 2 diabetes mellitus with diabetic chronic kidney disease; E87.5 Hyperkalemia; E83.42 Hypomagnesemia; M19.90 Unspecified osteoarthritis, unspecified site; G89.29 Other chronic pain; M54.9 Dorsalgia, unspecified; E66.9 Obesity, unspecified; G47.00 Insomnia, unspecified; Z87.891 Personal history of nicotine dependence; Z79.01 Long term (current) use of anticoagulants; Z79.899 Other long term (current) drug therapy; Z68.30 Body mass index [BMI] 30.0-30.9, adult; Z79.84 Long term (current) use of oral hypoglycemic drugs; Z87.442 Personal history of urinary calculi
CPT/HCPCS: 36415; 71046; 76770; 78582; 80048; 80053; 83036; 83605; 83735; 83880; 84484; 85025; 85379; 85610; 85730; 93005; 93970; 94640; 94667; 94760; 96360; 96361; 99285

== ENCOUNTER 2024-11-04 22:59 | Emergency (ER) | payer MEDICARE ==
[2024-11-04 23:06] LABS: Glucose,Whole Blood 121 mg/dL (70-110)
[2024-11-04 23:26] LABS: Glucose,Whole Blood 139 mg/dL (70-110)
[2024-11-04 23:43] LABS: Basophils % (A) 1 %; Eosinophils # (A) 0.3 k/uL (0-0.7); Eosinophils % (A) 4 %; HCT 43.6 % (39.0-53.0); HGB 13.6 gm/dL (13.0-17.5); Lymphocytes # (A) 1.6 k/uL (1.0-4.8); Lymphocytes % (A) 24 %; MCH 28.6 pg (25.0-35.0); MCHC 31.1 g/dL (31.0-37.0); MCV 91.9 fL (80.0-100.0); Monocytes # (A) 0.3 k/uL (0-1.0); Monocytes % (A) 5 %; Neutrophils # (A) 4.4 k/uL (1.3-7.7); Neutrophils % (A) 65 %; Platelet Count 160 k/uL (150-450); RBC 4.74 m/uL (4.30-5.90); RDW 15.9 % (11.5-15.5); WBC 6.8 k/uL (3.8-10.6)
[2024-11-04 23:49] VITALS: RESP 18
--- NOTE | 2024-11-04 23:53 | ED ---
Recheck HPI - General Chief Complaint: Recheck/Abnormal Lab/Rx Stated Complaint: low sugar Time Seen by Provider: 11/04/24 23:21 Source: patient, RN notes reviewed Mode of arrival: wheelchair Limitations: no limitations - History of Present Illness Initial Comments: This is an 84-year-old male who presents to the emergency department for hypoglycemia. States that he was sitting at home and received a reading from his glucometer that his sugar was 50. He immediately took glucose gel and came here for evaluation. States that he was asymptomatic when this occurred. He is currently on 20 units of Lantus twice daily and once weekly Mounjaro. He gave himself the Lantus at 6:30 PM. Denies missing any meals. Denies any abdominal pain, chest pain, or shortness of breath and states that he currently feels fine. He has the glucose sensor on his right arm that gets replaced every 20 days. States that it is scheduled to be replaced tomorrow. - Related Data Home Medications Medication Instructions Recorded Confirmed Apixaban [Eliquis] 5 mg PO BID 07/17/21 08/10/24 Finasteride [Proscar] 5 mg PO HS 07/17/21 08/09/24 Metoprolol Succinate [Toprol XL] 25 mg PO DAILY 07/17/21 08/09/24 Tamsulosin HCl [Flomax] 0.4 mg PO HS 07/17/21 08/09/24 traZODone HCL [Desyrel] 200 mg PO HS 07/17/21 08/09/24 Atorvastatin [Lipitor] 80 mg PO HS 11/13/21 08/09/24 Fluticasone/Umeclidin/Vilanter 1 puff INHALATION RT-DAILY 06/04/23 08/09/24 [Trelegy Ellipta 200-62.5-25] Gabapentin [Neurontin] 300 mg PO HS 08/09/24 08/09/24 HYDROcodone/APAP 5-325MG [[place] 1 tab PO DAILY PRN 08/09/24 08/09/24 5-325] Insulin Glargine,Hum.rec.anlog 40 units SQ BID 08/09/24 08/09/24 [Lantus Solostar Pen] Mirtazapine 30 mg PO HS 08/09/24 08/09/24 QUEtiapine [SEROquel] 50 - 100 mg PO HS 08/09/24 08/09/24 amLODIPine [Norvasc] 10 mg PO DAILY 08/09/24 08/09/24 cloNIDine HCL 0.1 mg PO HS 08/09/24 08/09/24 metFORMIN HCL 500 mg PO BID 08/09/24 08/10/24 Previous Rx's Medication Instructions Recorded Ergocalciferol [Vitamin D2 (1250 1,250 mcg PO DEL ROSARIO cap 06/05/23 Mcg = 53513 Iu)] Pantoprazole [Protonix] 40 mg PO AC-BRKFST #30 tab 06/05/23 polyethylene glycoL 3350 [Miralax] 17 gm PO DAILY packet 08/12/24 Allergies Allergy/AdvReac Type Severity Reaction Status Date / Time No Known Allergies Allergy Verified 11/04/24 23:04 Review of Systems ROS Statement: Those systems with pertinent positive or pertinent negative responses have been documented in the HPI. ROS Other: All systems not noted in ROS Statement are negative. Past Medical History Past Medical History: COPD, Diabetes Mellitus, Deep Vein Thrombosis (DVT), Hyperlipidemia, Hypertension, Osteoarthritis (OA) Additional Past Medical History / Comment(s): aneurysm, DVT x 2, kidney stones History of Any Multi-Drug Resistant Organisms: None Reported Past Surgical History: Back Surgery Additional Past Surgical History / Comment(s): "lumbar spine surgery", lithotripsy,AAA repair Past Anesthesia/Blood Transfusion Reactions: No Reported Reaction Past Psychological History: Depression Smoking Status: Former smoker Past Alcohol Use History: None Reported Past Drug Use History: None Reported - Past Family History Mother Family Medical History: No Reported History General Exam Limitations: no limitations General appearance: alert, in no apparent distress Head exam: Present: atraumatic, normocephalic, normal inspection Respiratory exam: Present: normal lung sounds bilaterally. Absent: respiratory distress, wheezes, rales, rhonchi, stridor Cardiovascular Exam: Present: regular rate, normal rhythm Neurological exam: Present: alert, oriented X3, CN II-XII intact Psychiatric exam: Present: normal affect, normal mood Skin exam: Present: warm, dry, intact, normal color. Absent: rash Course Vital Signs 11/04/24 11/05/24 23:01 01:25 Temperature 98.8 F 98.7 F Pulse Rate 93 74 Respiratory 18 18 Rate Blood Pressure 180/88 158/79 O2 Sat by Pulse 94 L 100 Oximetry Medical Decision Making - Medical Decision Making This is an 84 year old male who presents to the emergency department for hypoglycemia. Was pt. sent in by a medical professional or institution? @ -No Did you speak to anyone other than the patient for history? @ -No Did you review nursing and triage notes? @ -Yes, and I agree, it is accurate with regards to the patient's symptoms. Were old charts reviewed? @ -No Differential Diagnosis? @ -Medication error, illness, dietary intake, this is not meant to be an all- inclusive list. EKG interpreted by me (3pts min.)? @ -Not obtained X-rays interpreted by me (1pt min.)? @ -Not obtained CT interpreted by me (1pt min.)? @ -Not obtained U/S interpreted by me (1pt. min.)? @ -Not obtained What testing was considered but not performed? (CT, X-rays, U/S, labs)? Why? @ -None What meds were considered but not given? Why? @ -None Did you discuss the management of the patient with other professionals? @ -No Did you reconcile home meds? @ -No Was smoking cessation discussed for >3mins.? @ -No Was critical care preformed (if so, how long)? @ -No Were there social determinants of health that impacted care today? How? (Homelessness, low income, unemployed, alcoholism, drug addiction, transportation, low edu. Level, literacy, decrease access to med. care, retirement, rehab)? @ -No Was there de-escalation of care discussed even if they declined? (Discuss DNR or withdrawal of care, Hospice)? @ -No What co-morbidities impacted this encounter? (DM, HTN, Smoking, COPD, CAD, Cancer, CVA, Hep., AIDS, mental health diagnosis, sleep apnea, morbid obesity)? @ -DM Was patient admitted / discharged? @ -Discharged. Lab work demonstrates decreased renal function which is stable when compared with prior. He was monitored in the emergency department for 2 hours and blood sugar here was ranging from 113-143. Patient remained asympt omatic when his sugar was 50 at home and throughout his visit here. Patient used his glucose monitor to recheck his sugar while he was here and his was reading 83 while ours was reading 143. This suggests that his monitor may not be accurate. It also raises the possibility that the reading of 50 he was given may not have been accurate. He is scheduled to replace this in the next 13 hours. Advised he switch it out as soon as he gets home in the event this is an error with his sensor. He does not have a traditional glucometer at home he can use in the meantime. Advised that if he continues to get low readings despite changing the sensor, he needs to return to the emergency department. Also advised he try to follow-up with his PCP in the next couple of days. Patient discharged home in stable condition. Case discussed with ED attending Dr. Alanis. Return precautions reviewed in depth, the patient is instructed to return to the emergency department with any new, worsening, or concerning symptoms. Patient verbalized understanding. Undiagnosed new problem with uncertain prognosis? @ -None Drug Therapy requiring intensive monitoring for toxicity (Heparin, Nitro, Insulin, Cardizem)? @ -None Were any procedures done? @ -None Diagnosis/symptom? @ -Hypoglycemia Acute, or Chronic, or Acute on Chronic? @ -Acute Uncomplicated (without systemic symptoms) or Complicated (systemic symptoms)? @ -Uncomplicated Side effects of treatment? @ -None Exacerbation, Progression, or Severe Exacerbation] @ -Not applicable Poses a threat to life or bodily function? @ -No - Lab Data Result diagrams: 11/04/24 23:27 11/04/24 23:27 Lab Results 11/04/24 11/04/24 11/04/24 Range/Units 23:04 23:24 23:27 WBC 6.8 (3.8-10.6) k/uL RBC 4.74 (4.30-5.90) m/uL Hgb 13.6 (13.0-17.5) gm/dL Hct 43.6 (39.0-53.0) % MCV 91.9 (80.0-100.0) fL MCH 28.6 (25.0-35.0) pg MCHC 31.1 (31.0-37.0) g/dL RDW 15.9 H (11.5-15.5) % Plt Count 160 (150-450) k/uL MPV 9.0 Neutrophils % 65 % Lymphocytes % 24 % Monocytes % 5 % Eosinophils % 4 % Basophils % 1 % Neutrophils # 4.4 (1.3-7.7) k/uL Lymphocytes # 1.6 (1.0-4.8) k/uL Monocytes # 0.3 (0-1.0) k/uL Eosinophils # 0.3 (0-0.7) k/uL Basophils # 0.0 (0-0.2) k/uL Sodium (137-145) mmol/L Potassium (3.5-5.1) mmol/L Chloride (98-107) mmol/L Carbon Dioxide (22-30) mmol/L Anion Gap mmol/L BUN (9-20) mg/dL Creatinine (0.66-1.25) mg/dL Est GFR (CKD-EPI)AfAm (>60 ml/min/1.73 sqM) Est GFR (CKD-EPI)NonAf (>60 ml/min/1.73 sqM) Glucose (74-99) mg/dL POC Glucose (mg/dL) 121 H 139 H (70-110) mg/dL POC Glu Senior Living Advisor ID Mikki Hylton Calcium (8.4-10.2) mg/dL Phosphorus (2.5-4.5) mg/dL Magnesium (1.6-2.3) mg/dL Total Bilirubin (0.2-1.3) mg/dL AST (17-59) U/L ALT (4-49) U/L Alkaline Phosphatase (38-126) U/L Total Protein (6.3-8.2) g/dL Albumin (3.5-5.0) g/dL 11/04/24 11/05/24 11/05/24 Range/Units 23:27 00:32 01:05 WBC (3.8-10.6) k/uL RBC (4.30-5.90) m/uL Hgb (13.0-17.5) gm/dL Hct (39.0-53.0) % MCV (80.0-100.0) fL MCH (25.0-35.0) pg MCHC (31.0-37.0) g/dL RDW (11.5-15.5) % Plt Count (150-450) k/uL MPV Neutrophils % % Lymphocytes % % Monocytes % % Eosinophils % % Basophils % % Neutrophils # (1.3-7.7) k/uL Lymphocytes # (1.0-4.8) k/uL Monocytes # (0-1.0) k/uL Eosinophils # (0-0.7) k/uL Basophils # (0-0.2) k/uL Sodium 138 (137-145) mmol/L Potassium 4.5 (3.5-5.1) mmol/L Chloride 107 (98-107) mmol/L Carbon Dioxide 20 L (22-30) mmol/L Anion Gap 11 mmol/L BUN 37 H (9-20) mg/dL Creatinine 1.76 H (0.66-1.25) mg/dL Est GFR (CKD-EPI)AfAm 40 (>60 ml/min/1.73 sqM) Est GFR (CKD-EPI)NonAf 35 (>60 ml/min/1.73 sqM) Glucose 140 H (74-99) mg/dL POC Glucose (mg/dL) 143 H 113 H (70-110) mg/dL POC Glu Senior Living Advisor ID Jean-Claude Portia Jean-Claude Portia Calcium 8.8 (8.4-10.2) mg/dL Phosphorus 3.7 (2.5-4.5) mg/dL Magnesium 1.8 (1.6-2.3) mg/dL Total Bilirubin 0.8 (0.2-1.3) mg/dL AST 32 (17-59) U/L ALT 30 (4-49) U/L Alkaline Phosphatase 66 (38-126) U/L Total Protein 6.5 (6.3-8.2) g/dL Albumin 3.6 (3.5-5.0) g/dL Disposition Clinical Impression: Hypoglycemia Disposition: HOME SELF-CARE Instructions (If sedation given, give patient instructions): Hypoglycemia in a Person with Diabetes (ED) Additional Instructions: Return to the emergency department with any new, worsening, or concerning symptoms. Follow up with your primary care provider in 1-2 days. Is patient prescribed a controlled substance at d/c from ED?: No Referrals: Gini Perera DO [Primary Care Provider] - 1-2 days Time of Disposition: 00:56
[2024-11-04 23:54] LABS: ALT 30 U/L (4-49); African American GFR (CKD) 40 (>60 ml/min/1.73 sqM); Albumin 3.6 g/dL (3.5-5.0); Anion Gap 11 mmol/L; Blood Urea Nitrogen 37 mg/dL (9-20); Calcium 8.8 mg/dL (8.4-10.2); Carbon Dioxide 20 mmol/L (22-30); Chloride 107 mmol/L (98-107); Glucose 140 mg/dL (74-99); Non-African American GFR(CKD) 35 (>60 ml/min/1.73 sqM); Sodium 138 mmol/L (137-145); Total Bilirubin 0.8 mg/dL (0.2-1.3); Total Protein 6.5 g/dL (6.3-8.2)
[2024-11-05 00:05] LABS: AST 32 U/L (17-59); Alkaline Phosphatase 66 U/L (38-126); Magnesium 1.8 mg/dL (1.6-2.3); Phosphorus 3.7 mg/dL (2.5-4.5); Potassium 4.5 mmol/L (3.5-5.1)
[2024-11-05 00:35] LABS: Glucose,Whole Blood 143 mg/dL (70-110)
[2024-11-05 01:11] LABS: Glucose,Whole Blood 113 mg/dL (70-110)
[2024-11-05 01:26] VITALS: BP 158/79; PULSE 74; TEMP 98.7
== END 2024-11-05 01:26 | disposition home or self-care (01) ==
LOC: EC 22:59
DX: E11.649 Type 2 diabetes mellitus with hypoglycemia without coma (principal); Z87.891 Personal history of nicotine dependence; Z79.85 Long-term (current) use of injectable non-insulin antidiabetic drugs; Z79.4 Long term (current) use of insulin; Z79.84 Long term (current) use of oral hypoglycemic drugs
CPT/HCPCS: 36415; 80053; 83735; 84100; 85025; 99284

== ENCOUNTER → 2024-11-30 | Outpatient (CLI) | payer MEDICARE ==
--- NOTE | 2024-11-30 13:49 | US ---
EXAMINATION TYPE: US kidneys/renal and bladder DATE OF EXAM: 11/30/2024 COMPARISON: US August 10, 2024. CLINICAL INDICATION: Male, 84 years old with history of N18.32 CHRONIC KIDNEY DISEASE, STAGE 3B; CKD TECHNIQUE: Grayscale imaging of the bilateral kidneys and urinary bladder: FINDINGS: EXAM MEASUREMENTS: Right Kidney: 12.4 x 5.4 x 5.0 cm Left Kidney: 12.0 x 5.2 x 4.6 cm Right Kidney: Multiple cysts scattered throughout with largest at mid= 7.3 x 4.0 x 5.3 cm similar in appearance when compared to prior Left Kidney: Cortical thinning, no evidence of hydro, "Sweat sign" at lower pole Bladder: 1.2 cm stone at dependent portion of bladder as visualized on prior Bilateral Jets seen: No There is no evidence for hydronephrosis at this point in time. No nephrolithiasis is seen. Cortical thinning with multiple thin-walled cysts bilaterally redemonstrated. The urinary bladder is anechoic . IMPRESSION: Evidence of chronic medical renal disease bilaterally redemonstrated. No hydronephrosis s een bilaterally. No significant change from most recent prior ultrasound. [facility], , 11/30/2024 1:47 PM
== END | disposition home or self-care (01) ==
LOC: RADUSWWP 12:54
PROVIDERS: ATTEND Internal Medicine Nephrology
DX: N18.32 Chronic kidney disease, stage 3b (principal); N28.89 Other specified disorders of kidney and ureter
CPT/HCPCS: 76770

== ENCOUNTER → 2024-12-23 | Outpatient (CLI) | payer MEDICARE ==
--- NOTE | 2024-12-23 15:47 | MR ---
EXAMINATION TYPE: MR lumbar spine wo/w con DATE OF EXAM: 12/23/2024 COMPARISON: NONE HISTORY: low back pain. Spondylolisthesis. TECHNIQUE: Multiplanar, multisequence images of the lumbar spine is performed without and with IV contrast, util izing 9 mL intravenous Gadobutrol FINDINGS: Sagittal images of the lumbar spine show vertebral body heights to appear satisfactory. The re is grade 1 anterolisthesis L4 on L5. There is multilevel disc desiccation with relative sparing of L3-L4 and L4-L5 levels. There is multilevel disc space narrowing with relative sparing of L1-L2 and L2-L3 levels. Moderate disc space narrowing at L3-L4 and L5-S1 levels is seen. The conus medullaris is normal in position and signal ending inferior L1 level. The bone marrow signal intensity is withi n normal limits. No suspicious postcontrast enhancement is present. Axial images show T12-L1 level to appear within normal limits. Axial images at L1-L2 level shows mild broad-based disc bulge without spinal canal is preserved. Ther e is mild facet arthropathy bilaterally. Axial images at L2-L3 level show mild to moderate broad disc bulge minimally effacing the anterior th ecal sac and mild to moderate facet arthropathy and ligamentum flavum hypertrophy slightly effacing t he bilateral posterior lateral thecal sac. Bilateral neural foramina are patent. Axial images at L3-L4 level show mild/moderate broad-based posterior disc protrusion and moderate fac et arthropathy and ligamentum flavum hypertrophy. There is effacement anterior thecal sac and right g reater than left bilateral lateral thecal sac. There is mild to moderate right greater than left bila teral anterior inferior neural foraminal narrowing. Axial images at the L4-L5 level show moderate to advanced bilateral facet arthropathy and ligamentum flavum hypertrophy. There is mild broad disc bulge. There is effacement of the bilateral posterior la teral thecal sac. There is moderate bilateral neural foraminal narrowing seen. Axial images at the L5-S1 level show moderate broad disc bulge with lobulated right paracentral compo nent minimally effacing anterior thecal sac and moderate facet arthropathy bilaterally. Right-sided l aminectomy defect at this level is seen. There is owth-ju-qnykoqyi facet arthropathy bilaterally. Spi nal canal is preserved. There is mild to moderate bilateral neural foraminal narrowing. 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 [facility], , 12/23/2024 3:45 PM
== END | disposition home or self-care (01) ==
LOC: RADMRIMAIN 13:59
PROVIDERS: ATTEND Physical Medicine & Rehabilitation
DX: M43.16 Spondylolisthesis, lumbar region (principal); M47.816 Spondylosis without myelopathy or radiculopathy, lumbar region; M51.26 Other intervertebral disc displacement, lumbar region
CPT/HCPCS: 72158; A9585